=== PATIENT | male | born 1945 | race Caucasian/White ===

== ENCOUNTER 2020-01-28 07:16 | Outpatient (REF) | payer MEDICARE, SELFPAY ==
--- NOTE | 2020-01-28 07:30 | MR_ITS ---
EXAMINATION: CERVICAL SPINE MRI CLINICAL INFORMATION: Weakness and right hand numbness. Status post C3 C6 laminectomy. COMPARISON: Cervical spine radiographs 09/17/2019. TECHNIQUE: Multiplanar MR imaging of the cervical spine was performed without contrast. FINDINGS: There are chronic postoperative changes of a multilevel laminectomy and spinal fusion with a posterior hardware construct extending from C3 to C6. Slight anterolisthesis of C6 on C7 and C7 on T1 related to facet degenerative changes at these 2 levels. Slight retrolisthesis of C3 on C4 and C4 on C5 is also noted. Vertebral heights are preserved. No acute bone marrow signal changes. There is however fatty bone marrow signal intensity within the skull base and C1 through to C3 vertebra suggesting chronic post treatment effects related to radiation therapy. There is mild disc degeneration at multiple levels. There are short segments of chronic myelomalacia involving the cervical cord at the level of C4-C5 and C5-C6. Equivocal loss of cord volume at C3-C4 is also noted. Cord signal intensity is otherwise unremarkable. There is no canal compromise and no active cord compression. The cervicomedullary junction is normal. Limited visualization of the intracranial compartment reveals no abnormal finding. The occipital condyles and lateral C1 masses are intact. Atlantodental joint is normal. C1-C2 articular facets are unremarkable. At C2-C3 the annular contour is normal. No canal stenosis. No neuroforaminal encroachment. At C3-C4 the canal is decompressed. No neuroforaminal encroachment. At C4-C5 the canal is decompressed. Uncovertebral joint spurring and facet degenerative change causes moderate left and mild right residual neuroforaminal encroachment. At C5-C6 the canal is decompressed. Uncovertebral joint spurring and facet degenerative change causes moderate right and mild left residual neuroforaminal encroachment. At C6-C7 there is a pseudodisc bulge. Bilateral facet degenerative change. No canal stenosis. Uncovertebral joint spurring and facet degenerative change causes mild bilateral neuroforaminal encroachment. at C7-T1 there is a pseudodisc bulge. Bilateral facet degenerative change. No canal stenosis. No neuroforaminal encroachment. Visualized soft tissues of the neck are normal. IMPRESSION: There are chronic postoperative changes of a multilevel laminectomy and spinal fusion with a posterior hardware construct extending from C3 C6. There is no canal compromise and no active cord compression. Short segments of chronic myelomalacia involving the cervical cord at the level of C4-C5 and C5-C6 and there is equivocal loss of cord volume at C3-C4. Uncovertebral joint spurring and facet degenerative change causes mild bilateral neuroforaminal encroachment at C6-C7. Otherwise no substantial neuroforaminal encroachment within the unfused levels elsewhere within the cervical spine.
== END 2020-01-28 07:17 | disposition home or self-care (01) ==
LOC: HO.MRI 07:16
PROVIDERS: Visit Provider Family Medicine
DX: R53.1 Weakness (principal); R20.0 Anesthesia of skin; Z98.1 Arthrodesis status
CPT/HCPCS: 72141

== ENCOUNTER 2020-06-24 08:09 | Outpatient (REF) | payer MEDICARE, SELFPAY ==
[2020-06-24 09:51] LABS: Alanine Aminotransferase 24 U/L (0-40); Aspartate Amino Transferase 27 U/L (5-37); Cholesterol 138 mg/dL; Glucose Fasting 93 mg/dL (60-99); HDL Cholesterol 42 mg/dL; LDL Cholesterol Calculated 78 mg/dl; Triglycerides 91 mg/dL
== END 2020-06-24 08:10 | disposition home or self-care (01) ==
LOC: HO.10HDL 08:09
PROVIDERS: Absent Provider Internal Medicine Cardiovascular Disease; Visit Provider Family Medicine
DX: E78.00 Pure hypercholesterolemia, unspecified (principal); Z79.899 Other long term (current) drug therapy; Z83.3 Family history of diabetes mellitus
CPT/HCPCS: 36415; 80061; 82550; 82947; 84450; 84460

== ENCOUNTER → 2020-07-20 08:40 | Outpatient (BNVA) | payer MEDICARE, SELFPAY | PROVIDERS: PCP Internal Medicine; Visit Provider Internal Medicine Cardiovascular Disease | DX: I49.3 Ventricular premature depolarization (principal); R78.5 Finding of other psychotropic drug in blood; Z95.3 Presence of xenogenic heart valve; Z79.899 Other long term (current) drug therapy | CPT/HCPCS: 93005; 99212 ==

== ENCOUNTER → 2020-08-08 14:38 | Outpatient (BNVA) | payer MEDICARE, SELFPAY | PROVIDERS: Visit Provider Orthopaedic Surgery | DX: M75.102 Unspecified rotator cuff tear or rupture of left shoulder, not specified as traumatic (principal) | CPT/HCPCS: 20610; 99202; J1100 ==

== ENCOUNTER 2020-08-19 08:13 | Outpatient (REF) | payer MEDICARE, SELFPAY ==
--- NOTE | ~2020-08-19 | FL_ITS ---
EXAMINATION: XR FLUOROSCOPY UPPER GI WITH AIR CLINICAL INFORMATION: Dysphagia, early satiety. Patient reports history of dysmotility as well as difficulty swallowing large pills. Patient also reports recent history of surgery with new symptoms, potentially related to intubation. COMPARISON: Cervical spine MRI dated 01/28/[address] abdomen and pelvis dated 01/14/2018 TECHNIQUE: A double contrast examination of the esophagus, stomach, and duodenum was performed. Oral barium contrast material and effervescent granules were self-administered. Fluoroscopic evaluation was performed and multiple spot images were obtained. A 12.7 mm barium tablet was also administered. FLUOROSCOPY TIME: 2 minutes DOSE AREA PRODUCT: 15.27 Gy-cm2 (rico-centimeter squared) FINDINGS: Pharynx and cervical esophagus: Fusion hardware is present in the cervical spine from C3 through C6. Osteophytes do not produce significant mass effect upon the cervical esophagus. There is normal motility in the cervical spine without diverticula. A focal transient outpouching is present around the cricopharyngeus muscle at the proximal esophagus, most consistent with hypertrophy of the cricopharyngeus muscle. There is premature closure of the cricopharyngeus muscle prior to complete passage of the swallowed contrast bolus into the cervical esophagus. There is pooling of a small amount of contrast material in the valleculae or piriform sinuses. No masses are identified. Thoracic esophagus: There is diminished thoracic motility and swallowing with incomplete primary and secondary peristaltic contractions. Significant contrast material remained within the level of the cervical esophagus with swallows in the prone position with significantly diminished propulsion of the bolus into the stomach. A few nonpropulsive tertiary contractions were noted. There was no evidence of esophageal mass, ulceration, or stricture. No hiatal hernia was noted. A small amount of gastroesophageal reflux into the distal esophagus was evident with Valsalva maneuvers and spontaneously following movement on the table. Barium pill was noted to pass through the esophagus and into the lumen of the stomach without delay. Stomach and duodenum: Barium flows easily through a normal appearing stomach, duodenal bulb, and sweep without evidence of ulcer or inflammation. FL/FL upper GI w air IMPRESSION: 1. Diminished motility in the thoracic esophagus, suggesting a degree of dysmotility. No obstruction or stricture. 2. Slightly premature contraction of a thickened cricopharyngeus muscle with swallowing, suggesting a component of mild cervical achalasia (cricopharyngeal bar). No diverticula or stricture. 3. Trace gastroesophageal reflux.
== END 2020-08-19 08:14 | disposition home or self-care (01) ==
LOC: HO.XRAY 08:13
PROVIDERS: Visit Provider Internal Medicine
DX: R13.14 Dysphagia, pharyngoesophageal phase (principal); R68.81 Early satiety
CPT/HCPCS: 74246

== ENCOUNTER → 2020-10-13 08:06 | Outpatient (REF) | payer MEDICARE, SELFPAY ==
--- NOTE | 2020-10-13 08:08 | CA_ITS ---
Transthoracic Echocardiogram Patient (Last, First, Middle): Bakari Betancur S Gender: Male Date of : 1945 Age: 75 Procedure Date: 10/13/2020 Procedure Type: Transthoracic Echocardiogram Location: OP Height: 170.18 cm Weight: 65.77 kg BSA: 1.76 m2 Heart Rate: bpm BP: 110 / 65 mmHg [employer] Operator: ARABELLA Referring MD: Franklin Fuchs MD Symptoms: Z95.3 - Presence of xenogenic heart valve Study Quality: Technically Difficult ECG Rhythm: Sinus Conclusions: - The left ventricular systolic function is normal. The visually estimated ejection fraction is between 55-60%. - A bioprosthetic mitral valve is present. The prosthetic mitral valve appears to be functioning normally. Findings Left Ventricle Normal left ventricular cavity size. There is normal left ventricular wall thickness. The left ventricular systolic function is normal. The visually estimated ejection fraction is between 55-60%. The calculated ejection fraction is 58% by biplane method. Diastolic function is indeterminate on the basis of available data. Right Ventricle Normal right ventricular cavity size and systolic function. Atria Both atria are normal in size. Aortic Valve The aortic valve was not well visualized. There is no aortic valve stenosis. There is trace (trivial) aortic valve regurgitation. Mitral Valve A bioprosthetic mitral valve is present. The prosthetic mitral valve appears to be functioning normally. There is no mitral valve regurgitation. Mean gradient across the mitral valve 3mmHg at 62/min. Pulmonic Valve The pulmonic valve was not well visualized. Tricuspid Valve Normal tricuspid valve structure. There is trace tricuspid valve regurgitation. Tricuspid regurgitation envelope is inadequate for calculation of right ventricular systolic pressure. Great Vessels The aortic annulus, sinuses of valsalva, asc aorta, and aortic arch are normal in size. Venous The inferior vena cava is normal in size and collapses greater than 50% with inspiration. Pericardium/Pleural There is no evidence of pericardial effusion. Prior Study Comparison No significant change compared to prior study dated: 11/24/2019. Measurements M-Mode Liner Measurements Normals - Women/Men AOV Cusps: 1.60 1.5-2.6 cm/m2 2D Linear Measurements IVSd: 0.78 0.6-0.9/0.6-1.0 cm LVIDd: 3.18 3.9-5.3/4.2-5.9 cm LVIDd Index: 1.81 2.4-3.2/2.2-3.1 cm/m2 LVIDs: 2.15 2.0-3.6 cm LVPWd: 0.80 0.7-1.1 cm Ao Root: 3.00 2.1-3.5 cm LA Diam: 3.30 2.7-3.8/3.0-4.0 cm LAIDs Index: 1.88 1.5-2.3 cm/m2 LV Mass: 78.65 67-162/88-224 g LV Mass Index: 44.69 43-95/49-115 g/m2 LVOT Diam: 1.90 3.0+(-)1.3 cm 2D Systolic Function EF 4C: 55.70 >55% EF 2C: 61.60 >55% EF BiP: 58.20 >55% Mitral Valve MV Pk E: 1.33 MV PK A: 1.51 MV Decel Time: 327.00 E/A: 0.90 E'Lateral: 7.83 E'Medial: 5.77 E/E' Med: 23.10 E/E' Lat: 17.00 PHT: 96.00 MVA PHT: 2.29 Decel [place]: 4.08 Aortic Valve AoV Pk Keyon: 1.79 AoV Mn [place]: 1.38 AoV VTI: 0.42 AoV Pk Grad: 13.00 Aov Mn Grad: 8.00 DARSHANA Cont.VTI: 1.69 LVOT LVOT Pk [place]: 1.00 LVOT Mn [place]: 0.74 LVOT VTI: 0.25 LVOT Pk Grad: 4.00 LVOT Mn Grad: 2.00 LVOT Diam: 1.90 LVOT Area: 2.84 Diastolic Function MV Pk E: 1.33 MV Pk A: 1.51 E/A: 0.90 E'Medial: 5.77 E/E' Med: 23.10 E' Laterial: 7.83 E/E' Lat: 17.00 Tricuspid Valve RA Press: 3.00 Great Vessels Aorta Ao Root-2D: 3.00 2.0-3.7 cm Ao Asc: 3.00 2.1-3.4 cm Ao Arch: 2.10 Pulmonary Valve PV Pk Keyon: 0.81 Peak PV Grad: 3.00 Updated in Other Vendor System with Status of Final Ihsan Greenwood MD electronically signed on 10/14/2020 3:59:22 PM with status of Final
== END ==
LOC: HO.CARD 08:06
PROVIDERS: Visit Provider Internal Medicine Cardiovascular Disease
DX: Z95.3 Presence of xenogenic heart valve (principal)
CPT/HCPCS: 93306

== ENCOUNTER → 2020-11-22 08:30 | Outpatient (BNVA) | payer MEDICARE, SELFPAY | PROVIDERS: Referring Provider Internal Medicine; Visit Provider Internal Medicine Cardiovascular Disease | DX: I25.10 Atherosclerotic heart disease of native coronary artery without angina pectoris (principal); I49.3 Ventricular premature depolarization; Z95.3 Presence of xenogenic heart valve | CPT/HCPCS: 99212 ==

== ENCOUNTER 2020-11-29 08:46 | Outpatient (REF) | payer MEDICARE, SELFPAY ==
[2020-11-29 10:36] LABS: Alanine Aminotransferase 18 U/L (0-40); Aspartate Amino Transferase 27 U/L (5-37); Cholesterol 127 mg/dL; Glucose Fasting 94 mg/dL (60-99); HDL Cholesterol 45 mg/dL; LDL Cholesterol Calculated 70 mg/dl; Triglycerides 60 mg/dL
== END 2020-11-29 08:47 | disposition home or self-care (01) ==
LOC: HO.LAB 08:46
PROVIDERS: PCP Internal Medicine; Visit Provider Family Medicine
DX: E78.00 Pure hypercholesterolemia, unspecified (principal); Z79.899 Other long term (current) drug therapy; Z83.3 Family history of diabetes mellitus
CPT/HCPCS: 36415; 80061; 82550; 82947; 84450; 84460

== ENCOUNTER 2021-04-07 08:04 | Outpatient (REF) | payer MEDICARE, SELFPAY ==
[2021-04-07 08:49] LABS: Influenza A PCR NEGATIVE (Negative); Influenza B PCR NEGATIVE (Negative); Resp Syncy Virus RNA Qual PCR NEGATIVE (Negative); SARS COV2 PCR INHOUSE NEGATIVE (Negative)
== END 2021-04-07 08:05 | disposition home or self-care (01) ==
LOC: HO.LAB 08:04
PROVIDERS: Visit Provider Internal Medicine
DX: Z20.822 Contact with and (suspected) exposure to COVID-19 (principal)
CPT/HCPCS: 0241U; 36415; C9803

== ENCOUNTER 2021-07-07 08:18 | Outpatient (REF) | payer MEDICARE, SELFPAY ==
[2021-07-07 08:48] LABS: COVID-19 Test Negative (Negative); IDNOW Serial# 16C4AD1C
== END 2021-07-07 08:19 | disposition home or self-care (01) ==
LOC: HO.LAB 08:18
PROVIDERS: Visit Provider Internal Medicine
DX: Z20.822 Contact with and (suspected) exposure to COVID-19 (principal)
CPT/HCPCS: 87635; C9803

== ENCOUNTER 2021-08-15 09:38 | Outpatient (REF) | payer MEDICARE, SELFPAY ==
[2021-08-15 10:07] LABS: COVID-19 Test Negative (Negative); IDNOW Serial# 08D9AD1C
== END 2021-08-15 09:39 | disposition home or self-care (01) ==
LOC: HO.LAB 09:38
PROVIDERS: Visit Provider Internal Medicine
DX: Z20.822 Contact with and (suspected) exposure to COVID-19 (principal)
CPT/HCPCS: 87635; C9803

== ENCOUNTER 2021-09-04 08:55 | Outpatient (REF) | payer MEDICARE, SELFPAY ==
[2021-09-04 09:28] LABS: COVID-19 Test Negative (Negative); IDNOW Serial# 16C4AD1C
== END 2021-09-04 08:56 | disposition home or self-care (01) ==
LOC: HO.LAB 08:55
PROVIDERS: Visit Provider Internal Medicine
DX: Z20.822 Contact with and (suspected) exposure to COVID-19 (principal)
CPT/HCPCS: 87635; C9803

== ENCOUNTER → 2021-11-13 08:21 | Outpatient (REF) | payer MEDICARE, SELFPAY ==
--- NOTE | 2021-11-13 08:25 | CA_ITS ---
Transthoracic Echocardiogram Patient (Last, First, Middle): Bakari Betancur S Gender: Male Date of : 1945 Age: 76 Procedure Date: 11/13/2021 Procedure Type: Transthoracic Echocardiogram Location: OP Height: 170.18 cm Weight: 65.77 kg BSA: 1.76 m2 Heart Rate: bpm BP: 124 / 60 mmHg Life Insurance Underwriter: Referring MD: Franklin Fuchs MD Waiter/Waitress Club: Franklin Fuchs MD Symptoms: Z95.3 - Presence of xenogenic heart valve Study Quality: Fair ECG Rhythm: Sinus Conclusions: - 1. Normal LV systolic function with impaired relaxation filling pattern next 2. Normally function bioprosthetic mitral valve 3. Trivial aortic regurgitation 4. Normal RV systolic pressure 5. No gross pericardial effusion Findings Left Ventricle Normal left ventricular size, thickness, and systolic function. The visually estimated ejection fraction is between 65-70%. Spectral Doppler is indicative of an impaired relaxation filling pattern. Right Ventricle Normal right ventricular cavity size and systolic function. Atria The left atrium is normal in size. There is lipomatous hypertrophy of the interatrial septum. There is no evidence of interatrial shunt. The right atrium is normal in size. Aortic Valve The aortic valve was not well visualized. There is no aortic valve stenosis. There is trace (trivial) aortic valve regurgitation. Mitral Valve A bioprosthetic mitral valve is present. The prosthetic mitral valve appears to be functioning normally. Pulmonic Valve The pulmonic valve was not well visualized. Tricuspid Valve Likely normal tricuspid valve structure and function. There is trace tricuspid valve regurgitation. The right ventricular systolic pressure is normal. The right ventricular systolic pressure is 19 mmHg. There is no evidence of pulmonary hypertension. Great Vessels All visible segments of the aorta are normal in size. The pulmonary artery was not well visualized. Venous The inferior vena cava is normal in size and collapses greater than 50% with inspiration. Pericardium/Pleural There is no evidence of pericardial effusion. Prior Study Comparison No significant change compared to prior study dated: 10/13/2020. Measurements 2D Linear Measurements IVSd: 0.92 0.6-0.9/0.6-1.0 cm LVIDd: 3.19 3.9-5.3/4.2-5.9 cm LVIDd Index: 1.81 2.4-3.2/2.2-3.1 cm/m2 LVIDs: 1.89 2.0-3.6 cm LVPWd: 0.92 0.7-1.1 cm Ao Root: 2.30 2.1-3.5 cm LA Diam: 3.40 2.7-3.8/3.0-4.0 cm LAIDs Index: 1.93 1.5-2.3 cm/m2 LV Mass: 98.44 67-162/88-224 g LV Mass Index: 55.93 43-95/49-115 g/m2 LVOT Diam: 2.00 3.0+(-)1.3 cm 2D Systolic Function EF 4C: 75.30 >55% EF 2C: 66.50 >55% EF BiP: 70.90 >55% Mitral Valve MV VTI: 0.51 MV Pk Keyon: 1.58 MV Mn Keyon: 0.93 MV Pk Grad: 10.00 MV Mn Grad: 4.00 MV Pk E: 1.18 MV PK A: 1.41 MV Decel Time: 331.00 E/A: 0.80 E'Lateral: 7.62 E'Medial: 4.90 E/E' Med: 24.10 E/E' Lat: 15.50 PHT: 97.00 MVA PHT: 2.27 MVA Continuity: 2.30 Decel [place]: 3.57 Aortic Valve AoV Pk Keyon: 1.75 AoV Mn [place]: 1.16 AoV VTI: 0.43 AoV Pk Grad: 12.00 Aov Mn Grad: 6.00 DARSHANA Cont.VTI: 2.73 LVOT LVOT Pk [place]on: 1.43 LVOT Mn [place]: 1.10 LVOT VTI: 0.37 LVOT Pk Grad: 8.00 LVOT Mn Grad: 5.00 LVOT Diam: 2.00 LVOT Area: 3.14 Diastolic Function MV Pk E: 1.18 MV Pk A: 1.41 E/A: 0.80 E'Medial: 4.90 E/E' Med: 24.10 E' Laterial: 7.62 E/E' Lat: 15.50 Tricuspid Valve TR Pk Keyon: 1.97 TR Pk Grad: 16.00 RA Press: 3.00 RVSP: 19.00 Great Vessels Aorta Ao Root-2D: 2.30 2.0-3.7 cm Ao Asc: 3.30 2.1-3.4 cm Pulmonary Valve PV Pk Keyon: 0.72 Peak PV Grad: 2.00 Updated in Other Vendor System with Status of Final Franklin Fuchs MD electronically signed on 11/13/2021 11:00:15 AM with status of Final
== END ==
LOC: HO.CARD 08:21
PROVIDERS: Visit Provider Internal Medicine Cardiovascular Disease
DX: Z95.3 Presence of xenogenic heart valve (principal)
CPT/HCPCS: 93306

== ENCOUNTER 2021-11-24 08:14 | Outpatient (REF) | payer MEDICARE, SELFPAY ==
[2021-11-24 08:39] LABS: COVID-19 Test Negative (Negative); IDNOW Serial# 16C4AD1C
== END 2021-11-24 08:15 | disposition home or self-care (01) ==
LOC: HO.LAB 08:14
PROVIDERS: Visit Provider Internal Medicine
DX: Z20.822 Contact with and (suspected) exposure to COVID-19 (principal)
CPT/HCPCS: 87635; C9803

== ENCOUNTER 2021-12-08 08:03 | Outpatient (REF) | payer MEDICARE, SELFPAY ==
[2021-12-08 08:39] LABS: COVID-19 Test Negative (Negative)
== END 2021-12-08 08:04 | disposition home or self-care (01) ==
LOC: HO.LAB 08:03
PROVIDERS: Visit Provider Internal Medicine
DX: Z20.822 Contact with and (suspected) exposure to COVID-19 (principal)
CPT/HCPCS: 87635; C9803

== ENCOUNTER 2022-01-05 08:20 | Outpatient (REF) | payer MEDICARE, SELFPAY ==
[2022-01-05 08:52] LABS: COVID-19 Test Negative (Negative); IDNOW Serial# 16C4AD1C
== END 2022-01-05 08:21 | disposition home or self-care (01) ==
LOC: HO.LAB 08:20
PROVIDERS: Visit Provider Internal Medicine
DX: Z20.822 Contact with and (suspected) exposure to COVID-19 (principal)
CPT/HCPCS: 87635; C9803

== ENCOUNTER 2022-01-11 08:19 | Outpatient (REF) | payer MEDICARE, SELFPAY ==
[2022-01-11 08:49] LABS: COVID-19 Test Negative (Negative)
== END 2022-01-11 08:20 | disposition home or self-care (01) ==
LOC: HO.LAB 08:19
PROVIDERS: Visit Provider Internal Medicine
DX: Z20.822 Contact with and (suspected) exposure to COVID-19 (principal)
CPT/HCPCS: 87635; C9803

== ENCOUNTER 2022-01-12 08:34 | Outpatient (REF) | payer MEDICARE, SELFPAY ==
[2022-01-12 10:47] LABS: MANUAL DIFF FLAG NO
[2022-01-12 11:04] LABS: Basophils Absolute Auto 0.1 X10*3/uL (0.0-0.2); Basophils Percent Auto 0.8 % (0-2); Eosinophils Absolute Auto 0.1 X10*3/uL (0.0-0.4); Eosinophils Percent Auto 2.3 % (0-4); Hematocrit 44.9 % (42.0-52.0); Hemoglobin 14.7 g/dl (14.0-18.0); Imm Gran Abs Auto 0.02 X10*3/uL (0.00-0.03); Imm Gran Pct Auto 0.3 % (0.0-0.4); Lymphocytes Absolute Auto 1.3 X10*3/uL (1.2-4.9); Lymphocytes Percent Auto 20.8 % (20-40); Mean Corpuscular HGB Conc 32.7 g/dl (31.0-36.0); Mean Corpuscular Hemoglobin 28.5 pg (27.0-33.0); Mean Platelet Volume 11.5 fL (9.4-12.4); Monocytes Absolute Auto 0.6 X10*3/uL (0.1-1.2); Monocytes Percent Auto 10.1 % (2-11); Neutrophils Percent Auto 65.7 % (45-73); Platelet Count 192 X10*3/uL (160-400); Red Blood Count 5.16 X10*6/uL (4.60-5.80); Red Cell Distribution Width 13.4 % (11.0-16.0); White Blood Count 6.1 X10*3/uL (4.8-10.8)
[2022-01-12 11:20] LABS: Alanine Aminotransferase 27 U/L (0-40); Albumin Level 4.3 g/dL (3.5-5.0); Alkaline Phosphatase 88 U/L (39-117); Anion Gap 14 (12-20); Aspartate Amino Transferase 26 U/L (5-37); Bilirubin Total 0.2 mg/dL (0.0-1.0); Blood Urea Nitrogen 17 mg/dL (9-16); Calcium 9.3 mg/dL (8.4-10.2); Carbon Dioxide 29 mmol/L (22-29); Chloride 99 mmol/L (96-108); Estimated Glomerular Filt Rate > 60; Glucose Fasting 91 mg/dL (60-99); Potassium 5.1 mmol/L (3.3-5.1); Sodium 137 mmol/L (135-145); Total Protein 6.8 g/dL (6.5-8.0)
[2022-01-12 11:44] LABS: Erythrocyte Sedimentation Rate 2 MM/HR (0-15)
== END 2022-01-12 08:35 | disposition home or self-care (01) ==
LOC: HO.10HDL 08:34
PROVIDERS: Visit Provider Family Medicine
DX: R63.4 Abnormal weight loss (principal); E78.00 Pure hypercholesterolemia, unspecified; Z79.899 Other long term (current) drug therapy
CPT/HCPCS: 36415; 80053; 82378; 82550; 85025; 85652

== ENCOUNTER 2022-02-15 07:55 | Outpatient (REF) | payer MEDICARE, SELFPAY ==
[2022-02-15 08:51] LABS: COVID-19 Test Negative (Negative)
== END 2022-02-15 07:56 | disposition home or self-care (01) ==
LOC: HO.LAB 07:55
PROVIDERS: Visit Provider Internal Medicine
DX: Z20.822 Contact with and (suspected) exposure to COVID-19 (principal)
CPT/HCPCS: 87635; C9803

== ENCOUNTER → 2022-02-22 15:26 | Outpatient (BNVA) | payer MEDICARE, SELFPAY | PROVIDERS: PCP Internal Medicine; Visit Provider Internal Medicine Cardiovascular Disease | DX: I25.10 Atherosclerotic heart disease of native coronary artery without angina pectoris (principal); Z95.3 Presence of xenogenic heart valve; Z79.82 Long term (current) use of aspirin; Z79.899 Other long term (current) drug therapy | CPT/HCPCS: 93005; 99212 ==

== ENCOUNTER 2022-05-14 08:57 | Outpatient (REF) | payer MEDICARE, SELFPAY ==
[2022-05-14 10:31] LABS: MANUAL DIFF FLAG NO
[2022-05-14 10:44] LABS: Basophils Absolute Auto 0.1 X10*3/uL (0.0-0.2); Basophils Percent Auto 1.3 % (0-2); Eosinophils Absolute Auto 0.1 X10*3/uL (0.0-0.4); Eosinophils Percent Auto 2.3 % (0-4); Hemoglobin 14.6 g/dl (14.0-18.0); Imm Gran Abs Auto 0.02 X10*3/uL (0.00-0.03); Imm Gran Pct Auto 0.3 % (0.0-0.4); Lymphocytes Absolute Auto 1.5 X10*3/uL (1.2-4.9); Lymphocytes Percent Auto 24.2 % (20-40); Mean Corpuscular HGB Conc 32.4 g/dl (31.0-36.0); Mean Corpuscular Hemoglobin 28.6 pg (27.0-33.0); Mean Corpuscular Volume 88.2 fL (80.0-98.0); Mean Platelet Volume 11.4 fL (9.4-12.4); Monocytes Absolute Auto 0.6 X10*3/uL (0.1-1.2); Monocytes Percent Auto 9.2 % (2-11); Neutrophils Absolute Auto 3.8 x10*3/uL (2.0-8.3); Neutrophils Percent Auto 62.7 % (45-73); Platelet Count 212 X10*3/uL (160-400); Red Cell Distribution Width 13.4 % (11.0-16.0)
[2022-05-14 11:00] LABS: Alanine Aminotransferase 23 U/L (0-40); Aspartate Amino Transferase 26 U/L (5-37); Cholesterol 120 mg/dL; Glucose Fasting 83 mg/dL (60-99); HDL Cholesterol 46 mg/dL; LDL Cholesterol Calculated 62 mg/dl; Triglycerides 63 mg/dL
[2022-05-14 11:16] LABS: Ferritin 124 ng/mL (20-250); Prostate Specific Antigen 0.78 ng/mL (<0.05-4.0)
[2022-05-14 11:33] LABS: Erythrocyte Sedimentation Rate 2 MM/HR (0-15)
== END 2022-05-14 08:58 | disposition home or self-care (01) ==
LOC: HO.10HDL 08:57
PROVIDERS: Visit Provider Family Medicine
DX: Z12.5 Encounter for screening for malignant neoplasm of prostate (principal); E78.00 Pure hypercholesterolemia, unspecified; N40.0 Benign prostatic hyperplasia without lower urinary tract symptoms; R63.4 Abnormal weight loss; Z79.899 Other long term (current) drug therapy
CPT/HCPCS: 36415; 80061; 82378; 82550; 82728; 82947; 84153; 84450; 84460; 85025; 85652

== ENCOUNTER 2022-06-11 10:39 | Outpatient (REF) | payer MEDICARE, SELFPAY ==
[2022-06-11 11:05] LABS: COVID-19 Test Positive (Negative); IDNOW Serial# 16C4AD1C
== END 2022-06-11 10:40 | disposition home or self-care (01) ==
LOC: HO.LAB 10:39
PROVIDERS: Visit Provider Internal Medicine
DX: Z20.822 Contact with and (suspected) exposure to COVID-19 (principal)
CPT/HCPCS: 87635; C9803

== ENCOUNTER → 2023-01-29 07:47 | Outpatient (REF) | payer MEDICARE, SELFPAY ==
--- NOTE | 2023-01-29 07:53 | CA_ITS ---
Transthoracic Echocardiogram Patient (Last, First, Middle): Bakari Betancur S Gender: Male Date of : 1945 Age: 77 Procedure Date: 01/29/2023 Procedure Type: Transthoracic Echocardiogram Location: OP Height: 170.18 cm Weight: 63.96 kg BSA: 1.74 m2 Heart Rate: bpm BP: 110 / 70 mmHg Driver/Refuse Collector: TO Referring MD: Franklin Fuchs MD Symptoms: Z95.3 - Presence of xenogenic heart valve Study Quality: Fair Conclusions: - The left ventricular systolic function is normal. The visually estimated ejection fraction is between 60-65%. - A bioprosthetic mitral valve is present. The prosthetic mitral valve appears to be functioning normally. Findings Left Ventricle Normal left ventricular cavity size. There is mildly increased left ventricular wall thickness. The left ventricular systolic function is normal. The visually estimated ejection fraction is between 60-65%. There is no evidence of regional wall motion abnormalities. Evidence suggests grade I (mild) diastolic dysfunction. There is moderate septal and moderate basal asymmetric hypertrophy. LV peak GLS -18.2%. Right Ventricle Mildly increased right ventricular cavity size. There is mildly decreased right ventricular systolic function. Atria The left atrium is normal in size. The right atrium is mildly dilated. Aortic Valve There is mild calcification of the aortic valve. There is no aortic valve stenosis. Trace to mild aortic regurgitation. Mitral Valve A bioprosthetic mitral valve is present. The prosthetic mitral valve appears to be functioning normally. There is no mitral valve regurgitation. Pulmonic Valve The pulmonic valve was not well visualized. Tricuspid Valve Normal tricuspid valve structure. There is trace tricuspid valve regurgitation. There is no evidence of pulmonary hypertension. Great Vessels The asc aorta is normal in size. Venous The inferior vena cava is normal in size and collapses greater than 50% with inspiration. Pericardium/Pleural There is no evidence of pericardial effusion. Prior Study Comparison No significant change compared to prior study dated: 11/13/2021. Measurements 2D Linear Measurements IVSd: 1.40 0.6-0.9/0.6-1.0 cm LVIDd: 2.40 3.9-5.3/4.2-5.9 cm LVIDd Index: 1.38 2.4-3.2/2.2-3.1 cm/m2 LVIDs: 1.60 2.0-3.6 cm LVPWd: 1.20 0.7-1.1 cm LA Diam: 3.50 2.7-3.8/3.0-4.0 cm LAIDs Index: 2.01 1.5-2.3 cm/m2 LV Mass: 115.62 67-162/88-224 g LV Mass Index: 66.45 43-95/49-115 g/m2 LVOT Diam: 2.00 3.0+(-)1.3 cm 2D Systolic Function EF 4C: 67.80 >55% Mitral Valve MV VTI: 0.51 MV Pk Keyon: 1.78 MV Mn Keyon: 1.14 MV Pk Grad: 13.00 MV Mn Grad: 6.00 MV Pk E: 1.39 MV PK A: 1.52 MV Decel Time: 327.00 E/A: 0.90 E'Lateral: 6.64 E'Medial: 4.57 E/E' Med: 30.40 E/E' Lat: 20.90 PHT: 96.00 MVA PHT: 2.29 MVA Continuity: 2.29 Decel [place]: 4.26 Aortic Valve AoV Pk Keyon: 1.32 AoV Mn Keyon: 0.88 AoV VTI: 0.30 AoV Pk Grad: 7.00 Aov Mn Grad: 4.00 DARSHANA Cont.VTI: 3.93 LVOT LVOT Pk Keyon: 1.39 LVOT Mn Keyon: 1.02 LVOT VTI: 0.37 LVOT Pk Grad: 8.00 LVOT Mn Grad: 5.00 LVOT Diam: 2.00 LVOT Area: 3.14 Diastolic Function MV Pk E: 1.39 MV Pk A: 1.52 E/A: 0.90 E'Medial: 4.57 E/E' Med: 30.40 E' Laterial: 6.64 E/E' Lat: 20.90 Right Ventricle TAPSE (mm): 22.00 TVS' Keyon: 8.19 Tricuspid Valve TR Pk Keyon: 1.64 TR Pk Grad: 11.00 RA Press: 3.00 RVSP: 14.00 Great Vessels Aorta Sinus of Valsalva: 3.20 2.0-3.5 cm Ao Asc: 3.20 2.1-3.4 cm Updated in Other Vendor System with Status of Final Ihsan Greenwood MD electronically signed on 01/30/2023 12:00:26 PM with status of Final
== END ==
LOC: HO.CARD 07:47
PROVIDERS: PCP Internal Medicine; Visit Provider Internal Medicine Cardiovascular Disease
DX: Z95.3 Presence of xenogenic heart valve (principal)
CPT/HCPCS: 93306; 93356

== ENCOUNTER → 2023-01-29 07:53 | Outpatient (BNV) | payer MEDICARE, SELFPAY | PROVIDERS: PCP Internal Medicine; Visit Provider Internal Medicine | DX: I35.1 Nonrheumatic aortic (valve) insufficiency (principal); Z95.3 Presence of xenogenic heart valve | CPT/HCPCS: 93306 ==

== ENCOUNTER 2023-02-21 15:26 | Outpatient (AMB) | payer MEDICARE, SELFPAY ==
--- NOTE | 2023-02-21 15:30 | A.OFFVIS_ITS ---
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 Machine Operator Required: No Allergies lactose [LACTOSE] Adverse Reaction (Unknown, Verified 11/22/20 08:36) DIARRHEA onion [Onion] Adverse Reaction (Unknown, Verified 11/22/20 08:36) DIARRHEA WITH RAW ONIONS Medication List - Last Reconciled 02/21/23 by Franklin Fuchs MD ascorbate calcium (vitamin C) 2 grams PO DAILY aspirin (Adult Low Dose Aspirin) 81 mg PO DAILY atorvastatin 20 mg PO DAILY coenzyme Q10 100 mg PO DAILY docusate sodium (Colace) 100 mg PO DAILY gabapentin 600 mg PO BEDTIME magnesium 250 mg PO DAILY metoprolol succinate ER 100 mg PO DAILY HPI HPI Comments History of Present Illness Details Jj comes for follow-up. he has been doing extremely well. He has been exercise regularly and denies any exertional symptoms of chest pain or shortness of breath. Denies symptoms of palpitation associated with PVCs. His recent echocardiogram shows normally function bioprosthetic mitral valve. He is taking antibiotics as need be. FOR[facility], [facility] Medical History CAD (coronary artery disease) Hyperlipidemia Mitral valve prolapse Postoperative atrial fibrillation PVCs (premature ventricular contractions) Surgical History History of mitral valve replacement with bioprosthetic valve History of varicocele Hx of cardiac cath Family History Father No problems noted. Mother No problems noted. Social History Patient Tobacco Use Status: Never used Tobacco Advance Directives Date on File: 02/03/20 Review of Systems Const Denies chills, Denies fatigue, Denies fever(s), Denies frequent falls, Denies weakness, Denies weight gain and Denies weight loss ENT Denies dizziness Card Denies chest pain, Denies leg edema, Denies lightheadedness, Denies palpitations, Denies dyspnea, Denies dyspnea on exertion, Denies orthopnea and Denies other (loss of consciousness) Resp Denies cough, Denies dyspnea and Denies dyspnea on exertion GI Denies hematochezia and Denies change in stool character Musc Denies abnormal gait, Denies muscle weakness, Denies numbness, Denies radiating pain into limb and Denies tingling Neuro Denies abnormal gait, Denies dizziness, Denies frequent falls, Denies numbness, Denies tingling and Denies weakness Endo Denies fatigue and Denies palpitations Physical Exam Vital Signs: Last Vital Signs Pulse 66 02/21/23 15:31 BP 112/72 02/21/23 15:31 BMI result Body Mass Index 21.1 Const General: cooperative, comfortable, no acute distress, alert, awake and well groomed Nutritional Appearance: thin Orientation/consciousness: patient oriented x3 Limitations: no limitations Neck Neck: Yes trachea midline, Yes supple and Yes no JVD Resp Effort & Inspection: normal respiratory effort Auscultation: clear to auscultation bilaterally Cardio Jugular venous distension: no JVD Palpation: normal PMI Rate: regular rate Rhythm: regular rhythm Heart sounds: S1 normal heart sound present, S2 normal heart sound present, no click, no gallops, no murmurs and no rubs GI Auscultation: normal bowel sounds Skin General skin exam: no rashes or lesions noted Neuro General: patient oriented x3 and no focal motor deficits Extrem General: Yes no clubbing, cyanosis or edema Psych Appearance: grossly normal Office Procedures EKG Details: EKG shows normal sinus rhythm with poor R-wave progression from V1 to V3 most likely due to body habitus. No acute ST T wave changes [id number], Complete Assessment & Plan Assessment & Plan (1) History of mitral valve replacement with bioprosthetic valve: Comment: 27 mm Hawley bovine pericardial valve, September 2019 for symptomatic mitral regurgitation Code(s): Z95.3 - Presence of xenogenic heart valve Plan: bioprosthetic mitral valve replacement for severe mitral regurgitation and mitral valve prolapse. Doing very well from cardiac perspective. Recent echocardiogram shows normal function of the bioprosthetic valve. Continue low does aspirin therapy. Continue SBE prophylaxis as per ACC/ aha guidelines. Follow-up echocardiogram in 1 year's time. (2) PVCs (premature ventricular contractions): Code(s): I49.3 - Ventricular premature depolarization Plan: Symptomatic PVCs in the past which have remained suppressed on metoprolol therapy doing well with the same. Avoidance of stimulants was discussed. Stress mitigation strategies were discussed. No change in therapy otherwise. Thank you for allowing me to partake in his care. Will follow-up in 1 year's time Coding Level of Care Code Est Pt Level 4 (97222) Diagnoses History of mitral valve replacement with bioprosthetic valve Z95.3 PVCs (premature ventricular contractions) I49.3 CPT Codes EKG - CPT: 48783-[id number], Complete ([id number])
[2023-02-21 15:31] VITALS: BP 112/72; PULSE 66; BMI 21.1
== END 2023-02-21 15:55 | disposition home or self-care (01) ==
PROVIDERS: Visit Provider Internal Medicine Cardiovascular Disease
DX: Z95.3 Presence of xenogenic heart valve (principal); I49.3 Ventricular premature depolarization
CPT/HCPCS: 93010; 99214

== ENCOUNTER → 2023-02-21 15:26 | Outpatient (BNVA) | payer MEDICARE, SELFPAY | PROVIDERS: Visit Provider Internal Medicine Cardiovascular Disease | DX: I34.1 Nonrheumatic mitral (valve) prolapse (principal); I25.10 Atherosclerotic heart disease of native coronary artery without angina pectoris; I10 Essential (primary) hypertension; I49.3 Ventricular premature depolarization; Z95.3 Presence of xenogenic heart valve; Z98.890 Other specified postprocedural states | CPT/HCPCS: 93005; 99212 ==

== ENCOUNTER 2023-02-25 08:39 | Outpatient (REF) | payer MEDICARE, SELFPAY ==
[2023-02-25 11:05] LABS: MANUAL DIFF FLAG NO
[2023-02-25 11:07] LABS: Basophils Absolute Auto 0.1 X10*3/uL (0.0-0.2); Basophils Percent Auto 1.2 % (0-2); Eosinophils Absolute Auto 0.1 X10*3/uL (0.0-0.4); Eosinophils Percent Auto 2.5 % (0-4); Hemoglobin 15.5 g/dl (14.0-18.0); Imm Gran Abs Auto 0.02 X10*3/uL (0.00-0.03); Imm Gran Pct Auto 0.4 % (0.0-0.4); Lymphocytes Absolute Auto 1.3 X10*3/uL (1.2-4.9); Lymphocytes Percent Auto 24.9 % (20-40); Mean Corpuscular Hemoglobin 28.6 pg (27.0-33.0); Mean Corpuscular Volume 86.7 fL (80.0-98.0); Mean Platelet Volume 11.3 fL (9.4-12.4); Monocytes Absolute Auto 0.5 X10*3/uL (0.1-1.2); Monocytes Percent Auto 8.9 % (2-11); Neutrophils Absolute Auto 3.2 x10*3/uL (2.0-8.3); Neutrophils Percent Auto 62.1 % (45-73); Platelet Count 234 X10*3/uL (160-400); Red Blood Count 5.42 X10*6/uL (4.60-5.80); Red Cell Distribution Width 13.7 % (11.0-16.0); White Blood Count 5.2 X10*3/uL (4.8-10.8)
[2023-02-25 11:25] LABS: Alanine Aminotransferase 38 U/L (0-40); Albumin Level 4.3 g/dL (3.5-5.0); Alkaline Phosphatase 83 U/L (39-117); Anion Gap 14 (12-20); Aspartate Amino Transferase 37 U/L (5-37); Bilirubin Total 0.6 mg/dL (0.0-1.0); Blood Urea Nitrogen 16 mg/dL (9-16); Calcium 9.4 mg/dL (8.4-10.2); Carbon Dioxide 26 mmol/L (22-29); Chloride 102 mmol/L (96-108); Estimated Glomerular Filt Rate > 60; Glucose Fasting 93 mg/dL (60-99); Potassium 4.8 mmol/L (3.3-5.1); Sodium 137 mmol/L (135-145); Total Protein 7.3 g/dL (6.5-8.0)
[2023-02-25 11:46] LABS: Erythrocyte Sedimentation Rate 1 MM/HR (0-15)
== END 2023-02-25 08:40 | disposition home or self-care (01) ==
LOC: HO.10HDL 08:39
PROVIDERS: Visit Provider Family Medicine
DX: R63.4 Abnormal weight loss (principal); E78.00 Pure hypercholesterolemia, unspecified; Z79.899 Other long term (current) drug therapy
CPT/HCPCS: 36415; 80053; 82550; 85025; 85652

== ENCOUNTER → 2023-07-31 08:04 | Outpatient (REF) | payer MEDICARE, SELFPAY | LOC: HO.SL 08:04 | PROVIDERS: PCP Internal Medicine; Visit Provider Family Medicine | DX: G47.33 Obstructive sleep apnea (adult) (pediatric) (principal); R06.83 Snoring | CPT/HCPCS: 95806 ==

== ENCOUNTER → 2023-07-31 19:00 | Outpatient (BNV) | payer MEDICARE, SELFPAY | PROVIDERS: PCP Internal Medicine; Visit Provider Internal Medicine | DX: G47.33 Obstructive sleep apnea (adult) (pediatric) (principal) | CPT/HCPCS: 95806 ==

== ENCOUNTER 2023-08-01 08:05 | Outpatient (REF) | payer MEDICARE, SELFPAY ==
[2023-08-01 09:17] LABS: Blood Urea Nitrogen 17 mg/dL (9-16); Estimated Glomerular Filt Rate > 60
[2023-08-01 09:34] LABS: Vitamin D 25-OH Total 24.2 ng/mL (>30)
[2023-08-02 17:47] LABS: Homocysteine 14.8 umol/L (<11.4)
[2023-08-05 08:28] LABS: Methylmalonic Acid 170 nmol/L (87-318)
== END 2023-08-01 08:06 | disposition home or self-care (01) ==
LOC: HO.LAB 08:05
PROVIDERS: Visit Provider Family Medicine
DX: G62.9 Polyneuropathy, unspecified (principal); R27.0 Ataxia, unspecified
CPT/HCPCS: 36415; 82306; 82565; 83090; 83921; 84520

== ENCOUNTER 2023-08-29 15:05 | Outpatient (REF) | payer MEDICARE, SELFPAY ==
--- NOTE | ~2023-08-29 | MR_ITS ---
EXAMINATION: MR BRAIN WITHOUT AND WITH CONTRAST CLINICAL INFORMATION: Peripheral neuropathy and ataxia. Assess for lesion. COMPARISON: There are no prior studies available for comparison. TECHNIQUE: Multiplanar, multisequence MRI of the brain was obtained before and after the intravenous administration of 6.5 mL Gadavist. FINDINGS: No diffusion abnormalities are identified to suggest an acute or subacute infarct. No mass effect or midline shift is seen. There is commensurate prominence of the ventricles and sulci consistent with diffuse volume loss. There are a few scattered foci of hyperintense T2 and FLAIR signal in the periventricular and subcortical white matter, most consistent with mild chronic microvascular ischemic changes. Small areas of increased signal are seen in the medial cerebellar hemispheres bilaterally. No extra-axial fluid collections are seen. The brainstem appears normal. On postcontrast imaging, there is no abnormal parenchymal or leptomeningeal enhancement. There are punctate foci of low gradient signal in the left subcortical parietal region. There is no evidence of acute hemorrhage. The cerebellar tonsils have normal contour and position, and the craniocervical junction appears normal. Marrow signal and midline structures are normal. The major intracranial flow-voids at the level of the makah of [place] are preserved. The dural venous sinus flow-voids are maintained. The mastoid air cells are well-aerated. There is mild mucoperiosteal thickening in the anterior ethmoid air cells bilaterally. MR/MR head/brain wo/w con IMPRESSION: 1. There are no acute bleeds or territorial infarcts. No masses are demonstrated. There is no abnormal enhancement. 2. There are chronic microvascular ischemic changes and there is diffuse volume loss.
[2023-08-29] MEDS: gadobutroL 7.5 ML VIAL IVPUSH (16:11)
== END 2023-08-29 15:06 | disposition home or self-care (01) ==
LOC: HO.MRI 15:05
PROVIDERS: PCP Internal Medicine; Visit Provider Family Medicine
DX: R51.9 Headache, unspecified (principal); G11.19 Other early-onset cerebellar ataxia; G90.09 Other idiopathic peripheral autonomic neuropathy
CPT/HCPCS: 70553; A9585

== ENCOUNTER 2023-10-17 13:21 | Outpatient (AMB) | payer MEDICARE, SELFPAY ==
--- NOTE | 2023-10-17 13:22 | A.OFFVIS_ITS ---
Intake Visit Reasons: INP-URIEL Allergies lactose [LACTOSE] Adverse Reaction (Unknown, Verified 11/22/20 08:36) DIARRHEA onion [Onion] Adverse Reaction (Unknown, Verified 11/22/20 08:36) DIARRHEA WITH RAW ONIONS HPI Comments Details: 78y/o male call for sleep evaluation. He reports snoring some daytime sleepiness, frequent arousals. He had a home sleep test which was c/w moderate degree of sleep apnea. AHI was 14/hr and oxygen harlan was72%, supine AHI was 22. He denies any vivid dreams , any abnormal leg movements. [facility] Medical History (Updated 10/17/23 @ 13:31 by Mattie Whitfield MD) Obstructive sleep apnea hypopnea, moderate CAD (coronary artery disease) Mitral valve prolapse Hyperlipidemia PVCs (premature ventricular contractions) Postoperative atrial fibrillation Surgical History History of mitral valve replacement with bioprosthetic valve History of varicocele Hx of cardiac cath Family History Father No problems noted. Mother No problems noted. Social History Patient Tobacco Use Status: Never used Tobacco Advance Directives Date on File: 02/03/20 Physical Exam Const Other: Normal speech Mood normal General: cooperative Orientation/consciousness: patient oriented x3 Neuro General: patient oriented x3 Telehealth Telehealth Telehealth Platform: Telephone Location of provider rendering services: practice address Location of patient: address on file Patient Identification confirmed using: Name, : Yes Telehealth method: voice only Patient verbally consented to treatment: Yes Patient verbally consented to billing insurance company: Yes Patient informed of any privacy concerns related to visit: Yes Assessment & Plan Assessment & Plan (1) Obstructive sleep apnea hypopnea, moderate: Comment: AHI 14/hr supine AHI 22/hr O2 harlan 72 %. Code(s): G47.33 - Obstructive sleep apnea (adult) (pediatric) Category: Medical Plan Start patient on AUtoPAP 5-20 cm of water and will follow up to ensure compliance and therapy response. Coding Level of Care Code Tele New Pt Level 3 (44211) Diagnoses Obstructive sleep apnea hypopnea, moderate G47.33
== END 2023-10-17 14:39 | disposition home or self-care (01) ==
PROVIDERS: PCP Internal Medicine; Visit Provider Psychiatry & Neurology Neurology
DX: G47.33 Obstructive sleep apnea (adult) (pediatric) (principal)
CPT/HCPCS: 99441

== ENCOUNTER → 2023-10-17 13:21 | Outpatient (BNVA) | payer MEDICARE, SELFPAY | PROVIDERS: PCP Internal Medicine; Visit Provider Psychiatry & Neurology Neurology ==

== ENCOUNTER 2024-01-14 08:10 | Outpatient (AMB) | payer MEDICARE, SELFPAY ==
--- NOTE | 2024-01-14 08:11 | A.OFFVIS_ITS ---
Intake Visit Reasons: Follow Up Intake Note: Pt presents for a 3 month follow up for sleep apnea via telehealth. 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 Main complaints-snoring, fatigue Sleep questionnaire- Difficulty falling asleep-no Difficulty staying asleep-yes/no Number of [id number] Snoring-yes Witnessed apneas-no Gasping arousals-no Nocturia-no GERD-no Vivid dreams-no Acting out dreams -no Abnormal behavior in sleep-no ABnormal movements in sleep-no Morning headaches-no Excessive daytime sleepiness-no Daytime naps- no restless legs- no Hallucinations- no sleep paralysis- no Drop attacks- no 4 years ago - he had a fall an had neck I jury - C4-6 laminectomy fusion. He has mild gait issues.He has some periodic limb movements and is on gabapentin 600mg qhs Sleep study-yes Results AHI 14/hr O2 72 % REM AHI 22% CPAP no PFSH Medical History Obstructive sleep apnea hypopnea, moderate CAD (coronary artery disease) Mitral valve prolapse Hyperlipidemia PVCs (premature ventricular contractions) Postoperative atrial fibrillation Surgical History History of mitral valve replacement with bioprosthetic valve History of varicocele Hx of cardiac cath Family History Father No problems noted. Mother No problems noted. Social History Patient Tobacco Use Status: Never used Tobacco Advance Directives Date on File: 02/03/20 Physical Exam Const General: cooperative Orientation/consciousness: patient oriented x3 Neuro Other: normal speech cognition - intact Normal mood General: patient oriented x3 Telehealth Telehealth Telehealth Platform: Telephone Location of provider rendering services: practice address Location of patient: address on file Patient Identification confirmed using: Name, : Yes Telehealth method: voice only Patient verbally consented to treatment: Yes Patient verbally consented to billing insurance company: Yes Patient informed of any privacy concerns related to visit: Yes Assessment & Plan Assessment & Plan (1) Obstructive sleep apnea hypopnea, moderate: Comment: AHI 14/hr supine AHI 22/hr O2 harlan 72 %. Code(s): G47.33 - Obstructive sleep apnea (adult) (pediatric) Category: Medical Plan I will trial him on AUtoPAP 5-20 cm of water and follow up to ensure compliance and therapy response. Continue gabapentin 600mg qhs for PLMS Coding Level of Care Code Tele New Pt Level 3 (32887) Diagnoses Obstructive sleep apnea hypopnea, moderate G47.33
== END 2024-01-14 10:28 | disposition home or self-care (01) ==
LOC: HO.HSMS 08:11
PROVIDERS: PCP Internal Medicine; Visit Provider Psychiatry & Neurology Neurology
DX: G47.33 Obstructive sleep apnea (adult) (pediatric) (principal)
CPT/HCPCS: 99442

== ENCOUNTER → 2024-01-14 08:10 | Outpatient (BNVA) | payer MEDICARE, SELFPAY | PROVIDERS: PCP Internal Medicine; Visit Provider Psychiatry & Neurology Neurology ==

== ENCOUNTER → 2024-01-15 15:50 | Outpatient (REF) | payer MEDICARE, SELFPAY ==
--- NOTE | 2024-01-15 15:53 | CA_ITS ---
Transthoracic Echocardiogram Patient (Last, First, Middle): Bakari Betancur S Gender: Male Date of : 1945 Age: 78 Procedure Date: 01/15/2024 Procedure Type: Transthoracic Echocardiogram Location: OP Height: 170.18 cm Weight: 63.5 kg BSA: 1.74 m2 Heart Rate: bpm BP: 124 / 80 mmHg Ring Conductor: Referring MD: Franklin Fuchs MD Glass Cleaner: Franklin Fuchs MD Symptoms: Z95.3 - Presence of xenogenic heart valve Study Quality: Technically Difficult ECG Rhythm: Sinus Conclusions: - 1. Normal LV ejection fraction 55-60% with impaired relaxation filling pattern 2. Normally function bioprosthetic mitral valve 3. Normal RV systolic pressure Findings Left Ventricle Normal left ventricular size, thickness, and systolic function. The visually estimated ejection fraction is between 55-60%. There is paradoxical septal motion consistent with post-operative status. Spectral Doppler is indicative of an impaired relaxation filling pattern. Right Ventricle Normal right ventricular cavity size and systolic function. Atria The left atrium is normal in size. Interatrial shunt cannot be excluded. The right atrium was not well visualized. Aortic Valve The aortic valve was not well visualized. There is mild calcification of the aortic valve. There is no aortic valve stenosis. There is mild aortic valve regurgitation. Mitral Valve A bioprosthetic mitral valve is present. The prosthetic mitral valve appears to be functioning normally. The mean mitral valve gradient is 4.00 mmHg. Pulmonic Valve The pulmonic valve was not well visualized. Tricuspid Valve Likely normal tricuspid valve structure and function. There is trace tricuspid valve regurgitation. The right ventricular systolic pressure is normal. The right ventricular systolic pressure is 19 mmHg. Normal right atrial pressure. There is no evidence of pulmonary hypertension. Great Vessels The aorta was not well visualized. The pulmonary artery was not well visualized. Venous The inferior vena cava is normal in size and collapses greater than 50% with inspiration. Pericardium/Pleural The pericardium was not well visualized. Prior Study Comparison No significant change compared to prior study dated: 01/29/2023. Measurements 2D Linear Measurements Ao Root: 2.80 2.1-3.5 cm LVOT Diam: 2.00 3.0+(-)1.3 cm Mitral Valve MV VTI: 0.60 MV Pk Keyon: 1.48 MV Mn Keyon: 0.88 MV Pk Grad: 9.00 MV Mn Grad: 4.00 MV Pk E: 1.17 MV PK A: 1.43 MV Decel Time: 291.00 E/A: 0.80 E'Lateral: 6.64 E'Medial: 5.66 E/E' Med: 20.70 E/E' Lat: 17.60 PHT: 85.00 MVA PHT: 2.59 MVA Continuity: 1.88 [place]: 4.01 Aortic Valve AoV Pk Keyon: 1.62 AoV Mn [place]: 0.92 AoV VTI: 0.35 AoV Pk Grad: 10.00 Aov Mn Grad: 4.00 DARSHANA Cont.VTI: 3.24 LVOT LVOT Pk [place]on: 1.44 LVOT Mn [place]: 1.06 LVOT VTI: 0.36 LVOT Pk Grad: 8.00 LVOT Mn Grad: 5.00 LVOT Diam: 2.00 LVOT Area: 3.14 Diastolic Function MV Pk E: 1.17 MV Pk A: 1.43 E/A: 0.80 E'Medial: 5.66 E/E' Med: 20.70 E' Laterial: 6.64 E/E' Lat: 17.60 Right Ventricle TAPSE (mm): 19.00 TVS' Keyon: 10.00 Tricuspid Valve TR Pk Keyon: 2.03 TR Pk Grad: 16.00 RA Press: 3.00 RVSP: 19.00 Great Vessels Aorta Ao Root-2D: 2.80 2.0-3.7 cm Ao Asc: 3.30 2.1-3.4 cm Pulmonary Valve PV Pk Keyon: 0.82 Peak PV Grad: 3.00 Updated in Other Vendor System with Status of Final Franklin Fuchs MD electronically signed on 01/16/2024 12:14:32 PM with status of Final
== END ==
LOC: HO.CARD 15:50
PROVIDERS: PCP Internal Medicine; Visit Provider Internal Medicine Cardiovascular Disease
DX: Z95.3 Presence of xenogenic heart valve (principal)
CPT/HCPCS: 93306

== ENCOUNTER → 2024-01-15 15:53 | Outpatient (BNV) | payer MEDICARE, SELFPAY | PROVIDERS: PCP Internal Medicine; Visit Provider Internal Medicine Cardiovascular Disease | DX: I35.1 Nonrheumatic aortic (valve) insufficiency (principal); Z95.3 Presence of xenogenic heart valve; I51.89 Other ill-defined heart diseases | CPT/HCPCS: 93306 ==

== ENCOUNTER 2024-01-28 08:29 | Outpatient (AMB) | payer MEDICARE, SELFPAY ==
[2024-01-28 08:30] VITALS: BP 120/72; PULSE 66; BMI 22.1
--- NOTE | 2024-01-28 08:30 | A.OFFVIS_ITS ---
Vital Signs 01/28/24 08:30 Height 5 ft 7 in Weight 141 lb 1.533 oz BMI 22.1 BP 120/72 Blood Pressure Location Lt brachial Position Sitting Pulse 66 Intake Visit Reasons: 1 yr follow up Intake Note: 1 year follow-up with ekg feeling good Dry Cleaner Required: No Allergies lactose [LACTOSE] Adverse Reaction (Unknown, Verified 01/14/24 08:12) DIARRHEA onion [Onion] Adverse Reaction (Unknown, Verified 01/14/24 08:12) DIARRHEA WITH RAW ONIONS Medication List - Last Reconciled 01/28/24 by Franklin Fuchs MD ascorbate calcium (vitamin C) 2 grams PO DAILY aspirin (Adult Low Dose Aspirin) 81 mg PO DAILY atorvastatin 20 mg PO DAILY coenzyme Q10 100 mg PO DAILY docusate sodium (Colace) 100 mg PO DAILY gabapentin 600 mg PO BEDTIME magnesium 250 mg PO DAILY metoprolol succinate ER 100 mg PO DAILY HPI Comments Details: Jj comes for follow-up. He has been doing very well from cardiac perspective. No change in his exercise activity. Denies any symptoms of fatigue, tiredness, shortness of breath. No orthopnea, PND, leg edema. No prolonged palpitation irregular heartbeat. He also does not have any significant symptoms of PVCs. Denies any exertional chest pain. Recent echocardiogram shows normally functioning bioprosthetic mitral valve with normal LV ejection fraction [facility] Medical History Obstructive sleep apnea hypopnea, moderate CAD (coronary artery disease) Mitral valve prolapse Hyperlipidemia PVCs (premature ventricular contractions) Postoperative atrial fibrillation Surgical History History of mitral valve replacement with bioprosthetic valve History of varicocele Hx of cardiac cath Family History Father No problems noted. Mother No problems noted. Social History Patient Tobacco Use Status: Never used Tobacco Advance Directives Date on File: 02/03/20 Review of Systems Const Denies chills, Denies fatigue, Denies fever(s), Denies frequent falls, Denies weakness, Denies weight gain and Denies weight loss ENT Denies dizziness Card Denies chest pain, Denies leg edema, Denies lightheadedness, Denies palpitations, Denies dyspnea, Denies dyspnea on exertion, Denies orthopnea and Denies other (loss of consciousness) Resp Denies cough, Denies dyspnea and Denies dyspnea on exertion GI Denies hematochezia and Denies change in stool character Musc Denies abnormal gait, Denies muscle weakness, Denies numbness, Denies radiating pain into limb and Denies tingling Neuro Denies abnormal gait, Denies dizziness, Denies frequent falls, Denies numbness, Denies tingling and Denies weakness Endo Denies fatigue and Denies palpitations Physical Exam Vital Signs: Last Vital Signs Pulse 66 01/28/24 08:30 BP 120/72 01/28/24 08:30 BMI result Body Mass Index 22.1 Const General: cooperative, comfortable, no acute distress, alert, awake and well groomed Nutritional Appearance: thin Orientation/consciousness: patient oriented x3 Limitations: no limitations Neck Neck: Yes trachea midline, Yes supple and Yes no JVD Resp Effort & Inspection: normal respiratory effort Auscultation: clear to auscultation bilaterally Cardio Jugular venous distension: no JVD Palpation: normal PMI Rate: regular rate Rhythm: regular rhythm Heart sounds: S1 normal heart sound present, S2 normal heart sound present, no click, no gallops, no murmurs and no rubs GI Auscultation: normal bowel sounds Skin General skin exam: no rashes or lesions noted Neuro General: patient oriented x3 and no focal motor deficits Extrem General: Yes no clubbing, cyanosis or edema Psych Appearance: grossly normal Office Procedures EKG Details: EKG shows normal sinus rhythm with possible left atrial enlargement. [id number], Complete Assessment & Plan Assessment & Plan (1) History of mitral valve replacement with bioprosthetic valve: Comment: 27 mm Hawley bovine pericardial valve, September 2019 for symptomatic mitral regurgitation Code(s): Z95.3 - Presence of xenogenic heart valve Category: Surgical Plan: Bioprosthetic mitral valve replacement with good function of the mitral valve without any significant stenosis or deterioration valve function. Continue low- dose aspirin therapy. Continue SBE prophylaxis as per ACC/aha guidelines. Continue risk factor modification with statin therapy. (2) PVCs (premature ventricular contractions): Code(s): I49.3 - Ventricular premature depolarization Category: Medical Plan: PVCs which have been suppressed on metoprolol therapy. He is tolerating this therapy well. Continue with it for now. If he develops any side effects in the future will consider tapering the medications now. Avoidance of stimulants was discussed. Stress mitigation strategies were discussed. Continue CPAP therapy. (3) Hyperlipidemia: Code(s): E78.5 - Hyperlipidemia, unspecified Category: Medical Plan: Hyperlipidemia, on statin therapy. Target goal LDL less than 100 mg/dL. Continue dietary modification. Continue maintain activity level as tolerated. Will follow up in the clinic in 1 year's time, sooner p.r.n.. Thank you for allowing me to partake in his care Orders: Orders CA echo transthoracic complete 1 Year Z95.3 - Presence of xenogenic heart valve Coding Level of Care Code Est Pt Level 4 (74037) Diagnoses History of mitral valve replacement with bioprosthetic valve Z95.3 PVCs (premature ventricular contractions) I49.3 Hyperlipidemia E78.5 CPT Codes EKG - CPT: [id number], Complete ([id number])
== END 2024-01-28 08:57 | disposition home or self-care (01) ==
PROVIDERS: PCP Internal Medicine; Visit Provider Internal Medicine Cardiovascular Disease
DX: Z95.3 Presence of xenogenic heart valve (principal); I49.3 Ventricular premature depolarization; E78.5 Hyperlipidemia, unspecified
CPT/HCPCS: 93010; 99214

== ENCOUNTER → 2024-01-28 08:29 | Outpatient (BNVA) | payer MEDICARE, SELFPAY | PROVIDERS: PCP Internal Medicine; Visit Provider Internal Medicine Cardiovascular Disease | DX: I49.3 Ventricular premature depolarization (principal); E78.5 Hyperlipidemia, unspecified; Z95.3 Presence of xenogenic heart valve | CPT/HCPCS: 93005; 99212 ==

== ENCOUNTER 2024-02-27 15:13 | Outpatient (REF) | payer MEDICARE, SELFPAY ==
[2024-02-27 15:30] LABS: Hematocrit 41.2 % (42.0-52.0); Hemoglobin 13.9 g/dl (14.0-18.0); Mean Corpuscular HGB Conc 33.7 g/dl (31.0-36.0); Mean Corpuscular Hemoglobin 29.2 pg (27.0-33.0); Mean Corpuscular Volume 86.6 fL (80.0-98.0); Mean Platelet Volume 10.1 fL (9.4-12.4); Platelet Count 159 X10*3/uL (160-400); Red Blood Count 4.76 X10*6/uL (4.60-5.80); Red Cell Distribution Width 13.7 % (11.0-16.0); White Blood Count 14.2 X10*3/uL (4.8-10.8)
[2024-02-27 15:44] LABS: Alanine Aminotransferase 25 U/L (0-40); Albumin Level 4.1 g/dL (3.5-5.0); Alkaline Phosphatase 76 U/L (39-117); Anion Gap 14 (12-20); Aspartate Amino Transferase 33 U/L (5-37); Bilirubin Total 0.7 mg/dL (0.0-1.0); Blood Urea Nitrogen 18 mg/dL (9-16); C Reactive Protein 0.55 mg/dL (< or = 0.50); Calcium 9.1 mg/dL (8.4-10.2); Carbon Dioxide 24 mmol/L (22-29); Chloride 98 mmol/L (96-108); Estimated Glomerular Filt Rate > 60; Glucose Random 112 mg/dL (60-115); Potassium 4.2 mmol/L (3.3-5.1); Sodium 132 mmol/L (135-145); Total Protein 6.9 g/dL (6.5-8.0)
[2024-02-27 15:49] LABS: Appearance Urine Clear; Color Urine Yellow; Glucose Urine UA Negative (Negative); Leukocyte Esterase Urine Negative (Negative); Nitrite Urine Negative (Negative); PH 6.5 (5.0-9.0); Specific Gravity - Urine 1.025 (1.005-1.025); Urine Blood Negative (Negative); Urine Ketones 15 mg/dL (Negative); Urine Protein Negative (Neg-Trace)
[2024-02-27 16:07] LABS: SLIDE REVIEW MANUAL DIFF
[2024-02-27 16:13] LABS: Band Neutrophils Percent 20 % (3-5); Lymphocytes Absolute Manual 0.3 X10*3/uL (1.2-4.9); Lymphocytes Percent Manual 2 % (20-40); Monocytes Absolute Manual 0.4 X10*3/uL (0.1-1.2); Monocytes Percent Manual 3 % (2-11); Neutrophils Absolute Manual 13.5 X10*3/uL (2.0-8.3); Neutrophils Percent Manual 75 % (45-73)
[2024-02-27 16:14] LABS: Platelet Estimate NORMAL (NORMAL); Platelet Morphology Comment NORMAL; RBC Morphology NORMAL; Toxic Vacuolation PRESENT
[2024-02-27 16:21] LABS: Influenza A PCR NEGATIVE (Negative); Influenza B PCR NEGATIVE (Negative); Resp Syncy Virus RNA Qual PCR NEGATIVE (Negative); SARS COV2 PCR INHOUSE NEGATIVE (Negative)
== END 2024-02-27 15:14 | disposition home or self-care (01) ==
LOC: HO.LAB 15:13
PROVIDERS: PCP Family Medicine; Visit Provider Family Medicine
DX: Z13.89 Encounter for screening for other disorder (principal)
CPT/HCPCS: 0241U; 80053; 81003; 85007; 85025; 85027; 86140; 87086

== ENCOUNTER 2024-02-28 09:25 | Inpatient (IN) | payer MEDICARE, SELFPAY ==
[2024-02-28] VITALS (22 sets, daily range): BP systolic 79–118; BP diastolic 41–66; PULSE 53–104; RESP 13–28; TEMP 36.6–38.1; O2SAT 92–98; BMI 20.1
--- NOTE | 2024-02-28 | ECG_ITS ---
Test Reason : SEPSIS PROTOCOL Blood Pressure : / mmHG Vent. Rate : 084 BPM Atrial Rate : 084 BPM P-R Int : 184 ms QRS Dur : 084 ms QT Int : 388 ms P-R-T Axes : 059 039 036 degrees QTc Int : 458 ms Normal sinus rhythm Possible Left atrial enlargement Borderline ECG No previous ECGs available Referred By: Generic ED Physician Electronically Signed By:MORRIS BONILLA
--- NOTE | ~2024-02-28 | XR_ITS ---
EXAMINATION: XR CHEST CLINICAL INFORMATION: Shortness of breath. Tachycardia. COMPARISON: Chest radiograph 02/29/2024. TECHNIQUE: Frontal view of the chest was obtained. FINDINGS: Multiple fractured median sternotomy wires. A mitral valve prosthesis is noted. Mild blunting of left and right costophrenic sulci. No pneumothoraces. Mild bibasilar airspace opacities. Mild diffuse vascular indistinctness. Partial visualization of lower cervical spinal fixation hardware. XR/XR chest 1V IMPRESSION: *Small bilateral pleural effusions and bibasilar atelectasis and/or consolidation. *Pulmonary vascular congestion. Electronically signed by: Salvatore Serra MD 03/02/2024 07:30 AM [facility]
--- NOTE | ~2024-02-28 | CT_ITS ---
EXAMINATION: CT ANGIOGRAM CHEST CLINICAL INFORMATION: Sudden onset tachycardia. Shortness of breath. COMPARISON: Chest radiograph 03/02/2024 TECHNIQUE: Multiple axial images were obtained through the chest after the administration of 65 mL of Omnipaque 350 intravenous contrast. Extensive vascular post-processing including two-dimensional and three-dimensional reformatted images were created and reviewed on an independent workstation. This CT examination was performed using dose optimization techniques as appropriate, variously including the following: *Automated exposure control *Adjustment of mA and/or kV according to patient size (this includes techniques or standardized protocols for targeted exams where dose is matched to indication/reason for exam; i.e. extremities or head) *Use of iterative reconstruction technique DLP: 305 mGy-cm FINDINGS: Pulmonary arterial system: No intraluminal filling defects are identified in the visualized pulmonary arterial system suggests the presence of pulmonary emboli main central pulmonary arteries are normal in caliber. Thoracic aorta: Normal caliber. Scattered calcific atherosclerotic plaques. The skeletal structures: No lymphadenopathy. Normal heart size. Partial visualization of marked diffuse coronary artery calcific atherosclerosis. Partially visualized mitral valve prosthesis. No pericardial thickening or fluid collections. Lungs and pleura: Moderate right and a small left pleural effusion are present. Heart partial bilateral compressive atelectasis of the lungs is noted. Peribronchial consolidation is present in the right lung base. Small number of scattered airspace opacities are present elsewhere within the lungs bilaterally. Osseous structures: No suspicious skeletal abnormalities noted. Multiple median sternotomy wires identified. Visualized abdominal structures: Several rounded low-density foci are noted in the liver and likely represent simple, benign cysts which do not specifically warrant additional imaging follow-up in the basis of this examination. CT/CT angio chest PE protocol IMPRESSION: *CT pulmonary angiogram negative for pulmonary emboli. *Moderate right and small left pleural effusion with associated bibasilar compressive atelectasis. *Moderate right lower lobe peribronchial consolidation. These findings may represent aspiration pneumonia/pneumonitis or infection. Findings are present in the posterior dependent right lung base. *Marked coronary artery calcific atherosclerosis. VTE: Negative. Electronically signed by: Salvatore Serra MD 03/02/2024 08:24 AM [facility]
--- NOTE | ~2024-02-28 | CT_ITS ---
EXAMINATION: CT Chest, Abdomen, and Pelvis CLINICAL INFORMATION: Sepsis, evaluate for infection COMPARISON: None TECHNIQUE: Helical computed tomography was performed from the inferior neck through the pubic symphysis without contrast. Multiplanar reconstructions are available for interpretation. DOSE LOWERING TECHNIQUES: This CT examination was performed using dose optimization techniques as appropriate, variously including the following: - Automated exposure control - Adjustment of mA and/or kV according to patient size (this includes techniques or standardized protocols for targeted exams were dose is matched to indication/reason for exam; i.e. extremities or head) - Use of degenerative construction technique Total DLP is 1389 mGy*cm. FINDINGS: Lungs: Mild emphysema. Bibasilar consolidation. Airways: The central airways are patent. The peripheral airways are normal. There is no bronchiectasis. Pleura: Trace bilateral pleural effusions. Mediastinum/Caroline: There are no pathologically enlarged mediastinal or hilar lymph nodes. Cardiovascular: The heart is globally normal in size. The thoracic aorta is normal in course and caliber. The main pulmonary artery is normal in caliber. There is no pericardial effusion or pericardial thickening. Mitral valve replacement. There are coronary artery calcifications. Liver: Normal in size and attenuation. Multiple cystic lesions throughout the liver. Gallbladder and bile ducts: The gallbladder is normal. No intrahepatic or extrahepatic biliary ductal dilatation. Spleen: Normal in size and attenuation. Pancreas: Unremarkable. Adrenal glands: Bilateral adrenal thickening. Right kidney: There are multiple hypodensities which are too small to characterize. There is no hydronephrosis or hydroureter. Mild perinephric stranding. Left kidney: The left kidney is normal. There is no hydronephrosis or hydroureter. Lymph nodes: There is no lymphadenopathy in the abdomen or pelvis. Gastrointestinal tract: The stomach, small, and large bowel are normal in course and caliber. Moderate amount of stool in the colon. Urinary bladder: Distended. Pelvic organs: Mild prostatomegaly. Vasculature: Moderate atherosclerotic disease. Additional findings: There is no intraperitoneal free air or fluid. Soft tissues: Unremarkable. Osseous structures: Multilevel retrolisthesis of the lumbar spine. Moderate degenerative disease. CT/CT abdomen pelvis wo IV con IMPRESSION: 1. Bibasilar consolidation may be infectious/inflammatory in etiology versus atelectasis. 2. Trace bilateral pleural effusions. 3. Moderate amount of stool in the colon. 4. Mild prostatomegaly. Electronically signed by: Darleen Brandt MD 02/28/2024 07:04 PM EDT RP
--- NOTE | ~2024-02-28 | CT_ITS ---
EXAMINATION: CT HEAD WITHOUT CONTRAST CLINICAL INFORMATION: Weakness COMPARISON: None available. TECHNIQUE: Contiguous axial imaging was performed from the skull base to vertex without intravenous administration of contrast. This CT examination was performed using dose optimization techniques as appropriate, variously including the following: *Automated exposure control *Adjustment of mA and/or kV according to patient size (this includes techniques or standardized protocols for targeted exams where dose is matched to indication/reason for exam; i.e. extremities or head) *Use of iterative reconstruction technique DLP: 801 mGy-cm FINDINGS: There is no evidence of acute intracranial hemorrhage or territorial infarction. No abnormal mass effect or midline shift is seen. Rizo to white matter differentiation is well preserved. No extra-axial fluid collections are identified. The ventricles are normal in size. There is no abnormal attenuation within the brain parenchyma. The osseous structures and soft tissues are normal. The mastoid air cells and visualized portions of the paranasal sinuses are well-aerated. CT/CT head/brain wo IV con IMPRESSION: No acute intracranial pathology. Electronically signed by: Farooq Fuller MD 02/28/2024 05:52 PM EDT
--- NOTE | ~2024-02-28 | MR_ITS ---
EXAMINATION: MR CERVICAL SPINE WITHOUT AND WITH CONTRAST CLINICAL INFORMATION: Bacteremia. COMPARISON: MRI cervical spine dated January 28, 2020. TECHNIQUE: MRI of the cervical spine was obtained using routine sequences with and without contrast. Intravenous contrast: Magnevist 6.5 mL. FINDINGS: There are postoperative changes of a multilevel laminectomy and spinal fusion with a posterior hardware construct extending from C3 to C6. There is grade 1 anterolisthesis of C6 in relation to C7, slightly progressed since the prior study. There is slight anterolisthesis of C7 in relation to T1. There is mild retrolisthesis of C4 in relation to C5 and mild anterolisthesis of C5 in relation to C6. Vertebral body heights are preserved. No acute bone marrow signal changes. There is unchanged, mild disc degeneration at multiple levels. There are short segments of myelomalacia involving the cervical cord at the level of C4-C5 and C5-C6, similar to the prior study. Cord signal intensity is otherwise unremarkable. There is no canal compromise and no cord compression. The cervicomedullary junction is normal. Limited visualization of the intracranial compartment reveals no abnormal finding. The occipital condyles and lateral C1 masses are intact. Atlantodental joint is normal. C1-C2 articular facets are unremarkable. At C2-C3 the annular contour is normal. No canal stenosis. No neuroforaminal encroachment. At C3-C4 the canal is decompressed. No neuroforaminal encroachment. At C4-C5 the canal is decompressed. Uncovertebral joint spurring and facet degenerative change causes moderate left and mild right neuroforaminal encroachment. At C5-C6 the canal is decompressed. Uncovertebral joint spurring and facet degenerative change causes moderate bilateral neuroforaminal encroachment. At C6-C7 there is a pseudodisc bulge. Bilateral facet degenerative change. No canal stenosis. Uncovertebral joint spurring and facet degenerative change causes mild bilateral neuroforaminal encroachment. At C7-T1 there is a pseudodisc bulge. Bilateral facet degenerative change. No canal stenosis. No neuroforaminal encroachment. Visualized soft tissues of the neck are normal. Postcontrast images demonstrate no pathologic spinal enhancement. MR/MR cervical spine wo/w con IMPRESSION: There are chronic postoperative changes of a multilevel laminectomy and spinal fusion with a posterior hardware construct extending from C3 to C6. There is no canal compromise and no cord compression. Short segments of chronic myelomalacia involving the cervical cord at the level of C4-C5 and C5-C6 are unchanged. There is multilevel foraminal narrowing as described. Postcontrast images demonstrate no pathologic spinal enhancement. Electronically signed by: Sanjay Lee DO 03/01/2024 10:33 PM [facility]
--- NOTE | ~2024-02-28 | XR_ITS ---
EXAMINATION: XR CHEST CLINICAL INFORMATION: Weakness, chills, hypotension. Evaluate for pneumonia. COMPARISON: Most recent chest radiograph dated 10/30/2019. TECHNIQUE: Frontal view of the chest was obtained. FINDINGS: Left basilar/retrocardiac opacity which could represent atelectasis versus early pneumonia. Complete versus near complete resolution of the previously seen pleural effusions. No pneumothorax. Stable cardiac mediastinal silhouette. Sternal wires and valvuloplasty are redemonstrated. XR/XR chest 1V IMPRESSION: 1. Left basilar/retrocardiac opacity which could represent atelectasis versus early pneumonia. 2. Complete versus near complete resolution of the previously seen pleural effusions. Electronically signed by: Ethan Treviño MD 02/28/2024 11:10 AM EDT
--- NOTE | ~2024-02-28 | MR_ITS ---
EXAMINATION: MR LUMBAR SPINE WITHOUT CONTRAST CLINICAL INFORMATION: Sepsis, incontinence, rule out paraspinal abscess COMPARISON: CT abdomen and pelvis on 02/28/2024. TECHNIQUE: MRI of the lumbar spine was obtained using routine sequences without contrast. FINDINGS: Multilevel retrolisthesis throughout the lumbar spine, particularly at L1-L2 and L4-L5. Vertebral body heights are preserved. Bone marrow is unremarkable in signal. The conus medullaris is normal in signal and terminates at the L1 level. Multiple bilateral renal cystic lesions. Prevertebral and paraspinal soft tissues are otherwise unremarkable. There is multilevel degenerative disc disease with loss of intervertebral disc space. There is moderate-severe spinal canal narrowing secondary to disc bulge, facet arthropathy, and ligamentum hypertrophy at L4-L5. Scattered additional areas of moderate canal and foraminal stenosis throughout the lumbar spine. MR/MR lumbar spine wo con IMPRESSION: Significant degenerative disease. No evidence of osteomyelitis/discitis or paraspinal abscess. Electronically signed by: Darleen Brandt MD 02/29/2024 10:27 AM EDT
--- NOTE | ~2024-02-28 | XR_ITS ---
EXAMINATION: XR CHEST CLINICAL INFORMATION: New hypoxia COMPARISON: 02/28/2024 TECHNIQUE: Frontal view of the chest was obtained. FINDINGS: Status post median sternotomy and aortic valve replacement. Cardiomediastinal silhouette is normal in size. There are increasing patchy bilateral airspace opacities greatest in the lung bases. There are small bilateral effusions. No pneumothorax. XR/XR chest 1V IMPRESSION: Increasing patchy bilateral airspace opacities greatest in the lung bases. Small bilateral effusions. Electronically signed by: Royal Garcias MD 03/01/2024 12:12 AM EDT
--- NOTE | ~2024-02-28 | MR_ITS ---
EXAMINATION: MR BRAIN WITH CONTRAST CLINICAL INFORMATION: Question dental infection. COMPARISON: CT head dated February 28, 2024. Brain MRI dated August 29, 2023. TECHNIQUE: MRI of the brain was obtained using routine sequences with contrast. Limited sequences were performed including sagittal T1 weighted, axial flair, and postcontrast axial and coronal sequences. Intravenous contrast: Magnevist 6.5 mL. FINDINGS: Midline structures are normal in appearance. The cerebellar tonsils are normally positioned. The cervicomedullary junction is normal in appearance. There are several new FLAIR hyperintense foci involving the left precentral gyrus. There is a small focus of increased FLAIR signal within the subcortical white matter of the left parietal lobe. There is a new 9 mm focus of increased FLAIR signal within the medial right occipital lobe. None of these areas of abnormal signal intensity demonstrate enhancement, nor do they demonstrate mass effect. They likely represent areas of age indeterminant ischemia/infarction. There is no midline shift or mass effect. There is no extra-axial fluid collection. The ventricles are normal in size. There is no pathologic enhancement following the intravenous administration of contrast. The orbits are symmetric and within normal limits. There is minimal ethmoid air cell mucosal disease. The mastoid air cells appear clear. MR/MR head/brain w con IMPRESSION: There are several new FLAIR hyperintense foci involving the left precentral gyrus. There is a small focus of increased FLAIR signal within the subcortical white matter of the left parietal lobe. There is a new 9 mm focus of increased FLAIR signal within the medial right occipital lobe. None of these areas of abnormal signal intensity demonstrate enhancement, nor do they demonstrate mass effect. They likely represent areas of age indeterminant ischemia/infarction. Electronically signed by: Sanjay Lee DO 03/01/2024 03:05 PM JIMMY
--- NOTE | ~2024-02-28 | MR_ITS ---
EXAMINATION: MR THORACIC SPINE WITHOUT AND WITH CONTRAST CLINICAL INFORMATION: Bacteremia, incontinence, evaluate paraspinal abscess COMPARISON: None available. TECHNIQUE: MRI of the thoracic spine was obtained using routine sequences with and without contrast. Intravenous contrast: Magnevist 6.5 mL. FINDINGS: The visualized thoracic vertebrae are intact with normal alignment. An oval-shaped T2 hyperintense, STIR hypointense lesion is seen in midline T12 vertebral body measuring 1.3 cm in AP diameter, 1.2 cm in width, 1.8 cm in vertical height, compatible with fat island. Multilevel degenerative thoracic disc disease is seen from T4-T5 to T11-T12, with decrease in disc height and T2 signal. Mild posterior T6-T7, T7-T8, T9-T10, T10-T11 and T11-T12 disc protrusions are seen. Moderate asymmetric right posterior T11-T12 disc protrusion markedly effacing the right lateral recess is seen. Postcontrast images show abnormal enhancement of the protruded disc. Triangular shaped T2 hyperintensity with enhancement is seen at posterior inferior corner of T11 and posterior superior corner of T12. A rim-enhancing epidural abscess is seen at right lateral border of the thecal sac directly beneath the right T11 pedicle, measuring 1.5 cm in AP diameter, 0.8 cm in width, 0.7 cm in vertical height. Mild bandlike enhancement is seen at inferior T7 and superior T8 vertebral endplates, with mild STIR hyperintensity. No significant central thoracic spinal stenosis is found. The visualized bilateral thoracic neural foramina are patent. Bilateral apophyseal joints are intact with normal alignment. Thoracic spinal cord is normal in position and signal. Moderate crescent shape T2 hyperintense lesions are seen in posterior bilateral lungs, compatible with airspace disease and pleural effusions. A 1.1 cm simple cyst is seen at posterior medial capsular border of right hepatic lobe, previously reported on CT scan of abdomen on 02/28/2024. MR/MR thoracic spine wo/w con IMPRESSION: 1. A 1.5 x 0.8 x 0.7 cm rim-enhancing epidural abscess is seen at right lateral border of the thecal sac directly beneath the right T11 pedicle. 2. Moderate asymmetric right posterior T11-T12 disc protrusion markedly effacing the right lateral recess, showing diffuse enhancement suggestive of discitis. 3. Posterior inferior corner of T11, posterior superior corner of T12 enhancing bone marrow edema is present, can be suspicious of thoracic spondylitis. 4. Mild posterior T6-T7, T7-T8, T9-T10, T10-T11 and T11-T12 disc protrusions are seen. 5. Mild bandlike enhancement is seen at inferior T7 and superior T8 vertebral endplates, with mild STIR hyperintensity. Findings are nonspecific, could represent Modic type I degenerative vertebral endplate changes, but additional level thoracic spine spondylitis cannot be excluded. 6. Moderate crescent shape T2 hyperintense lesions are seen in posterior bilateral lungs, compatible with airspace disease and pleural effusions. 7. A 1.1 cm simple cyst is seen at posterior medial capsular border of right hepatic lobe, previously reported on CT scan of abdomen on 02/28/2024. 8. This critical result was discussed with Dr. Sujey Gomez on 03/02/2024 at 0857 hours and it was ascertained that the content and urgency of this report was understood at the time of direct communication. Electronically signed by: Beatrice Foley MD 03/02/2024 08:58 AM EST
--- NOTE | 2024-02-28 09:44 | ED.GENADULT ---
HPI - General Adult General Chief complaint: General Medical Stated complaint: INC WEAKNESS,CHILLS,ABNORMAL LABS Time Seen by Provider: 02/28/24 09:43 Source: patient Mode of arrival: EMS Limitations: no limitations History of Present Illness ED Provider: Dr. 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 78-year-old male with a history of hypertension, COPD, coronary disease, mitral valve replacement with bioprosthetic 4 years prior, leg weakness secondary to neck injury presents emergency department for evaluation of chills, weakness and fatigue. Patient states that yesterday afternoon, he developed sudden onset of shaking chills. He states that he was feeling weak and slept all night. He states this morning when he tried to get up and walk he was too weak to ambulate therefore he called an ambulance and was brought to emergency department. The patient had no further episodes of shaking chills. He denied having a fever. He denied chest pain, shortness of breath. He states that he had nausea but no vomiting or diarrhea. He denied myalgias arthralgias. He denied abdominal pain, frequency, urgency or dysuria. Related Data Home Medications ?Medication ?Instructions ?Recorded ?Confirmed aspirin 81 mg tablet,delayed 81 mg PO DAILY 07/20/20 02/28/24 release (Adult Low Dose Aspirin) coenzyme Q10 100 mg capsule 100 mg PO DAILY 07/20/20 02/28/24 magnesium 250 mg tablet 250 mg PO DAILY 07/20/20 02/28/24 metoprolol succinate 100 mg 100 mg PO DAILY 07/20/20 02/28/24 tablet,extended release 24 hr ascorbate calcium (vitamin C) 500 2 g PO DAILY 11/22/20 02/28/24 mg tablet docusate sodium 100 mg capsule 100 mg PO DAILY 11/22/20 02/28/24 (Colace) gabapentin 300 mg capsule 600 mg PO BEDTIME 11/22/20 02/28/24 atorvastatin 20 mg tablet 20 mg PO BEDTIME 02/28/24 02/28/24 Allergies Allergy/AdvReac Type Severity Reaction Status Date / Time lactose [LACTOSE] AdvReac Unknown DIARRHEA Verified 02/28/24 09:37 onion [Onion] AdvReac Unknown DIARRHEA Verified 02/28/24 09:37 WITH RAW ONIONS Review of Systems Review of Systems: Yes all other systems are reviewed and are negative [facility] Past Medical History [facility] Narrative: Social history: 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 Medical History Obstructive sleep apnea hypopnea, moderate CAD (coronary artery disease) Mitral valve prolapse Hyperlipidemia PVCs (premature ventricular contractions) Postoperative atrial fibrillation Surgical History History of mitral valve replacement with bioprosthetic valve History of varicocele Hx of cardiac cath Family History Family History Father No problems noted. Mother No problems noted. Social History Social History Patient Tobacco Use Status: Never used Tobacco Advance Directives: Yes Advance Directives Information Provided: Yes Advance Directives on File: No Advance Directives Date on File: 02/03/20 Do you have a plan to hurt others: No Plan Physical Exam ED Vital Signs: Vital Signs - 24 hr 02/28/24 09:33 02/28/24 09:35 02/28/24 10:48 Temperature 98.2 F 98.2 F Pulse Rate 83 53 79 Respiratory Rate 16 16 21 H Blood Pressure 80/41 L 80/41 L 85/51 L Pulse Oximetry 93 93 94 Oxygen Delivery Method Room Air Room Air Room Air 02/28/24 11:11 02/28/24 12:12 02/28/24 12:33 Temperature 97.9 F Pulse Rate 78 81 79 Respiratory Rate 20 13 24 H Blood Pressure 89/50 L 86/54 L 84/51 L Pulse Oximetry 94 92 94 Oxygen Delivery Method Room Air Room Air Room Air 02/28/24 12:39 02/28/24 12:59 02/28/24 13:10 Temperature Pulse Rate 78 80 82 Respiratory Rate 18 Blood Pressure 85/49 L 87/54 L 94/57 L Pulse Oximetry 97 Oxygen Delivery Method Room Air 02/28/24 13:35 Temperature Pulse Rate 77 Respiratory Rate Blood Pressure 83/49 L Pulse Oximetry Oxygen Delivery Method BMI result Body Mass Index 20.1 Vital signs revealed hypotension with a BP of 80/41 otherwise unremarkable Exam: General: Awake, alert in no distress Head: Normocephalic, atraumatic EENT: PERRL, Lids normal, sclera normal, conjunctiva normal, nose normal , ears normal, throat without erythema or exudates Neck: Supple, no adenopathy Lung: breath sounds symmetric, no wheezing, rales or rhonchi Chest: symmetric movement, nontender Heart: regular rate and rhythm, normal S1 and S2, 2/6 systolic murmur best heard at the left lower sternal border Abdomen: soft, non-tender, nondistended, normal bowel sounds Back: no vertebral tenderness, no CVAT Extremities: no deformities, moves all extremities symmetrically Neuro: Awake, alert, oriented, normal speech, cranial nerves intact, normal strength in his upper extremities, lower extremities your weak-above his baseline Psych: Pleasant, cooperative Medications Administered Generic Name Dose Route Start Last Admin Trade Name Freq PRN Reason Stop Dose Admin Norepinephrine Bitartrate 8 mg in 250 mls @ 0 mls/hr 02/28/24 12:15 02/28/24 14:08 Levophed IVCONT 0.11 mcg/kg/min .Q0M LILI 13.1 mls/hr Titration Protocol Per Protocol Discontinued Medications Generic Name Dose Route Start Last Admin Trade Name Freq PRN Reason Stop Dose Admin Sodium Chloride 1,905.09 mls @ 1,905.09 mls/hr 02/28/24 09:44 02/28/24 12:10 Ns 30 ml/kg infuse over 1 hr (1905.09 ml) 02/28/24 10:43 Infused IV Infusion .Q1H STA Piperacillin Sod/Tazobactam 100 mls @ 200 mls/hr 02/28/24 09:53 02/28/24 11:20 Sod 4.5 gm/ Sodium Chloride IV 02/28/24 10:22 Infused ONCE ONE Infusion Vancomycin HCl 1,500 mg/ 500 mls @ 333.333 mls/hr 02/28/24 09:53 02/28/24 11:20 Sodium Chloride IV 02/28/24 11:22 Infused ONCE ONE Infusion Medical Decision Making Medical Decision Making MDM Narrative: 78-year-old male with a history of hypertension, COPD, coronary disease, bioprosthetic mitral valve replacement 4 years prior, leg weakness secondary to neck injury presents emergency department for evaluation of chills and chills x1 episode yesterday afternoon with fatigue and weakness to the point where he was unable to walk today. Patient had associated nausea with no other symptoms. Initial vital signs revealed hypotension with a BP of 80/41 otherwise unremarkable. Physical examination did reveal a 2/6 systolic murmur left lower sternal border. 12:13 Differential diagnosis: ?Includes but is not limited to sepsis, pneumonia, endocarditis, myocardial infarction, myocardial ischemia, electrolyte abnormalities, anemia Course: 12:13 My independent interpretation patient's laboratory evaluation is as follows: WBC 9100 with 35% bands. Normocytic anemia with an H&H of 12 and 34.7. Thrombocytopenia with a platelet count of a 817480. Sodium and bicarb were low 125 and 20. BUN and creatinine were elevated 31 and 2.04. AST was elevated 53. Bilirubin was elevated 1.1. High sensitive troponin I was elevated at 244.4. Lactic acid elevated 2.9. High sensitive troponin I was elevated 244.4. Lactic acid was elevated 2.1. Procalcitonin was elevated 2.14. CRP is elevated 18.3. ESR was normal urinalysis was unremarkable. Laboratory evaluation is consistent with severe sepsis with myocardial injury type 2 and acute kidney injury most likely secondary to volume depletion. Chest x-ray is concerning for possible left lower lobe infiltrate on my interpretation of this x-ray and the radiology reading is pending. Patient received a 30 cc/kilogram bolus of normal saline and despite this bolus, the patient is still hypotensive therefore I started him on Levophed. I will I did discuss the patient's presentation findings with the covering broaching machine repairer, Dr. Ramirez and the patient will be admitted to the intensive care unit for further management 15:27 The patient's son is a PMR physician who is here in the emergency department. He told me that his father was complaining of lower back pain yesterday and he was incontinent of urine. Based on this information I did order an MRI without contrast to evaluate the patient for possible paraspinal abscess as the cause of the sepsis. Patient has had an MRI of his neck in the past and this should be no issue from him getting the study. I also ordered CT scan of the patient's chest abdomen pelvis to further evaluate for possible infection. Unfortunately, the patient left knee emergency department prior to me being able to communicate any for these studies to the patient's nurse. I did inform Dr. Carlton the new information obtained from the patient's son and the studies that have not been done yet. Admission/Observation Consideration of admission/observation: Escalation of care including admission/observation considered (yes) Consult Healthcare Provider [employer] Lab Data MDM Lab Attestation statement: I reviewed the patient's lab results. 02/28/24 09:51 02/28/24 09:51 Labs: Lab Results 02/28/24 02/28/24 02/28/24 Range/Units 09:51 10:03 12:29 WBC 9.1 (4.8-10.8) X10*3/uL RBC 4.13 L (4.60-5.80) X10*6/uL Hgb 12.0 L (14.0-18.0) g/dl Hct 34.7 L (42.0-52.0) % MCV 84.0 (80.0-98.0) fL MCH 29.1 (27.0-33.0) pg MCHC 34.6 (31.0-36.0) g/dl RDW 13.8 (11.0-16.0) % Plt Count 102 L D (160-400) X10*3/uL MPV 10.7 (9.4-12.4) fL Immature Gran % (Auto) Cancelled Neut % (Auto) Cancelled Lymph % (Auto) Cancelled Coffey % (Auto) Cancelled Eos % (Auto) Cancelled Baso % (Auto) Cancelled Lymph # (Auto) Cancelled Coffey # (Auto) Cancelled Eos # (Auto) Cancelled Baso # (Auto) Cancelled Abs Immat Gran (auto) Cancelled Absolute Neuts (auto) Cancelled Absolute Nucleated RBC 0.000 (0.0-0.012) X10*3/uL Nucleated RBC % (auto) 0.0 (0.0-0.2) /100WBC Neutrophils % (Manual) 60 (45-73) % Band Neutrophils % 35 H (3-5) % Lymphocytes % (Manual) 2 L (20-40) % Metamyelocytes % 3 % Abs Neuts (Manual) 8.6 H (2.0-8.3) X10*3/uL Lymphocytes # (Manual) 0.2 L (1.2-4.9) X10*3/uL Metamyelocytes # 0.3 X10*3/uL Toxic Vacuolation PRESENT Dohle Bodies PRESENT Platelet Estimate DECREASED (NORMAL) Plt Morphology Comment NORMAL RBC Morphology NORMAL ESR 5 (0-15) MM/HR PT 19.3 H (10.9-12.4) SEC INR 1.7 H (0.9-1.1) APTT 34.6 (26.0-36.8) SEC Sodium 125 L (135-145) mmol/L Potassium 4.8 (3.3-5.1) mmol/L Chloride 96 (96-108) mmol/L Carbon Dioxide 20 L (22-29) mmol/L Anion Gap 14 (12-20) BUN 31 H (9-16) mg/dL Creatinine 2.04 H (0.5-1.4) mg/dL Estim Creat Clear Calc 27.2 Estimated GFR 32 Random Glucose 106 (60-115) mg/dL Lactic Acid 2.9 H* (0.5-2.0) mmol/L Lactic Acid F/U @ 2Hr (0.5-2.0) mmol/L Calcium 8.0 L D (8.4-10.2) mg/dL Total Bilirubin 1.1 H (0.0-1.0) mg/dL Direct Bilirubin 0.4 (0.0-0.5) mg/dL AST 53 H (5-37) U/L ALT 33 (0-40) U/L Alkaline Phosphatase 48 (39-117) U/L Troponin I High Sens 244.4 H* 220.2 H* (<3.5-35.0) ng/L C-Reactive Protein 18.32 H (< or = 0.50) mg/dL Total Protein 5.6 L (6.5-8.0) g/dL Albumin 3.2 L (3.5-5.0) g/dL Lipase 21 (8-78) U/L Procalcitonin 20.14 ng/mL Influenza Type A (PCR) NEGATIVE (Negative) Influenza Type B (PCR) NEGATIVE (Negative) RSV RNA Qual (PCR) NEGATIVE (Negative) SARS-CoV-2 RNA (RT-PCR) NEGATIVE (Negative) 02/28/24 Range/Units 12:34 WBC (4.8-10.8) X10*3/uL RBC (4.60-5.80) X10*6/uL Hgb (14.0-18.0) g/dl Hct (42.0-52.0) % MCV (80.0-98.0) fL MCH (27.0-33.0) pg MCHC (31.0-36.0) g/dl RDW (11.0-16.0) % Plt Count (160-400) X10*3/uL MPV (9.4-12.4) fL Immature Gran % (Auto) Neut % (Auto) Lymph % (Auto) Coffey % (Auto) Eos % (Auto) Baso % (Auto) Lymph # (Auto) Coffey # (Auto) Eos # (Auto) Baso # (Auto) Abs Immat Gran (auto) Absolute Neuts (auto) Absolute Nucleated RBC (0.0-0.012) X10*3/uL Nucleated RBC % (auto) (0.0-0.2) /100WBC Neutrophils % (Manual) (45-73) % Band Neutrophils % (3-5) % Lymphocytes % (Manual) (20-40) % Metamyelocytes % % Abs Neuts (Manual) (2.0-8.3) X10*3/uL Lymphocytes # (Manual) (1.2-4.9) X10*3/uL Metamyelocytes # X10*3/uL Toxic Vacuolation Dohle Bodies Platelet Estimate (NORMAL) Plt Morphology Comment RBC Morphology ESR (0-15) MM/HR PT (10.9-12.4) SEC INR (0.9-1.1) APTT (26.0-36.8) SEC Sodium (135-145) mmol/L Potassium (3.3-5.1) mmol/L Chloride (96-108) mmol/L Carbon Dioxide (22-29) mmol/L Anion Gap (12-20) BUN (9-16) mg/dL Creatinine (0.5-1.4) mg/dL Estim Creat Clear Calc Estimated GFR Random Glucose (60-115) mg/dL Lactic Acid (0.5-2.0) mmol/L Lactic Acid F/U @ 2Hr 2.8 H* (0.5-2.0) mmol/L Calcium (8.4-10.2) mg/dL Total Bilirubin (0.0-1.0) mg/dL Direct Bilirubin (0.0-0.5) mg/dL AST (5-37) U/L ALT (0-40) U/L Alkaline Phosphatase (39-117) U/L Troponin I High Sens (<3.5-35.0) ng/L C-Reactive Protein (< or = 0.50) mg/dL Total Protein (6.5-8.0) g/dL Albumin (3.5-5.0) g/dL Lipase (8-78) U/L Procalcitonin ng/mL Influenza Type A (PCR) (Negative) Influenza Type B (PCR) (Negative) RSV RNA Qual (PCR) (Negative) SARS-CoV-2 RNA (RT-PCR) (Negative) Independent Interpretation I performed an independent interpretation of an: EKG and Plain X-Ray Interpretation: My independent interpretation of the patient's 12 EKG done at 10:09 hours is as follows: Normal sinus rhythm rate of 84, normal KS interval, QRS duration and QTC interval, no ST segment elevation, no ST segment depression, no significant T-wave way abnormalities, no PACs, no PVCs My independent interpretation patient's chest x-ray is as follows: Possible left lower lobe retrocardiac infiltrate Radiology Impression Discussion of test interpretation with radiology: I have reviewed the radiologist's reading. Radiologist Impression: XR chest 1V IMPRESSION: 1. Left basilar/retrocardiac opacity which could represent atelectasis versus early pneumonia. 2. Complete versus near complete resolution of the previously seen pleural effusions. Electronically signed by: Ethan Treviño MD 02/28/2024 11:10 AM EDT RP Dictated By: Ethan Treviño MD Independent Historian Clinical information obtained from an independent historian. History obtained from or confirmed by: Other (Patient's PCP, Dr. Jacques , patient's son-in-law and patient's son who is a PMR physician) Chronic Conditions Patient?s care impacted by: Other (Coronary disease, hyperlipidemia) Critical Care Time Critical Care Time Critical Care Time: Yes Total Critical Care Time: 80 Attestation: Critical Care: The patient was critically ill with a high probability of imminent or life threatening deterioration. I spent greater than 30 minutes of discontinuous time evaluating the patient,delivering critical care at the bedside, discussing and evaluating pertinent data with consultants. Critical care time does not include time spent performing separately billable procedures or teaching. Total time spent performing critical care was 80 minutes. Discharge Plan Discharge Clinical Impression: Back pain Sepsis Qualifiers: Sepsis acute organ dysfunction status: with acute organ dysfunction Severe sepsis acute organ dysfunction type: acute renal failure Severe sepsis shock status: with septic shock Pneumonia Qualifiers: Laterality: left Lung location: lower lobe of lung Patient Disposition: Admitted As Inpatient
[2024-02-28] MEDS: 0.9 % Sodium Chloride 1,905.09 ML 1905.09 ML IV (09:57)
[2024-02-28 10:01] LABS: Hematocrit 34.7 % (42.0-52.0); Mean Corpuscular HGB Conc 34.6 g/dl (31.0-36.0); Mean Corpuscular Hemoglobin 29.1 pg (27.0-33.0); Mean Platelet Volume 10.7 fL (9.4-12.4); Platelet Count 102 X10*3/uL (160-400); Red Blood Count 4.13 X10*6/uL (4.60-5.80); Red Cell Distribution Width 13.8 % (11.0-16.0); White Blood Count 9.1 X10*3/uL (4.8-10.8)
[2024-02-28 10:04] LABS: INTERNATIONAL NORM RATIO 1.7 (0.9-1.1); Prothrombin Time 19.3 SEC (10.9-12.4)
[2024-02-28] MEDS: Piperacillin Sodium/Tazobactam 4.5 GM in 0.9 % Sodium Chloride 100 ML IV (10:05)
[2024-02-28 10:07] LABS: Partial Thromboplastin Time 34.6 SEC (26.0-36.8)
[2024-02-28] MEDS: vancomycin HCL 1,500 MG in 0.9 % Sodium Chloride 500 ML 333.33 MG IV (10:09)
[2024-02-28 10:18] LABS: Neutrophils Percent Manual 60 % (45-73)
[2024-02-28 10:21] LABS: Band Neutrophils Percent 35 % (3-5); Lymphocytes Absolute Manual 0.2 X10*3/uL (1.2-4.9); Lymphocytes Percent Manual 2 % (20-40); Metamyelocytes Absolute 0.3 X10*3/uL; Metamyelocytes Percent 3 %; Neutrophils Absolute Manual 8.6 X10*3/uL (2.0-8.3)
[2024-02-28 10:23] LABS: Dohle Bodies PRESENT; Platelet Estimate DECREASED (NORMAL); Platelet Morphology Comment NORMAL; RBC Morphology NORMAL; Toxic Vacuolation PRESENT
[2024-02-28 10:47] LABS: Alanine Aminotransferase 33 U/L (0-40); Albumin Level 3.2 g/dL (3.5-5.0); Alkaline Phosphatase 48 U/L (39-117); Anion Gap 14 (12-20); Aspartate Amino Transferase 53 U/L (5-37); Bilirubin Direct 0.4 mg/dL (0.0-0.5); Bilirubin Total 1.1 mg/dL (0.0-1.0); Blood Urea Nitrogen 31 mg/dL (9-16); C Reactive Protein 18.32 mg/dL (< or = 0.50); Carbon Dioxide 20 mmol/L (22-29); Chloride 96 mmol/L (96-108); Creatinine Clr Calc Pharmacy 27.2; Estimated Glomerular Filt Rate 32; Glucose Random 106 mg/dL (60-115); Potassium 4.8 mmol/L (3.3-5.1); Procalcitonin 20.14 ng/mL; Sodium 125 mmol/L (135-145); Total Protein 5.6 g/dL (6.5-8.0)
[2024-02-28 10:48] LABS: Lactic Acid 2.9 mmol/L (0.5-2.0)
[2024-02-28 10:51] LABS: Erythrocyte Sedimentation Rate 5 MM/HR (0-15)
[2024-02-28 10:52] LABS: Influenza A PCR NEGATIVE (Negative); Influenza B PCR NEGATIVE (Negative); Resp Syncy Virus RNA Qual PCR NEGATIVE (Negative); SARS COV2 PCR INHOUSE NEGATIVE (Negative)
[2024-02-28 11:01] LABS: Lipase 21 U/L (8-78)
[2024-02-28 11:07] LABS: Troponin-I High Sensitivity 244.4 ng/L (<3.5-35.0)
--- NOTE | 2024-02-28 11:50 | PC.NURSE ---
this RN assumed care of patient at approx 1115. patient remains hypotensive at this time, fluids continue to infuse. antibiotics have completed. bilateral 18IV in AC. patient reports continuing to feel lethargic and that this began last night. denies any chest pain/shortness of breath.
--- NOTE | 2024-02-28 12:12 | PC.NURSE ---
IV fluids have infused, patient remains hypotensive. alert and oriented.
--- NOTE | 2024-02-28 12:24 | PC.NURSE ---
called lab at 1218 inquiring about the repeat lactic acid, states that it will be due at 1232.
[2024-02-28 12:32] LABS: Reflex Lactate? Lactic Acid Added
[2024-02-28] MEDS: Norepinephrine Bitartrate/D5W 8 MG/250 ML PLAST..BAG 5.95 MG IVCONT (12:39)
--- NOTE | 2024-02-28 12:40 | PC.NURSE ---
norepi gtt began at 0.05mcg/kg/min.
[2024-02-28 12:51] LABS: ~Lactic Acid-LAB USE ONLY 2.8 mmol/L (0.5-2.0)
[2024-02-28 12:59] LABS: Troponin-I High Sensitivity 220.2 ng/L (<3.5-35.0)
--- NOTE | 2024-02-28 12:59 | PC.NURSE ---
91% on room air, placed 2L nasal cannula on - 94%
--- NOTE | 2024-02-28 13:15 | PHA.MEDREC ---
Addendum entered by Elisa Joseph RPh 02/28/24 13:22: reviewed by [facility]. Original Note: Pharmacy Consult ? Medication Reconciliation Pharmacy has completed the medication reconciliation. Confirmed medications with patient. Patient states he has not started the Ciprofloxacin 500mg tab due to his state now and patient has it at home. He confirmed he took his medication this morning around 0600.
[2024-02-28 14:37] LABS: Reflex Lactate? 2 Y
--- NOTE | 2024-02-28 15:35 | PM.CCHP ---
History of Present Illness Date of Service: 02/28/24 Chief Complaint: Hypotension DrJeremy Betancur is a 78 years old gentleman with past medical history of hypertension, COPD, coronary disease, mitral valve replacement with bioprosthetic 4 years prior, leg weakness secondary to neck injury presents emergency department for evaluation of chills, weakness and fatigue. He developed fever with temperature of about 99.5 F with chills that began last evening when he was in his clinic, later in the evening he also had mild of lower flank pain with 1 episode of incontinence small amount. This morning when he woke up he was more weak and could not stand and walk so he presented to the ED. His workup is significant for leukocytosis to 14,000 with 30% bands, acute kidney injury with creatinine up to 2, lactate of 2.8, procalcitonin increase to 20 as well as elevated CRP. He received 2 L of IV fluid bolus despite which his blood pressures remain low because of which he was started on Levophed for vasopressor support and transferred to medical ICU Review of Systems Constitutional: Constitutional: Denies body ache(s), Reports chills and Denies daytime sleepiness Eyes: Eyes: Denies exophthalmos and Denies change in vision ENT: Reports Normal hearing present and Denies bleeding gums Cardiovascular: Cardiovascular: Denies Abdominal Cramping after Meds, Denies Abdominal Distension, Denies chest pain and Denies chest pain at rest Respiratory: Respiratory: Denies change in phlegm color, Denies chest congestion and Denies cough Gastrointestinal: Gastrointestinal: Denies abdominal pain and Denies belching Genitourinary: Genitourinary: Denies hematospermia, Denies change in libido and Reports urinary incontinence Musculoskeletal: Musculoskeletal: Denies abnormal gait and Reports back pain Neurologic: Reports Normal hearing present, Denies Neuro-related abnormal movements, Denies Abnormal speech present and Denies abnormal gait Psychiatric: Psychiatric: Denies change in libido Endocrine: Endocrine: Denies change in libido [facility] Past Medical History Medical History Obstructive sleep apnea hypopnea, moderate CAD (coronary artery disease) Mitral valve prolapse Hyperlipidemia PVCs (premature ventricular contractions) Postoperative atrial fibrillation Family History Family History Father No problems noted. Mother No problems noted. Surgical History Surgical History History of mitral valve replacement with bioprosthetic valve History of varicocele Hx of cardiac cath Social History Social History Patient Tobacco Use Status: Never used Tobacco Advance Directives: Yes Advance Directives Information Provided: Yes Advance Directives on File: No Advance Directives Date on File: 02/03/20 Do you have a plan to hurt others: No Plan Meds Allergies Allergy/AdvReac Type Severity Reaction Status Date / Time lactose [LACTOSE] AdvReac Unknown DIARRHEA Verified 02/28/24 09:37 onion [Onion] AdvReac Unknown DIARRHEA Verified 02/28/24 09:37 WITH RAW ONIONS Active Medications: Current Medications Norepinephrine Bitartrate (Levophed) 8 mg in 250 mls @ 0 mls/hr IVCONT .Q0M LILI; Protocol Last Titration: 02/28/24 14:08 Dose: 0.11 mcg/kg/min, 13.1 mls/hr Home Medications ?Medication ?Instructions ?Recorded ?Confirmed ?Last Taken ?Type aspirin 81 mg tablet,delayed 81 mg PO DAILY 07/20/20 02/28/24 02/28/24 06:00 History release (Adult Low Dose Aspirin) coenzyme Q10 100 mg capsule 100 mg PO DAILY 07/20/20 02/28/24 02/28/24 06:00 History magnesium 250 mg tablet 250 mg PO DAILY 07/20/20 02/28/24 02/28/24 06:00 History metoprolol succinate 100 mg 100 mg PO DAILY 07/20/20 02/28/24 02/28/24 06:00 History tablet,extended release 24 hr ascorbate calcium (vitamin C) 500 2 g PO DAILY 11/22/20 02/28/24 02/28/24 06:00 History mg tablet docusate sodium 100 mg capsule 100 mg PO DAILY 11/22/20 02/28/24 02/28/24 06:00 History (Colace) gabapentin 300 mg capsule 600 mg PO BEDTIME 11/22/20 02/28/24 02/27/24 History atorvastatin 20 mg tablet 20 mg PO BEDTIME 02/28/24 02/28/24 02/27/24 History Physical Exam Vital Signs: Vital Signs: Last Vital Signs Temp 97.9 F 02/28/24 12:12 Pulse 77 02/28/24 15:05 Resp 24 H 02/28/24 15:05 BP 114/66 02/28/24 15:05 Pulse Ox 96 02/28/24 15:05 O2 Del Method Nasal Cannula 02/28/24 15:05 O2 Flow Rate 2 02/28/24 15:05 BMI result Body Mass Index 20.1 General: not in acute distress, tired appearing Nutritional Appearance: normal nourished and normal weight Eyes: appearance normal, both eyes and all related structures; Alignment and Position: alignment normal and position normal Neck: No lymphadenopathy, no thyromegaly Resp: bilateral air entry equal, no added sounds present Cardio: Regular rate, regular rhythm; Heart sounds: S1 normal heart sound present and S2 normal heart sound present GI: soft, nontender, no guarding, no hepatosplenomegaly : bladder normal to inspection, bladder normal to palpation, no renal angle tenderness Skin: no rashes or lesions noted and elasticity normal Neuro: oriented to person, oriented to place, oriented to time and moves all extremities Neuro: Cranial nerves: Yes Normal hearing present Speech: No Abnormal speech present Results Labs 02/28/24 09:51 02/28/24 09:51 Labs: Laboratory Results - last 24 hr 02/28/24 02/28/24 02/28/24 09:51 10:03 12:29 MCV 84.0 MCH 29.1 MCHC 34.6 RDW 13.8 Plt Count 102 L D MPV 10.7 Immature Gran % (Auto) Cancelled Neut % (Auto) Cancelled Lymph % (Auto) Cancelled [place] % (Auto) Cancelled Eos % (Auto) Cancelled Baso % (Auto) Cancelled Lymph # (Auto) Cancelled [place] # (Auto) Cancelled Eos # (Auto) Cancelled Baso # (Auto) Cancelled Abs Immat Gran (auto) Cancelled Absolute Neuts (auto) Cancelled Absolute Nucleated RBC 0.000 Nucleated RBC % (auto) 0.0 Neutrophils % (Manual) 60 Band Neutrophils % 35 H Lymphocytes % (Manual) 2 L Metamyelocytes % 3 Abs Neuts (Manual) 8.6 H Lymphocytes # (Manual) 0.2 L Metamyelocytes # 0.3 Toxic Vacuolation PRESENT Dohle Bodies PRESENT Platelet Estimate DECREASED Plt Morphology Comment NORMAL RBC Morphology NORMAL ESR 5 PT 19.3 H INR 1.7 H APTT 34.6 Anion Gap 14 Estim Creat Clear Calc 27.2 Estimated GFR 32 Random Glucose 106 Lactic Acid 2.9 H* Lactic Acid F/U @ 2Hr Calcium 8.0 L D Total Bilirubin 1.1 H Direct Bilirubin 0.4 AST 53 H ALT 33 Alkaline Phosphatase 48 Troponin I High Sens 244.4 H* 220.2 H* C-Reactive Protein 18.32 H Total Protein 5.6 L Albumin 3.2 L Lipase 21 Procalcitonin 20.14 Influenza Type A (PCR) NEGATIVE Influenza Type B (PCR) NEGATIVE RSV RNA Qual (PCR) NEGATIVE SARS-CoV-2 RNA (RT-PCR) NEGATIVE 02/28/24 12:34 MCV MCH MCHC RDW Plt Count MPV Immature Gran % (Auto) Neut % (Auto) Lymph % (Auto) [place] % (Auto) Eos % (Auto) Baso % (Auto) Lymph # (Auto) [place] # (Auto) Eos # (Auto) Baso # (Auto) Abs Immat Gran (auto) Absolute Neuts (auto) Absolute Nucleated RBC Nucleated RBC % (auto) Neutrophils % (Manual) Band Neutrophils % Lymphocytes % (Manual) Metamyelocytes % Abs Neuts (Manual) Lymphocytes # (Manual) Metamyelocytes # Toxic Vacuolation Dohle Bodies Platelet Estimate Plt Morphology Comment RBC Morphology ESR PT INR APTT Anion Gap Estim Creat Clear Calc Estimated GFR Random Glucose Lactic Acid Lactic Acid F/U @ 2Hr 2.8 H* Calcium Total Bilirubin Direct Bilirubin AST ALT Alkaline Phosphatase Troponin I High Sens C-Reactive Protein Total Protein Albumin Lipase Procalcitonin Influenza Type A (PCR) Influenza Type B (PCR) RSV RNA Qual (PCR) SARS-CoV-2 RNA (RT-PCR) Imaging Radiologist's Impressions: Impressions Chest X-Ray 02/28/24 09:44 IMPRESSION: 1. Left basilar/retrocardiac opacity which could represent atelectasis versus early pneumonia. 2. Complete versus near complete resolution of the previously seen pleural effusions. Electronically signed by: Ethan Treviño MD 02/28/2024 11:10 AM EDT Assessment and Plan (1) History of mitral valve replacement with bioprosthetic valve: Status: Acute (2) CAD (coronary artery disease): Status: Acute (3) PVCs (premature ventricular contractions): Status: Acute (4) Hyperlipidemia: Status: Acute (5) Septic shock: Status: Acute Plan Septic shock: Unclear source of infection yet, however bowling scans are pending Received sepsis dose bolus fluids, IVC 2.8 cm fluctuating less than 50% after the bolus fluids suggesting no further fluid boluses needed hence the patient is started on Levophed drip. Titrate Levophed to keep the map above 65 mm Hg. Blood culture sent, serial lactate slightly improving. Initial lactate 2.9, repeat lactate down to 2.8 and the 3rd lactate at 2.2. Zosyn and vancomycin were initiated within an hour of presentation to the ED. Continue the same. We will get CT scan of chest abdomen and pelvis and also MRI of lumbar spine to look for source of infection. Coronary artery disease: We will restart patient's aspirin and atorvastatin Hypertension: We will hold metoprolol given the hypotension Status post mitral valve repair, bioprosthetic wall 4 years ago Acute kidney injury: Secondary to sepsis and septic shock Creatinine increased to 2.09, we will continue to closely monitor renal function Avoid nephrotoxic medication Closely monitor I's and O's Prophylaxis: Heparin, pantoprazole Total time managing care of this patient today: 35 minutes.
[2024-02-28 15:57] LABS: Phosphorus 3.3 mg/dL (2.7-4.5)
--- NOTE | 2024-02-28 16:00 | CA_ITS ---
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 The calculated ejection fraction is 51% by biplane method. - A bioprosthetic mitral valve is present. The prosthetic mitral valve appears to be functioning normally. - There is moderate calcification of the aortic valve. There is mild aortic valve regurgitation. Findings Left Ventricle Normal left ventricular cavity size. The left ventricular systolic function is mildly decreased. The calculated ejection fraction is 51% by biplane method. There is no evidence of regional wall motion abnormalities. Diastolic function is indeterminate on the basis of available data. There is moderate septal asymmetric hypertrophy. Right Ventricle Normal right ventricular cavity size. There is mild to moderately decreased right ventricular systolic function. Atria Both atria are normal in size. Aortic Valve There is moderate calcification of the aortic valve. There is no aortic valve stenosis. There is mild aortic valve regurgitation. Mitral Valve A bioprosthetic mitral valve is present. The prosthetic mitral valve appears to be functioning normally. There is no mitral valve regurgitation. Pulmonic Valve The pulmonic valve was not well visualized. Tricuspid Valve There is mild tricuspid valve regurgitation. There is no evidence of pulmonary hypertension. Great Vessels The asc aorta is normal in size. Venous The inferior vena cava is mildly dilated and collapses greater than 50% with inspiration. Pericardium/Pleural There is no evidence of pericardial effusion. Prior Study Comparison No significant change compared to prior study dated: 01/15/2024. Change in LVEF could be technical/inter-observer variability. Measurements 2D Linear Measurements IVSd: 1.32 0.6-0.9/0.6-1.0 cm LVIDd: 3.51 3.9-5.3/4.2-5.9 cm LVIDd Index: 1.96 2.4-3.2/2.2-3.1 cm/m2 LVIDs: 2.59 2.0-3.6 cm LVPWd: 0.62 0.7-1.1 cm Ao Root: 3.00 2.1-3.5 cm LA Diam: 3.50 2.7-3.8/3.0-4.0 cm LAIDs Index: 1.96 1.5-2.3 cm/m2 LV Mass: 123.38 67-162/88-224 g LV Mass Index: 68.93 43-95/49-115 g/m2 LVOT Diam: 2.00 3.0+(-)1.3 cm 2D Systolic Function EF 4C: 48.40 >55% EF 2C: 56.60 >55% EF BiP: 50.90 >55% Mitral Valve MV VTI: 0.40 MV Pk Key[place]: 1.69 MV Mn Keyno: 1.30 MV Pk Grad: 11.00 MV Mn Grad: 7.00 MV Pk E: 1.55 MV PK A: 1.54 MV Decel Time: 243.00 E/A: 1.00 E'Lateral: 5.22 E'Medial: 5.33 E/E' Med: 29.10 E/E' Lat: 29.70 PHT: 71.00 MVA PHT: 3.10 MVA Continuity: 2.28 Decel [place]: 6.37 Aortic Valve AoV Pk [place]: 1.67 AoV Mn [place]: 1.17 AoV VTI: 0.36 AoV Pk Grad: 11.00 Aov Mn Grad: 6.00 DARSHANA Cont.VTI: 2.57 LVOT LVOT Pk [place]: 1.38 LVOT Mn [place]: 0.98 LVOT VTI: 0.29 LVOT Pk Grad: 8.00 LVOT Mn Grad: 5.00 LVOT Diam: 2.00 LVOT Area: 3.14 Diastolic Function MV Pk E: 1.55 MV Pk A: 1.54 E/A: 1.00 E'Medial: 5.33 E/E' Med: 29.10 E' Laterial: 5.22 E/E' Lat: 29.70 Right Ventricle TAPSE (mm): 12.00 TVS' [place]: 7.00 Tricuspid Valve TR Pk [place]: 2.06 TR Pk Grad: 17.00 RA Press: 15.00 RVSP: 32.00 Great Vessels Aorta Ao Root-2D: 3.00 2.0-3.7 cm Ao Asc: 3.40 2.1-3.4 cm Updated in Other Vendor System with Status of Final Ihsan Greenwood MD electronically signed on 02/28/2024 3:43:31 PM with status of Final
[2024-02-28 16:04] LABS: ~Lactic Acid-LAB USE ONLY 2.2 mmol/L (0.5-2.0)
[2024-02-28 16:34] LABS: Appearance Urine Clear; Color Urine Yellow; Glucose Urine UA Negative (Negative); Leukocyte Esterase Urine Negative (Negative); Nitrite Urine Negative (Negative); PH 5.5 (5.0-9.0); UMIC TRIGGER UACC YES; Urine Blood Moderate (2+) (Negative); Urine Ketones Negative (Negative); Urine Protein Trace mg/dL (Neg-Trace)
[2024-02-28] MEDS: Piperacillin Sodium/Tazobactam 2.25 GM in 0.9 % Sodium Chloride 50 ML IV (18:00)
[2024-02-28] MEDS: Heparin Sodium,Porcine 5,000 UNIT/ML VIAL 5000 UNIT SUBCUT (18:02)
[2024-02-28 18:56] LABS: Bacteria Urine None Seen (None Seen); Hyaline Casts Urine 0-2 /LPF (0-2); RBC Urine 0-2 /HPF (0-2); Squamous Epithelial Cell Urine 0-2 /HPF (0-2); WBC Urine 0-5 /HPF (0-5)
--- NOTE | 2024-02-28 20:06 | PC.NURSE ---
Assumed care of patient 15:25, pt arrived from ER Levophed gtt @ 0.11. 2 PIVs 18 RAC and 18 LAC with positive blood return. Piperacillin IV given per MAR Pt states urge to void with urinary hesitancy. Pt bladder scanned >999 ml. Pt voided 700 ml in urinal. Pt transported with CAN [facility]NER to CT scan 16:45-17:10. CT head, chest and abd w/o contrast completed Pt returned to ICU with RN. Extension tubing used to prepare levophed gtt for MRI. Pt BP stable, no titration changes. 18:30 Pt transported to MRI lumbar spine. Pt returned to room with CAN [facility]NER 19:25. VSS. Pt voided 550 ml in urinal. Handoff report given to next RN.
[2024-02-28 20:40] LABS: Mean Corpuscular Hemoglobin 29.4 pg (27.0-33.0); PLT CLUMP 1
[2024-02-28 20:42] LABS: Hematocrit 35.6 % (42.0-52.0); Hemoglobin 12.4 g/dl (14.0-18.0); Mean Corpuscular HGB Conc 34.8 g/dl (31.0-36.0); Mean Corpuscular Volume 84.4 fL (80.0-98.0); Mean Platelet Volume 11.6 fL (9.4-12.4); Red Blood Count 4.22 X10*6/uL (4.60-5.80)
[2024-02-28 20:45] LABS: White Blood Count 16.4 X10*3/uL (4.8-10.8)
[2024-02-28 20:55] LABS: Alanine Aminotransferase 35 U/L (0-40); Albumin Level 3.2 g/dL (3.5-5.0); Alkaline Phosphatase 44 U/L (39-117); Anion Gap 13 (12-20); Aspartate Amino Transferase 68 U/L (5-37); Blood Urea Nitrogen 25 mg/dL (9-16); Calcium 8.1 mg/dL (8.4-10.2); Carbon Dioxide 19 mmol/L (22-29); Chloride 105 mmol/L (96-108); Creatinine Clr Calc Pharmacy 40.8; Estimated Glomerular Filt Rate 51; Glucose Random 113 mg/dL (60-115); Lactic Acid 2.1 mmol/L (0.5-2.0); Platelet Count 89 X10*3/uL (160-400); Potassium 4.4 mmol/L (3.3-5.1); Sodium 133 mmol/L (135-145); Total Protein 5.6 g/dL (6.5-8.0)
[2024-02-28] MEDS: Gabapentin 300 MG CAPSULE 600 MG PO (21:17)
[2024-02-28] MEDS: vancomycin HCL 500 MG in 0.9 % Sodium Chloride 100 ML 110 MG IV (21:20)
[2024-02-28] MEDS: Lactated Ringers 1,000 ML 100 ML IVCONT (21:32)
[2024-02-28 22:29] LABS: Band Neutrophils Percent 43 % (3-5); Lymphocytes Absolute Manual 0.3 X10*3/uL (1.2-4.9); Lymphocytes Percent Manual 2 % (20-40); Metamyelocytes Absolute 1.1 X10*3/uL; Metamyelocytes Percent 7 %; Myelocytes Percent 6 %; Neutrophils Absolute Manual 13.9 X10*3/uL (2.0-8.3); Neutrophils Percent Manual 42 % (45-73)
[2024-02-28 22:32] LABS: Platelet Estimate DECREASED (NORMAL); RBC Morphology NORMAL
[2024-02-28 22:33] LABS: Dohle Bodies PRESENT; Platelet Morphology Comment NORMAL; Toxic Vacuolation PRESENT
[2024-02-28] MEDS: Albumin Human 25 % 100 ML 133.33 ML IV ×2 (22:34→23:04)
[2024-02-28 22:37] LABS: Reflex Lactate? Lactic Acid Added
[2024-02-28 23:04] LABS: ~Lactic Acid-LAB USE ONLY 1.9 mmol/L (0.5-2.0)
[2024-02-29] VITALS (39 sets, daily range): BP systolic 85–127; BP diastolic 46–74; PULSE 63–104; RESP 11–29; TEMP 36.6–36.7; O2SAT 89–98; BMI 20.1
[2024-02-29] MEDS: Heparin Sodium,Porcine 5,000 UNIT/ML VIAL 5000 UNIT SUBCUT ×4 (00:40→23:34)
[2024-02-29] MEDS: vancomycin HCL 750 MG in 0.9 % Sodium Chloride 250 ML 265 MG IV ×2 (00:40→08:14)
[2024-02-29] MEDS: Piperacillin Sodium/Tazobactam 3.375 GM in 0.9 % Sodium Chloride 50 ML IV ×2 (01:00→07:54)
[2024-02-29] MEDS: Norepinephrine Bitartrate/D5W 8 MG/250 ML PLAST..BAG 23.81 MG IVCONT (04:07)
[2024-02-29] MEDS: Omeprazole 20 MG CAPSULE.DR PO (05:42)
[2024-02-29 06:18] LABS: Hematocrit 37.2 % (42.0-52.0); Hemoglobin 12.6 g/dl (14.0-18.0); Mean Corpuscular HGB Conc 33.9 g/dl (31.0-36.0); Mean Corpuscular Volume 85.5 fL (80.0-98.0); Mean Platelet Volume 11.6 fL (9.4-12.4); Platelet Count 81 X10*3/uL (160-400); Red Blood Count 4.35 X10*6/uL (4.60-5.80); White Blood Count 14.8 X10*3/uL (4.8-10.8)
[2024-02-29 06:30] LABS: Alanine Aminotransferase 32 U/L (0-40); Albumin Level 3.8 g/dL (3.5-5.0); Alkaline Phosphatase 48 U/L (39-117); Anion Gap 16 (12-20); Aspartate Amino Transferase 63 U/L (5-37); Bilirubin Total 0.9 mg/dL (0.0-1.0); Blood Urea Nitrogen 22 mg/dL (9-16); Calcium 8.1 mg/dL (8.4-10.2); Carbon Dioxide 17 mmol/L (22-29); Chloride 113 mmol/L (96-108); Creatinine Clr Calc Pharmacy 50.9; Estimated Glomerular Filt Rate > 60; Glucose Random 110 mg/dL (60-115); Magnesium 2.3 mg/dL (1.6-2.6); Phosphorus 2.2 mg/dL (2.7-4.5); Potassium 4.1 mmol/L (3.3-5.1); Sodium 142 mmol/L (135-145); Total Protein 6.2 g/dL (6.5-8.0)
[2024-02-29 06:32] LABS: Vancomycin Random 18.2 mcg/mL (15-20)
[2024-02-29 06:42] LABS: Band Neutrophils Percent 37 % (3-5); Lymphocytes Absolute Manual 0.6 X10*3/uL (1.2-4.9); Lymphocytes Percent Manual 4 % (20-40); Metamyelocytes Absolute 0.6 X10*3/uL; Metamyelocytes Percent 4 %; Neutrophils Absolute Manual 13.6 X10*3/uL (2.0-8.3); Neutrophils Percent Manual 55 % (45-73)
[2024-02-29 06:44] LABS: Dohle Bodies PRESENT; Large Platelet PRESENT; Platelet Estimate DECREASED (NORMAL); Platelet Morphology Comment NOTED; RBC Morphology NORMAL; Toxic Vacuolation PRESENT
--- NOTE | 2024-02-29 07:04 | HE.PHANOTE ---
RE VANCO DOSING CHANGED TO 750 MG Q24 TO ACHIEVE AUC 479 AND TROUGH 13.6 ACCORDING TO INSIGHT. EXPECTING HIGHER TROUGH THAN THAT BASED ON CURRENT RANDOM LEVEL.
[2024-02-29] MEDS: Lactated Ringers 1,000 ML 100 ML IVCONT ×2 (08:14→17:38)
[2024-02-29] MEDS: Aspirin Enteric Coated 81 MG TABLET.DR PO (10:12)
--- NOTE | 2024-02-29 12:10 | PM.CCPN ---
Subjective Subjective Date of Service: 02/29/24 Critical Care Time (minutes): 30 Comment: On Levophed for vasopressor support this morning, however doses improving Does not have any new complaints, he is alert oriented JUANITA resolved on the labs Physical Exam Vital Signs: Vital Signs: Last Vital Signs Temp 97.9 F 02/29/24 04:00 Pulse 88 02/29/24 12:02 Resp 22 H 02/29/24 11:00 BP 111/53 L 02/29/24 12:02 Pulse Ox 95 02/29/24 11:00 O2 Del Method Nasal Cannula 02/29/24 11:00 O2 Flow Rate 1 02/29/24 11:00 BMI result Body Mass Index 20.1 General: Not in any acute distress, itired appearing Nutritional Appearance: well nourished and overweight Eyes: appearance normal, both eyes and all related structures; Alignment and Position: alignment normal and position normal Neck: No lymphadenopathy, no thyromegaly Resp: bilateral air entry equal, occasional added sounds present Cardio: Regular rate, regular rhythm; Heart sounds: S1 normal heart sound present and S2 normal heart sound present GI: soft, nontender, no guarding, no hepatosplenomegaly : bladder normal to inspection, bladder normal to palpation, no renal angle tenderness Skin: no rashes or lesions noted and elasticity normal Neuro: oriented to person, oriented to place, oriented to time and moves all extremities Objective Data Labs 02/29/24 05:46 02/29/24 05:46 Labs: Laboratory Results - last 24 hr 02/28/24 02/28/24 02/28/24 12:29 12:34 15:37 WBC RBC Hgb Hct MCV MCH MCHC RDW Plt Count MPV Immature Gran % (Auto) Neut % (Auto) Lymph % (Auto) [place] % (Auto) Eos % (Auto) Baso % (Auto) Lymph # (Auto) [place] # (Auto) Eos # (Auto) Baso # (Auto) Abs Immat Gran (auto) Absolute Neuts (auto) Absolute Nucleated RBC Nucleated RBC % (auto) Neutrophils % (Manual) Band Neutrophils % Lymphocytes % (Manual) Metamyelocytes % Myelocytes % Abs Neuts (Manual) Lymphocytes # (Manual) Metamyelocytes # Myelocytes # Toxic Vacuolation Dohle Bodies Platelet Estimate Large Platelets Plt Morphology Comment RBC Morphology Hold Purple Top Sodium Potassium Chloride Carbon Dioxide Anion Gap BUN Creatinine Estim Creat Clear Calc Estimated GFR Random Glucose Lactic Acid Lactic Acid F/U @ 2Hr 2.8 H* Lactic Acid F/U @ 4Hr 2.2 H* Calcium Phosphorus 3.3 Magnesium Total Bilirubin AST ALT Alkaline Phosphatase Troponin I High Sens 220.2 H* Total Protein Albumin Urine Color Urine Appearance Urine pH Ur Specific [place] Urine Protein Urine Glucose (UA) Urine Ketones Urine Blood Urine Nitrite Ur Leukocyte Esterase Urine RBC Urine WBC Ur Squamous Epith Cells Urine Bacteria Hyaline Casts Random Vancomycin 02/28/24 02/28/24 02/28/24 16:30 20:27 22:48 WBC 16.4 H RBC 4.22 L Hgb 12.4 L Hct 35.6 L MCV 84.4 MCH 29.4 MCHC 34.8 RDW 14.0 Plt Count 89 L MPV 11.6 Immature Gran % (Auto) Cancelled Neut % (Auto) Cancelled Lymph % (Auto) Cancelled [place] % (Auto) Cancelled Eos % (Auto) Cancelled Baso % (Auto) Cancelled Lymph # (Auto) Cancelled [place] # (Auto) Cancelled Eos # (Auto) Cancelled Baso # (Auto) Cancelled Abs Immat Gran (auto) Cancelled Absolute Neuts (auto) Cancelled Absolute Nucleated RBC 0.000 Nucleated RBC % (auto) 0.0 Neutrophils % (Manual) 42 L Band Neutrophils % 43 H Lymphocytes % (Manual) 2 L Metamyelocytes % 7 Myelocytes % 6 Abs Neuts (Manual) 13.9 H Lymphocytes # (Manual) 0.3 L Metamyelocytes # 1.1 Myelocytes # 1.0 Toxic Vacuolation PRESENT Dohle Bodies PRESENT Platelet Estimate DECREASED Large Platelets Plt Morphology Comment NORMAL RBC Morphology NORMAL Hold Purple Top SEE NOTE Sodium 133 L Potassium 4.4 Chloride 105 Carbon Dioxide 19 L Anion Gap 13 BUN 25 H Creatinine 1.36 Estim Creat Clear Calc 40.8 Estimated GFR 51 Random Glucose 113 Lactic Acid 2.1 H* Lactic Acid F/U @ 2Hr 1.9 Lactic Acid F/U @ 4Hr Calcium 8.1 L Phosphorus Magnesium Total Bilirubin 1.0 AST 68 H ALT 35 Alkaline Phosphatase 44 Troponin I High Sens Total Protein 5.6 L Albumin 3.2 L Urine Color Yellow Urine Appearance Clear Urine pH 5.5 Ur Specific [place] 1.010 Urine Protein Trace Urine Glucose (UA) Negative Urine Ketones Negative Urine Blood Moderate (2+) H Urine Nitrite Negative Ur Leukocyte Esterase Negative Urine RBC 0-2 Urine WBC 0-5 Ur Squamous Epith Cells 0-2 Urine Bacteria None Seen Hyaline Casts 0-2 Random Vancomycin 02/29/24 02/29/24 05:46 06:12 WBC 14.8 H RBC 4.35 L Hgb 12.6 L Hct 37.2 L MCV 85.5 MCH 29.0 MCHC 33.9 RDW 14.0 Plt Count 81 L MPV 11.6 Immature Gran % (Auto) Cancelled Neut % (Auto) Cancelled Lymph % (Auto) Cancelled [place] % (Auto) Cancelled Eos % (Auto) Cancelled Baso % (Auto) Cancelled Lymph # (Auto) Cancelled [place] # (Auto) Cancelled Eos # (Auto) Cancelled Baso # (Auto) Cancelled Abs Immat Gran (auto) Cancelled Absolute Neuts (auto) Cancelled Absolute Nucleated RBC 0.000 Nucleated RBC % (auto) 0.0 Neutrophils % (Manual) 55 Band Neutrophils % 37 H Lymphocytes % (Manual) 4 L Metamyelocytes % 4 Myelocytes % Abs Neuts (Manual) 13.6 H Lymphocytes # (Manual) 0.6 L Metamyelocytes # 0.6 Myelocytes # Toxic Vacuolation PRESENT Dohle Bodies PRESENT Platelet Estimate DECREASED Large Platelets PRESENT Plt Morphology Comment NOTED RBC Morphology NORMAL Hold Purple Top Sodium 142 Potassium 4.1 Chloride 113 H Carbon Dioxide 17 L Anion Gap 16 BUN 22 H Creatinine 1.09 Estim Creat Clear Calc 50.9 Estimated GFR > 60 Random Glucose 110 Lactic Acid Lactic Acid F/U @ 2Hr Lactic Acid F/U @ 4Hr Calcium 8.1 L Phosphorus 2.2 L Magnesium 2.3 Total Bilirubin 0.9 AST 63 H ALT 32 Alkaline Phosphatase 48 Troponin I High Sens Total Protein 6.2 L Albumin 3.8 Urine Color Urine Appearance Urine pH Ur Specific [place] Urine Protein Urine Glucose (UA) Urine Ketones Urine Blood Urine Nitrite Ur Leukocyte Esterase Urine RBC Urine WBC Ur Squamous Epith Cells Urine Bacteria Hyaline Casts Random Vancomycin 18.2 Microbiology Microbiology Results: Microbiology 02/28/24 10:03 Blood - Venous Blood Culture - Preliminary Staphylococcus aureus 02/28/24 09:51 Blood - Venous Blood Culture - Preliminary Staphylococcus aureus Progress Note: A&P Assessment and plan (1) History of mitral valve replacement with bioprosthetic valve: Status: Acute (2) CAD (coronary artery disease): Status: Acute (3) PVCs (premature ventricular contractions): Status: Acute (4) Hyperlipidemia: Status: Acute (5) Septic shock: Status: Acute Plan Septic shock: Unclear source of infection yet, CT chest abdomen and pelvis did not show any source of infection. Mild pneumonia but upon looking at the images does not seem to be causing the infection. MRI of lumbar spine is still pending, if that remains negative we will get MRI of head and jaw to look for any dental or sinus infections. TTE negative for any endocarditis On Levophed support, titrate Levophed to keep map above 65 mm Hg. We will add midodrine to taper off Levophed Blood cultures positive for Gram-positive cocci clusters Initial lactate 2.9, repeat lactate down to 2.8 and the 3rd lactate at 2.2. Antibiotics changed to vancomycin and cefazolin. Coronary artery disease: continue aspirin and atorvastatin Hypertension: We will hold metoprolol given the hypotension Status post mitral valve repair, bioprosthetic wall 4 years ago Acute kidney injury: Secondary to sepsis and septic shock Renal function has improved, back to baseline Avoid nephrotoxic medication Closely monitor I's and O's Prophylaxis: Heparin, pantoprazole Quality Stroke Does the patient have a stroke diagnosis?: No VTE Prior VTE?: No VTE Risk Level:: Medical - moderate - high VTE Device Contraindication: N/A - Device Ordered VTE Drug Contraindication: N/A - Med Ordered
[2024-02-29] MEDS: Lidocaine 4 % Patch ADH..PATCH 1 PATCH TRANSDERMA (13:03)
[2024-02-29] MEDS: ceFAZolin Sodium 1 GM VIAL IVPUSH ×2 (13:14→22:11)
--- NOTE | 2024-02-29 14:38 | MHC.CM.PN ---
Addendum entered by Amalia Burgess 02/29/24 14:40: IMM in chart, HCP copy requested Original Note: Pt independent with care needs: resides w/family, no services or DME. Spouse to transport pt to home. CM to follow for changes in dc plan
[2024-02-29] MEDS: Midodrine HCl 10 MG TABLET PO ×2 (15:05→20:41)
[2024-02-29] MEDS: 0.9 % Sodium Chloride Flush 3 ML SYRINGE IVFLUSH (15:17)
[2024-02-29] MEDS: gadobutroL 7.5 ML VIAL IVPUSH (20:03)
[2024-02-29] MEDS: Gabapentin 300 MG CAPSULE 600 MG PO (20:41)
--- NOTE | 2024-02-29 21:30 | PC.NURSE ---
At approx 2130- pt A&Ox4, OOB/recliner watching TV. SpO2 dropping to 86-87% on room air, RR 20-30, fine crackles auscultated to B/L lung bases- pt denies any SOB or other s/s. Encouraged to cough/deep breathe. CHRISTIAN Krishnamurthy notified. New orders for pCXR, BNP and BMP stat- IVF held. SBP 80s/MAP 50s, levophed restarted per JUN and titrated for MAP > 70 per PA.
[2024-02-29 22:26] LABS: Alanine Aminotransferase 35 U/L (0-40); Albumin Level 3.3 g/dL (3.5-5.0); Alkaline Phosphatase 45 U/L (39-117); Anion Gap 14 (12-20); Aspartate Amino Transferase 63 U/L (5-37); Bilirubin Total 0.5 mg/dL (0.0-1.0); Blood Urea Nitrogen 20 mg/dL (9-16); Carbon Dioxide 19 mmol/L (22-29); Chloride 108 mmol/L (96-108); Creatinine Clr Calc Pharmacy 65.3; Estimated Glomerular Filt Rate > 60; Glucose Random 167 mg/dL (60-115); Potassium 3.6 mmol/L (3.3-5.1); Sodium 137 mmol/L (135-145); Total Protein 5.7 g/dL (6.5-8.0)
[2024-02-29 22:47] LABS: B Type Natriuretic Peptide 343 pg/mL (<100)
[2024-02-29] MEDS: Acetaminophen 325 MG TABLET 975 MG PO (23:36)
[2024-03-01] VITALS (25 sets, daily range): BP systolic 94–128; BP diastolic 52–81; PULSE 70–98; RESP 14–27; TEMP 36.4–36.7; O2SAT 92–97; BMI 20.2
--- NOTE | 2024-03-01 00:06 | W.PM.IDCN ---
History of Present Illness Data of Consult Service Date: 02/29/24 Requesting physician: Neal Carlton Primary Care Provider: Judith Garcia MD HPI Reason for consult: staph aureus septic shock He presents with weakness. He had chills yesterday during clinic and urinary incontinence and lower extremity weakness. He came to ER and had hypotension and is now on Levophed. 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 He also reports fusion C3-C6 posteriorly with no infection seen. He denies other grafts or surgeries. He denies dental problems. Review of Systems Review of Systems: Yes all other systems are reviewed and are negative Musculoskeletal: Musculoskeletal: Reports abnormal gait Neurologic: Reports abnormal gait PMFSH Past Medical History Medical History Obstructive sleep apnea hypopnea, moderate CAD (coronary artery disease) Mitral valve prolapse Hyperlipidemia PVCs (premature ventricular contractions) Postoperative atrial fibrillation Family History Family History Father No problems noted. Mother No problems noted. Surgical History Surgical History History of mitral valve replacement with bioprosthetic valve History of varicocele Hx of cardiac cath Social History Social History Household Members: None Housing: House Do you presently have visiting nurse or other home services: No Patient Tobacco Use Status: Never used Tobacco Smoked in Last 30 Days: No e-Cigarette/Vaping Use: Never Used Patient Interested in Nicotine Replacement: No Patient Given Instructions on How to Stop Smoking: No Second Hand Smoke Exposure: No Use of substances other than those prescribed or required for medical reasons: No Currently Displaying Signs/Symptoms of Drug Intoxication Withdrawal: No Have you been hit, kicked, punched, or otherwise hurt by someone within the past year? If so, by whom?: No Do you feel safe in your current relationship?: No Current Relationship Is there a partner from a previous relationship who is making you feel unsafe now?: No Are you made to feel afraid or neglected: No [facility] Practices: none Advance Directives: Yes Advance Directives Information Provided: Yes Advance Directives on File: No Advance Directives Date on File: 02/03/20 Do you have a plan to hurt others: No Plan Recently lost weight without trying: No Eating poorly because of decreased appetite: No Nutrition Risks: No Nutritional Risk Poor oral hygiene: No service: No Meds Allergies Allergy/AdvReac Type Severity Reaction Status Date / Time lactose [LACTOSE] AdvReac Unknown DIARRHEA Verified 02/28/24 09:37 onion [Onion] AdvReac Unknown DIARRHEA Verified 02/28/24 09:37 WITH RAW ONIONS Active Medications: Current Medications Aspirin (Aspirin Enteric Coated 81 Mg Tablet.) 81 mg PO DAILY LILI Last Admin: 02/29/24 10:12 Dose: 81 mg Atorvastatin Calcium (Atorvastatin Calcium 20 Mg Tablet) 20 mg PO BEDTIME LILI Last Admin: 02/29/24 20:49 Dose: Not Given Cefazolin Sodium (Cefazolin Sodium 1 Gm Vial) 1 gm IVPUSH Q12H LILI Last Admin: 02/29/24 22:11 Dose: 1 gm Gabapentin (Gabapentin 300 Mg Capsule) 600 mg PO BEDTIME LILI Last Admin: 02/29/24 20:41 Dose: 600 mg Heparin Sodium (Porcine) (Heparin Sodium,Porcine 5,000 Unit/Ml Vial) 5,000 unit SUBCUT Q8H LILI Last Admin: 02/29/24 23:34 Dose: 5,000 unit Norepinephrine Bitartrate (Levophed) 8 mg in 250 mls @ 0 mls/hr IVCONT .Q0M LILI; Protocol Last Titration: 02/29/24 22:17 Dose: 0.05 mcg/kg/min, 5.95 mls/hr Lactated Ringer's (Lr) 1,000 mls @ 100 mls/hr IVCONT .Q10H LILI Last Admin: 02/29/24 22:47 Dose: Not Given Vancomycin HCl 750 mg/ Sodium (Chloride) 265 mls @ 265 mls/hr IV Q24H LILI Last Infusion: 02/29/24 10:15 Dose: Infused Lidocaine (Lidocaine 4 % Patch Adh..Patch) 1 patch TRANSDERMA DAILY [facility]; Protocol Last Admin: 02/29/24 13:03 Dose: 1 patch Midodrine (Midodrine Hcl 10 Mg Tablet) 10 mg PO TID LILI Last Admin: 02/29/24 20:41 Dose: 10 mg Omeprazole (Omeprazole 20 Mg Capsule.) 20 mg PO DAILY@0630 [facility] Last Admin: 02/29/24 05:42 Dose: 20 mg Pharmacy Consult (Consult Rx Vancomycin Dosing) 1 each MISCELLANE DAILY PRN PRN Reason: Consult order Sodium Chloride (0.9 % Sodium Chloride Flush 3 Ml Syringe) 3 ml IVFLUSH QSHIFT [facility] Last Admin: 02/29/24 22:17 Dose: Not Given Home Medications ?Medication ?Instructions ?Recorded ?Confirmed ?Last Taken ?Type aspirin 81 mg tablet,delayed 81 mg PO DAILY 07/20/20 02/28/24 02/28/24 06:00 History release (Adult Low Dose Aspirin) coenzyme Q10 100 mg capsule 100 mg PO DAILY 07/20/20 02/28/24 02/28/24 06:00 History magnesium 250 mg tablet 250 mg PO DAILY 07/20/20 02/28/24 02/28/24 06:00 History metoprolol succinate 100 mg 100 mg PO DAILY 07/20/20 02/28/24 02/28/24 06:00 History tablet,extended release 24 hr ascorbate calcium (vitamin C) 500 2 g PO DAILY 11/22/20 02/28/24 02/28/24 06:00 History mg tablet docusate sodium 100 mg capsule 100 mg PO DAILY 11/22/20 02/28/24 02/28/24 06:00 History (Colace) gabapentin 300 mg capsule 600 mg PO BEDTIME 11/22/20 02/28/24 02/27/24 History atorvastatin 20 mg tablet 20 mg PO BEDTIME 02/28/24 02/28/24 02/27/24 History Physical Exam Vital Signs: Vital Signs: Last Vital Signs Temp 97.9 F 02/29/24 20:00 Pulse 83 02/29/24 23:00 Resp 26 H 02/29/24 23:00 BP 103/50 L 02/29/24 23:00 Pulse Ox 93 02/29/24 23:00 O2 Del Method Room Air 02/29/24 23:00 O2 Flow Rate 1 02/29/24 18:00 FiO2 28 02/29/24 21:00 BMI result Body Mass Index 20.1 Const: General: cooperative HEENT: Head: Yes normal to inspection Face and sinus: Yes normal facial exam Mouth: Normal oral and palatal mucosa present Teeth and gingiva: dentition normal Eyes: General: appearance normal, both eyes and all related structures Pupils: Equal, round and reactive pupils present Resp: Effort & Inspection: normal respiratory effort Cardio: Other: 3/6 MARGARITA Rate: regular rate Rhythm: regular rhythm GI: Palpation (GI): Soft to palpation and nontender : General: Yes no CVA tenderness Back/Spine/Pelvis: Back: no CVA tenderness Skin: General skin exam: no rashes or lesions noted Neuro: General: moves all extremities Cranial nerves: Yes Equal, round and reactive pupils present Extrem: General: Yes normal to inspection Psych: Appearance: grossly normal Results Labs 02/29/24 05:46 02/29/24 21:47 Labs: Short CBC 02/29/24 Range/Units 05:46 WBC 14.8 H (4.8-10.8) X10*3/uL Hgb 12.6 L (14.0-18.0) g/dl Hct 37.2 L (42.0-52.0) % Plt Count 81 L (160-400) X10*3/uL BMP 02/29/24 02/29/24 05:46 21:47 Sodium 142 137 Potassium 4.1 3.6 Chloride 113 H 108 Carbon Dioxide 17 L 19 L BUN 22 H 20 H Creatinine 1.09 0.85 Calcium 8.1 L 8.0 L Liver Function 02/29/24 02/29/24 Range/Units 05:46 21:47 Total Bilirubin 0.9 0.5 (0.0-1.0) mg/dL AST 63 H 63 H (5-37) U/L ALT 32 35 (0-40) U/L Alkaline Phosphatase 48 45 (39-117) U/L Albumin 3.8 3.3 L (3.5-5.0) g/dL Microbiology Microbiology Results: Microbiology 02/28/24 10:03 Blood - Venous Blood Culture - Preliminary Staphylococcus aureus 02/28/24 09:51 Blood - Venous Blood Culture - Preliminary Staphylococcus aureus Assessment and Plan (1) Septic shock: Status: Acute (2) Back pain: Status: Acute Plan He has staph aureus bacteremia,now sure if MSSA or MRSA. He denies prior significant infections There is concern with incontinence and leg weakness for spinal inection,including cervical. Dental causes are also concern. Prosthetic valve endocarditis also possibility. Urinalysis reported negative. Would give IV Kefzol and Vancomycin ,duration likely four to six weeks antibiotics but if MRSA drop Kefzol when blood cultures negative. GABBY as apparently TTE negative.
[2024-03-01] MEDS: Norepinephrine Bitartrate/D5W 8 MG/250 ML PLAST..BAG 5.95 MG IVCONT (05:07)
[2024-03-01 06:11] LABS: Hematocrit 33.9 % (42.0-52.0); Hemoglobin 11.6 g/dl (14.0-18.0); Mean Corpuscular HGB Conc 34.2 g/dl (31.0-36.0); Mean Corpuscular Hemoglobin 28.9 pg (27.0-33.0); Mean Corpuscular Volume 84.5 fL (80.0-98.0); Mean Platelet Volume 12.2 fL (9.4-12.4); Red Blood Count 4.01 X10*6/uL (4.60-5.80); Red Cell Distribution Width 14.2 % (11.0-16.0); White Blood Count 11.8 X10*3/uL (4.8-10.8)
[2024-03-01 06:12] LABS: Platelet Count 59 X10*3/uL (160-400)
[2024-03-01 06:14] LABS: Vancomycin Random 8.7 mcg/mL (15-20)
[2024-03-01 06:18] LABS: Alanine Aminotransferase 25 U/L (0-40); Albumin Level 3.1 g/dL (3.5-5.0); Alkaline Phosphatase 45 U/L (39-117); Anion Gap 14 (12-20); Aspartate Amino Transferase 57 U/L (5-37); Bilirubin Total 0.5 mg/dL (0.0-1.0); Blood Urea Nitrogen 18 mg/dL (9-16); Calcium 8.4 mg/dL (8.4-10.2); Carbon Dioxide 22 mmol/L (22-29); Chloride 108 mmol/L (96-108); Creatinine Clr Calc Pharmacy 58.1; Estimated Glomerular Filt Rate > 60; Glucose Random 98 mg/dL (60-115); Magnesium 2.1 mg/dL (1.6-2.6); Phosphorus 1.6 mg/dL (2.7-4.5); Potassium 3.9 mmol/L (3.3-5.1); Sodium 140 mmol/L (135-145); Total Protein 5.4 g/dL (6.5-8.0)
[2024-03-01 06:46] LABS: Band Neutrophils Percent 14 % (3-5); Burr Cells 1+ (0-2) /OIF; Lymphocytes Absolute Manual 0.8 X10*3/uL (1.2-4.9); Lymphocytes Percent Manual 7 % (20-40); Monocytes Absolute Manual 0.5 X10*3/uL (0.1-1.2); Monocytes Percent Manual 4 % (2-11); Neutrophils Absolute Manual 10.5 X10*3/uL (2.0-8.3); Neutrophils Percent Manual 75 % (45-73); RBC Morphology NOTED
[2024-03-01 06:47] LABS: Platelet Estimate DECREASED (NORMAL); Platelet Morphology Comment NORMAL
[2024-03-01] MEDS: vancomycin HCL 500 MG in 0.9 % Sodium Chloride 100 ML 110 MG IV (09:05)
[2024-03-01] MEDS: 0.9 % Sodium Chloride Flush 3 ML SYRINGE IVFLUSH ×2 (09:06→15:02)
[2024-03-01] MEDS: Potassium Phosphate/NS 15 MMOL/250 ML PLAST..BAG 62.5 MMOL IV (09:06)
[2024-03-01] MEDS: Midodrine HCl 10 MG TABLET PO ×3 (09:07→20:18)
[2024-03-01] MEDS: Aspirin Enteric Coated 81 MG TABLET.DR PO (09:07)
[2024-03-01] MEDS: Lidocaine 4 % Patch ADH..PATCH 1 PATCH TRANSDERMA (09:07)
--- NOTE | 2024-03-01 10:47 | MHC.CM.PN ---
Pt continues care in ICU: seen by ID and remains on ATB for sepsis. Pt is independent and will likely be able to d/c to home w/family support when medically stable. CM to follow
[2024-03-01] MEDS: ceFAZolin Sodium 1 GM VIAL IVPUSH ×2 (12:58→23:14)
[2024-03-01] MEDS: Acetaminophen 325 MG TABLET 975 MG PO ×2 (12:58→20:18)
[2024-03-01] MEDS: methocarbamoL 500 MG TABLET PO ×3 (12:59→20:17)
--- NOTE | 2024-03-01 14:13 | P.PNCC_ITS ---
Subjective Subjective Date of Service: 03/01/24 Critical Care Time (minutes): 30 Comment: Blood pressure is better, off vasopressor support since 9AM. WBC count down to 11.4, bands down to 14% Platelet count [id number] Blood cultures positive for MSSA MRI of head, jaw, cervical and thoracic spine trending Physical Exam 2 Vital Signs: Vital Signs: Last Vital Signs Temp 97.6 F 03/01/24 13:00 Pulse 92 03/01/24 14:00 Resp 21 H 03/01/24 14:00 BP 105/58 L 03/01/24 14:00 Pulse Ox 92 03/01/24 14:00 O2 Del Method Room Air 03/01/24 14:00 O2 Flow Rate 2 03/01/24 06:00 BMI result Body Mass Index 20.2 General: Not in any acute distress, comfortable, sitting in the chair Nutritional Appearance: well nourished and overweight Eyes: appearance normal, both eyes and all related structures; Alignment and Position: alignment normal and position normal Neck: No lymphadenopathy, no thyromegaly Resp: bilateral air entry equal, crackles heard in bilateral lung bases Cardio: Regular rate, regular rhythm; Heart sounds: S1 normal heart sound present and S2 normal heart sound present GI: soft, nontender, no guarding, no hepatosplenomegaly : bladder normal to inspection, bladder normal to palpation, no renal angle tenderness Skin: no rashes or lesions noted and elasticity normal Neuro: oriented to person, oriented to place, oriented to time and moves all extremities Objective Data Labs 03/01/24 05:37 03/01/24 05:37 Labs: Laboratory Results - last 24 hr 02/29/24 03/01/24 21:47 05:37 WBC 11.8 H RBC 4.01 L Hgb 11.6 L Hct 33.9 L MCV 84.5 MCH 28.9 MCHC 34.2 RDW 14.2 Plt Count 59 L D MPV 12.2 Immature Gran % (Auto) Cancelled Neut % (Auto) Cancelled Lymph % (Auto) Cancelled [place] % (Auto) Cancelled Eos % (Auto) Cancelled Baso % (Auto) Cancelled Lymph # (Auto) Cancelled [place] # (Auto) Cancelled Eos # (Auto) Cancelled Baso # (Auto) Cancelled Abs Immat Gran (auto) Cancelled Absolute Neuts (auto) Cancelled Absolute Nucleated RBC 0.000 Nucleated RBC % (auto) 0.0 Neutrophils % (Manual) 75 H Band Neutrophils % 14 H Lymphocytes % (Manual) 7 L Monocytes % (Manual) 4 Abs Neuts (Manual) 10.5 H Lymphocytes # (Manual) 0.8 L Monocytes # (Manual) 0.5 Platelet Estimate DECREASED Plt Morphology Comment NORMAL RBC Morphology NOTED [place] Cells 1+ (0-2) Sodium 137 140 Potassium 3.6 3.9 Chloride 108 108 Carbon Dioxide 19 L 22 Anion Gap 14 14 BUN 20 H 18 H Creatinine 0.85 0.96 Estim Creat Clear Calc 65.3 58.1 Estimated GFR > 60 > 60 Random Glucose 167 H 98 Calcium 8.0 L 8.4 Phosphorus 1.6 L Magnesium 2.1 Total Bilirubin 0.5 0.5 AST 63 H 57 H ALT 35 25 Alkaline Phosphatase 45 45 B-Natriuretic Peptide 343 H Total Protein 5.7 L 5.4 L Albumin 3.3 L 3.1 L Random Vancomycin 8.7 L Microbiology Microbiology Results: Microbiology 02/28/24 10:03 Blood - Venous Blood Culture - Final Staphylococcus aureus 02/28/24 09:51 Blood - Venous Blood Culture - Final Staphylococcus aureus Progress Note: A&P Assessment and plan (1) History of mitral valve replacement with bioprosthetic valve: Status: Acute (2) CAD (coronary artery disease): Status: Acute (3) Sepsis: Status: Acute (4) Septic shock: Status: Acute (5) Hyperlipidemia: Status: Acute Plan Septic shock: Unclear source of infection yet, CT chest abdomen and pelvis did not show any source of infection. Mild pneumonia but upon looking at the images does not seem to be causing the infection. MRI of lumbar spine negative, pending MRI of head, jaw, cervical and thoracic spine. TTE negative for any endocarditis, planned to get GABBY if the MRIs comes back negative Off Levophed support since 09:00 this morning, continue midodrine 10 mg TID for now. Hold off on metoprolol Blood cultures positive for MSSA; continue cefazolin, we will discontinue vancomycin. Coronary artery disease: continue aspirin and atorvastatin Hypertension: We will hold metoprolol given the hypotension Status post mitral valve repair, bioprosthetic wall 4 years ago Acute kidney injury: Secondary to sepsis and septic shock Renal function has improved, back to baseline Avoid nephrotoxic medication Closely monitor I's and O's Thrombocytopenia: Possibly secondary to sepsis Platelet count down to 59,000, we will withhold heparin Prophylaxis: Heparin withheld due to thrombocytopenia, pantoprazole Quality Stroke Does the patient have a stroke diagnosis?: No VTE Prior VTE?: No VTE Risk Level:: Medical - moderate - high VTE Device Contraindication: N/A - Device Ordered VTE Drug Contraindication: N/A - Med Ordered
[2024-03-01] MEDS: Gabapentin 300 MG CAPSULE 600 MG PO (20:13)
[2024-03-01] MEDS: Atorvastatin Calcium 20 MG TABLET PO (20:18)
[2024-03-02] VITALS (10 sets, daily range): BP systolic 110–180; BP diastolic 50–76; PULSE 82–140; RESP 16–24; TEMP 36.2–37.9; O2SAT 86–98; BMI 20.2
[2024-03-02] MEDS: traMADoL HCL 50 MG TABLET 25 MG PO (00:40)
--- NOTE | 2024-03-02 03:16 | ECG_ITS ---
Test Reason : CP Blood Pressure : / mmHG Vent. Rate : 107 BPM Atrial Rate : 107 BPM P-R Int : 220 ms QRS Dur : 074 ms QT Int : 338 ms P-R-T Axes : 069 069 076 degrees QTc Int : 451 ms Sinus tachycardia with 1st degree A-V block Possible Left atrial enlargement Nonspecific ST abnormality Abnormal ECG When compared with ECG of 02-MAR-2024 03:06, [place] interval has increased Referred By: Sujey Malone Electronically Signed By:MAYRA GEIGER MD
[2024-03-02] MEDS: Morphine Sulfate 4 MG/ML CARTRIDGE IVPUSH (03:38)
[2024-03-02] MEDS: Metoprolol Tartrate 5 MG/5 ML VIAL IVPUSH (03:39)
[2024-03-02] MEDS: Acetaminophen 1,000 MG/100 ML PIGGYBACK 400 MG IV (03:44)
[2024-03-02 03:51] LABS: ABG Base Excess -3.7 mmol/L; ABG HCO3 18 mmol/L (22-26); ABG pCO2 27 mmHg (32-45); ABG pH 7.44 (7.35-7.45); ABG pO2 71 mmHg (83-108)
[2024-03-02] MEDS: 0.9 % Sodium Chloride 500 ML 999 ML IV (03:54)
[2024-03-02 04:02] LABS: Basophils Percent Auto 0.4 % (0-2); Imm Gran Abs Auto 0.06 X10*3/uL (0.00-0.03); Imm Gran Pct Auto 0.5 % (0.0-0.4); Lymphocytes Absolute Auto 0.6 X10*3/uL (1.2-4.9); Mean Corpuscular Volume 84.3 fL (80.0-98.0); PLT CLUMP 1; Red Cell Distribution Width 14.1 % (11.0-16.0); SCAN SMEAR FLAG 1
[2024-03-02 04:04] LABS: Eosinophils Percent Auto 0.1 % (0-4); Lymphocytes Percent Auto 5.6 % (20-40); Mean Corpuscular HGB Conc 34.3 g/dl (31.0-36.0); Mean Corpuscular Hemoglobin 28.9 pg (27.0-33.0); Mean Platelet Volume 11.4 fL (9.4-12.4); Monocytes Absolute Auto 0.6 X10*3/uL (0.1-1.2); Monocytes Percent Auto 5.6 % (2-11); Neutrophils Absolute Auto 9.7 x10*3/uL (2.0-8.3); Neutrophils Percent Auto 87.8 % (45-73); Red Blood Count 4.15 X10*6/uL (4.60-5.80)
[2024-03-02 04:05] LABS: MANUAL DIFF FLAG SCAN
[2024-03-02 04:06] LABS: Platelet Count 59 X10*3/uL (160-400)
[2024-03-02 04:15] LABS: D Dimer High Sensitivity 3374 NG/ML
[2024-03-02 04:16] LABS: Alanine Aminotransferase 28 U/L (0-40); Albumin Level 3.2 g/dL (3.5-5.0); Alkaline Phosphatase 70 U/L (39-117); Anion Gap 16 (12-20); Aspartate Amino Transferase 54 U/L (5-37); Bilirubin Total 0.6 mg/dL (0.0-1.0); Blood Urea Nitrogen 17 mg/dL (9-16); Calcium 8.5 mg/dL (8.4-10.2); Carbon Dioxide 18 mmol/L (22-29); Chloride 107 mmol/L (96-108); Creatinine Clr Calc Pharmacy 59.3; Estimated Glomerular Filt Rate > 60; Glucose Random 122 mg/dL (60-115); Potassium 3.6 mmol/L (3.3-5.1); Sodium 137 mmol/L (135-145); Total Protein 5.8 g/dL (6.5-8.0)
[2024-03-02 04:23] LABS: Troponin-I High Sensitivity 89.3 ng/L (<3.5-35.0)
[2024-03-02 04:24] LABS: Lactic Acid 2.1 mmol/L (0.5-2.0); SLIDE REVIEW VERIFIED
[2024-03-02 04:28] LABS: B Type Natriuretic Peptide 312 pg/mL (<100)
[2024-03-02] MEDS: iohexoL 350 MG/ML 100 ML INFUS..BTL 65 ML IV (05:05)
[2024-03-02 05:08] LABS: ABG Refer to POC result
--- NOTE | 2024-03-02 05:19 | PM.EVENT ---
Event Note Date of Service: 03/02/24 Event Note: 3 am - Mr. Betancur developed sudden onset of marked sinus tachycardia 140 bpm, anxiety and shortness of breath. Denied chest pain. His temp rectally was 100.2, BP 180/76 manually and 86 % on room air, requiring 5L/min of supplemental oxygen via nasal cannula. Cardiopulmonary exam is remarkable for marked sinus tachycardia (confirmed with stat ECG) and decreased breath sound at bases without crackles, rhonchi or wheezing. Treatment with morphine 4 mg, metoprolol 5 mg and bolus of NS were administered immediately. He has tachycardia, anxiety and blood pressure improved after these interventions. Stat blood workup was obtained and is remarkable for elevated D-dimer. There is minimal leukocytosis that has improved since admission, however the patient has had significant bandemia. Hemoglobin stable. And platelets are still quite low, 59. Blood cultures were repeated. Patient is currently receiving Ancef for MSSA bacteremia. ABG was obtained and showed normal pH, 7.44, pCO2 of 27 and PO2 71% renal oxygen saturation 94%. Lactic acid is 2.1 (same 3 days ago), bicarb is 18. BUN 17 and creatinine 0.94. Troponin is elevated but decreasing when compared to previous. CRP is 15.9 (decreasing) and BNP is 312. Chest CTA has been ordered and results are still pending. Time Spent With Patient Time: Total time managing care of this patient today ____ minutes.
[2024-03-02 06:02] LABS: Reflex Lactate? Lactic Acid Added
--- NOTE | 2024-03-02 07:36 | PC.NURSE ---
around 0300, patient rang call beaver. sitting at side of bed acutely tachypneic to 24, anxious, tachycardic in the 140s, hypoxic mid 80s, and hypertensive around 180/75. placed on 2L NC with no improvement in SpO2 until increased to 5L - improved to 93% SpO2. MD called to bedside. EKG done, temp 100.2 rectal. morphine and iv lopressor given for work of breathing and tachycardia, respectfully. pt stated these felt to have therapeutic effect. MD also ordered 1g IV acetaminophen for temp and 500 mL NS bolus. labs drawn. please see MD event note. f/u vitals normal. MD ordered CTA. patient tolerated imaging well. pt in bed in semi fowlers at this time, nonlabored breathing, with eyes closed, O2 sat mid 90s. call beaver in reach, plan of care ongoing.
[2024-03-02 07:42] LABS: ~Lactic Acid-LAB USE ONLY 0.7 mmol/L (0.5-2.0)
[2024-03-02 07:44] LABS: Vancomycin Random 4.7 mcg/mL (15-20)
[2024-03-02] MEDS: methocarbamoL 500 MG TABLET PO ×4 (09:33→20:55)
[2024-03-02] MEDS: Aspirin Enteric Coated 81 MG TABLET.DR PO (09:33)
[2024-03-02] MEDS: Midodrine HCl 10 MG TABLET PO (09:33)
[2024-03-02] MEDS: 0.9 % Sodium Chloride Flush 3 ML SYRINGE IVFLUSH ×2 (09:34→17:23)
[2024-03-02] MEDS: Docusate Sodium 100 MG CAPSULE PO (09:55)
--- NOTE | 2024-03-02 10:08 | P.CONCA_ITS ---
History of Present Illness History of Present Illness Date of Service: 03/02/24 Requesting physician: Sujey Malone Consult reason: other (Septic shock) Chief complaint: Hypotension Narrative: I was consulted to see ND in cardiology consultation today for MSSA sepsis and septic shock in the setting of bioprosthetic mitral valve replacement few years ago. Patient had 27 mm bioprosthetic mitral valve replacement in 2019 for symptomatic severe mitral regurgitation. Patient has also prior history of nonobstructive CAD, PVCs, obstructive sleep apnea, hyperlipidemia. 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 Patient said last he went to the office in usual state of health then started feeling weak and had chills in the office. Subsequently continued to work and then felt very weak in his legs and felt like he was not doing well. At that point time he had some blood work done which showed leukocytosis with left shift. Due to his history of be. There was suspicion for UTI UA was drawn. Subsequently blood cultures were drawn. Following day in the morning when he woke up on Saturday felt extremely weak and could not move. Dr. Jacques his PCP visited him home and advised him to come to the emergency room. In the emergency room he was noted to be hypotensive and subsequently was noted to be in septic shock due to MSSA bacteremia. Repeat cultures despite antibiotics are again positive for MSSA. Due to back pain he underwent a MRI of thoracic spine which shows diskitis as well as small epidural abscess. Cardiology consult was sought for further imaging. Transthoracic echocardiogram was non revealing which is not unusual in such as setting. Patient's blood pressures improved with IV fluids. Lactic acidosis has improved. Patient said he feels better but still feels weak. Denies any chest pain. Had some shortness of breath last night. Review of Systems 2 Constitutional: Constitutional: Reports chills, Reports fever(s) and Reports weakness Eyes: Eyes: Reports no additional eye complaints ENT: Reports system reviewed and no additional complaints, except as documented Cardiovascular: Cardiovascular: Denies chest pain, Reports rapid heart rate, Denies leg edema, Denies lightheadedness, Denies Loss of Consciousness, Denies palpitations and Reports orthopnea Respiratory: Respiratory: Reports no additional respiratory complaints Gastrointestinal: Gastrointestinal: Reports no additional gastrointestinal complaints Genitourinary: Genitourinary: Reports no additional male genitourinary complaints Musculoskeletal: Musculoskeletal: Reports back pain Integumentary/Breasts: Skin/Breast: Reports system reviewed and no additional complaints, except as docu Neurologic: Reports system reviewed and no additional complaints, except as documented and Reports weakness Endocrine: Endocrine: Denies palpitations PMFSH Past Medical History Medical History Obstructive sleep apnea hypopnea, moderate CAD (coronary artery disease) Mitral valve prolapse Hyperlipidemia PVCs (premature ventricular contractions) Postoperative atrial fibrillation Family History Family History Father No problems noted. Mother No problems noted. Surgical History Surgical History History of mitral valve replacement with bioprosthetic valve History of varicocele Hx of cardiac cath Social History Social History Household Members: None Housing: House Do you presently have visiting nurse or other home services: No Patient Tobacco Use Status: Never used Tobacco Smoked in Last 30 Days: No e-Cigarette/Vaping Use: Never Used Patient Interested in Nicotine Replacement: No Patient Given Instructions on How to Stop Smoking: No Second Hand Smoke Exposure: No Use of substances other than those prescribed or required for medical reasons: No Currently Displaying Signs/Symptoms of Drug Intoxication Withdrawal: No Have you been hit, kicked, punched, or otherwise hurt by someone within the past year? If so, by whom?: No Do you feel safe in your current relationship?: No Current Relationship Is there a partner from a previous relationship who is making you feel unsafe now?: No Are you made to feel afraid or neglected: No [employer] [facility] Practices: none Advance Directives: Yes Advance Directives Information Provided: Yes Advance Directives on File: No Advance Directives Date on File: 02/03/20 Do you have a plan to hurt others: No Plan Recently lost weight without trying: No Eating poorly because of decreased appetite: No Nutrition Risks: No Nutritional Risk Poor oral hygiene: No service: No Meds Allergies Allergy/AdvReac Type Severity Reaction Status Date / Time lactose [LACTOSE] AdvReac Unknown DIARRHEA Verified 02/28/24 09:37 onion [Onion] AdvReac Unknown DIARRHEA Verified 02/28/24 09:37 WITH RAW ONIONS Active Medications: Current Medications Acetaminophen (Acetaminophen 325 Mg Tablet) 975 mg PO Q6H PRN PRN Reason: Pain, Moderate(Pain Scale 4-6) Last Admin: 03/01/24 20:18 Dose: 975 mg Aspirin (Aspirin Enteric Coated 81 Mg Tablet.) 81 mg PO DAILY [facility] Last Admin: 03/02/24 09:33 Dose: 81 mg Atorvastatin Calcium (Atorvastatin Calcium 20 Mg Tablet) 20 mg PO BEDTIME [facility] Last Admin: 03/01/24 20:18 Dose: 20 mg Cefazolin Sodium (Cefazolin Sodium 1 Gm Vial) 1 gm IVPUSH Q12H [facility] Last Admin: 03/01/24 23:14 Dose: 1 gm Docusate Sodium (Docusate Sodium 100 Mg Capsule) 100 mg PO BID PRN PRN Reason: Constipation Last Admin: 03/02/24 09:55 Dose: 100 mg Gabapentin (Gabapentin 300 Mg Capsule) 600 mg PO BEDTIME [facility] Last Admin: 03/01/24 20:13 Dose: 600 mg Lidocaine (Lidocaine 4 % Patch Adh..Patch) 1 patch TRANSDERMA DAILY [facility]; Protocol Last Admin: 03/02/24 09:52 Dose: Not Given Methocarbamol (Methocarbamol 500 Mg Tablet) 500 mg PO QID [facility] Last Admin: 03/02/24 09:33 Dose: 500 mg Midodrine (Midodrine Hcl 10 Mg Tablet) 10 mg PO TID [facility] Last Admin: 03/02/24 09:33 Dose: 10 mg Omeprazole (Omeprazole 20 Mg Capsule.) 20 mg PO DAILY@0630 [facility] Last Admin: 03/02/24 06:35 Dose: Not Given Sodium Chloride (0.9 % Sodium Chloride Flush 3 Ml Syringe) 3 ml IVFLUSH QSHIFT [facility] Last Admin: 03/02/24 09:34 Dose: 3 ml Tramadol HCl (Tramadol Hcl 50 Mg Tablet) 50 mg PO Q6H PRN PRN Reason: back pain Home Medications ?Medication ?Instructions ?Recorded ?Confirmed ?Last Taken ?Type aspirin 81 mg tablet,delayed 81 mg PO DAILY 07/20/20 02/28/24 02/28/24 06:00 History release (Adult Low Dose Aspirin) coenzyme Q10 100 mg capsule 100 mg PO DAILY 03/02/28/24 02/28/24 06:00 History magnesium 250 mg tablet 250 mg PO DAILY 07/20/20 02/28/24 02/28/24 06:00 History metoprolol succinate 100 mg 100 mg PO DAILY 07/20/20 02/28/24 02/28/24 06:00 History tablet,extended release 24 hr ascorbate calcium (vitamin C) 500 2 g PO DAILY 11/22/20 02/28/24 02/28/24 06:00 History mg tablet docusate sodium 100 mg capsule 100 mg PO DAILY 11/22/20 02/28/24 02/28/24 06:00 History (Colace) gabapentin 300 mg capsule 600 mg PO BEDTIME 11/22/20 02/28/24 02/27/24 History atorvastatin 20 mg tablet 20 mg PO BEDTIME 02/28/24 02/28/24 02/27/24 History Physical Exam 2 Vital Signs: Vital Signs: Last Vital Signs Temp 97.1 F 03/02/24 07:23 Pulse 82 03/02/24 07:23 Resp 18 03/02/24 07:23 BP 118/50 L 03/02/24 09:26 Pulse Ox 97 03/02/24 07:23 O2 Del Method Nasal Cannula 03/02/24 07:23 O2 Flow Rate 4 03/02/24 07:23 BMI result Body Mass Index 20.2 Const: General: cooperative, comfortable, no acute distress, alert, awake and ill appearing Nutritional Appearance: average body habitus O rientation/consciousness: patient oriented x3 HEENT: Head: Yes normocephalic and Yes atraumatic Neck: Neck: Yes trachea midline, Yes supple and Yes no JVD Resp: Effort & Inspection: decreased respiratory effort Auscultation: no rales, no wheezes and diminished lung sounds Cardio: Jugular venous distension: no JVD Rate: regular rate Rhythm: r egular rhythm Heart sounds: S1 normal heart sound present, S2 normal heart sound present, no click, no gallops and Murmur heart sound present systolic at the apex GI: Auscultation: normal bowel sounds Skin: General skin exam: petechiae Neuro: General: patient oriented x3 and no focal motor deficits Extrem: General: Yes no clubbing, cyanosis or edema Objective Labs and Meds 03/02/24 03:54 03/02/24 03:54 Lab results: Laboratory Results - last 24 hr 03/02/24 03/02/24 03/02/24 03:40 03:54 07:08 WBC 11.0 H RBC 4.15 L Hgb 12.0 L Hct 35.0 L MCV 84.3 MCH 28.9 MCHC 34.3 RDW 14.1 Plt Count 59 L MPV 11.4 Immature Gran % (Auto) 0.5 H Neut % (Auto) 87.8 H Lymph % (Auto) 5.6 L [place] % (Auto) 5.6 Eos % (Auto) 0.1 Baso % (Auto) 0.4 Lymph # (Auto) 0.6 L [place] # (Auto) 0.6 Eos # (Auto) 0.0 Baso # (Auto) 0.0 Abs Immat Gran (auto) 0.06 H Absolute Neuts (auto) 9.7 H Absolute Nucleated RBC 0.000 Nucleated RBC % (auto) 0.0 Smear Tech's Comments VERIFIED D-Dimer High Sensitivty 3374 O2 Saturation 94.0 ABG pH at Pt Temp 7.44 ABG pCO2 at Pt Temp 27 L ABG pO2 at Pt Temp 71 L ABG HCO3 18 L ABG Base Excess (Actual) -3.7 Sodium 137 Potassium 3.6 Chloride 107 Carbon Dioxide 18 L Anion Gap 16 BUN 17 H Creatinine 0.94 Estim Creat Clear Calc 59.3 Estimated GFR > 60 Random Glucose 122 H Lactic Acid 2.1 H* Lactic Acid F/U @ 2Hr 0.7 Calcium 8.5 Total Bilirubin 0.6 AST 54 H ALT 28 Alkaline Phosphatase 70 Troponin I High Sens 89.3 H D C-Reactive Protein 15.90 H B-Natriuretic Peptide 312 H Total Protein 5.8 L Albumin 3.2 L Random Vancomycin 4.7 L Imaging Radiologist's impression: Impressions Brain MRI 02/29/24 19:00 IMPRESSION: There are several new FLAIR hyperintense foci involving the left precentral gyrus. There is a small focus of increased FLAIR signal within the subcortical white matter of the left parietal lobe. There is a new 9 mm focus of increased FLAIR signal within the medial right occipital lobe. None of these areas of abnormal signal intensity demonstrate enhancement, nor do they demonstrate mass effect. They likely represent areas of age indeterminant ischemia/infarction. Electronically signed by: Sanjay Lee DO 03/01/2024 03:05 PM EST RP Cervical Spine MRI 02/29/24 19:00 IMPRESSION: There are chronic postoperative changes of a multilevel laminectomy and spinal fusion with a posterior hardware construct extending from C3 to C6. There is no canal compromise and no cord compression. Short segments of chronic myelomalacia involving the cervical cord at the level of C4-C5 and C5-C6 are unchanged. There is multilevel foraminal narrowing as described. Postcontrast images demonstrate no pathologic spinal enhancement. Electronically signed by: Sanjay Lee DO 03/01/2024 10:33 PM EST RP Thoracic Spine MRI 02/29/24 19:00 IMPRESSION: 1. A 1.5 x 0.8 x 0.7 cm rim-enhancing epidural abscess is seen at right lateral border of the thecal sac directly beneath the right T11 pedicle. 2. Moderate asymmetric right posterior T11-T12 disc protrusion markedly effacing the right lateral recess, showing diffuse enhancement suggestive of discitis. 3. Posterior inferior corner of T11, posterior superior corner of T12 enhancing bone marrow edema is present, can be suspicious of thoracic spondylitis. 4. Mild posterior T6-T7, T7-T8, T9-T10, T10-T11 and T11-T12 disc protrusions are seen. 5. Mild bandlike enhancement is seen at inferior T7 and superior T8 vertebral endplates, with mild STIR hyperintensity. Findings are nonspecific, could represent Modic type I degenerative vertebral endplate changes, but additional level thoracic spine spondylitis cannot be excluded. 6. Moderate crescent shape T2 hyperintense lesions are seen in posterior bilateral lungs, compatible with airspace disease and pleural effusions. 7. A 1.1 cm simple cyst is seen at posterior medial capsular border of right hepatic lobe, previously reported on CT scan of abdomen on 02/28/2024. 8. This critical result was discussed with Dr. Sujey Gomez on 03/02/2024 at 0857 hours and it was ascertained that the content and urgency of this report was understood at the time of direct communication. Electronically signed by: Beatrice Foley MD 03/02/2024 08:58 AM EST RP Chest X-Ray 03/02/24 03:40 IMPRESSION: *Small bilateral pleural effusions and bibasilar atelectasis and/or consolidation. *Pulmonary vascular congestion. Electronically signed by: Salvatore Serra MD 03/02/2024 07:30 AM EST RP Chest CTA 03/02/24 04:45 IMPRESSION: *CT pulmonary angiogram negative for pulmonary emboli. *Moderate right and small left pleural effusion with associated bibasilar compressive atelectasis. *Moderate right lower lobe peribronchial consolidation. These findings may represent aspiration pneumonia/pneumonitis or infection. Findings are present in the posterior dependent right lung base. *Marked coronary artery calcific atherosclerosis. VTE: Negative. Electronically signed by: Salvatore Serra MD 03/02/2024 08:24 AM EST RP Assessment and Plan (1) Septic shock: Status: Acute Septic shock in this elderly gentleman with prior bioprosthetic mitral valve replacement with MSSA, with a systolic murmur concern for possible redevelopment mitral regurgitation and concern for mitral valve endocarditis. High agree completely for patient to undergo GABBY to further evaluate the mitral valve. Further treatment based on the findings. His shortness of breath could be related to bilateral infiltrative pleural effusion although mitral regurgitation especially acute could contribute to his shortness of breath. Clinically does not appear to be in overt pulmonary edema or heart failure at this point time. Will continue monitor. Blood pressures improved. Avoid metoprolol therapy at this point time. Continue aggressive antibiotic therapy and consider dual antibiotic therapy after ID consultation. We discussed the procedure of GABBY in details including risks, benefits, alternatives. Patient's son Ad was at bedside and understands management. Please keep him NPO past midnight. Will follow with you Procedures Date of Service Date of Service: 03/02/24
--- NOTE | 2024-03-02 11:26 | P.PNIM_ITS ---
Subjective Subjective Date of Service: 03/02/24 Interval History: Seen and evaluated this morning Had a rough night with tachycardia, tachypnea and low grade fever MR showing T11-T12 discitis repeated blood cultures growing GPC no other events reported Review of Systems Review of Systems: Yes all other systems are reviewed and are negative Physical Exam 2 Vital Signs: Vital Signs: Last Vital Signs Temp 97.1 F 03/02/24 07:23 Pulse 82 03/02/24 07:23 Resp 18 03/02/24 07:23 BP 118/50 L 03/02/24 09:26 Pulse Ox 97 03/02/24 07:23 O2 Del Method Nasal Cannula 03/02/24 07:23 O2 Flow Rate 4 03/02/24 07:23 BMI result Body Mass Index 20.2 Const: Other: Constitutional : Awake, interactive, not in distress Neck : Normal inspection, Supple Cardiovascular : RRR, no JVP, no lower extremity edema, systolic murmur, no peripheral signs of IE Respiratory : decrease air entry over RLL, no wheezes or ronchi Gastrointestinal: soft, lax, Normal bowel sounds, Non tender Skin : Warm, Dry Neurological : Alert & oriented x3, No focal deficit Objective Data Active Medications Acetaminophen (Acetaminophen 325 Mg Tablet) 975 mg PO Q6H PRN PRN Reason: Pain, Moderate(Pain Scale 4-6) Last Admin: 03/01/24 20:18 Dose: 975 mg Documented By: ANNIKA Aspirin (Aspirin Enteric Coated 81 Mg Tablet.) 81 mg PO DAILY [facility]PLAC[facility] BY [facility] Last Admin: 03/02/24 09:33 Dose: 81 mg Documented By: DIVYA Atorvastatin Calcium (Atorvastatin Calcium 20 Mg Tablet) 20 mg PO BEDTIME REPLACED BY [facility] Last Admin: 03/01/24 20:18 Dose: 20 mg Documented By: ANNIKA Cefazolin Sodium (Cefazolin Sodium 1 Gm Vial) 1 gm IVPUSH Q12H REPLACED BY [facility] Last Admin: 03/01/24 23:14 Dose: 1 gm Documented By: ANNIKA Docusate Sodium (Docusate Sodium 100 Mg Capsule) 100 mg PO BID PRN PRN Reason: Constipation Last Admin: 03/02/24 09:55 Dose: 100 mg Documented By: DIVYA Gabapentin (Gabapentin 300 Mg Capsule) 600 mg PO BEDTIME REPLACED BY [facility] Last Admin: 03/01/24 20:13 Dose: 600 mg Documented By: ANNIKA Lidocaine (Lidocaine 4 % Patch Adh..Patch) 1 patch TRANSDERMA DAILY REPLACED BY [facility]; Protocol Last Admin: 03/02/24 09:52 Dose: Not Given Documented By: DIVYA Non-Admin Reason: Patient Refused Methocarbamol (Methocarbamol 500 Mg Tablet) 500 mg PO QID REPLACED BY [facility] Last Admin: 03/02/24 09:33 Dose: 500 mg Documented By: DIVYA Midodrine (Midodrine Hcl 10 Mg Tablet) 10 mg PO TID REPLACED BY [facility] Last Admin: 03/02/24 09:33 Dose: 10 mg Documented By: DIVYA Omeprazole (Omeprazole 20 Mg Capsule.Dr) 20 mg PO DAILY@0630 REPLACED BY [facility] Last Admin: 03/02/24 06:35 Dose: Not Given Documented By: ANNIKA Non-Admin Reason: Patient Asleep Sodium Chloride (0.9 % Sodium Chloride Flush 3 Ml Syringe) 3 ml IVFLUSH QSHIFT REPLACED BY [facility] Last Admin: 03/02/24 09:34 Dose: 3 ml Documented By: DIVYA Tramadol HCl (Tramadol Hcl 50 Mg Tablet) 50 mg PO Q6H PRN PRN Reason: back pain Labs 03/02/24 03:54 03/02/24 03:54 Labs: Laboratory Results - last 24 hr 03/02/24 03/02/24 03/02/24 03:40 03:54 07:08 MCV 84.3 MCH 28.9 MCHC 34.3 RDW 14.1 Plt Count 59 L MPV 11.4 Immature Gran % (Auto) 0.5 H Neut % (Auto) 87.8 H Lymph % (Auto) 5.6 L [place] % (Auto) 5.6 Eos % (Auto) 0.1 Baso % (Auto) 0.4 Lymph # (Auto) 0.6 L [place] # (Auto) 0.6 Eos # (Auto) 0.0 Baso # (Auto) 0.0 Abs Immat Gran (auto) 0.06 H Absolute Neuts (auto) 9.7 H Absolute Nucleated RBC 0.000 Nucleated RBC % (auto) 0.0 Smear Tech's Comments VERIFIED D-Dimer High Sensitivty 3374 O2 Saturation 94.0 ABG pH at Pt Temp 7.44 ABG pCO2 at Pt Temp 27 L ABG pO2 at Pt Temp 71 L ABG HCO3 18 L ABG Base Excess (Actual) -3.7 Anion Gap 16 Estim Creat Clear Calc 59.3 Estimated GFR > 60 Random Glucose 122 H Lactic Acid 2.1 H* Lactic Acid F/U @ 2Hr 0.7 Calcium 8.5 Total Bilirubin 0.6 AST 54 H ALT 28 Alkaline Phosphatase 70 Troponin I High Sens 89.3 H D C-Reactive Protein 15.90 H B-Natriuretic Peptide 312 H Total Protein 5.8 L Albumin 3.2 L Random Vancomycin 4.7 L Microbiology Microbiology Results: Microbiology 02/29/24 14:04 Blood Culture - Preliminary Blood - Venous 02/29/24 14:02 Blood Culture - Preliminary Blood - Venous Staphylococcus aureus 02/28/24 09:51 Blood Culture - Final Blood - Venous Staphylococcus aureus 02/28/24 10:03 Blood Culture - Final Blood - Venous Staphylococcus aureus Assessment and Plan (1) Septic shock: Status: Acute (2) Back pain: Status: Acute (3) Pneumonia: Status: Acute (4) MSSA bacteremia: Status: Acute (5) Acute kidney injury: Status: Acute (6) Discitis of thoracic region: Status: Acute Plan Dr Pipe gupta a 78 years old male with PMH of CAD, MVR 4 years ago, COPD, HTN among others presenting with septic shock requiring ICU admission for pressors. Found to have MSSA Bacteremia. Septic shock 2/2 PErsistent MSSA Bacteremia from T11-12 discitis and possible IE MR Thoracic spine reporting Epidural abscess & discitis Discussed with dr Marinelli who reveiwed the images; no intervention needed now. Antibiotics to repeat blood cultures tomorrow morning Continue Cefazoline Cardiology consult for GABBY as concern for bioprosthetic mitral valve endocarditis ID following for ABx management , consider dual Abx Will need PICC line once cultures negative RLL Atelactasis vs Pneumonia Incentive spirometry IV Cefazoline for now Wean O2 as tolerated Coronary artery disease continue atorvastatin, hold ASA for tomorrow Hypertension hold metoprolol , on Midodrine for hypotension, wean as tolerated Acute lactic acidosis in state of sepsis, resolved with IVF Acute kidney injury Secondary to sepsis and septic shock improved, back to baseline Avoid nephrotoxic medication monitor I's and O's Thrombocytopenia Possibly secondary to sepsis Platelet count down to 59,000, we will withhold heparin DVT PPx SCDs The patient will need overnight hospital stay for evaluation with GABBY for persistent MSSA bactermia requiring IV antibiotics Quality Stroke Does the patient have a stroke diagnosis?: No VTE Prior VTE?: No VTE Risk Level:: Medical - moderate - high VTE Device Contraindication: N/A - Device Ordered VTE Drug Contraindication: N/A - Med Ordered
[2024-03-02] MEDS: traMADoL HCL 50 MG TABLET PO ×3 (11:48→23:56)
[2024-03-02] MEDS: ceFAZolin Sodium 1 GM VIAL IVPUSH ×2 (13:25→23:57)
--- NOTE | 2024-03-02 13:41 | MHC.CM.PN ---
EMR reviewed and per MD rounds, pt is not medically cleared for discharge due to management of bacteremia requiring IV antibiotics.
[2024-03-02] MEDS: Omeprazole 20 MG CAPSULE.DR PO (17:23)
[2024-03-02] MEDS: Gabapentin 300 MG CAPSULE 600 MG PO (20:54)
[2024-03-02] MEDS: Midodrine HCl 5 MG TABLET PO (20:54)
[2024-03-02] MEDS: Acetaminophen 325 MG TABLET 975 MG PO (20:55)
[2024-03-02] MEDS: Lidocaine 4 % Patch ADH..PATCH 1 PATCH TRANSDERMA (20:56)
[2024-03-03] VITALS (12 sets, daily range): BP systolic 127–165; BP diastolic 72–95; PULSE 74–98; RESP 15–18; TEMP 36.4–37.3; O2SAT 95–100; BMI 22.7
[2024-03-03] MEDS: Morphine Sulfate 2 MG/ML CARTRIDGE IVPUSH ×2 (03:19→23:56)
[2024-03-03 04:41] LABS: Appearance Urine Clear; Color Urine Yellow; Glucose Urine UA Negative (Negative); Leukocyte Esterase Urine Negative (Negative); Nitrite Urine Negative (Negative); UMIC TRIGGER UACC YES; Urine Blood Negative (Negative); Urine Ketones 15 mg/dL (Negative); Urine Protein 30 (1+) mg/dL (Neg-Trace)
[2024-03-03 04:48] LABS: Bacteria Urine None Seen (None Seen); Hyaline Casts Urine 0-2 /LPF (0-2); RBC Urine 0-2 /HPF (0-2); Squamous Epithelial Cell Urine 0-2 /HPF (0-2); WBC Urine 0-5 /HPF (0-5)
[2024-03-03 07:37] LABS: Hematocrit 34.1 % (42.0-52.0); Hemoglobin 11.6 g/dl (14.0-18.0); Mean Corpuscular Hemoglobin 28.6 pg (27.0-33.0); Mean Platelet Volume 12.4 fL (9.4-12.4); Red Blood Count 4.06 X10*6/uL (4.60-5.80); Red Cell Distribution Width 14.2 % (11.0-16.0); White Blood Count 8.9 X10*3/uL (4.8-10.8)
[2024-03-03 07:45] LABS: Platelet Count 64 X10*3/uL (160-400)
[2024-03-03 08:01] LABS: Anion Gap 17 (12-20); Blood Urea Nitrogen 13 mg/dL (9-16); Calcium 8.5 mg/dL (8.4-10.2); Carbon Dioxide 20 mmol/L (22-29); Chloride 102 mmol/L (96-108); Creatinine Clr Calc Pharmacy 76.6; Estimated Glomerular Filt Rate > 60; Glucose Random 103 mg/dL (60-115); Potassium 3.5 mmol/L (3.3-5.1); Sodium 135 mmol/L (135-145)
[2024-03-03] MEDS: methocarbamoL 500 MG TABLET PO ×3 (08:20→19:54)
[2024-03-03] MEDS: Acetaminophen 325 MG TABLET 975 MG PO ×2 (08:20→17:13)
[2024-03-03] MEDS: Omeprazole 20 MG CAPSULE.DR PO (08:20)
[2024-03-03] MEDS: 0.9 % Sodium Chloride Flush 3 ML SYRINGE IVFLUSH (08:32)
--- NOTE | 2024-03-03 08:35 | CA_ITS ---
Transesophageal Echocardiogram Amended Patient (Last, First, Middle): Bakari Betancur S Gender: Male Date of : 1945 Age: 78 Procedure Date: 03/03/2024 Procedure Type: Transesophageal Echocardiogram Location: [facility] [place] Height: 167.64 cm Weight: 71.67 kg BSA: 1.81 m2 Heart Rate: bpm Labor Commissioner: TO Referring MD: Franklin Fuchs MD Symptoms: Evaluate for endocarditis Culture Media Laboratory Assistant: Franklin Fuchs MD Conclusion: ??? 1. Moderately large vegetation of the anterior leaflet of the bioprosthetic mitral valve consistent with endocarditis with no periprosthetic regurgitation or leaflet perforation 2. Normal LV ejection fraction 3. Mild mitral and tricuspid regurgitation 4. No intracardiac thrombi or masses 5. No intracardiac shunting 6. No gross pericardial effusion Findings Procedure Information Consent was obtained prior to the procedure. Pre GABBY oral cavity was checked and revealed no overcrowding. The adult 3D probe was passed with no difficulty. Left Ventricle Normal left ventricular size, thickness, and systolic function. The visually estimated ejection fraction is between 60-65%. Right Ventricle Normal right ventricular cavity size and systolic function. Atria The left atrium is mildly dilated. There is no evidence of a patent foramen ovale. the left atrium was free of any significant clots. There was mild smoker formation CV with the left atrial cavity. Left atrial appendage was free of any thrombus or significant spoke formation. The left upper, right upper and right lower pulmonary veins drain normally into the left atrium. The right atrium is normal in size. The IVC and SVC draining into the right atrium normally. The SVC was collapsing suggestive of low right atrial pressures. There are no thrombus or masses seen in the right atrium with mild smoke formation seen. Aortic Valve There is mild calcification of the aortic valve. There is mild thickening of the aortic valve. There is no aortic valve stenosis. There is no evidence of a mass on the aortic valve. There is mild aortic valve regurgitation. Mitral Valve A bioprosthetic mitral valve is present. There is sessile 0.5 x 0.8 cm mass attached with the anterior leaflet of the bioprosthetic mitral valve. This is highly suggestive of a vegetation related to infective endocarditis. The leaflet are intact without any evidence of perforation. The bioprosthetic valve is well seated without any clear evidence of dehiscence with no periprosthetic mitral regurgitation. There is no evidence of mitral stenosis. There is flow acceleration in the LVOT of unclear significance. There is mild mitral regurgitation noted Pulmonic Valve The pulmonic valve is normal. There is no mass noted on the pulmonic valve. There is trace pulmonic valve regurgitation. Tricuspid Valve Normal tricuspid valve structure. There is mild tricuspid valve regurgitation. There is no evidence of a mass on the tricuspid valve. Great Vessels All visible segments of the aorta are normal in size. Small plaque is seen in the ascending aorta and descending thoracic aorta. The visualized portions of the pulmonary artery and branches are normal. Venous The inferior vena cava is normal in size and collapses greater than 50% with inspiration. Pericardium/Pleural There is no evidence of pericardial effusion. Updated by Franklin Fuchs on 12:41 PM with Status of Final Franklin Fuchs MD electronically signed on 03/04/2024 12:41:27 PM with status of Final
--- NOTE | 2024-03-03 08:35 | MHC.SHP ---
Pre-Procedural Eval Section A - 24 Hr Update-Section A only Date of Service: 03/03/24 The patient is an INPATIENT: Yes Changes since office visit: Yes Patient answered all questions; No Cold of Flu in the past 2 weeks, No New Medical Problems and No Changes in Medication The patient has been examined within 24 hours of the surgical procedure. The History & Physical has been completed within 30 days and I have reviewed it.: Yes Section B - Complete if H&P > 30 days Chief Complaint: Hypotension Allergies: Allergies Allergy/AdvReac Type Severity Reaction Status Date / Time lactose [LACTOSE] AdvReac Unknown DIARRHEA Verified 02/28/24 09:37 onion [Onion] AdvReac Unknown DIARRHEA Verified 02/28/24 09:37 WITH RAW ONIONS Plan I have reviewed the history and physical and performed a pertinent physical examination on my patient. No changes have occurred unless specified. Time Spent With Patient Time: Total time managing care of this patient today ____ minutes.
--- NOTE | 2024-03-03 09:53 | P.PNCA_ITS ---
Subjective Subjective Date of Service: 03/03/24 Interval history: No shortness of breath, chest pain. Complains of back pain. He thinks this is related to muscular spasm. Systemically feeling better Review of Systems Constitutional: Reports no additional constitutional complaints Cardiovascular: Reports no additional cardiovascular complaints Respiratory: Reports no additional respiratory complaints Musculoskeletal: Reports back pain Skin/Breast: Reports system reviewed and no additional complaints, except as docu Reports system reviewed and no additional complaints, except as documented Physical Exam Vital Signs: Last Vital Signs Temp 98.7 F 03/03/24 07:43 Pulse 91 03/03/24 07:43 Resp 16 03/03/24 07:43 BP 146/78 H 03/03/24 07:43 Pulse Ox 95 03/03/24 07:43 O2 Del Method Room Air 03/03/24 07:43 O2 Flow Rate 4 03/02/24 07:23 BMI result Body Mass Index 22.7 Const General: cooperative, comfortable, no acute distress, alert, awake and tired appearing Nutritional Appearance: average body habitus Orientation/consciousness: patient oriented x3 HEENT Head: Yes normocephalic and Yes atraumatic Neck Neck: Yes trachea midline, Yes supple and Yes no JVD Resp Effort & Inspection: decreased respiratory effort Auscultation: no rales, no wheezes and diminished lung sounds Cardio Jugular venous distension: no JVD Rate: regular rate Rhythm: regular rhythm Heart sounds: S1 normal heart sound present, S2 normal heart sound present, no click, no gallops and Murmur heart sound present systolic at the apex GI Auscultation: normal bowel sounds Skin General skin exam: petechiae Neuro General: patient oriented x3 and no focal motor deficits Extrem General: Yes no clubbing, cyanosis or edema Objective Labs and Meds 03/03/24 07:06 03/03/24 07:06 Lab results: Laboratory Results - last 24 hr 03/03/24 03/03/24 00:23 07:06 WBC 8.9 RBC 4.06 L Hgb 11.6 L Hct 34.1 L MCV 84.0 MCH 28.6 MCHC 34.0 RDW 14.2 Plt Count 64 L MPV 12.4 Absolute Nucleated RBC 0.000 Nucleated RBC % (auto) 0.0 Sodium 135 Potassium 3.5 Chloride 102 Carbon Dioxide 20 L Anion Gap 17 BUN 13 Creatinine 0.82 Estim Creat Clear Calc 76.6 Estimated GFR > 60 Random Glucose 103 Calcium 8.5 Hold Yellow Top See Note Urine Color Yellow Urine Appearance Clear Urine pH 6.0 Ur Specific [place] 1.020 Urine Protein 30 (1+) H Urine Glucose (UA) Negative Urine Ketones 15 Urine Blood Negative Urine Nitrite Negative Ur Leukocyte Esterase Negative Urine RBC 0-2 Urine WBC 0-5 Ur Squamous Epith Cells 0-2 Urine Bacteria None Seen Hyaline Casts 0-2 Progress Note: A&P Assessment and plan (1) Septic shock: Status: Acute Assessment and Plan: Septic shock related to MSSA bacteremia in the patient with bioprosthetic mitral valve. Hear a systolic murmur. I would continue to proceed with GABBY which is scheduled for later today. Further treatment based on the findings of GABBY. Continue aggressive antibiotic treatment. He has repeat blood cultures seem to be negative for recurrent bacteremia. This is a good sign. Overall clinically is improving. He continues to have back pain which could be related to diskitis/epidural abscess and says muscle spasm. Continue treatment for the same. Continue supportive care. If blood pressure remains stable can reintroduce metoprolol therapy. Will follow with you Time Spent With Patient Time: Total time managing care of this patient today ____ minutes. Progress Note: Quality Stroke Does the patient have a stroke diagnosis?: No Procedures Date of Service Date of Service: 03/03/24
[2024-03-03] MEDS: ceFAZolin Sodium 1 GM VIAL IVPUSH ×2 (10:59→23:57)
--- NOTE | 2024-03-03 11:12 | HO.ANESPROP2 ---
HPI - Anesthesia Eval Consult details Narrative: Septic shock in this elderly gentleman with prior bioprosthetic mitral valve replacement with MSSA, with a systolic murmur concern for possible redevelopment mitral regurgitation and concern for mitral valve endocarditis. High agree completely for patient to undergo GABBY to further evaluate the mitral valve. Further treatment based on the findings. His shortness of breath could be related to bilateral infiltrative pleural effusion although mitral regurgitation especially acute could contribute to his shortness of breath. Clinically does not appear to be in overt pulmonary edema or heart failure at this point time. [facility] Active Problems Active Problems: All Active Problems (Updated 03/02/24 @ 11:42 by Sujey Malone MD) Discitis of thoracic region (Acute) Acute kidney injury (Acute) MSSA bacteremia (Acute) Septic shock (Acute) Back pain (Acute) Pneumonia (Acute) Sepsis (Acute) Obstructive sleep apnea hypopnea, moderate (Acute) CAD (coronary artery disease) (Acute) Hyperlipidemia (Acute) PVCs (premature ventricular contractions) (Acute) History of mitral valve replacement with bioprosthetic valve (Acute) Past Medical History Medical History Obstructive sleep apnea hypopnea, moderate CAD (coronary artery disease) Mitral valve prolapse Hyperlipidemia PVCs (premature ventricular contractions) Postoperative atrial fibrillation Family History Family History Father No problems noted. Mother No problems noted. Family history of problems with anesthesia: No Surgical History Surgical History History of mitral valve replacement with bioprosthetic valve History of varicocele Hx of cardiac cath History of Problems with Anesthesia: No Social History Social History Household Members: None Housing: House Do you presently have visiting nurse or other home services: No Patient Tobacco Use Status: Never used Tobacco Smoked in Last 30 Days: No e-Cigarette/Vaping Use: Never Used Patient Interested in Nicotine Replacement: No Patient Given Instructions on How to Stop Smoking: No Second Hand Smoke Exposure: No Use of substances other than those prescribed or required for medical reasons: No Currently Displaying Signs/Symptoms of Drug Intoxication Withdrawal: No Have you been hit, kicked, punched, or otherwise hurt by someone within the past year? If so, by whom?: No Do you feel safe in your current relationship?: No Current Relationship Is there a partner from a previous relationship who is making you feel unsafe now?: No Are you made to feel afraid or neglected: No Jainism Healthcare Practices: none Advance Directives: Yes Advance Directives Information Provided: Yes Advance Directives on File: No Advance Directives Date on File: 02/03/20 Do you have a plan to hurt others: No Plan Recently lost weight without trying: No Eating poorly because of decreased appetite: No Nutrition Risks: No Nutritional Risk Poor oral hygiene: No service: No Meds Allergies Allergy/AdvReac Type Severity Reaction Status Date / Time lactose [LACTOSE] AdvReac Unknown DIARRHEA Verified 02/28/24 09:37 onion [Onion] AdvReac Unknown DIARRHEA Verified 02/28/24 09:37 WITH RAW ONIONS Active Medications: Current Medications Acetaminophen (Acetaminophen 325 Mg Tablet) 975 mg PO Q6H PRN PRN Reason: Pain, Moderate(Pain Scale 4-6) Last Admin: 03/03/24 08:20 Dose: 975 mg Aspirin (Aspirin Enteric Coated 81 Mg Tablet.Dr) 81 mg PO DAILY [facility] Last Admin: 03/02/24 09:33 Dose: 81 mg Atorvastatin Calcium (Atorvastatin Calcium 20 Mg Tablet) 20 mg PO BEDTIME [facility] Last Admin: 03/02/24 20:59 Dose: Not Given Cefazolin Sodium (Cefazolin Sodium 1 Gm Vial) 1 gm IVPUSH Q12H LILI Last Admin: 03/03/24 10:59 Dose: 1 gm Docusate Sodium (Docusate Sodium 100 Mg Capsule) 100 mg PO BID PRN PRN Reason: Constipation Last Admin: 03/02/24 09:55 Dose: 100 mg Gabapentin (Gabapentin 300 Mg Capsule) 600 mg PO BEDTIME [facility] Last Admin: 03/02/24 20:54 Dose: 600 mg Lidocaine (Lidocaine 4 % Patch Adh..Patch) 1 patch TRANSDERMA BEDTIME [facility]; Protocol Last Admin: 03/02/24 20:56 Dose: 1 patch Methocarbamol (Methocarbamol 500 Mg Tablet) 500 mg PO QID [facility] Last Admin: 03/03/24 08:20 Dose: 500 mg Midodrine (Midodrine Hcl 5 Mg Tablet) 5 mg PO TID [facility] Last Admin: 03/03/24 09:00 Dose: Not Given Morphine Sulfate (Morphine Sulfate 2 Mg/Ml Cartridge) 2 mg IVPUSH Q4H PRN; Protocol PRN Reason: Pain, Severe \ Dyspnea Last Admin: 03/03/24 03:19 Dose: 2 mg Omeprazole (Omeprazole 20 Mg Capsule.Dr) 20 mg PO BID@0630,1630 [facility] Last Admin: 03/03/24 08:20 Dose: 20 mg Sodium Chloride (0.9 % Sodium Chloride Flush 3 Ml Syringe) 3 ml IVFLUSH QSHIFT [facility] Last Admin: 03/03/24 08:32 Dose: 3 ml Tramadol HCl (Tramadol Hcl 50 Mg Tablet) 50 mg PO Q6H PRN PRN Reason: back pain Last Admin: 03/02/24 23:56 Dose: 50 mg Home Medications ?Medication ?Instructions ?Recorded ?Confirmed ?Last Taken ?Type aspirin 81 mg tablet,delayed 81 mg PO DAILY 07/20/20 02/28/24 02/28/24 06:00 History release (Adult Low Dose Aspirin) coenzyme Q10 100 mg capsule 100 mg PO DAILY 07/20/20 02/28/24 02/28/24 06:00 History magnesium 250 mg tablet 250 mg PO DAILY 07/20/20 02/28/24 02/28/24 06:00 History metoprolol succinate 100 mg 100 mg PO DAILY 07/20/20 02/28/24 02/28/24 06:00 History tablet,extended release 24 hr ascorbate calcium (vitamin C) 500 2 g PO DAILY 11/22/20 02/28/24 02/28/24 06:00 History mg tablet docusate sodium 100 mg capsule 100 mg PO DAILY 11/22/20 02/28/24 02/28/24 06:00 History (Colace) gabapentin 300 mg capsule 600 mg PO BEDTIME 11/22/20 02/28/24 02/27/24 History atorvastatin 20 mg tablet 20 mg PO BEDTIME 02/28/24 02/28/24 02/27/24 History Exam Height,Weight and Vital Signs: Height 5 ft 10 in Weight 71.8 kg Last Vital Signs Temp 98.7 F 03/03/24 07:43 Pulse 91 03/03/24 07:43 Resp 16 03/03/24 07:43 BP 146/78 H 03/03/24 07:43 Pulse Ox 95 03/03/24 07:43 O2 Del Method Room Air 03/03/24 07:43 O2 Flow Rate 4 03/02/24 07:23 Pertinent Lab Results Pertinent Lab Results: Laboratory Tests 02/28/24 02/28/24 02/28/24 09:51 10:03 12:29 WBC 9.1 RBC 4.13 L Hgb 12.0 L Hct 34.7 L MCV 84.0 MCH 29.1 MCHC 34.6 RDW 13.8 Plt Count 102 L D MPV 10.7 Immature Gran % (Auto) Cancelled Neut % (Auto) Cancelled Lymph % (Auto) Cancelled [place] % (Auto) Cancelled Eos % (Auto) Cancelled Baso % (Auto) Cancelled Lymph # (Auto) Cancelled [place] # (Auto) Cancelled Eos # (Auto) Cancelled Baso # (Auto) Cancelled Abs Immat Gran (auto) Cancelled Absolute Neuts (auto) Cancelled Absolute Nucleated RBC 0.000 Nucleated RBC % (auto) 0.0 Neutrophils % (Manual) 60 Band Neutrophils % 35 H Lymphocytes % (Manual) 2 L Monocytes % (Manual) Metamyelocytes % 3 Myelocytes % Abs Neuts (Manual) 8.6 H Lymphocytes # (Manual) 0.2 L Monocytes # (Manual) Metamyelocytes # 0.3 Myelocytes # Toxic Vacuolation PRESENT Dohle Bodies PRESENT Platelet Estimate DECREASED Large Platelets Plt Morphology Comment NORMAL RBC Morphology NORMAL [place]io Cells Smear Tech's Comments ESR 5 Hold Purple Top PT 19.3 H INR 1.7 H APTT 34.6 D-Dimer High Sensitivty O2 Saturation ABG pH at Pt Temp ABG pCO2 at Pt Temp ABG pO2 at Pt Temp ABG HCO3 ABG Base Excess (Actual) Sodium 125 L Potassium 4.8 Chloride 96 Carbon Dioxide 20 L Anion Gap 14 BUN 31 H Creatinine 2.04 H Estim Creat Clear Calc 27.2 Estimated GFR 32 Random Glucose 106 Lactic Acid 2.9 H* Lactic Acid F/U @ 2Hr Lactic Acid F/U @ 4Hr Calcium 8.0 L D Phosphorus Magnesium Total Bilirubin 1.1 H Direct Bilirubin 0.4 AST 53 H ALT 33 Alkaline Phosphatase 48 Troponin I High Sens 244.4 H* 220.2 H* C-Reactive Protein 18.32 H B-Natriuretic Peptide Total Protein 5.6 L Albumin 3.2 L Lipase 21 Procalcitonin 20.14 Hold Yellow Top Urine Color Urine Appearance Urine pH Ur Specific [place] Urine Protein Urine Glucose (UA) Urine Ketones Urine Blood Urine Nitrite Ur Leukocyte Esterase Urine RBC Urine WBC Ur Squamous Epith Cells Urine Bacteria Hyaline Casts Random Vancomycin Influenza Type A (PCR) NEGATIVE Influenza Type B (PCR) NEGATIVE RSV RNA Qual (PCR) NEGATIVE SARS-CoV-2 RNA (RT-PCR) NEGATIVE 02/28/24 02/28/24 02/28/24 12:34 15:37 16:30 WBC RBC Hgb Hct MCV MCH MCHC RDW Plt Count MPV Immature Gran % (Auto) Neut % (Auto) Lymph % (Auto) [place] % (Auto) Eos % (Auto) Baso % (Auto) Lymph # (Auto) [place] # (Auto) Eos # (Auto) Baso # (Auto) Abs Immat Gran (auto) Absolute Neuts (auto) Absolute Nucleated RBC Nucleated RBC % (auto) Neutrophils % (Manual) Band Neutrophils % Lymphocytes % (Manual) Monocytes % (Manual) Metamyelocytes % Myelocytes % Abs Neuts (Manual) Lymphocytes # (Manual) Monocytes # (Manual) Metamyelocytes # Myelocytes # Toxic Vacuolation Dohle Bodies Platelet Estimate Large Platelets Plt Morphology Comment RBC Morphology Melissa Cells Smear Tech's Comments ESR Hold Purple Top PT INR APTT D-Dimer High Sensitivty O2 Saturation ABG pH at Pt Temp ABG pCO2 at Pt Temp ABG pO2 at Pt Temp ABG HCO3 ABG Base Excess (Actual) Sodium Potassium Chloride Carbon Dioxide Anion Gap BUN Creatinine Estim Creat Clear Calc Estimated GFR Random Glucose Lactic Acid Lactic Acid F/U @ 2Hr 2.8 H* Lactic Acid F/U @ 4Hr 2.2 H* Calcium Phosphorus 3.3 Magnesium Total Bilirubin Direct Bilirubin AST ALT Alkaline Phosphatase Troponin I High Sens C-Reactive Protein B-Natriuretic Peptide Total Protein Albumin Lipase Procalcitonin Hold Yellow Top Urine Color Yellow Urine Appearance Clear Urine pH 5.5 Ur Specific [place] 1.010 Urine Protein Trace Urine Glucose (UA) Negative Urine Ketones Negative Urine Blood Moderate (2+) H Urine Nitrite Negative Ur Leukocyte Esterase Negative Urine RBC 0-2 Urine WBC 0-5 Ur Squamous Epith Cells 0-2 Urine Bacteria None Seen Hyaline Casts 0-2 Random Vancomycin Influenza Type A (PCR) Influenza Type B (PCR) RSV RNA Qual (PCR) SARS-CoV-2 RNA (RT-PCR) 02/28/24 02/28/24 02/29/24 20:27 22:48 05:46 WBC 16.4 H 14.8 H RBC 4.22 L 4.35 L Hgb 12.4 L 12.6 L Hct 35.6 L 37.2 L MCV 84.4 85.5 MCH 29.4 29.0 MCHC 34.8 33.9 RDW 14.0 14.0 Plt Count 89 L 81 L MPV 11.6 11.6 Immature Gran % (Auto) Cancelled Cancelled Neut % (Auto) Cancelled Cancelled Lymph % (Auto) Cancelled Cancelled [place] % (Auto) Cancelled Cancelled Eos % (Auto) Cancelled Cancelled Baso % (Auto) Cancelled Cancelled Lymph # (Auto) Cancelled Cancelled [place] # (Auto) Cancelled Cancelled Eos # (Auto) Cancelled Cancelled Baso # (Auto) Cancelled Cancelled Abs Immat Gran (auto) Cancelled Cancelled Absolute Neuts (auto) Cancelled Cancelled Absolute Nucleated RBC 0.000 0.000 Nucleated RBC % (auto) 0.0 0.0 Neutrophils % (Manual) 42 L 55 Band Neutrophils % 43 H 37 H Lymphocytes % (Manual) 2 L 4 L Monocytes % (Manual) Metamyelocytes % 7 4 Myelocytes % 6 Abs Neuts (Manual) 13.9 H 13.6 H Lymphocytes # (Manual) 0.3 L 0.6 L Monocytes # (Manual) Metamyelocytes # 1.1 0.6 Myelocytes # 1.0 Toxic Vacuolation PRESENT PRESENT Dohle Bodies PRESENT PRESENT Platelet Estimate DECREASED DECREASED Large Platelets PRESENT Plt Morphology Comment NORMAL NOTED RBC Morphology NORMAL NORMAL Melissa Cells Smear Tech's Comments ESR Hold Purple Top SEE NOTE PT INR APTT D-Dimer High Sensitivty O2 Saturation ABG pH at Pt Temp ABG pCO2 at Pt Temp ABG pO2 at Pt Temp ABG HCO3 ABG Base Excess (Actual) Sodium 133 L 142 Potassium 4.4 4.1 Chloride 105 113 H Carbon Dioxide 19 L 17 L Anion Gap 13 16 BUN 25 H 22 H Creatinine 1.36 1.09 Estim Creat Clear Calc 40.8 50.9 Estimated GFR 51 > 60 Random Glucose 113 110 Lactic Acid 2.1 H* Lactic Acid F/U @ 2Hr 1.9 Lactic Acid F/U @ 4Hr Calcium 8.1 L 8.1 L Phosphorus 2.2 L Magnesium 2.3 Total Bilirubin 1.0 0.9 Direct Bilirubin AST 68 H 63 H ALT 35 32 Alkaline Phosphatase 44 48 Troponin I High Sens C-Reactive Protein B-Natriuretic Peptide Total Protein 5.6 L 6.2 L Albumin 3.2 L 3.8 Lipase Procalcitonin Hold Yellow Top Urine Color Urine Appearance Urine pH Ur Specific [place] Urine Protein Urine Glucose (UA) Urine Ketones Urine Blood Urine Nitrite Ur Leukocyte Esterase Urine RBC Urine WBC Ur Squamous Epith Cells Urine Bacteria Hyaline Casts Random Vancomycin Influenza Type A (PCR) Influenza Type B (PCR) RSV RNA Qual (PCR) SARS-CoV-2 RNA (RT-PCR) 02/29/24 02/29/24 03/01/24 06:12 21:47 05:37 WBC 11.8 H RBC 4.01 L Hgb 11.6 L Hct 33.9 L MCV 84.5 MCH 28.9 MCHC 34.2 RDW 14.2 Plt Count 59 L D MPV 12.2 Immature Gran % (Auto) Cancelled Neut % (Auto) Cancelled Lymph % (Auto) Cancelled [place] % (Auto) Cancelled Eos % (Auto) Cancelled Baso % (Auto) Cancelled Lymph # (Auto) Cancelled [place] # (Auto) Cancelled Eos # (Auto) Cancelled Baso # (Auto) Cancelled Abs Immat Gran (auto) Cancelled Absolute Neuts (auto) Cancelled Absolute Nucleated RBC 0.000 Nucleated RBC % (auto) 0.0 Neutrophils % (Manual) 75 H Band Neutrophils % 14 H Lymphocytes % (Manual) 7 L Monocytes % (Manual) 4 Metamyelocytes % Myelocytes % Abs Neuts (Manual) 10.5 H Lymphocytes # (Manual) 0.8 L Monocytes # (Manual) 0.5 Metamyelocytes # Myelocytes # Toxic Vacuolation Dohle Bodies Platelet Estimate DECREASED Large Platelets Plt Morphology Comment NORMAL RBC Morphology NOTED Melissa Cells 1+ (0-2) Smear Tech's Comments ESR Hold Purple Top PT INR APTT D-Dimer High Sensitivty O2 Saturation ABG pH at Pt Temp ABG pCO2 at Pt Temp ABG pO2 at Pt Temp ABG HCO3 ABG Base Excess (Actual) Sodium 137 140 Potassium 3.6 3.9 Chloride 108 108 Carbon Dioxide 19 L 22 Anion Gap 14 14 BUN 20 H 18 H Creatinine 0.85 0.96 Estim Creat Clear Calc 65.3 58.1 Estimated GFR > 60 > 60 Random Glucose 167 H 98 Lactic Acid Lactic Acid F/U @ 2Hr Lactic Acid F/U @ 4Hr Calcium 8.0 L 8.4 Phosphorus 1.6 L Magnesium 2.1 Total Bilirubin 0.5 0.5 Direct Bilirubin AST 63 H 57 H ALT 35 25 Alkaline Phosphatase 45 45 Troponin I High Sens C-Reactive Protein B-Natriuretic Peptide 343 H Total Protein 5.7 L 5.4 L Albumin 3.3 L 3.1 L Lipase Procalcitonin Hold Yellow Top Urine Color Urine Appearance Urine pH Ur Specific [place] Urine Protein Urine Glucose (UA) Urine Ketones Urine Blood Urine Nitrite Ur Leukocyte Esterase Urine RBC Urine WBC Ur Squamous Epith Cells Urine Bacteria Hyaline Casts Random Vancomycin 18.2 8.7 L Influenza Type A (PCR) Influenza Type B (PCR) RSV RNA Qual (PCR) SARS-CoV-2 RNA (RT-PCR) 03/02/24 03/02/24 03/02/24 03:40 03:54 07:08 WBC 11.0 H RBC 4.15 L Hgb 12.0 L Hct 35.0 L MCV 84.3 MCH 28.9 MCHC 34.3 RDW 14.1 Plt Count 59 L MPV 11.4 Immature Gran % (Auto) 0.5 H Neut % (Auto) 87.8 H Lymph % (Auto) 5.6 L [place] % (Auto) 5.6 Eos % (Auto) 0.1 Baso % (Auto) 0.4 Lymph # (Auto) 0.6 L [place] # (Auto) 0.6 Eos # (Auto) 0.0 Baso # (Auto) 0.0 Abs Immat Gran (auto) 0.06 H Absolute Neuts (auto) 9.7 H Absolute Nucleated RBC 0.000 Nucleated RBC % (auto) 0.0 Neutrophils % (Manual) Band Neutrophils % Lymphocytes % (Manual) Monocytes % (Manual) Metamyelocytes % Myelocytes % Abs Neuts (Manual) Lymphocytes # (Manual) Monocytes # (Manual) Metamyelocytes # Myelocytes # Toxic Vacuolation Dohle Bodies Platelet Estimate Large Platelets Plt Morphology Comment RBC Morphology [place] Cells Smear Tech's Comments VERIFIED ESR Hold Purple Top PT INR APTT D-Dimer High Sensitivty 3374 O2 Saturation 94.0 ABG pH at Pt Temp 7.44 ABG pCO2 at Pt Temp 27 L ABG pO2 at Pt Temp 71 L ABG HCO3 18 L ABG Base Excess (Actual) -3.7 Sodium 137 Potassium 3.6 Chloride 107 Carbon Dioxide 18 L Anion Gap 16 BUN 17 H Creatinine 0.94 Estim Creat Clear Calc 59.3 Estimated GFR > 60 Random Glucose 122 H Lactic Acid 2.1 H* Lactic Acid F/U @ 2Hr 0.7 Lactic Acid F/U @ 4Hr Calcium 8.5 Phosphorus Magnesium Total Bilirubin 0.6 Direct Bilirubin AST 54 H ALT 28 Alkaline Phosphatase 70 Troponin I High Sens 89.3 H D C-Reactive Protein 15.90 H B-Natriuretic Peptide 312 H Total Protein 5.8 L Albumin 3.2 L Lipase Procalcitonin Hold Yellow Top Urine Color Urine Appearance Urine pH Ur Specific [place] Urine Protein Urine Glucose (UA) Urine Ketones Urine Blood Urine Nitrite Ur Leukocyte Esterase Urine RBC Urine WBC Ur Squamous Epith Cells Urine Bacteria Hyaline Casts Random Vancomycin 4.7 L Influenza Type A (PCR) Influenza Type B (PCR) RSV RNA Qual (PCR) SARS-CoV-2 RNA (RT-PCR) 03/03/24 03/03/24 00:23 07:06 WBC 8.9 RBC 4.06 L Hgb 11.6 L Hct 34.1 L MCV 84.0 MCH 28.6 MCHC 34.0 RDW 14.2 Plt Count 64 L MPV 12.4 Immature Gran % (Auto) Neut % (Auto) Lymph % (Auto) [place] % (Auto) Eos % (Auto) Baso % (Auto) Lymph # (Auto) [place] # (Auto) Eos # (Auto) Baso # (Auto) Abs Immat Gran (auto) Absolute Neuts (auto) Absolute Nucleated RBC 0.000 Nucleated RBC % (auto) 0.0 Neutrophils % (Manual) Band Neutrophils % Lymphocytes % (Manual) Monocytes % (Manual) Metamyelocytes % Myelocytes % Abs Neuts (Manual) Lymphocytes # (Manual) Monocytes # (Manual) Metamyelocytes # Myelocytes # Toxic Vacuolation Dohle Bodies Platelet Estimate Large Platelets Plt Morphology Comment RBC Morphology Melissa Cells Smear Tech's Comments ESR Hold Purple Top PT INR APTT D-Dimer High Sensitivty O2 Saturation ABG pH at Pt Temp ABG pCO2 at Pt Temp ABG pO2 at Pt Temp ABG HCO3 ABG Base Excess (Actual) Sodium 135 Potassium 3.5 Chloride 102 Carbon Dioxide 20 L Anion Gap 17 BUN 13 Creatinine 0.82 Estim Creat Clear Calc 76.6 Estimated GFR > 60 Random Glucose 103 Lactic Acid Lactic Acid F/U @ 2Hr Lactic Acid F/U @ 4Hr Calcium 8.5 Phosphorus Magnesium Total Bilirubin Direct Bilirubin AST ALT Alkaline Phosphatase Troponin I High Sens C-Reactive Protein B-Natriuretic Peptide Total Protein Albumin Lipase Procalcitonin Hold Yellow Top See Note Urine Color Yellow Urine Appearance Clear Urine pH 6.0 Ur Specific [place] 1.020 Urine Protein 30 (1+) H Urine Glucose (UA) Negative Urine Ketones 15 Urine Blood Negative Urine Nitrite Negative Ur Leukocyte Esterase Negative Urine RBC 0-2 Urine WBC 0-5 Ur Squamous Epith Cells 0-2 Urine Bacteria None Seen Hyaline Casts 0-2 Random Vancomycin Influenza Type A (PCR) Influenza Type B (PCR) RSV RNA Qual (PCR) SARS-CoV-2 RNA (RT-PCR) Airway Mallampati Class: II TM Dist: >3cm Neck ROM: Full Heart: RRR Lungs: CTA Assessment and Plan Assessment Anesthesia Assessment: Anesthesia Plan Discussed Final Anesthetic Review Family History of Problems with Anesthesia: No History of Problems with Anesthesia: No NPO: Yes ASA Class: III Final Preanesthetic Review: No Changes in Pt Med Stat, Meds/Allgs Chart Reviewed, Consent Obtained/Reviewed and Anes Risks/Benef Reviewed Patient Risk: Intermediate Procedure Risk: Low Anesthetic Plan Anesthetic Plan: MAC: Disposition: Standard PACU
[2024-03-03] MEDS: Lactated Ringers 1,000 ML 80 ML IVCONT (11:55)
[2024-03-03] MEDS: traMADoL HCL 50 MG TABLET PO ×2 (13:13→19:54)
--- NOTE | 2024-03-03 14:14 | P.PNIM_ITS ---
Subjective Subjective Date of Service: 03/03/24 Interval History: Seen and evaluated this morning He feels little better repeated blood cultures are negative after 24 hours no other events reported Review of Systems Review of Systems: Yes all other systems are reviewed and are negative Physical Exam 2 Vital Signs: Vital Signs: Last Vital Signs Temp 97.5 F 03/03/24 13:14 Pulse 98 03/03/24 13:14 Resp 18 03/03/24 13:14 BP 150/95 H 03/03/24 13:14 Pulse Ox 98 03/03/24 13:14 O2 Del Method Room Air 03/03/24 13:14 O2 Flow Rate 6 03/03/24 12:44 BMI result Body Mass Index 22.7 Const: Other: Constitutional : Awake, interactive, not in distress Neck : Normal inspection, Supple Cardiovascular : RRR, no JVP, no lower extremity edema, systolic murmur, no peripheral signs of IE Respiratory : decrease air entry over RLL, no wheezes or ronchi Gastrointestinal: soft, lax, Normal bowel sounds, Non tender Skin : Warm, Dry Neurological : Alert & oriented x3, No focal deficit Objective Data Active Medications Acetaminophen (Acetaminophen 325 Mg Tablet) 975 mg PO Q6H PRN PRN Reason: Pain, Moderate(Pain Scale 4-6) Last Admin: 03/03/24 08:20 Dose: 975 mg Documented By: ANNALISA Aspirin (Aspirin Enteric Coated 81 Mg Tablet.) 81 mg PO DAILY [facility] Last Admin: 03/02/24 09:33 Dose: 81 mg Documented By: DIVYA Atorvastatin Calcium (Atorvastatin Calcium 20 Mg Tablet) 20 mg PO BEDTIME [facility] Last Admin: 03/02/24 20:59 Dose: Not Given Documented By: ANNIKA Non-Admin Reason: Patient Refused Cefazolin Sodium (Cefazolin Sodium 1 Gm Vial) 1 gm IVPUSH Q12H [facility] Last Admin: 03/03/24 10:59 Dose: 1 gm Documented By: ANNALISA Docusate Sodium (Docusate Sodium 100 Mg Capsule) 100 mg PO BID PRN PRN Reason: Constipation Last Admin: 03/02/24 09:55 Dose: 100 mg Documented By: DIVYA Gabapentin (Gabapentin 300 Mg Capsule) 600 mg PO BEDTIME [facility] Last Admin: 03/02/24 20:54 Dose: 600 mg Documented By: ANNIKA Lactated Ringer's (Lr) 1,000 mls @ 80 mls/hr IVCONT .[id number] [facility] Last Admin: 03/03/24 11:55 Dose: 80 mls/hr Documented By: ESTIVEN Lidocaine (Lidocaine 4 % Patch Adh..Patch) 1 patch TRANSDERMA BEDTIME [facility]; Protocol Last Admin: 03/02/24 20:56 Dose: 1 patch Documented By: ANNIKA Methocarbamol (Methocarbamol 500 Mg Tablet) 500 mg PO QID [facility] Last Admin: 03/03/24 08:20 Dose: 500 mg Documented By: ANNALISA Midodrine (Midodrine Hcl 5 Mg Tablet) 5 mg PO TID [facility] Last Admin: 03/03/24 09:00 Dose: Not Given Documented By: ANNALISA Non-Admin Reason: Physician Held Med Morphine Sulfate (Morphine Sulfate 2 Mg/Ml Cartridge) 2 mg IVPUSH Q4H PRN; Protocol PRN Reason: Pain, Severe \ Dyspnea Last Admin: 03/03/24 03:19 Dose: 2 mg Documented By: ANNIKA Naloxone HCl (Naloxone Hcl 0.4 Mg/Ml Vial) 0.04 mg IVPUSH Q5M PRN PRN Reason: Excessive sedation or RR < 8 Omeprazole (Omeprazole 20 Mg Capsule.Dr) 20 mg PO BID@0630,1630 [facility] Last Admin: 03/03/24 08:20 Dose: 20 mg Documented By: ANNALISA Ondansetron HCl (Ondansetron Hcl 4 Mg/2 Ml Vial) 4 mg IVPUSH ONCE PRN PRN Reason: Nausea and Vomiting Stop: 03/03/24 17:14 Sodium Chloride (0.9 % Sodium Chloride Flush 3 Ml Syringe) 3 ml IVFLUSH QSHIFT [facility] Last Admin: 03/03/24 08:32 Dose: 3 ml Documented By: ANNALISA Tramadol HCl (Tramadol Hcl 50 Mg Tablet) 50 mg PO Q6H PRN PRN Reason: back pain Last Admin: 03/03/24 13:13 Dose: 50 mg Documented By: VARUN Labs 03/03/24 07:06 03/03/24 07:06 Labs: Laboratory Results - last 24 hr 03/03/24 03/03/24 00:23 07:06 MCV 84.0 MCH 28.6 MCHC 34.0 RDW 14.2 Plt Count 64 L MPV 12.4 Absolute Nucleated RBC 0.000 Nucleated RBC % (auto) 0.0 Anion Gap 17 Estim Creat Clear Calc 76.6 Estimated GFR > 60 Random Glucose 103 Calcium 8.5 Hold Yellow Top See Note Urine Color Yellow Urine Appearance Clear Urine pH 6.0 Ur Specific [place] 1.020 Urine Protein 30 (1+) H Urine Glucose (UA) Negative Urine Ketones 15 Urine Blood Negative Urine Nitrite Negative Ur Leukocyte Esterase Negative Urine RBC 0-2 Urine WBC 0-5 Ur Squamous Epith Cells 0-2 Urine Bacteria None Seen Hyaline Casts 0-2 Microbiology Microbiology Results: Microbiology 02/29/24 14:04 Blood Culture - Final Blood - Venous Staphylococcus aureus 03/02/24 03:54 Blood Culture - Preliminary Blood - Venous No growth after 24 hours. 03/02/24 03:54 Blood Culture - Preliminary Blood - Venous No growth after 24 hours. 02/29/24 14:02 Blood Culture - Preliminary Blood - Venous Staphylococcus aureus 02/28/24 09:51 Blood Culture - Final Blood - Venous Staphylococcus aureus Assessment and Plan (1) Sepsis: Status: Acute (2) MSSA bacteremia: Status: Acute (3) History of mitral valve replacement with bioprosthetic valve: Status: Acute Plan Dr Pipe gupta a 78 years old male with PMH of CAD, MVR 4 years ago, COPD, HTN among others presenting with septic shock requiring ICU admission for pressors. Found to have MSSA Bacteremia. Septic shock 2/2 PErsistent MSSA Bacteremia from T11-12 discitis and Likely acute infective endocarditis MR Thoracic spine reporting Epidural abscess & discitis Discussed with dr Marinelli who reveiwed the images; no intervention needed now. continue Antibiotics repeated blood cultures 03/02 are negative now Continue Cefazoline GABBY concerning for bioprosthetic mitral valve endocarditis Cardiology to discuss with his primary cardiac surgeon option of Abx vs valve replacement ID following for ABx management Will need PICC line once cultures negative RLL Atelactasis vs Pneumonia Incentive spirometry IV Cefazoline for now Wean O2 as tolerated Coronary artery disease continue atorvastatin, hold ASA for tomorrow Hypertension hold metoprolol , on Midodrine for hypotension, wean as tolerated Acute lactic acidosis in state of sepsis, resolved with IVF Acute kidney injury Secondary to sepsis and septic shock improved, back to baseline Avoid nephrotoxic medication monitor I's and O's Thrombocytopenia Possibly secondary to sepsis Platelet count down to 59,000, we will withhold heparin DVT PPx SCDs The patient will need overnight hospital stay for evaluation with GABBY for persistent MSSA bactermia requiring IV antibiotics Quality Stroke Does the patient have a stroke diagnosis?: No VTE Prior VTE?: No VTE Risk Level:: Medical - moderate - high VTE Device Contraindication: N/A - Device Ordered VTE Drug Contraindication: N/A - Med Ordered
[2024-03-03] MEDS: Lidocaine 4 % Patch ADH..PATCH 1 PATCH TRANSDERMA (19:52)
[2024-03-03] MEDS: Celecoxib 200 MG CAPSULE PO (19:53)
[2024-03-03] MEDS: Gabapentin 300 MG CAPSULE 600 MG PO (19:53)
[2024-03-03] MEDS: Atorvastatin Calcium 20 MG TABLET PO (19:54)
[2024-03-04] VITALS (7 sets, daily range): BP systolic 117–146; BP diastolic 65–81; PULSE 85–102; RESP 16–19; TEMP 36.1–37.7; O2SAT 93–98; BMI 22.8
[2024-03-04] MEDS: 0.9 % Sodium Chloride Flush 3 ML SYRINGE IVFLUSH ×4 (00:46→21:11)
[2024-03-04] MEDS: Lactated Ringers 1,000 ML 80 ML IVCONT ×2 (02:35→22:06)
[2024-03-04] MEDS: Omeprazole 20 MG CAPSULE.DR PO ×2 (06:36→17:12)
[2024-03-04] MEDS: Acetaminophen 325 MG TABLET 975 MG PO (06:40)
[2024-03-04] MEDS: traMADoL HCL 50 MG TABLET PO ×3 (06:41→21:09)
[2024-03-04 07:48] LABS: Hematocrit 36.5 % (42.0-52.0); Hemoglobin 12.5 g/dl (14.0-18.0); Mean Corpuscular HGB Conc 34.2 g/dl (31.0-36.0); Mean Corpuscular Hemoglobin 28.5 pg (27.0-33.0); Mean Corpuscular Volume 83.1 fL (80.0-98.0); Mean Platelet Volume 11.2 fL (9.4-12.4); Platelet Count 102 X10*3/uL (160-400); Red Blood Count 4.39 X10*6/uL (4.60-5.80); Red Cell Distribution Width 14.1 % (11.0-16.0)
[2024-03-04 08:08] LABS: Anion Gap 17 (12-20); Blood Urea Nitrogen 13 mg/dL (9-16); Calcium 8.8 mg/dL (8.4-10.2); Carbon Dioxide 23 mmol/L (22-29); Chloride 102 mmol/L (96-108); Creatinine Clr Calc Pharmacy 82.8; Estimated Glomerular Filt Rate > 60; Glucose Random 97 mg/dL (60-115); Potassium 3.6 mmol/L (3.3-5.1); Sodium 138 mmol/L (135-145)
[2024-03-04] MEDS: Celecoxib 200 MG CAPSULE PO ×2 (08:15→21:06)
[2024-03-04] MEDS: methocarbamoL 500 MG TABLET PO ×4 (08:15→21:06)
[2024-03-04] MEDS: polyethylene glycoL 3350 17 GM POWD.PACK PO (08:15)
--- NOTE | 2024-03-04 08:40 | HO.POSTANES ---
Post Anesthesia Evaluation Post Anesthesia Evaluation Date of Service: 03/03/24 Vital Signs: Vital Signs Temp Pulse Resp BP Pulse Ox O2 Del Method 03/04/24 07:53 98.1 F 88 16 144/77 H 98 Room Air 03/04/24 03:36 97.0 F 85 18 146/81 H 95 Room Air 03/03/24 23:28 98.4 F 94 18 165/90 H 97 Room Air Anesthesia: Monitored and General Mental Status: Awake Pain Control: Satisfactory Nausea/Vomiting: None Hydration: Adequate Anesthesia-Related Issues: No Anes. Related Issues
--- NOTE | 2024-03-04 10:09 | P.CONCA_ITS ---
History of Present Illness History of Present Illness Date of Service: 03/04/24 Requesting physician: Justen Mendosa Consult reason: atrial fibrillation and congestive heart failure Chief complaint: Hypotension Narrative: I was consulted to see [facility] Past Medical History Medical History (Updated 03/02/24 @ 11:42 by Sujey Malone MD) Obstructive sleep apnea hypopnea, moderate CAD (coronary artery disease) Mitral valve prolapse Hyperlipidemia PVCs (premature ventricular contractions) Postoperative atrial fibrillation Family History Family History Father No problems noted. Mother No problems noted. Surgical History Surgical History H/O neck surgery History of mitral valve replacement with bioprosthetic valve History of varicocele Hx of cardiac cath Social History Social History Household Members: None Housing: House Are you a primary manager intensive care unit to a significant other at home: No Do you presently have visiting nurse or other home services: No Patient Tobacco Use Status: Never used Tobacco Smoked in Last 30 Days: No e-Cigarette/Vaping Use: Never Used Patient Interested in Nicotine Replacement: No Patient Given Instructions on How to Stop Smoking: No Second Hand Smoke Exposure: No Use of substances other than those prescribed or required for medical reasons: No Currently Displaying Signs/Symptoms of Drug Intoxication Withdrawal: No Have you been hit, kicked, punched, or otherwise hurt by someone within the past year? If so, by whom?: No Do you feel safe in your current relationship?: No Current Relationship Is there a partner from a previous relationship who is making you feel unsafe now?: No Are you made to feel afraid or neglected: No [employer] Healthcare Practices: none Are you DNR?: No Advance Directives: No Advance Directives Information Provided: Yes (Daughter Hayley) Advance Directives on File: No Advance Directives Date on File: 02/03/20 Do you have a plan to hurt others: No Plan Recently lost weight without trying: No How much weight loss: Not applicable Eating poorly because of decreased appetite: No Nutrition screen score: 0 Nutrition Risks: No Nutritional Risk Poor oral hygiene: No service: No Meds Allergies Allergy/AdvReac Type Severity Reaction Status Date / Time lactose [LACTOSE] AdvReac Unknown DIARRHEA Verified 03/03/24 11:48 onion [Onion] AdvReac Unknown DIARRHEA Verified 03/03/24 11:48 WITH RAW ONIONS Active Medications: Current Medications Acetaminophen (Acetaminophen 325 Mg Tablet) 975 mg PO Q6H PRN PRN Reason: Pain, Moderate(Pain Scale 4-6) Last Admin: 03/04/24 06:40 Dose: 975 mg Aspirin (Aspirin Enteric Coated 81 Mg Tablet.) 81 mg PO DAILY [facility] Last Admin: 03/02/24 09:33 Dose: 81 mg Atorvastatin Calcium (Atorvastatin Calcium 20 Mg Tablet) 20 mg PO BEDTIME [facility] Last Admin: 03/03/24 19:54 Dose: 20 mg Cefazolin Sodium (Cefazolin Sodium 1 Gm Vial) 1 gm IVPUSH Q12H [facility] Last Admin: 03/03/24 23:57 Dose: 1 gm Celecoxib (Celecoxib 200 Mg Capsule) 200 mg PO BID [facility] Last Admin: 03/04/24 08:15 Dose: 200 mg Docusate Sodium (Docusate Sodium 100 Mg Capsule) 100 mg PO BID PRN PRN Reason: Constipation Last Admin: 03/02/24 09:55 Dose: 100 mg Lactated Ringer's (Lr) 1,000 mls @ 80 mls/hr IVCONT .[id number] [facility] Last Infusion: 03/04/24 07:10 Dose: 0 mls/hr Lidocaine (Lidocaine 4 % Patch Adh..Patch) 1 patch TRANSDERMA BEDTIME [facility]; Protocol Last Admin: 03/03/24 19:52 Dose: 1 patch Methocarbamol (Methocarbamol 500 Mg Tablet) 500 mg PO QID [facility] Last Admin: 03/04/24 08:15 Dose: 500 mg Midodrine (Midodrine Hcl 5 Mg Tablet) 5 mg PO TID [facility] Last Admin: 03/03/24 21:23 Dose: Not Given Morphine Sulfate (Morphine Sulfate 2 Mg/Ml Cartridge) 2 mg IVPUSH Q4H PRN; Protocol PRN Reason: Pain, Severe \ Dyspnea Last Admin: 03/03/24 23:56 Dose: 2 mg Naloxone HCl (Naloxone Hcl 0.4 Mg/Ml Vial) 0.04 mg IVPUSH Q5M PRN PRN Reason: Excessive sedation or RR < 8 Omeprazole (Omeprazole 20 Mg Capsule.) 20 mg PO BID@0630,1630 [facility] Last Admin: 03/04/24 06:36 Dose: 20 mg Polyethylene Glycol (Polyethylene Glycol 3350 17 Gm Powd.Pack) 17 gm PO DAILY PRN PRN Reason: Constipation Last Admin: 03/04/24 08:15 Dose: 17 gm Sodium Chloride (0.9 % Sodium Chloride Flush 3 Ml Syringe) 3 ml IVFLUSH QSHIFT [facility] Last Admin: 03/04/24 08:15 Dose: 3 ml Tramadol HCl (Tramadol Hcl 50 Mg Tablet) 50 mg PO Q6H PRN PRN Reason: back pain Last Admin: 03/04/24 06:41 Dose: 50 mg Home Medications ?Medication ?Instructions ?Recorded ?Confirmed ?Last Taken ?Type aspirin 81 mg tablet,delayed 81 mg PO DAILY 07/20/20 02/28/24 02/28/24 06:00 History release (Adult Low Dose Aspirin) coenzyme Q10 100 mg capsule 100 mg PO DAILY 07/20/20 02/28/24 02/28/24 06:00 History magnesium 250 mg tablet 250 mg PO DAILY 07/20/20 02/28/24 02/28/24 06:00 History metoprolol succinate 100 mg 100 mg PO DAILY 07/20/20 02/28/24 02/28/24 06:00 History tablet,extended release 24 hr ascorbate calcium (vitamin C) 500 2 g PO DAILY 11/22/20 02/28/24 02/28/24 06:00 History mg tablet docusate sodium 100 mg capsule 100 mg PO DAILY 11/22/20 02/28/24 02/28/24 06:00 History (Colace) gabapentin 300 mg capsule 600 mg PO BEDTIME 11/22/20 02/28/24 02/27/24 History atorvastatin 20 mg tablet 20 mg PO BEDTIME 02/28/24 02/28/24 02/27/24 History Physical Exam 2 Vital Signs: Vital Signs: Last Vital Signs Temp 98.1 F 03/04/24 07:53 Pulse 88 03/04/24 07:53 Resp 16 03/04/24 07:53 BP 144/77 H 03/04/24 07:53 Pulse Ox 98 03/04/24 07:53 O2 Del Method Room Air 03/04/24 07:53 O2 Flow Rate 6 03/03/24 12:44 BMI result Body Mass Index 22.8 Objective Labs and Meds 03/04/24 06:49 03/04/24 06:49 Lab results: Laboratory Results - last 24 hr 03/04/24 03/04/24 03/04/24 06:49 06:49 06:49 WBC 7.0 RBC 4.39 L Hgb 12.5 L Hct 36.5 L MCV 83.1 MCH 28.5 MCHC 34.2 RDW 14.1 Plt Count 102 L D MPV 11.2 Absolute Nucleated RBC 0.000 Nucleated RBC % (auto) 0.0 Sodium 138 Potassium 3.6 Chloride 102 Carbon Dioxide 23 Anion Gap 17 BUN 13 Creatinine Cancelled 0.76 Estim Creat Clear Calc Cancelled 82.8 Estimated GFR Cancelled Random Glucose Calcium 03/04/24 06:49 WBC RBC Hgb Hct MCV MCH MCHC RDW Plt Count MPV Absolute Nucleated RBC Nucleated RBC % (auto) Sodium Potassium Chloride Carbon Dioxide Anion Gap BUN Creatinine Estim Creat Clear Calc Estimated GFR > 60 Random Glucose 97 Calcium 8.8 Procedures Date of Service Date of Service: 03/04/24
--- NOTE | 2024-03-04 10:10 | PM.PNCARD ---
Subjective Subjective Date of Service: 03/04/24 Principal diagnosis: Bioprosthetic mitral valve endocarditis Interval history: Patient is feeling better sepsis huynh. However he has unrelenting back pain he says. Has no fever or chills. Blood pressure is slightly elevated. No arrhythmias. Charles yesterday showed vegetation on the atrial aspect of the anterior leaflet. Patient denies any palpitations. Review of Systems Constitutional: Denies body ache(s), Denies chills, Reports fatigue and Denies fever(s) Eyes: Reports no additional eye complaints Cardiovascular: Reports no additional cardiovascular complaints Respiratory: Reports no additional respiratory complaints Gastrointestinal: Reports no additional gastrointestinal complaints Musculoskeletal: Reports back pain Skin/Breast: Reports system reviewed and no additional complaints, except as docu Reports system reviewed and no additional complaints, except as documented Endocrine: Reports fatigue Physical Exam Vital Signs: Last Vital Signs Temp 98.1 F 03/04/24 07:53 Pulse 88 03/04/24 07:53 Resp 16 03/04/24 07:53 BP 144/77 H 03/04/24 07:53 Pulse Ox 98 03/04/24 07:53 O2 Del Method Room Air 03/04/24 07:53 O2 Flow Rate 6 03/03/24 12:44 BMI result Body Mass Index 22.8 Const General: cooperative, comfortable, no acute distress, alert, awake and tired appearing Nutritional Appearance: average body habitus Orientation/consciousness: patient oriented x3 HEENT Head: Yes normocephalic and Yes atraumatic Neck Neck: Yes trachea midline, Yes supple and Yes no JVD Resp Effort & Inspection: decreased respiratory effort Auscultation: no rales, no wheezes and diminished lung sounds Cardio Jugular venous distension: no JVD Rate: regular rate Rhythm: regular rhythm Heart sounds: S1 normal heart sound present, S2 normal heart sound present, no click, no gallops and Murmur heart sound present systolic at the apex GI Auscultation: normal bowel sounds Skin General skin exam: petechiae Neuro General: patient oriented x3 and no focal motor deficits Extrem General: Yes no clubbing, cyanosis or edema Objective Labs and Meds 03/04/24 06:49 03/04/24 06:49 Lab results: Laboratory Results - last 24 hr 03/04/24 03/04/24 03/04/24 06:49 06:49 06:49 WBC 7.0 RBC 4.39 L Hgb 12.5 L Hct 36.5 L MCV 83.1 MCH 28.5 MCHC 34.2 RDW 14.1 Plt Count 102 L D MPV 11.2 Absolute Nucleated RBC 0.000 Nucleated RBC % (auto) 0.0 Sodium 138 Potassium 3.6 Chloride 102 Carbon Dioxide 23 Anion Gap 17 BUN 13 Creatinine Cancelled 0.76 Estim Creat Clear Calc Cancelled 82.8 Estimated GFR Cancelled Random Glucose Calcium 03/04/24 06:49 WBC RBC Hgb Hct MCV MCH MCHC RDW Plt Count MPV Absolute Nucleated RBC Nucleated RBC % (auto) Sodium Potassium Chloride Carbon Dioxide Anion Gap BUN Creatinine Estim Creat Clear Calc Estimated GFR > 60 Random Glucose 97 Calcium 8.8 Progress Note: A&P Assessment and plan (1) Prosthetic valve endocarditis: Status: Acute Assessment and Plan: 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 Patient has sepsis syndrome has improved significantly with antibiotic therapy. CHARLES does not demonstrate any lifted destruction or any day since or periprosthetic regurgitation at this point time. There is no evidence of intracardiac abscess. Patient is clinically improving. Continues to have back pain most likely related to diskitis and/or epidural abscess. Being managed by hospitalist team. Continue antibiotic team. Discussed with patient's Cardiothoracic surgeon at [facility] in [place] about management and we agreed to pursue conservative management. Will follow limited echocardiogram every 2 weeks to assess mitral valve. There is some evidence of LVOT obstructive physiology. Will continue monitor closely. If he continues to clinically improve then will pursue conservative management and avoid redo surgery. This was discussed with the patient and family. Will sign of the case and follow as outpatient. Time Spent With Patient Time: Total time managing care of this patient today ____ minutes. Progress Note: Quality Stroke Does the patient have a stroke diagnosis?: No Procedures Date of Service Date of Service: 03/04/24
[2024-03-04] MEDS: Gabapentin 300 MG CAPSULE 600 MG PO (10:37)
[2024-03-04] MEDS: ceFAZolin Sodium 1 GM VIAL IVPUSH ×2 (10:37→14:00)
--- NOTE | 2024-03-04 12:18 | HO.PM.IMPN ---
Subjective Subjective Date of Service: 03/04/24 Interval History: Worsening back pain, difficulty ambulating, right hip and thigh pain Physical Exam Vital Signs: Vital Signs: Last Vital Signs Temp 98.2 F 03/04/24 11:48 Pulse 102 H 03/04/24 11:48 Resp 16 03/04/24 11:48 BP 117/65 03/04/24 11:48 Pulse Ox 95 03/04/24 11:48 O2 Del Method Room Air 03/04/24 11:48 O2 Flow Rate 6 03/03/24 12:44 BMI result Body Mass Index 22.8 Const: General: cooperative, comfortable, no acute distress, alert, awake and tired appearing Nutritional Appearance: average body habitus Orientation/consciousness: patient oriented x3 HEENT: Head: Yes normocephalic and Yes atraumatic Neck: Neck: Yes trachea midline, Yes supple and Yes no JVD Resp: Effort & Inspection: decreased respiratory effort Auscultation: no rales, no wheezes and diminished lung sounds Cardio: Jugular venous distension: no JVD Rate: regular rate Rhythm: regular rhythm Heart sounds: S1 normal heart sound present, S2 normal heart sound present, no click, no gallops and Murmur heart sound present systolic at the apex GI: Auscultation: normal bowel sounds Skin: General skin exam: petechiae Neuro: General: patient oriented x3 and no focal motor deficits Extrem: General: Yes no clubbing, cyanosis or edema Objective Data Active Medications Acetaminophen (Acetaminophen 325 Mg Tablet) 975 mg PO Q6H PRN PRN Reason: Pain, Moderate(Pain Scale 4-6) Last Admin: 03/04/24 06:40 Dose: 975 mg Documented By: DC Aspirin (Aspirin Enteric Coated 81 Mg Tablet.) 81 mg PO DAILY [facility] Last Admin: 03/02/24 09:33 Dose: 81 mg Documented By: DIVYA Atorvastatin Calcium (Atorvastatin Calcium 20 Mg Tablet) 20 mg PO BEDTIME [facility] Last Admin: 03/03/24 19:54 Dose: 20 mg Documented By: DC Cefazolin Sodium (Cefazolin Sodium 1 Gm Vial) 1 gm IVPUSH Q12H [facility] Last Admin: 03/04/24 10:37 Dose: 1 gm Documented By: ANNALISA Celecoxib (Celecoxib 200 Mg Capsule) 200 mg PO BID [facility] Last Admin: 03/04/24 08:15 Dose: 200 mg Documented By: ANNALISA Docusate Sodium (Docusate Sodium 100 Mg Capsule) 100 mg PO BID PRN PRN Reason: Constipation Last Admin: 03/02/24 09:55 Dose: 100 mg Documented By: DIVYA Lactated Ringer's (Lr) 1,000 mls @ 80 mls/hr IVCONT .[id number] [facility] Last Admin: 03/04/24 10:26 Dose: Not Given Documented By: ANNALISA Non-Admin Reason: Medication Discontinued Lidocaine (Lidocaine 4 % Patch Adh..Patch) 1 patch TRANSDERMA BEDTIME [facility]; Protocol Last Admin: 03/03/24 19:52 Dose: 1 patch Documented By: DC Methocarbamol (Methocarbamol 500 Mg Tablet) 500 mg PO QID [facility] Last Admin: 03/04/24 08:15 Dose: 500 mg Documented By: ANNALISA Midodrine (Midodrine Hcl 5 Mg Tablet) 5 mg PO TID [facility] Last Admin: 03/04/24 10:20 Dose: Not Given Documented By: ANNALISA Non-Admin Reason: BP elevated Morphine Sulfate (Morphine Sulfate 2 Mg/Ml Cartridge) 2 mg IVPUSH Q4H PRN; Protocol PRN Reason: Pain, Severe \ Dyspnea Last Admin: 03/03/24 23:56 Dose: 2 mg Documented By: DC Naloxone HCl (Naloxone Hcl 0.4 Mg/Ml Vial) 0.04 mg IVPUSH Q5M PRN PRN Reason: Excessive sedation or RR < 8 Omeprazole (Omeprazole 20 Mg Capsule.) 20 mg PO BID@0630,1630 [facility] Last Admin: 03/04/24 06:36 Dose: 20 mg Documented By: DC Polyethylene Glycol (Polyethylene Glycol 3350 17 Gm Powd.Pack) 17 gm PO DAILY PRN PRN Reason: Constipation Last Admin: 03/04/24 08:15 Dose: 17 gm Documented By: ANNALISA Sodium Chloride (0.9 % Sodium Chloride Flush 3 Ml Syringe) 3 ml IVFLUSH QSHIFT [facility] Last Admin: 03/04/24 08:15 Dose: 3 ml Documented By: ANNALISA Tramadol HCl (Tramadol Hcl 50 Mg Tablet) 50 mg PO Q6H PRN PRN Reason: back pain Last Admin: 03/04/24 06:41 Dose: 50 mg Documented By: DC Labs 03/04/24 06:49 03/04/24 06:49 Labs: Laboratory Results - last 24 hr 03/04/24 03/04/24 03/04/24 06:49 06:49 06:49 MCV 83.1 MCH 28.5 MCHC 34.2 RDW 14.1 Plt Count 102 L D MPV 11.2 Absolute Nucleated RBC 0.000 Nucleated RBC % (auto) 0.0 Anion Gap 17 Estim Creat Clear Calc Cancelled 82.8 Estimated GFR Cancelled > 60 Random Glucose 97 Calcium 8.8 Microbiology Microbiology Results: Microbiology 03/03/24 07:06 Blood Culture - Preliminary Blood - Venous No growth after 24 hours. 03/03/24 07:06 Blood Culture - Preliminary Blood - Venous No growth after 24 hours. 03/02/24 03:54 Blood Culture - Preliminary Blood - Venous No growth after 48 hours. 03/02/24 03:54 Blood Culture - Preliminary Blood - Venous No growth after 48 hours. 02/29/24 14:04 Blood Culture - Final Blood - Venous Staphylococcus aureus Assessment and Plan (1) Sepsis: Status: Acute (2) MSSA bacteremia: Status: Acute (3) History of mitral valve replacement with bioprosthetic valve: Status: Acute Plan 78M PMH of CAD, MVR bioprosthetic 4 years ago, COPD, HTN among others presented with septic shock requiring ICU admission for pressors. Found to have MSSA Bacteremia, bioMVR vegetation, epidural absess/discitis T11,12. Septic shock 2/2 MSSA Bacteremia complicated by T11-12 discitis, small epidural abscess and acute infective endocarditis of bioMVR dr Marinelli, reveiwed the images; no intervention needed now. continue Antibiotics repeated blood cultures 03/02 are negative now Continue Cefazolin - increased to 2gm q8 Cardiology discussed with his primary cardiac surgeon recommended medical treatment ID following for ABx management Will need PICC line once cultures negative RLL Atelactasis vs Pneumonia Incentive spirometry IV Cefazoline for now Wean O2 as tolerated Coronary artery disease continue atorvastatin, asa Hypertension hold metoprolol for low normal bp Acute lactic acidosis in state of sepsis, resolved with IVF Acute kidney injury Secondary to sepsis and septic shock improved, back to baseline Avoid nephrotoxic medication monitor I's and O's Thrombocytopenia secondary to sepsis improving, monitor DVT PPx SCDs reason for continued hospitalization:iv abx for endocarditis Quality Stroke Does the patient have a stroke diagnosis?: No VTE Prior VTE?: No VTE Risk Level:: Medical - moderate - high VTE Device Contraindication: N/A - Device Ordered VTE Drug Contraindication: N/A - Med Ordered
--- NOTE | 2024-03-04 12:29 | MHC.CM.PN ---
Addendum entered by Janet Pillai RN 03/04/24 16:03: CM MET W/PT AT BEDSIDE TO DISCUSS DISPO AND PREFERENCES, PT AND DTR AT BEDSIDE AND REPORTED THAT THEY ARE NOW SAYING PT WILL NEED 8WKS IV ABX, CALL IS PREFERRED FACILITY AND PT IS HOPING HE WILL IMPROVE ENOUGH TO DC HOME AND REPORTS HE WILL BE ABLE TO SELF ADMINISTER IV ABX, CM WILL CONT TO FOLLOW. 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
[2024-03-04] MEDS: Enoxaparin Sodium 40 MG/0.4 ML SYRINGE SUBCUT (17:12)
[2024-03-04] MEDS: Gabapentin 600 MG TABLET PO (21:06)
[2024-03-04] MEDS: Atorvastatin Calcium 20 MG TABLET PO (21:06)
[2024-03-04] MEDS: ceFAZolin Sodium/Dextrose,Iso 2 GM/50 ML PIGGYBACK IV (21:14)
[2024-03-04] MEDS: Lidocaine 4 % Patch ADH..PATCH 1 PATCH TRANSDERMA (21:23)
[2024-03-04] MEDS: Morphine Sulfate 2 MG/ML CARTRIDGE IVPUSH (22:01)
[2024-03-05 03:54] VITALS: BP 138/74; PULSE 88; TEMP 37.1; O2SAT 95
[2024-03-05] MEDS: ceFAZolin Sodium/Dextrose,Iso 2 GM/50 ML PIGGYBACK IV ×3 (05:19→21:30)
[2024-03-05] MEDS: Omeprazole 20 MG CAPSULE.DR PO ×2 (05:57→16:17)
[2024-03-05] MEDS: traMADoL HCL 50 MG TABLET PO ×2 (06:07→19:21)
[2024-03-05] MEDS: Acetaminophen 325 MG TABLET 975 MG PO (06:07)
[2024-03-05 07:03] VITALS: BP 145/77; PULSE 85; RESP 18; TEMP 36.9; O2SAT 92
[2024-03-05] MEDS: Gabapentin 300 MG CAPSULE PO (08:32)
[2024-03-05] MEDS: methocarbamoL 500 MG TABLET PO ×4 (08:32→19:57)
[2024-03-05] MEDS: Aspirin Enteric Coated 81 MG TABLET.DR PO (08:32)
[2024-03-05] MEDS: polyethylene glycoL 3350 17 GM POWD.PACK PO (08:32)
[2024-03-05] MEDS: Celecoxib 200 MG CAPSULE PO ×2 (08:32→19:58)
[2024-03-05] MEDS: 0.9 % Sodium Chloride Flush 3 ML SYRINGE IVFLUSH ×2 (08:56→16:17)
--- NOTE | 2024-03-05 10:16 | P.PNIM_ITS ---
Subjective Subjective Date of Service: 03/05/24 Interval History: successful BM right groin, thigh, hip pain, difficulty ambulating, overall improved strength Physical Exam 2 Vital Signs: Vital Signs: Last Vital Signs Temp 98.5 F 03/05/24 07:03 Pulse 85 03/05/24 07:03 Resp 18 03/05/24 07:03 BP 145/77 H 03/05/24 07:03 Pulse Ox 92 03/05/24 07:03 O2 Del Method Room Air 03/05/24 07:03 O2 Flow Rate 6 03/03/24 12:44 BMI result Body Mass Index 22.8 Const: General: cooperative, comfortable, no acute distress, alert, awake and tired appearing Nutritional Appearance: average body habitus O rientation/consciousness: patient oriented x3 HEENT: Head: Yes normocephalic and Yes atraumatic Neck: Neck: Yes trachea midline, Yes supple and Yes no JVD Resp: Effort & Inspection: decreased respiratory effort Auscultation: no rales, no wheezes and diminished lung sounds Cardio: Jugular venous distension: no JVD Rate: regular rate Rhythm: r egular rhythm Heart sounds: S1 normal heart sound present, S2 normal heart sound present, no click, no gallops and Murmur heart sound present systolic at the apex GI: Auscultation: normal bowel sounds Skin: General skin exam: petechiae Neuro: General: patient oriented x3 and no focal motor deficits Extrem: General: Yes no clubbing, cyanosis or edema Objective Data Active Medications Acetaminophen (Acetaminophen 325 Mg Tablet) 975 mg PO Q6H PRN PRN Reason: Pain, Moderate(Pain Scale 4-6) Last Admin: 03/05/24 06:07 Dose: 975 mg Documented By: MARIA TERESA Aspirin (Aspirin Enteric Coated 81 Mg Tablet.) 81 mg PO DAILY [facility] Last Admin: 03/05/24 08:32 Dose: 81 mg Documented By: CAITLIN Atorvastatin Calcium (Atorvastatin Calcium 20 Mg Tablet) 20 mg PO BEDTIME [facility] Last Admin: 03/04/24 21:06 Dose: 20 mg Documented By: MARIA TERESA Celecoxib (Celecoxib 200 Mg Capsule) 200 mg PO BID [facility] Last Admin: 03/05/24 08:32 Dose: 200 mg Documented By: CAITLIN Docusate Sodium (Docusate Sodium 100 Mg Capsule) 100 mg PO BID PRN PRN Reason: Constipation Last Admin: 03/02/24 09:55 Dose: 100 mg Documented By: DIVYA Enoxaparin Sodium (Enoxaparin Sodium 40 Mg/0.4 Ml Syringe) 40 mg SUBCUT Q24H [facility] Last Admin: 03/04/24 17:12 Dose: 40 mg Documented By: ANNALISA Gabapentin (Gabapentin 600 Mg Tablet) 600 mg PO BEDTIME [facility] Last Admin: 03/04/24 21:06 Dose: 600 mg Documented By: MARIA TERESA Gabapentin (Gabapentin 300 Mg Capsule) 300 mg PO DAILY [facility] Last Admin: 03/05/24 08:32 Dose: 300 mg Documented By: CAITLIN Lactated Ringer's (Lr) 1,000 mls @ 80 mls/hr IVCONT .[id number] [facility] Last Infusion: 03/04/24 22:50 Dose: 0 mls/hr Documented By: MARIA TERESA Cefazolin Sodium/Dextrose (Ancef) 2 gm in 50 mls @ 100 mls/hr IV Q8H [facility] Last Infusion: 03/05/24 06:04 Dose: Infused Documented By: MARIA TERESA Lidocaine (Lidocaine 4 % Patch Adh..Patch) 1 patch TRANSDERMA BEDTIME [facility]; Protocol Last Admin: 03/04/24 21:23 Dose: 1 patch Documented By: MARIA TERESA Methocarbamol (Methocarbamol 500 Mg Tablet) 500 mg PO QID [facility] Last Admin: 03/05/24 08:32 Dose: 500 mg Documented By: CAITLIN Mineral Oil (Mineral Oil Enema 133 Ml Enema) 133 ml [place] BEDTIME PRN PRN Reason: Constipation Morphine Sulfate (Morphine Sulfate 2 Mg/Ml Cartridge) 2 mg IVPUSH Q4H PRN; Protocol PRN Reason: Pain, Severe \ Dyspnea Last Admin: 03/04/24 22:01 Dose: 2 mg Documented By: MARIA TERESA Naloxone HCl (Naloxone Hcl 0.4 Mg/Ml Vial) 0.04 mg IVPUSH Q5M PRN PRN Reason: Excessive sedation or RR < 8 Omeprazole (Omeprazole 20 Mg Capsule.Dr) 20 mg PO BID@0630,1630 [facility] Last Admin: 03/05/24 05:57 Dose: 20 mg Documented By: MARIA TERESA Polyethylene Glycol (Polyethylene Glycol 3350 17 Gm Powd.Pack) 17 gm PO DAILY [facility] Last Admin: 03/05/24 08:32 Dose: 17 gm Documented By: CAITLIN Sodium Chloride (0.9 % Sodium Chloride Flush 3 Ml Syringe) 3 ml IVFLUSH QSHIFT [facility] Last Admin: 03/05/24 08:56 Dose: 3 ml Documented By: CAITLIN Tramadol HCl (Tramadol Hcl 50 Mg Tablet) 50 mg PO Q6H PRN PRN Reason: back pain Last Admin: 03/05/24 06:07 Dose: 50 mg Documented By: MARIA TERESA Labs 03/04/24 06:49 03/04/24 06:49 Microbiology Microbiology Results: Microbiology 03/03/24 07:06 Blood Culture - Preliminary Blood - Venous No growth after 48 hours. 03/03/24 07:06 Blood Culture - Preliminary Blood - Venous No growth after 48 hours. 03/02/24 03:54 Blood Culture - Preliminary Blood - Venous No growth after 48 hours. 03/02/24 03:54 Blood Culture - Preliminary Blood - Venous No growth after 48 hours. Assessment and Plan (1) Sepsis: Status: Acute (2) MSSA bacteremia: Status: Acute (3) History of mitral valve replacement with bioprosthetic valve: Status: Acute Plan 78M PMH of MVR bioprosthetic 4 years ago, COPD, HTN among others presented with septic shock requiring ICU admission for pressors. Found to have MSSA Bacteremia, bioMVR vegetation, epidural absess/discitis T11,12. Septic shock 2/2 MSSA Bacteremia complicated by T11-12 discitis, small epidural abscess and acute infective endocarditis of bioMVR dr Marinelli, reveiwed the images; no intervention needed now. continue Antibiotics repeated blood cultures 03/02 are negative now Cefazolin - 2gm q8 Cardiology discussed with his primary cardiac surgeon recommended medical treatment plan for picc today end date for antibiotics apr 26, 2024 (8 weeks) RLL Atelactasis vs Pneumonia Incentive spirometry IV Cefazoline for now Wean O2 as tolerated Coronary artery disease continue atorvastatin, asa Hypertension restart metoprolol Acute kidney injury Secondary to sepsis and septic shock resolved Thrombocytopenia secondary to sepsis improving, monitor DVT PPx lovenox full code reason for continued hospitalization:iv abx for endocarditis Quality Stroke Does the patient have a stroke diagnosis?: No VTE Prior VTE?: No VTE Risk Level:: Medical - moderate - high VTE Device Contraindication: N/A - Device Ordered VTE Drug Contraindication: N/A - Med Ordered
[2024-03-05 11:54] VITALS: BP 154/86; PULSE 97; RESP 18; TEMP 37.2; O2SAT 97
--- NOTE | 2024-03-05 11:59 | HO.PICC ---
PICC Line Insertion NPICC Diagnosis: Endocarditis, sepsis Indication: 8wks abt Pertinent Labs: reviewed Technique: Following informed consent including risks, benefits and alternatives and using sterile technique including cap and mask, sterile gown, glove and drape, the right arm was prepped and draped in the usual sterile fashion of full barrier technique with G. Following completion of [place] Protocol the skin and soft tissues were anesthetized with 1% Lidocaine plain. Using ultrasound guidance, right brachial vein access was obtained. Over an 0.018 wire through peel-away sheath, a 4FR single lumen PASV PICC line was positioned. Catheter length is 42cm internal [id number], external length, for a total trimmed length of 42cm. The procedure was performed in pending sale to [facility]. Tip verification was performed by Erik Levy with Sherlock 3CG. Tip located in SVC. Ultrasound was used to document vein patency and for needle entry. A formal ultrasound picture and cardiac rhythm strip was recorded. Vascular Envelope Sealer Operator has released the line for use and it is currently dressed with a StatLock, Tegaderm, and CHG disc. Verification has been performed for blood return and line patency. Arm Circumference: 26cm Equipment: [employer] POWERPICC SOLO catheter with Sherlock 3CGtip Catheter Type: 4FR single lumen PASV PICC Lot #: [id number]
[2024-03-05 15:35] VITALS: BP 127/76; PULSE 91; RESP 20; TEMP 37.3; O2SAT 97
[2024-03-05] MEDS: Enoxaparin Sodium 40 MG/0.4 ML SYRINGE SUBCUT (16:17)
[2024-03-05] MEDS: 0.9 % Sodium Chloride Flush 10 ML SYRINGE 5 ML IVFLUSH ×2 (16:23→19:10)
[2024-03-05 19:23] VITALS: BP 156/73; PULSE 98; RESP 18; TEMP 37.6; O2SAT 98
[2024-03-05] MEDS: Lidocaine 4 % Patch ADH..PATCH 1 PATCH TRANSDERMA (19:57)
[2024-03-05] MEDS: Atorvastatin Calcium 20 MG TABLET PO (19:57)
[2024-03-05] MEDS: Gabapentin 600 MG TABLET PO (19:57)
[2024-03-05 23:41] VITALS: BP 151/79; PULSE 94; RESP 21; TEMP 37.2; O2SAT 98
[2024-03-06] MEDS: Morphine Sulfate 2 MG/ML CARTRIDGE IVPUSH (00:09)
[2024-03-06] MEDS: ceFAZolin Sodium/Dextrose,Iso 2 GM/50 ML PIGGYBACK IV ×2 (05:03→14:14)
[2024-03-06] MEDS: Omeprazole 20 MG CAPSULE.DR PO (05:04)
[2024-03-06 06:00] VITALS: BMI 21.7
[2024-03-06 06:46] LABS: Hematocrit 33.2 % (42.0-52.0); Hemoglobin 11.1 g/dl (14.0-18.0); Mean Corpuscular HGB Conc 33.4 g/dl (31.0-36.0); Mean Corpuscular Hemoglobin 28.3 pg (27.0-33.0); Mean Corpuscular Volume 84.7 fL (80.0-98.0); Mean Platelet Volume 10.9 fL (9.4-12.4); Platelet Count 187 X10*3/uL (160-400); Red Blood Count 3.92 X10*6/uL (4.60-5.80); Red Cell Distribution Width 13.7 % (11.0-16.0); White Blood Count 9.7 X10*3/uL (4.8-10.8)
[2024-03-06 06:58] VITALS: BP 140/76; PULSE 88; RESP 18; TEMP 37.1; O2SAT 95
--- NOTE | 2024-03-06 07:56 | MHC.CM.PN ---
EMR REVIEWED, CM MET W/PT TO DISCUSS DISPO, PT REPORTS HE IS STILL UNDECIDED WHETHER HE WILL GO TO [place] VS HOME W/IV ABX AND PT HOWEVER DOES REPORT THAT HE IS STILL HAVING SIGNIFICANT PAIN IN RIGHT KEG AND IF THAT DOES NOT IMPROVE IN THE NEXT FEW DAYS HE WILL LIKELY GO TO [place] FOR [place]. PT DID DISCUSS [facility] REFERRALS THAT WERE PLACED THIS AM AND PT AWARE THAT PT WOULD ONLY VISIT A FEW DAYS A WEEK AND NURSE WOULD ONLY BE A FEW TIMES A WEEK WELL, CM WILL VERIFY W/[facility] LIAISON AND CONT TO FOLLOW DC NEEDS.
[2024-03-06] MEDS: Aspirin Enteric Coated 81 MG TABLET.DR PO (08:16)
[2024-03-06] MEDS: methocarbamoL 500 MG TABLET PO ×2 (08:16→14:14)
[2024-03-06] MEDS: Gabapentin 300 MG CAPSULE PO (08:16)
[2024-03-06] MEDS: Celecoxib 200 MG CAPSULE PO (08:16)
[2024-03-06] MEDS: 0.9 % Sodium Chloride Flush 3 ML SYRINGE IVFLUSH ×2 (08:17→14:29)
[2024-03-06] MEDS: Metoprolol Succinate ER 50 MG TAB.ER.24H PO (08:31)
[2024-03-06] MEDS: traMADoL HCL 50 MG TABLET PO (08:31)
--- NOTE | 2024-03-06 09:31 | MHC.CM.PN ---
IMM 03/06/24, PT MEDICALLY CLEARED FOR DC TO ACUTE REHAB AT [facility] AT 2PM [facility]IA [facility] FOR BLS TRANSPORT
--- NOTE | 2024-03-06 10:34 | P.DS_ITS ---
DS: Providers Provider Date of Service: 03/06/24 Date of admission: 02/28/24 14:05 Date of discharge: 03/06/24 Primary care physician: Judith Garcia MD Consults: 02/29/24 11:04 Consult to Infectious Diseases Stat Consulting Provider: [facility] [place] [facility] Reason for consultation: staph bacteremia and septic shock 03/02/24 07:29 Consult to Cardiology Routine Consulting Provider: [facility] [facility] Reason for consultation: persistent bacteremia for GABBY DS: Diagnosis Discharge Diagnosis (1) Sepsis: Status: Acute (2) MSSA bacteremia: Status: Acute (3) History of mitral valve replacement with bioprosthetic valve: Status: Acute DS: Summary Hospital Course Hospital Course: from initial hpi: Bakari Betancur is a 78 years old gentleman with past medical history of non obstructive coronary disease, mitral valve replacement with bioprosthetic 4 years prior, leg weakness secondary to neck injury presents emergency department for evaluation of chills, weakness and fatigue. He developed fever with temperature of about 99.5 F with chills that began last evening when he was in his clinic, later in the evening he also had mild of lower flank pain with 1 episode of incontinence small amount. This morning when he woke up he was more weak and could not stand and walk so he presented to the ED. His workup is significant for leukocytosis to 14,000 with 30% bands, acute kidney injury with creatinine up to 2, lactate of 2.8, procalcitonin increase to 20 as well as elevated CRP. 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 Initially treated with pressors and broad- spectrum IV antibiotics was deescalated to IV cefazolin once sensitivities retur huma. Weaned off of pressors and downgraded to medical floor. Blood cultures are negative from 03/02/2024. Was seen by infectious disease who recommended 8 weeks IV cefazolin 2 g q.8 to be completed 04/26/2024. Case was reviewed by Neurosurgery and IR who felt patient would not benefit from drainage/intervention for epidural abscess. Case was also discussed with cardiac surgeon who recommended medical treatment. For nonobstructive CAD was continued on aspirin and statin. Patient does not have history of hypertension, is on metoprolol for cardiac protection, will be restarted at half dose (50 mg daily). Patient also does not have history of COPD. For acute kidney injury secondary to sepsis and septic shock creatinine has returned to normal. Patient also had acute thrombocytopenia due to sepsis which has returned to normal. He continues to have significant back pain and right hip, groin, and upper thigh pain likely due to diskitis/epidural abscess. Continued on Tylenol, Robaxin, Celebrex, gabapentin, tramadol. Was seen by PT who recommended acute rehab to which patient will be discharged. Time Attestation Discharge Coordination Time (in mins): 35 Quality: Safe Use of Opioids Does Pt have an Active Cancer Diagnosis on the Problem List?: No Quality: Stroke Does the patient have a stroke diagnosis?: No Physical Exam Vital Signs: Vital Signs: Last Vital Signs Temp 98.7 F 03/06/24 06:58 Pulse 88 03/06/24 06:58 Resp 18 03/06/24 06:58 BP 140/76 H 03/06/24 06:58 Pulse Ox 95 03/06/24 06:58 O2 Del Method Room Air 03/06/24 06:58 O2 Flow Rate 6 03/03/24 12:44 BMI result Body Mass Index 21.7 Const: General: cooperative, comfortable, no acute distress, alert, awake and tired appearing Nutritional Appearance: average body habitus Orientation/consciousness: patient oriented x3 HEENT: Head: Yes normocephalic and Yes atraumatic Neck: Neck: Yes trachea midline, Yes supple and Yes no JVD Resp: Effort & Inspection: decreased respiratory effort Auscultation: no rales, no wheezes and diminished lung sounds Cardio: Jugular venous distension: no JVD Rate: regular rate Rhythm: regular rhythm Heart sounds: S1 normal heart sound present, S2 normal heart sound present, no click, no gallops and Murmur heart sound present systolic at t he apex GI: Auscultation: normal bowel sounds Skin: General skin exam: petechiae Neuro: General: patient oriented x3 and no focal motor deficits Extrem: General: Yes no clubbing, cyanosis or edema DS: Data Data Completed and Pending Labs on day of discharge: Laboratory Results - last 24 hr 03/06/24 06:14 WBC 9.7 RBC 3.92 L Hgb 11.1 L Hct 33.2 L MCV 84.7 MCH 28.3 MCHC 33.4 RDW 13.7 Plt Count 187 D MPV 10.9 Absolute Nucleated RBC 0.000 Nucleated RBC % (auto) 0.0 Preliminary micro results at discharge 03/03/24 07:06 Blood Culture - Preliminary Blood - Venous No growth after 48 hours. 03/03/24 07:06 Blood Culture - Preliminary Blood - Venous No growth after 48 hours. 03/02/24 03:54 Blood Culture - Preliminary Blood - Venous No growth after 48 hours. 03/02/24 03:54 Blood Culture - Preliminary Blood - Venous No growth after 48 hours. Discharge Plan Discharge Anticipated Discharge Date/Time: 03/06/24 10:29 Patient Disposition: Xfer Inpatient Rehab Fac Discharge Diagnosis: septic shock, diskitis, mssa endocarditis Referrals: [facility] [Outside] - 1 Day (ACUTE REHAB ) Judith Garcia MD [Primary Care Provider] - 1 Week Discharge Medications: New cefazolin in dextrose (iso-os) 2 gram/50 mL Piggyback 50 ml IV Q8H Qty: 0 0RF Rx Instructions: end apr 26, 2024 methocarbamol 500 mg Tablet 500 mg PO QID Qty: 0 0RF celecoxib 200 mg Capsule 200 mg PO BID Qty: 0 0RF acetaminophen 325 mg Tablet 975 mg PO Q6H PRN (Reason: Pain, Moderate(Pain Scale 4-6)) Qty: 0 0RF polyethylene glycol 3350 17 gram Powder In Packet 17 g PO DAILY Qty: 0 0RF metoprolol succinate 50 mg Tablet Extended Release 24 Hr 50 mg PO DAILY Qty: 0 0RF Protocol: Hold for SBP/HR < HOLD for SBP < : 90 HOLD for HR < : 60 tramadol 50 mg Tablet 50 mg PO Q6H PRN (Reason: back pain) Qty: 0 0RF gabapentin 300 mg Capsule 300 mg PO DAILY Qty: 0 0RF omeprazole 20 mg Capsule,Delayed Release(Dr/Ec) 20 mg PO BID@0630,1630 Qty: 0 0RF Continued atorvastatin 20 mg tablet 20 mg PO BEDTIME docusate sodium [Colace] 100 mg capsule 100 mg PO DAILY ascorbate calcium (vitamin C) 500 mg tablet 2 g PO DAILY aspirin [Adult Low Dose Aspirin] 81 mg tablet,delayed release (DR/EC) 81 mg PO DAILY coenzyme Q10 100 mg capsule 100 mg PO DAILY magnesium 250 mg tablet 250 mg PO DAILY gabapentin 300 mg capsule 600 mg PO BEDTIME Discontinued metoprolol succinate 100 mg tablet extended release 24 hr 100 mg PO DAILY Discharge Orders: Discharge Order (Routine); Ordered 03/06/24 Ordered By: Justen Mendosa Diet: Advance to usual diet Activity on Discharge: As tolerated Stand Alone Forms: Patient Portal Discharge page Print Language: Occitan Care Plan Goals: recovery Health Concerns: mssa endocarditis with diskitis Plan of Treatment: 8 weeks iv ancef 2gm q8 (end apr 26, 2024) manage back/ right leg/hip pain rehab Assessment: see above
[2024-03-06 11:02] VITALS: BP 125/67; PULSE 84; RESP 18; TEMP 37.2; O2SAT 98
[2024-03-06] MEDS: polyethylene glycoL 3350 17 GM POWD.PACK PO (14:29)
[2024-03-06] MEDS: 0.9 % Sodium Chloride Flush 10 ML SYRINGE 5 ML IVFLUSH (14:35)
== END 2024-03-06 15:00 | DRG 871 ==
LOC: HO.ED 12:42 → HO.EDOVER 14:16 → HO.ICU 14:37 → HO.IMC 03-01 16:51
PROVIDERS: Internal Medicine; Internal Medicine Cardiovascular Disease; Physician Assistant Medical; Student in an Organized Health Care Education/Training Program; Admitting Provider Internal Medicine Critical Care Medicine; Emergency Provider Emergency Medicine Emergency Medical Services; PCP Internal Medicine; Visit Provider Internal Medicine
PROC: B24BZZ4 Ultrasonography of Heart with Aorta, Transesophageal (ICD-10-PCS; CPT 93312; principal; 2024-03-03 12:00)
DX: A41.01 Sepsis due to Methicillin susceptible Staphylococcus aureus (principal); G06.1 Intraspinal abscess and granuloma; I33.0 Acute and subacute infective endocarditis; J18.9 Pneumonia, unspecified organism; R65.21 Severe sepsis with septic shock; T82.6XXA Infection and inflammatory reaction due to cardiac valve prosthesis, initial encounter; N17.9 Acute kidney failure, unspecified; J98.11 Atelectasis; E78.5 Hyperlipidemia, unspecified; I10 Essential (primary) hypertension; M46.44 Discitis, unspecified, thoracic region; D69.59 Other secondary thrombocytopenia; I25.10 Atherosclerotic heart disease of native coronary artery without angina pectoris; G47.33 Obstructive sleep apnea (adult) (pediatric); Z95.3 Presence of xenogenic heart valve; Z20.822 Contact with and (suspected) exposure to COVID-19; Z79.82 Long term (current) use of aspirin; Z79.899 Other long term (current) drug therapy
CPT/HCPCS: 0241U; 36415; 36573; 36600; 70450; 70552; 71045; 71250; 71275; 72148; 72156; 72157; 74176; 80048; 80053; 80076; 80202; 81001; 81003; 82803; 83605; 83690; 83735; 83880; 84100; 84145; 84484; 85007; 85025; 85027; 85379; 85610; 85652; 85730; 86140; 87040; 87077; 87086; 87147; 87186; 87205; 93005; 93306; 97110; 97116; 97162; 97530; 99284; A9585; C1751; J0131; J0690; J1644; J1650; J2003; J2270; J2543; J2704; J3370; J3371; J7120; P9047; Q9957; Q9967

== ENCOUNTER 2024-02-28 14:05 | Outpatient (BNV) | payer MEDICARE, SELFPAY | END 2024-02-28 16:00 | PROVIDERS: Admitting Provider Internal Medicine Critical Care Medicine; Emergency Provider Emergency Medicine Emergency Medical Services; PCP Internal Medicine; Visit Provider Internal Medicine | DX: I42.2 Other hypertrophic cardiomyopathy (principal); Z95.3 Presence of xenogenic heart valve; I35.1 Nonrheumatic aortic (valve) insufficiency; I35.8 Other nonrheumatic aortic valve disorders | CPT/HCPCS: 93010; 93306 ==

== ENCOUNTER 2024-02-28 14:05 | Outpatient (BNV) | payer MEDICARE, SELFPAY | END 2024-03-03 08:35 | PROVIDERS: Admitting Provider Internal Medicine Critical Care Medicine; Emergency Provider Emergency Medicine Emergency Medical Services; PCP Internal Medicine; Visit Provider Internal Medicine Cardiovascular Disease | DX: I33.0 Acute and subacute infective endocarditis (principal); Z95.3 Presence of xenogenic heart valve; I34.0 Nonrheumatic mitral (valve) insufficiency; I36.1 Nonrheumatic tricuspid (valve) insufficiency; I35.1 Nonrheumatic aortic (valve) insufficiency | CPT/HCPCS: 76376; 93312; 93320 ==

== ENCOUNTER 2024-02-28 14:05 | Outpatient (BNV) | payer MEDICARE, SELFPAY | END 2024-03-02 03:16 | PROVIDERS: Admitting Provider Internal Medicine Critical Care Medicine; Emergency Provider Emergency Medicine Emergency Medical Services; PCP Internal Medicine; Visit Provider Internal Medicine Cardiovascular Disease | DX: R94.31 Abnormal electrocardiogram [ECG] [EKG] (principal) | CPT/HCPCS: 93010 ==

== ENCOUNTER → 2024-02-28 14:05 | Outpatient (BNV) | payer MEDICARE, SELFPAY | PROVIDERS: Admitting Provider Internal Medicine Critical Care Medicine; Emergency Provider Emergency Medicine Emergency Medical Services; PCP Internal Medicine; Visit Provider Internal Medicine | DX: A41.9 Sepsis, unspecified organism (principal); R65.21 Severe sepsis with septic shock; M54.9 Dorsalgia, unspecified | CPT/HCPCS: 99222 ==

== ENCOUNTER → 2024-02-28 14:05 | Outpatient (BNV) | payer MEDICARE, SELFPAY | PROVIDERS: Admitting Provider Internal Medicine Critical Care Medicine; Emergency Provider Emergency Medicine Emergency Medical Services; PCP Internal Medicine; Visit Provider Internal Medicine Critical Care Medicine | DX: A41.9 Sepsis, unspecified organism (principal); R65.21 Severe sepsis with septic shock; I25.10 Atherosclerotic heart disease of native coronary artery without angina pectoris; Z95.3 Presence of xenogenic heart valve | CPT/HCPCS: 99223; 99233 ==

== ENCOUNTER → 2024-02-28 14:05 | Outpatient (BNV) | payer MEDICARE, SELFPAY | PROVIDERS: Admitting Provider Internal Medicine Critical Care Medicine; Emergency Provider Emergency Medicine Emergency Medical Services; PCP Internal Medicine; Visit Provider Internal Medicine | DX: A41.9 Sepsis, unspecified organism (principal); R78.81 Bacteremia; B95.61 Methicillin susceptible Staphylococcus aureus infection as the cause of diseases classified elsewhere; Z95.3 Presence of xenogenic heart valve | CPT/HCPCS: 99232; 99239; 99499 ==

== ENCOUNTER → 2024-02-28 14:05 | Outpatient (BNV) | payer MEDICARE, SELFPAY | PROVIDERS: Admitting Provider Internal Medicine Critical Care Medicine; Emergency Provider Emergency Medicine Emergency Medical Services; PCP Internal Medicine; Visit Provider Internal Medicine Cardiovascular Disease | DX: T82.6XXA Infection and inflammatory reaction due to cardiac valve prosthesis, initial encounter (principal); I38 Endocarditis, valve unspecified | CPT/HCPCS: 99222; 99232; 99233 ==

== ENCOUNTER 2024-03-13 13:39 | Outpatient (REF) | payer MEDICARE, SELFPAY ==
[2024-03-13 13:41] LABS: MANUAL DIFF FLAG NO
[2024-03-13 13:43] LABS: Basophils Absolute Auto 0.1 X10*3/uL (0.0-0.2); Basophils Percent Auto 0.5 % (0-2); Eosinophils Absolute Auto 0.1 X10*3/uL (0.0-0.4); Eosinophils Percent Auto 0.4 % (0-4); Hematocrit 32.8 % (42.0-52.0); Imm Gran Abs Auto 0.09 X10*3/uL (0.00-0.03); Imm Gran Pct Auto 0.8 % (0.0-0.4); Lymphocytes Percent Auto 8.8 % (20-40); Mean Corpuscular HGB Conc 33.5 g/dl (31.0-36.0); Mean Corpuscular Hemoglobin 28.9 pg (27.0-33.0); Mean Corpuscular Volume 86.3 fL (80.0-98.0); Mean Platelet Volume 10.2 fL (9.4-12.4); Monocytes Absolute Auto 1.2 X10*3/uL (0.1-1.2); Monocytes Percent Auto 10.4 % (2-11); Neutrophils Absolute Auto 8.8 x10*3/uL (2.0-8.3); Neutrophils Percent Auto 79.1 % (45-73); Platelet Count 650 X10*3/uL (160-400); Red Cell Distribution Width 13.7 % (11.0-16.0); White Blood Count 11.2 X10*3/uL (4.8-10.8)
[2024-03-13 14:03] LABS: Anion Gap 10 (12-20); Blood Urea Nitrogen 10 mg/dL (9-16); Calcium 8.3 mg/dL (8.4-10.2); Carbon Dioxide 26 mmol/L (22-29); Chloride 98 mmol/L (96-108); Estimated Glomerular Filt Rate > 60; Glucose Random 84 mg/dL (60-115); Potassium 4.4 mmol/L (3.3-5.1); Sodium 130 mmol/L (135-145)
== END 2024-03-13 13:40 | disposition home or self-care (01) ==
LOC: HO.HVNA 13:39
PROVIDERS: Visit Provider Internal Medicine
DX: T82.6XXD Infection and inflammatory reaction due to cardiac valve prosthesis, subsequent encounter (principal)
CPT/HCPCS: 36415; 80048; 85025

== ENCOUNTER 2024-03-23 14:42 | Outpatient (AMB) | payer MEDICARE, SELFPAY ==
--- NOTE | 2024-03-23 14:54 | MHC.OFFVIS ---
Intake Visit Reasons: [facility] Reff bacteremia end 04/26 Allergies lactose [LACTOSE] Adverse Reaction (Unknown, Verified 03/03/24 11:48) DIARRHEA onion [Onion] Adverse Reaction (Unknown, Verified 03/03/24 11:48) DIARRHEA WITH RAW ONIONS HPI HPI C Reff bacteremia end 04/26: Details: He has spinal abscess and MSSA prosthetic valve endocarditis. He feels weak and is taking Kefzol for six weeks. He has no diarrhea or rash or abnormal labs. FORMERLY [facility], [facility] Medical History Obstructive sleep apnea hypopnea, moderate CAD (coronary artery disease) Mitral valve prolapse Hyperlipidemia PVCs (premature ventricular contractions) Postoperative atrial fibrillation Surgical History H/O neck surgery History of mitral valve replacement with bioprosthetic valve History of varicocele Hx of cardiac cath Family History Father No problems noted. Mother No problems noted. Social History Household Members: None Housing: House Are you a primary rn critical care to a significant other at home: No Do you presently have visiting nurse or other home services: No Comment: 1 assist Patient Tobacco Use Status: Never used Tobacco e-Cigarette/Vaping Use: Never Used Second Hand Smoke Exposure: No Advance Directives Date on File: 02/03/20 service: No Review of Systems Const All systems reviewed & are unremarkable except as noted in HPI and below Reports lethargy Assessment & Plan Assessment & Plan (1) Prosthetic valve endocarditis: Comment: He has MSSA. Code(s): T82.6XXA - Infection and inflammatory reaction due to cardiac valve prosthesis, initial encounter; I38 - Endocarditis, valve unspecified Category: Medical Plan: Finish in six weeks and month or two of Doxycycline after. Orders: Orders IR cvc remove any age 1103/23/24 I38 - Endocarditis, valve unspecified, T82.6XXA - Infection and inflammatory reaction due to cardiac valve prosthesis, initial encounter Medications: New doxycycline hyclate 100 mg PO BID 30 days 60 caps 1RF Coding Level of Care Code Tele Est Pt Level 3 (90439) Diagnoses Prosthetic valve endocarditis T82.6XXA; I38
== END 2024-03-23 14:59 | disposition home or self-care (01) ==
LOC: HO.HID 14:42
PROVIDERS: PCP Internal Medicine; Visit Provider Internal Medicine
DX: T82.6XXA Infection and inflammatory reaction due to cardiac valve prosthesis, initial encounter (principal); I38 Endocarditis, valve unspecified
CPT/HCPCS: 99213

== ENCOUNTER → 2024-03-23 14:42 | Outpatient (BNVA) | payer MEDICARE, SELFPAY | PROVIDERS: PCP Internal Medicine; Visit Provider Internal Medicine | DX: T82.6XXA Infection and inflammatory reaction due to cardiac valve prosthesis, initial encounter (principal); I38 Endocarditis, valve unspecified | CPT/HCPCS: 99212 ==

== ENCOUNTER → 2024-03-24 08:44 | Outpatient (REF) | payer MEDICARE, SELFPAY ==
--- NOTE | 2024-03-24 08:48 | CA_ITS ---
Transthoracic Echocardiogram Patient (Last, First, Middle): Bakari Betancur S Gender: Male Date of : 1945 Age: 78 Procedure Date: 03/24/2024 Procedure Type: Transthoracic Echocardiogram Location: OP Height: 170.18 cm Weight: 61.24 kg BSA: 1.71 m2 Heart Rate: bpm BP: 116 / 60 mmHg Band Ripsaw Operator: Referring MD: Franklin Fuchs MD Mfg Assoc: Franklin Fuchs MD Symptoms: T82.6XXA - Infection of Mitral Valve, assess Paravalvular Leak Study Quality: Good ECG Rhythm: Sinus Conclusions: - No significant mitral regurgitation noted with the valve well seated without abnormal rocking motion Findings Left Ventricle Normal left ventricular size, thickness, and systolic function. Mitral Valve A bioprosthetic valve is seen in the mitral position with no abnormal rocking motion. There was no paravalvular or significant valvular regurgitation noted. Possible small mass attached to the anterior leaflet suggestive of vegetation although the leaflets are not well visualized due to shadowing. Mean gradient across the mitral valve is 4 mm of Hg Measurements 2D Linear Measurements IVSd: 1.22 0.6-0.9/0.6-1.0 cm LVIDd: 3.43 3.9-5.3/4.2-5.9 cm LVIDd Index: 2.01 2.4-3.2/2.2-3.1 cm/m2 LVIDs: 2.11 2.0-3.6 cm LVPWd: 1.21 0.7-1.1 cm LV Mass: 167.31 67-162/88-224 g LV Mass Index: 97.84 43-95/49-115 g/m2 2D Systolic Function EF 4C: 64.10 >55% EF 2C: 57.10 >55% EF BiP: 61.30 >55% Mitral Valve MV VTI: 0.64 MV Pk Keyon: 1.74 MV Mn Keyon: 0.90 MV Pk Grad: 12.00 MV Mn Grad: 4.00 Updated in Other Vendor System with Status of Final Franklin Fuchs MD electronically signed on 03/24/2024 10:50:33 AM with status of Final
== END ==
LOC: HO.CARD 08:44
PROVIDERS: PCP Internal Medicine; Visit Provider Internal Medicine Cardiovascular Disease
DX: T82.6XXA Infection and inflammatory reaction due to cardiac valve prosthesis, initial encounter (principal); I38 Endocarditis, valve unspecified; Z95.3 Presence of xenogenic heart valve
CPT/HCPCS: 93308

== ENCOUNTER → 2024-03-24 08:48 | Outpatient (BNV) | payer MEDICARE, SELFPAY | PROVIDERS: PCP Internal Medicine; Visit Provider Internal Medicine Cardiovascular Disease | DX: T82.6XXA Infection and inflammatory reaction due to cardiac valve prosthesis, initial encounter (principal) | CPT/HCPCS: 93308 ==

== ENCOUNTER 2024-03-27 13:38 | Outpatient (REF) | payer MEDICARE, SELFPAY ==
[2024-03-27 13:40] LABS: MANUAL DIFF FLAG NO
[2024-03-27 13:48] LABS: Basophils Absolute Auto 0.1 X10*3/uL (0.0-0.2); Basophils Percent Auto 0.8 % (0-2); Eosinophils Absolute Auto 0.1 X10*3/uL (0.0-0.4); Eosinophils Percent Auto 0.7 % (0-4); Hematocrit 35.9 % (42.0-52.0); Hemoglobin 11.7 g/dl (14.0-18.0); Imm Gran Abs Auto 0.05 X10*3/uL (0.00-0.03); Imm Gran Pct Auto 0.5 % (0.0-0.4); Lymphocytes Absolute Auto 1.3 X10*3/uL (1.2-4.9); Lymphocytes Percent Auto 13.4 % (20-40); Mean Corpuscular HGB Conc 32.6 g/dl (31.0-36.0); Mean Corpuscular Hemoglobin 27.9 pg (27.0-33.0); Mean Corpuscular Volume 85.5 fL (80.0-98.0); Mean Platelet Volume 11.2 fL (9.4-12.4); Monocytes Absolute Auto 0.7 X10*3/uL (0.1-1.2); Monocytes Percent Auto 7.3 % (2-11); Neutrophils Absolute Auto 7.7 x10*3/uL (2.0-8.3); Neutrophils Percent Auto 77.3 % (45-73); Platelet Count 336 X10*3/uL (160-400); Red Cell Distribution Width 13.7 % (11.0-16.0)
[2024-03-27 14:11] LABS: Anion Gap 13 (12-20); Blood Urea Nitrogen 14 mg/dL (9-16); Calcium 8.7 mg/dL (8.4-10.2); Carbon Dioxide 25 mmol/L (22-29); Chloride 97 mmol/L (96-108); Estimated Glomerular Filt Rate > 60; Glucose Random 82 mg/dL (60-115); Potassium 4.5 mmol/L (3.3-5.1); Sodium 130 mmol/L (135-145)
== END 2024-03-27 13:39 | disposition home or self-care (01) ==
LOC: HO.HVNA 13:38
PROVIDERS: Visit Provider Internal Medicine
DX: I38 Endocarditis, valve unspecified (principal); T82.6XXA Infection and inflammatory reaction due to cardiac valve prosthesis, initial encounter
CPT/HCPCS: 36415; 80048; 85025

== ENCOUNTER 2024-04-03 15:15 | Outpatient (REF) | payer MEDICARE, SELFPAY ==
[2024-04-03 15:29] LABS: MANUAL DIFF FLAG NO
[2024-04-03 15:44] LABS: Basophils Absolute Auto 0.1 X10*3/uL (0.0-0.2); Basophils Percent Auto 0.9 % (0-2); Eosinophils Absolute Auto 0.1 X10*3/uL (0.0-0.4); Hematocrit 35.1 % (42.0-52.0); Hemoglobin 11.5 g/dl (14.0-18.0); Imm Gran Abs Auto 0.03 X10*3/uL (0.00-0.03); Imm Gran Pct Auto 0.4 % (0.0-0.4); Lymphocytes Absolute Auto 1.3 X10*3/uL (1.2-4.9); Lymphocytes Percent Auto 15.7 % (20-40); Mean Corpuscular HGB Conc 32.8 g/dl (31.0-36.0); Mean Corpuscular Hemoglobin 28.6 pg (27.0-33.0); Mean Corpuscular Volume 87.3 fL (80.0-98.0); Mean Platelet Volume 10.4 fL (9.4-12.4); Monocytes Absolute Auto 0.7 X10*3/uL (0.1-1.2); Platelet Count 254 X10*3/uL (160-400); Red Blood Count 4.02 X10*6/uL (4.60-5.80); White Blood Count 8.1 X10*3/uL (4.8-10.8)
[2024-04-03 16:26] LABS: Erythrocyte Sedimentation Rate 23 MM/HR (0-15)
[2024-04-03 16:33] LABS: Estimated Glomerular Filt Rate > 60
[2024-04-03 16:39] LABS: C Reactive Protein 0.55 mg/dL (< or = 0.50)
[2024-04-03 16:55] LABS: Ferritin 355 ng/mL (20-250)
--- OUTSIDE RECORDS SUMMARY | 2024-04-08 10:47 | XMS_ITS ---
Author Organization Royal Schuler III, MD Address [address] [place] [address] [place] [address] Care Team Providers Care Forestry Support Specialist Name Role Phone Royal Schuler [phone] REASON FOR VISIT Picc Line dressing change Social History Sex Assigned At : Social History Observation Description Sex Assigned At Male Encounters Encounter Location Date Provider Diagnosis Royal Schuler III, MD [address] [place] [address] [place] [address] 04/03/2024 Royal Schuler Dressing change Z48.00 Assessments Encounter Date Diagnosis (ICD Code) Assessment Notes Treatment Notes Treatment Clinical Notes 04/03/2024 Dressing change (ICD-10 - Z48.00) Plan Of Treatment Next Appt Details Follow Up: 1 Week, Reason: Provider Name:Royal Schuler, 04/10/2024 02:30:00 PM, [address] [place] [address] [place], [address], Progress Notes * Vignesh BETANCURwDOB:1945 (78 yo M)Acc No.[id number]:04/03/2024 Progress Notes Patient:?Vignesh BETANCURw Provider:?Royal Schuler MD :1945???Age:78 Y???Sex:Male Noam e:04/03/2024 Address: [address] [place] Subjective: * Chief Complaints: * ???1. Picc Line dressing hortencia nge. * Medical History:? Objective: * Vitals:? Assessment: * Assessment: 1.?Dressing change - Z48.00? ?? Plan: * Treatment: * Procedure Codes:?59919 DRESS ING CHANGE,NOT FOR BURN * Follow Up:?1 Week * Images: * The named appointment provid er may or may not be the originator of this progress note, and it is not deemed complete until electronically signed by the appointment provider. Sign off status: Pending * Provider:?Royal Schuler MD Date:?09/2023 Generated for Lyndsay rousseau/Viviana/Manuelitoitting on:?04/08/2024 10:47 AM EST
--- OUTSIDE RECORDS SUMMARY | 2024-04-08 10:47 | XMS_ITS | Patient Health Record ---
Author Organization [facility] [place] Address [address] [facility] [place] [address] Care Team Providers Care Chain Hoist Operator Name Role Phone Ab Lroa MD Primary Care Provider Driss Cummins Unavailable [phone] Reason For Referral No Information Medications Medication SIG (Take, Route, Frequency, Duration) Notes Start Date End Date Status Atorvastatin Calcium 20 MG 1 tablet Oral ly Once a day Active Metoprolol Succinate ER 50 MG 1 tablet Orally Once a day Active Social History Tobacco Use: Social History Observation Description Date Details (start date - stop date) Never Smoker NA - NA Tobacco Use/Smoking Question Answer Notes Are you a: nonsmoker Additional Findings: Tobacco Non-User Current no n-smoker Alcohol Screen Question Answer Notes Did you have a drink containing alcohol in the p ast year? No Points 0 Interpretation Negative Tobacco use other than smoking: Question Answer Notes Are you an other tobacco user? No Plan Of Treatment No Information Insurance Providers Payer Name Payer Address Payer Phone Subscriber Number Group Number Insured Name Patient Relationship to Insured Coverage Start Date Coverage End Date Medicare National [facility] [address] [place] [address] [id number] Bakari Betancur Self - patient is the insured 2 [employer] [facility] [address] [place] [address] [id number] Bakari Betancur Self - patient is the insured Medical (General) History Medical History History ICD Code Measles Mumps High blood pressure Cholesterol Mitral valve regurgitation Benign prostatic hyperplasia (BPH)
--- OUTSIDE RECORDS SUMMARY | 2024-04-08 10:47 | XMS_ITS | Patient Health Record ---
Author Organization Royal Schuler III, MD Address [address] [place] [address] [place] [address] Care Team Providers Care Stave Log Cut Off Saw Operator Name Role Phone HariniRoyal [phone] Reason For Referral No Information Social History Sex Assigned At : Social History Observation Description Sex Assigned At Male Encounters Encounter Location Date Provider Diagnosis Royal Schuler III, MD [address] [place] [address] [place] [address] 04/03/2024 Royal Schuler Dressing change Z48.00 Assessments Encounter Date Diagnosis (ICD Code) Assessment Notes Treatment Notes Treatment Clinical Notes 04/03/2024 Dressing change (ICD-10 - Z48.00) Plan Of Treatment Next Appt Details Provider Name:Royal Schuler, 04/10/2024 02:30:00 PM, [address] [place] [address] [place], [address], Insurance Providers Payer Name Payer Address Payer Phone Subscriber Number Group Number Insured Name Patient Relationship to Insured Coverage Start Date Coverage End Date MEDICARE NGS [address] [place] [address] [id number] Bakari Betancur Self - patient is the insured [facility] [address] [place], [place] [id number] [phone] [id number] Bakari Betancur Self - patient is the insured
== END 2024-04-03 15:16 | disposition home or self-care (01) ==
LOC: HO.LAB 15:15
PROVIDERS: PCP Internal Medicine; Referring Provider Family Medicine; Visit Provider Internal Medicine
DX: I38 Endocarditis, valve unspecified (principal); T82.6XXA Infection and inflammatory reaction due to cardiac valve prosthesis, initial encounter
CPT/HCPCS: 36415; 82565; 82728; 85025; 85652; 86140

== ENCOUNTER → 2024-04-07 09:06 | Outpatient (REF) | payer MEDICARE, SELFPAY ==
--- NOTE | 2024-04-07 09:09 | CA_ITS ---
Transthoracic Echocardiogram Patient (Last, First, Middle): Bakari Betancur S Gender: Male Date of : 1945 Age: 78 Procedure Date: 04/07/2024 Procedure Type: Transthoracic Echocardiogram Location: OP Height: 170.18 cm Weight: 61.24 kg BSA: 1.71 m2 Heart Rate: 60 bpm BP: 118 / 62 mmHg Secretary Bookkeeper: ZULEMA Referring MD: Franklin Fuchs MD Hat Blocking Operator: Franklin Fuchs MD Symptoms: T82.6XXA - Infection and inflammatory reaction due to cardiac valve pros... 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 There is no significant mitral regurgitation. . Vegetation is not well visualized. Mean gradient of 5 mm Hg Prior Study Comparison No significant change compared to prior study dated: 03/24/2024. Recommendations, Care & Conclusions Consider a GABBY if clinically appropriate. Measurements 2D Linear Measurements LVIDd: 4.53 3.9-5.3/4.2-5.9 cm LVIDd Index: 2.65 2.4-3.2/2.2-3.1 cm/m2 LVIDs: 2.90 2.0-3.6 cm LVOT Diam: 1.90 3.0+(-)1.3 cm Mitral Valve MV VTI: 0.58 MV Pk Keyon: 1.76 MV Mn Keyon: 1.05 MV Pk Grad: 12.00 MV Mn Grad: 5.00 MV Pk E: 1.44 MV PK A: 1.27 MV Decel Time: 349.00 E/A: 1.10 PHT: 102.00 MVA PHT: 2.16 MVA Continuity: 2.41 Decel [place]: 4.14 LVOT LVOT Pk Keyon: 2.01 LVOT Mn Keyon: 1.50 LVOT VTI: 0.49 LVOT Pk Grad: 16.00 LVOT Mn Grad: 10.00 LVOT Diam: 1.90 LVOT Area: 2.84 Diastolic Function MV Pk E: 1.44 MV Pk A: 1.27 E/A: 1.10 Tricuspid Valve RA Press: 3.00 Updated in Other Vendor System with Status of Final Franklin Fuchs MD electronically signed on 04/08/2024 4:33:18 PM with status of Final
== END ==
LOC: HO.CARD 09:06
PROVIDERS: PCP Internal Medicine; Visit Provider Internal Medicine Cardiovascular Disease
DX: I38 Endocarditis, valve unspecified (principal); T82.6XXA Infection and inflammatory reaction due to cardiac valve prosthesis, initial encounter; Z95.3 Presence of xenogenic heart valve
CPT/HCPCS: 93308

== ENCOUNTER → 2024-04-07 09:09 | Outpatient (BNV) | payer MEDICARE, SELFPAY | PROVIDERS: PCP Internal Medicine; Visit Provider Internal Medicine Cardiovascular Disease | DX: T82.6XXA Infection and inflammatory reaction due to cardiac valve prosthesis, initial encounter (principal) | CPT/HCPCS: 93308 ==

== ENCOUNTER 2024-04-13 09:05 | Outpatient (REF) | payer MEDICARE, SELFPAY ==
--- OUTSIDE RECORDS SUMMARY | 2024-04-13 09:14 | XMS_ITS ---
Author Organization Royal Schuler III, MD Address [address] [place] [address] [place] [address] Care Team Providers Care Cathode Ray Tube Assembler Name Role Phone Royal Schuler [phone] REASON FOR VISIT Picc Line dressing change Social History Sex Assigned At : Social History Observation Description Sex Assigned At Male Encounters Encounter Location Date Provider Diagnosis Royal Schuler III, MD [address] [place] [address] [place] [address] 04/03/2024 Royal Schuler Dressing change Z48.00 Assessments Encounter Date Diagnosis (ICD Code) Assessment Notes Treatment Notes Treatment Clinical Notes 04/03/2024 Dressing change (ICD-10 - Z48.00) Plan Of Treatment Next Appt Details Follow Up: 1 Week, Reason: Provider Name:Royal Schuler, 04/17/2024 03:00:00 PM, [address] [place] [address] [place], [address], Progress Notes * Vignesh BETANCURwDOB:1945 (78 yo M)Acc No.[id number]:04/03/2024 Progress Notes Patient:?Vignesh BETANCURw Provider:?Royal Schuler MD :1945???Age:78 Y???Sex:Male Noam e:04/03/2024 Address: [address] [place] Subjective: * Chief Complaints: * ???1. Picc Line dressing hortencia nge. * Medical History:? Objective: * Vitals:? Assessment: * Assessment: 1.?Dressing change - Z48.00? ?? Plan: * Treatment: * Procedure Codes:?14086 DRESS ING CHANGE,NOT FOR BURN * Follow Up:?1 Week * Images: * The named appointment provid er may or may not be the originator of this progress note, and it is not deemed complete until electronically signed by the appointment provider. Sign off status: Pending * Provider:?Royal Schuler MD Date:?09/2023 Generated for Lyndsay rousseau/Viviana/Manuelitoitting on:?04/13/2024 09:14 AM EST
--- OUTSIDE RECORDS SUMMARY | 2024-04-13 09:14 | XMS_ITS | Patient Health Record ---
Author Organization Royal Schuler III, MD Address [address] [place] [address] [place] [address] Care Team Providers Care Referral Agent Name Role Phone Royal Schuler [facility] [phone] Reason For Referral No Information Social History Sex Assigned At : Social History Observation Description Sex Assigned At Male Problems Problem Type SNOMED Code ICD Code Onset Dates Problem Status W/U Status Risk Notes Problem [id number] Dressing change (Z48.00) Active confirmed Encounters Encounter Location Date Provider Diagnosis Royal Schuler III, MD [address] [place] [address] [place] [address] 04/10/2024 Royal Schuler Dressing change Z48.00 Royal Schuler III, MD [address] [place] [address] [place] [address] 04/03/2024 Royal Schuler Dressing change Z48.00 Assessments Encounter Date Diagnosis (ICD Code) Assessment Notes Treatment Notes Treatment Clinical Notes 04/10/2024 Dressing change (ICD-10 - Z48.00) 04/03/2024 Dressing change (ICD-10 - Z48.00) Plan Of Treatment Next Appt Details Provider Name:Royal Schuler, 04/17/2024 03:00:00 PM, [address] [place] [address] [place], [address], Insurance Providers Payer Name Payer Address Payer Phone Subscriber Number Group Number Insured Name Patient Relationship to Insured Coverage Start Date Coverage End Date MEDICARE NGS [address] [place] [phone] [id number] Bakari Betancur Self - patient is the insured [facility] [address] [place], [place] [id number] [phone] [id number] Bakari Betancur Self - patient is the insured
--- OUTSIDE RECORDS SUMMARY | 2024-04-13 09:14 | XMS_ITS ---
Author Organization Royal Schuler III, MD Address [address] [place] [address] [place] [address] Care Team Providers Care City Planning Aide Name Role Phone Royal Schuler [phone] REASON FOR VISIT PIC Line Social History Sex Assigned At : Social History Observation Description Sex Assigned At Male Problems Problem Type SNOMED Code ICD Code Onset Dates Problem Status W/U Status Risk Notes Problem 160377633 Dressing change (Z48.00) Active confirmed Encounters Encounter Location Date Provider Diagnosis Royal Schuler III, MD [address] [place] [address] [place] [address] 04/10/2024 Royal Schuler Dressing change Z48.00 Assessments Encounter Date Diagnosis (ICD Code) Assessment Notes Treatment Notes Treatment Clinical Notes 04/10/2024 Dressing change (ICD-10 - Z48.00) Plan Of Treatment Next Appt Details Follow Up: 1 Week, Reason: O V, dressing change Provider Name:Royal Schuler, 04/17/2024 03:00:00 PM, [address] [place] [address] [place], [address], Progress Notes * Giovani BETANCUROB:1945 (78 yo M)Acc No.[id number]:04/10/2024 Progress Notes Patient:?Bakari BETANCUR Provider:?Royal Schuler MD :1945???Age:78 Y???Sex:Male Noam e:04/10/2024 Address:[address] [place] [address] [place] Subjective: * Chief Complaints: * ???PIC Line * HPI: ???v:? He is receiving intravenous antibiotics for endocarditis.? He has a PICC line in his right forearm.? The dressing was changed today without difficulty. * Medical History:? * Surgical History:? * Hospitalization/Major Diagno stic Procedure:? * Medications:? Objective: * Vitals:? Assessment: * Assessment: 1.?Dressing change - Z48.00 (Primary)??? Plan: * Treatment: * Procedure Codes:?55727 DRESS ING CHANGE,NOT FOR BURN * Follow Up:?1 Week (Reason: O V, dressing change) * Images: * Sign off status: Completed true * Provider:?Royal Schuler MD Date:?03/29 Generated for Lyndsay rousseau/Viviana/eTmickysmitting on:?04/13/2024 09:13 AM EST
--- OUTSIDE RECORDS SUMMARY | 2024-04-13 09:15 | XMS_ITS | Patient Health Record ---
Author Organization [facility] [place] Address [address] [place] [address] Care Team Providers Care Security Site Supervisor Name Role Phone Ab Lora MD Primary Care Provider Driss Cummins Unavailable [phone] Reason For Referral No Information Medications Medication [...] Start Date Coverage End Date Medicare [facility] [address] [place] [address] [phone] [id number] Bakari Betancur Self - patient is the insured [facility] [address] [place] [address] [phone] [id number] Bakari Betancur Self - patient is the insured Medical (General) History Medical History History ICD Code Measles Mumps High blood pressure Cholesterol Mitral valve regurgitation Benign prostatic hyperplasia (BPH)
[2024-04-13 11:31] LABS: MANUAL DIFF FLAG NO
[2024-04-13 11:51] LABS: Basophils Absolute Auto 0.1 X10*3/uL (0.0-0.2); Eosinophils Absolute Auto 0.1 X10*3/uL (0.0-0.4); Eosinophils Percent Auto 1.6 % (0-4); Hematocrit 36.1 % (42.0-52.0); Hemoglobin 11.3 g/dl (14.0-18.0); Imm Gran Abs Auto 0.03 X10*3/uL (0.00-0.03); Imm Gran Pct Auto 0.4 % (0.0-0.4); Lymphocytes Absolute Auto 0.9 X10*3/uL (1.2-4.9); Lymphocytes Percent Auto 13.4 % (20-40); Mean Corpuscular HGB Conc 31.3 g/dl (31.0-36.0); Mean Corpuscular Hemoglobin 27.6 pg (27.0-33.0); Mean Corpuscular Volume 88.3 fL (80.0-98.0); Mean Platelet Volume 10.6 fL (9.4-12.4); Monocytes Absolute Auto 0.6 X10*3/uL (0.1-1.2); Monocytes Percent Auto 8.8 % (2-11); Neutrophils Absolute Auto 5.1 x10*3/uL (2.0-8.3); Neutrophils Percent Auto 74.8 % (45-73); Platelet Count 276 X10*3/uL (160-400); Red Blood Count 4.09 X10*6/uL (4.60-5.80); Red Cell Distribution Width 14.6 % (11.0-16.0); White Blood Count 6.8 X10*3/uL (4.8-10.8)
[2024-04-13 11:54] LABS: Anion Gap 13 (12-20); C Reactive Protein < 0.10 mg/dL (< or = 0.50); Carbon Dioxide 26 mmol/L (22-29); Chloride 100 mmol/L (96-108); Estimated Glomerular Filt Rate > 60; Potassium 4.9 mmol/L (3.3-5.1); Sodium 134 mmol/L (135-145)
[2024-04-13 12:35] LABS: Erythrocyte Sedimentation Rate 16 MM/HR (0-15)
== END 2024-04-13 09:06 | disposition home or self-care (01) ==
LOC: HO.10HDL 09:05
PROVIDERS: Visit Provider Family Medicine
DX: Z13.89 Encounter for screening for other disorder (principal)
CPT/HCPCS: 36415; 80051; 82565; 85025; 85652; 86140

== ENCOUNTER 2024-04-14 20:58 | Inpatient (IN) | payer MEDICARE, SELFPAY ==
--- NOTE | 2024-04-14 | ECG_ITS ---
Test Reason : FALL Blood Pressure : / mmHG Vent. Rate : 063 BPM Atrial Rate : 063 BPM P-R Int : 170 ms QRS Dur : 074 ms QT Int : 438 ms P-R-T Axes : 057 056 063 degrees QTc Int : 448 ms Normal sinus rhythm Possible Left atrial enlargement Borderline ECG When compared with ECG of 02-MAR-2024 03:16, Vent. rate has decreased BY 44 BPM Referred By: Cecy Alcala Electronically Signed By:MORRIS BONILLA
--- NOTE | ~2024-04-14 | CT_ITS ---
EXAMINATION: CT ANGIOGRAM HEAD AND NECK CLINICAL INFORMATION: Syncope. Intermittent altered mental status. COMPARISON: None available. TECHNIQUE: Sequential axial CT angiography of the head and neck obtained from the aortic arch to the vertex after the intravenous administration of 70 mL Omnipaque 350. Sagittal and coronal reformatted images also obtained The degree of stenosis determined by NASCET criteria. This CT examination was performed using dose optimization techniques as appropriate, variously including the following: *Automated exposure control *Adjustment of mA and/or kV according to patient size (this includes techniques or standardized protocols for targeted exams where dose is matched to indication/reason for exam; i.e. extremities or head) *Use of iterative reconstruction technique DLP: 1500 mGy-cm FINDINGS: CTA CHEST: There is atherosclerotic plaque of the aortic arch. A 3 vessel branch pattern from the aortic arch is noted. There is plaque at the origin of the aortic arch vessels without significant narrowing. The visualized upper lung howell are clear. CTA NECK: The common carotid arteries are patent. There is atherosclerotic plaque at the carotid bifurcation without significant narrowing. The internal and external carotid arteries are patent. The left vertebral artery is dominant. Both vertebral arteries are patent. CTA HEAD: There is atherosclerotic plaque of the intracranial internal carotid arteries without significant narrowing. The anterior and middle cerebral arteries are patent. The distal vertebral arteries, basilar artery and branches as well as posterior cerebral arteries are patent. There is no evidence for aneurysm. CT/CT angio head neck IMPRESSION: 1. No large vessel occlusion or significant stenosis within the intracranial circulation. 2. Atherosclerotic plaque at the carotid bifurcations without significant narrowing. Electronically signed by: Zaid Rose MD 04/15/2024 05:27 AM [facility]
--- NOTE | ~2024-04-14 | CT_ITS ---
EXAMINATION: CT HEAD WITHOUT CONTRAST CT CERVICAL SPINE WITHOUT CONTRAST CLINICAL INFORMATION: Fall. Wobbly gait. COMPARISON: Head and cervical spine MRI from 02/29/2024. TECHNIQUE: Contiguous axial imaging was performed from the skull base to vertex without intravenous administration of contrast. Contiguous axial imaging was performed from the upper chest through the skull base without intravenous administration of contrast. Coronal and sagittal reformats were obtained at the acquisition workstation. This CT examination was performed using dose optimization techniques as appropriate, variously including the following: *Automated exposure control. *Adjustment of mA and/or kV according to patient size (this includes techniques or standardized protocols for targeted exams where dose is matched to indication/reason for exam; i.e. extremities or head). *Use of iterative reconstruction technique. DLP: 1013 mGy-cm FINDINGS: Head: There is no evidence of acute intracranial hemorrhage or edematous territorial infarction. Rizo-white matter differentiation is preserved. Scattered and partially confluent hypoattenuation in the periventricular and deep white matter are consistent with moderate microangiopathy. Proportional prominence of the ventricles and sulcal spaces without evidence of obstructive hydrocephalus. No abnormal mass effect or midline shift. No extra-axial fluid collections. Calcific atherosclerotic disease of the intracranial internal carotid and vertebral arteries. No hyperdense vessel sign. No acute soft tissue or osseous abnormalities. Mild mucosal thickening of the paranasal sinuses. The mastoid air cells and middle ear cavities are clear. Cervical Spine: Instrumented posterior fusion of C3-C6 with bilateral paired lateral mass screws. No evidence of hardware fracture or loosening. Prior C3-C6 laminectomies. The atlantooccipital and atlantoaxial articulations remain well aligned. Advanced degenerative arthropathy of the atlantodental articulation. Straightening of the normal cervical lordosis. Mild degenerative stepwise retrolisthesis of C3-C5. Moderate degenerative anterolisthesis of C6-C7. Otherwise, there is anatomic alignment of the vertebral bodies and posterior elements. No evidence of acute fracture or subluxation. The vertebral body heights are maintained. Facet and uncovertebral joint arthropathy leads to osseous encroachment on the neural foramina from C3-C7. There is no prevertebral soft tissue swelling. The thyroid gland and remaining cervical soft tissues are within normal limits. The lung apices demonstrate no abnormalities. CT/CT cervical spine wo IV con IMPRESSION: 1. No evidence of acute intracranial hemorrhage or edematous territorial infarction. Moderate underlying microangiopathy and generalized cerebral volume loss. 2. Instrumented posterior fusion of C3-C6. No evidence of hardware fracture or loosening. 3. No evidence of acute fracture or traumatic subluxation of the cervical spine. Moderate multilevel degenerative spondyloarthropathy of the cervical spine. Electronically signed by: Garrett Giles DO 04/14/2024 11:39 PM [email or web address]
--- NOTE | ~2024-04-14 | CT_ITS ---
EXAMINATION: CT ANGIOGRAM OF THE CHEST WITH AND WITHOUT CONTRAST (CT PULMONARY ANGIOGRAM FOR PE) CLINICAL INFORMATION: Syncope. COMPARISON: CT chest from 03/02/2024. TECHNIQUE: Prior to contrast administration, noncontrast localization images were obtained. Subsequently, multidetector volumetric imaging was performed from the thoracic inlet to below the diaphragms following the administration of 65 mL Omnipaque 350 intravenous contrast. No contrast reaction reported. Sagittal, coronal, and MIP oblique sagittal reformatted images were obtained on the CT workstation, uploaded to PACS, and reviewed. This CT examination was performed using dose optimization techniques as appropriate, variously including the following: *Automated exposure control. *Adjustment of mA and/or kV according to patient size (this includes techniques or standardized protocols for targeted exams where dose is matched to indication/reason for exam; i.e. extremities or head). *Use of iterative reconstruction technique. DLP: 302 mGy-cm FINDINGS: QUALITY OF STUDY/CONTRAST BOLUS: Satisfactory. PULMONARY ARTERIES: No central or segmental pulmonary emboli. THORACIC AORTA: The thoracic aorta is of normal contour and caliber with moderate calcific atherosclerotic disease. No evidence of thoracic aortic aneurysm or dissection. LUNG: Mild patchy airspace opacity in the medial aspect of the left lower lobe. There appears to be small volume mucous layering within a segmental bronchus in this distribution. Mild bilateral dependent atelectasis. No additional focal consolidation, nodules, or masses. PLEURA: No pleural effusion or pneumothorax. MEDIASTINUM: Prior mitral valve replacement. Normal heart size. No pericardial effusion. No hilar or mediastinal lymphadenopathy. No evidence of septal bowing or right heart strain. Coronary artery calcifications: Present - advanced. CHEST WALL/AXILLA: Prior median sternotomy. No axillary or internal mammary lymphadenopathy. OSSEOUS STRUCTURES: No acute or suspicious osseous abnormality. Moderate multilevel degenerative spondyloarthropathy of the spine. UPPER ABDOMEN: Multiple simple appearing cyst in the left hepatic lobe. No additional significant abnormalities of the visualized upper abdomen. No reflux of contrast into the hepatic veins to suggest elevated right heart pressures. CT/CT angio chest PE protocol IMPRESSION: 1. No evidence of pulmonary embolism. 2. Mild patchy airspace opacity in the medial aspect of the left lower lobe with small volume mucous layering within a segmental bronchus in this distribution. Findings are suggestive of an early infectious/inflammatory process, potentially secondary to mild aspiration. VTE: negative Electronically signed by: Garrett Giles DO 04/15/2024 02:10 AM JIMMY
--- NOTE | ~2024-04-14 | MR_ITS ---
EXAMINATION: MR BRAIN WITHOUT AND WITH CONTRAST CLINICAL INFORMATION: Seizure COMPARISON: CTA head and neck on same day TECHNIQUE: Multiplanar, multisequence MRI of the brain was obtained before and after the intravenous administration of 6 mL Gadavist. FINDINGS: No abnormal intracranial enhancement. 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 No hemorrhagic transformation. Focus of susceptibility artifact in the left frontal lobe similar to represent a cavernoma. There are additional foci of susceptibility artifact scattered through the bilateral cerebral hemispheres likely representing chronic microhemorrhage. Several scattered periventricular and deep white matter T2/FLAIR hyperintensities, nonspecific however commonly seen with small vessel ischemic disease. Dedicated coronal oblique imaging through the temporal lobes demonstrate symmetric size, signal intensity, and morphological appearance of the hippocampal formations. No evidence for mesial temporal sclerosis. No midline shift or hydrocephalus. No acute extra-axial fluid collections. The osseous structures are unremarkable. The pituitary gland, pineal gland and remaining midline structures are unremarkable. No orbital pathology. The paranasal sinuses and mastoid air cells are clear. 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 No hemorrhagic transformation. Electronically signed by: Sudarshan Eason MD 04/15/2024 01:49 PM EST
--- OUTSIDE RECORDS SUMMARY | 2024-04-14 21:01 | XMS_ITS | Patient Health Record ---
Author Organization Royal Schuler III, MD Address [address] [place] [address] [place] [address] Care Team Providers Care Supervisor Logging Name Role Phone Royal Schuler [facility] [phone] Reason For Referral No Information Social History Sex Assigned At : Social History Observation Description Sex Assigned At Male Problems Problem Type SNOMED Code ICD Code Onset Dates Problem Status W/U Status Risk Notes Problem 931888135 Dressing change (Z48.00) Active confirmed Encounters Encounter Location Date Provider Diagnosis Royal Schuler III, MD [address] [place] [address] [place] [address] 04/10/2024 Royal Schuler Dressing change Z48.00 Royal Schuler III, MD [address] [place] [address] [place] [address] 04/03/2024 Royal Schuler Dressing change Z48.00 Assessments Encounter Date Diagnosis (ICD Code) Assessment Notes Treatment Notes Treatment Clinical Notes 04/10/2024 Dressing change (ICD-10 - Z48.00) 04/03/2024 Dressing change (ICD-10 - Z48.00) Plan Of Treatment Next Appt Details Provider Name:Royal Schuler, 04/17/2024 03:00:00 PM, [address] [place] [address] [place], [address], Insurance Providers Payer Name Payer Address Payer Phone Subscriber Number Group Number Insured Name Patient Relationship to Insured Coverage Start Date Coverage End Date MEDICARE NGS [address] [place] [phone] [id number] Bakari Betancur Self - patient is the insured [facility] [address] [place], [place] [id number] [phone] [id number] Bakari Betancur Self - patient is the insured
--- OUTSIDE RECORDS SUMMARY | 2024-04-14 21:01 | XMS_ITS ---
Author Organization Royal Schuler III, MD Address [address] [place] [address] [place] [address] Care Team Providers Care Mixer Runner Name Role Phone Royal Schuler [phone] REASON FOR VISIT Picc Line dressing change Social History Sex Assigned At : Social History Observation Description Sex Assigned At Male Encounters Encounter Location Date Provider Diagnosis Royal Schuler III, MD [address] [place] [address] [place] [address] 04/03/2024 Royal Schuler Dressing change Z48.00 Assessments Encounter Date Diagnosis (ICD Code) Assessment Notes Treatment Notes Treatment Clinical Notes 04/03/2024 Dressing change (ICD-10 - Z48.00) Plan Of Treatment Next Appt Details Follow Up: 1 Week, Reason: Provider Name:Royal Schuler, 04/17/2024 03:00:00 PM, [address] [place] [address] [place], [address], Progress Notes * Vignesh BETANCURwDOB:1945 (78 yo M)Acc No.[id number]:04/03/2024 Progress Notes Patient:?Vignesh BETANCURw Provider:?Royal Schuler MD :1945???Age:78 Y???Sex:Male Noam e:04/03/2024 Address: [id number] Subjective: * Chief Complaints: * ???1. Picc Line dressing hortencia nge. * Medical History:? Objective: * Vitals:? Assessment: * Assessment: 1.?Dressing change - Z48.00? ?? Plan: * Treatment: * Procedure Codes:?25148 DRESS ING CHANGE,NOT FOR BURN * Follow Up:?1 Week * Images: * The named appointment provid er may or may not be the originator of this progress note, and it is not deemed complete until electronically signed by the appointment provider. Sign off status: Pending * Provider:?Royal Schuler MD Date:?09/2023 Generated for Lyndsay rousseau/Viviana/Manuelitoitting on:?04/14/2024 09:01 PM EST
--- OUTSIDE RECORDS SUMMARY | 2024-04-14 21:01 | XMS_ITS ---
Author Organization Royal Schuler III, MD Address [address] [place] [address] [place] [address] Care Team Providers Care Traffic I Manager Name Role Phone Royal Schuler [phone] REASON FOR VISIT PIC Line Social History Sex Assigned At : Social History Observation Description Sex Assigned At Male Problems Problem Type SNOMED Code ICD Code Onset Dates Problem Status W/U Status Risk Notes Problem 961947281 Dressing change (Z48.00) Active confirmed Encounters Encounter Location Date Provider Diagnosis Royal Schuler III, MD [address] [place] [address] [place] [address] 04/10/2024 Royal Schuler Dressing change Z48.00 Assessments Encounter Date Diagnosis (ICD Code) Assessment Notes Treatment Notes Treatment Clinical Notes 04/10/2024 Dressing change (ICD-10 - Z48.00) Plan Of Treatment Next Appt Details Follow Up: 1 Week, Reason: O V, dressing change Provider Name:Royal Schuler, 04/17/2024 03:00:00 PM, [address] [place] [address] [place], [address], Progress Notes * Giovani BETANCUROB:1945 (78 yo M)Acc No.[id number]:04/10/2024 Progress Notes Patient:?Bakari BETANCUR Provider:?Royal Schuler MD :1945???Age:78 Y???Sex:Male Noam e:04/10/2024 Address:[address] [place] [address] [id number] Subjective: * Chief Complaints: * ???PIC Line * HPI: ???v:? He is receiving intravenous antibiotics for endocarditis.? He has a PICC line in his right forearm.? The dressing was changed today without difficulty. * Medical History:? * Surgical History:? * Hospitalization/Major Diagno stic Procedure:? * Medications:? Objective: * Vitals:? Assessment: * Assessment: 1.?Dressing change - Z48.00 (Primary)??? Plan: * Treatment: * Procedure Codes:?46269 DRESS ING CHANGE,NOT FOR BURN * Follow Up:?1 Week (Reason: O V, dressing change) * Images: * Sign off status: Completed true * Provider:?Royal Schuler MD Date:?03/29 Generated for Lyndsay rousseau/Viviana/eTmickysmitting on:?04/14/2024 09:01 PM EST
--- OUTSIDE RECORDS SUMMARY | 2024-04-14 21:02 | XMS_ITS | Patient Health Record ---
Author Organization [facility] [place] Address [address] [facility] [place] [address] Care Team Providers Care Tank Farm Gauger Name Role Phone Ab Lora MD Primary Care Provider Driss Cummins Unavailable [phone] Reason For Referral No Information Medications Medication [...] Start Date Coverage End Date Medicare [facility] [address] [facility] [address] [id number] Bakari Betancur Self - patient is the insured 2 [employer] [facility] [address] [place] [address] [phone] [id number] Bakari Betancur Self - patient is the insured Medical (General) History Medical History History ICD Code Measles Mumps High blood pressure Cholesterol Mitral valve regurgitation Benign prostatic hyperplasia (BPH)
[2024-04-14 21:07] VITALS: BP 149/63; PULSE 75; RESP 18; O2SAT 100; BMI 21.1
--- NOTE | 2024-04-14 21:24 | ED.GENADULT ---
HPI - General Adult General Chief complaint: Fall Stated complaint: fell in parking lot face first Time Seen by Provider: 04/14/24 21:03 Source: patient and family Mode of arrival: ambulatory Limitations: no limitations History of Present Illness ED Provider: Dr. Cecy Alcala HPI narrative: patient comes to the emergency room complaining of a fall. According to the patient's daughter, patient got out of work around 18:00. seems that the patient was able to in inside of his car and then for some reason had to get out of the car, slipped and was on the floor for approximately 3 hours. Patient states that he does not recall why he fell. Patient has a laceration to the right upper lip. patient denies hitting his head or losing consciousness. However, patient does not recall the events. Seems that patient was on the floor for 3 hours. Patient denies any chest pain or shortness of breath, denies any headache. When patient arrived, vitals were taken, unable to register a temperature. It is cold outside, patient was wearing a life jacket. according to the patient's daughter, since patient was discharged from the hospital about a month ago, patient has had wobbly unstable gait. However, it got much worse over the last few days. Patient does not use walker or cane. 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 Patient has a PICC line, patient was instructed to take cefazolin 2g IV q.8 hours, to be completed on 04/26/2024. Regarding the abscess, neurosurgery at [facility] was contacted, the neurosurgery team felt that the patient would not benefit from drainage/ intervention for epidural abscess. patient's daughter is not at bedside. Seems that when she got a phone call at 21:00 from her father, she went to look for him. Patient was on the floor, in between a wall and the car. It is unclear how patient got to the front of the car. Seems that the patient was never able to get inside of the car which was locked. The keys were on the front part of the car. It is unclear with the patient was doing there. Patient states that he does remember that in 1 of his attempts to get up he fell again and that is how he lacerated his lip. However, he is still not sure what happened with all the time. Patient does not recall that 3 hours went by. Related Data Home Medications ?Medication ?Instructions ?Recorded ?Confirmed aspirin 81 mg tablet,delayed 81 mg PO DAILY 07/20/20 02/28/24 release (Adult Low Dose Aspirin) coenzyme Q10 100 mg capsule 100 mg PO DAILY 07/20/20 02/28/24 magnesium 250 mg tablet 250 mg PO DAILY 07/20/20 02/28/24 ascorbate calcium (vitamin C) 500 2 g PO DAILY 11/22/20 02/28/24 mg tablet docusate sodium 100 mg capsule 100 mg PO DAILY 11/22/20 02/28/24 (Colace) gabapentin 300 mg capsule 600 mg PO BEDTIME 11/22/20 02/28/24 atorvastatin 20 mg tablet 20 mg PO BEDTIME 02/28/24 02/28/24 Previous Rx's ?Medication ?Instructions ?Recorded acetaminophen 325 mg tablet 975 mg (3 x 325 mg) PO Q6H PRN 03/06/24 Pain, Moderate(Pain Scale 4-6) #0 tabs cefazolin 2 gram/50 mL in dextrose 50 ml IV Q8H #0 ea 03/06/24 (iso-osmotic) intravenous piggyback celecoxib 200 mg capsule 200 mg PO BID #0 caps 03/06/24 gabapentin 300 mg capsule 300 mg PO DAILY #0 caps 03/06/24 methocarbamol 500 mg tablet 500 mg PO QID #0 tabs 03/06/24 metoprolol succinate 50 mg 50 mg PO DAILY #0 tabs 03/06/24 tablet,extended release 24 hr omeprazole 20 mg capsule,delayed 20 mg PO BID@0630,1630 #0 caps 03/06/24 release polyethylene glycol 3350 17 gram 17 g PO DAILY #0 ea 03/06/24 oral powder packet tramadol 50 mg tablet 50 mg PO Q6H PRN back pain #0 tabs 03/06/24 doxycycline hyclate 100 mg capsule 100 mg PO BID 30 days #60 caps 03/23/24 Allergies Allergy/AdvReac Type Severity Reaction Status Date / Time lactose [LACTOSE] AdvReac Unknown DIARRHEA Verified 04/14/24 21:11 onion [Onion] AdvReac Unknown DIARRHEA Verified 04/14/24 21:11 WITH RAW ONIONS Review of Systems Review of Systems: Constitutional : No Weight loss, No Fever, No Chills, No Night Sweats, No Fatigue, No Malaise ENT/Mouth : No Hearing loss, No Ear Pain, No Nasal Congestion, No Sinus Pain, No Hoarseness, No sore throat, No Rhinorrhea, No Swallowing Difficulty Eyes: No Eye Pain, No Swelling, No Redness, No Foreign Body, No Discharge, No Vision Changes Cardiovascular : No Chest Pain, No SOB, No Dyspnea on Exertion, No Orthopnea, No Edema, No Palpitations Respiratory : No Cough, No Sputum, No Wheezing, No Smoke Exposure, No Dyspnea Gastrointestinal : No Nausea, No Vomiting, No Diarrhea, No Constipation, No abdominal Pain, No Hematochezia, No Melena Genitourinary : no irregular bleeding, No Dysuria, No Urinary Frequency, No Hematuria, No Urinary Incontinence, No Urgency, No Flank Pain, No Urinary Flow Changes, No Hesitancy Musculoskeletal : No joint pain, No Myalgias, No Joint Swelling Skin : complaining of skin abrasions to the face and laceration to the upper lip Neuro : Possible Psych : No Anxiety/Panic, No Depression, No SI/HI/AH/VH, No Social Issues, Heme/Lymph: No Bruising, No Bleeding,No Lymphadenopathy Endocrine : No Polyuria, No Polydipsia, No Temperature Intolerance PMFSH Past Medical History Medical History Obstructive sleep apnea hypopnea, moderate CAD (coronary artery disease) Mitral valve prolapse Hyperlipidemia PVCs (premature ventricular contractions) Postoperative atrial fibrillation Surgical History H/O neck surgery History of mitral valve replacement with bioprosthetic valve History of varicocele Hx of cardiac cath Family History Family History Father No problems noted. Mother No problems noted. Social History Social History Household Members: None Housing: House Are you a primary patient care associate to a significant other at home: No Do you presently have visiting nurse or other home services: No Comment: 1 assist Patient Tobacco Use Status: Never used Tobacco Smoked in Last 30 Days: No e-Cigarette/Vaping Use: Never Used Second Hand Smoke Exposure: No Use of substances other than those prescribed or required for medical reasons: No Advance Directives: Yes Advance Directives on File: Yes Advance Directives Date on File: 02/03/20 Do you have a plan to hurt others: No Plan service: No Physical Exam ED Vital Signs: Vital Signs - 24 hr 04/14/24 21:07 04/14/24 22:02 04/14/24 22:57 Temperature 93.9 F L Pulse Rate 75 67 Respiratory Rate 18 17 Blood Pressure 149/63 H 134/71 Pulse Oximetry 100 99 Oxygen Delivery Method Room Air Room Air 04/14/24 23:16 04/15/24 02:11 Temperature 97.7 F 98.0 F Pulse Rate 66 65 Respiratory Rate 15 14 Blood Pressure 141/76 H 111/62 Pulse Oximetry 98 99 Oxygen Delivery Method Room Air Room Air BMI result Body Mass Index 21.1 Const Other: Appearance: Alert. Oriented X3. No acute distress. seems occasionally confused Eyes: Pupils equal, round and reactive to light. ENT: Pharynx normal. Neck: Normal inspection. Neck supple. No lymph nodes noted. No crepitus CVS: Normal heart rate and rhythm. Pulses normal. Normal S1 and S2 Respiratory: No respiratory distress. Breath sounds normal. No Wheezing. No rales Abdomen: Soft and nontender. No rigidity. No distention. Skin: patient has a 1 cm laceration to the top lip on the right, laceration does not go through. Patient will need stitches Extremities: No lower extremity edema. No Lacerations. No Rash Neuro: Oriented X 3. No motor deficit. No sensory deficit. Moving all extremities. No slurred speech. CN 2 through 12 grossly intact Psych: calm, cooperative, normal affect NIH Stroke Scale Internal: Initial- Upon Arrival Level of Consciousness: Alert Level of Consciousness Questions: Answers both questions correctly Level of Consciousness Commands: Performs both tasks correctly Best Gaze: Normal Visual: No visual loss Facial Palsy: Normal Motor Arm (Right): No drift Motor Arm (Left): No drift Motor Leg (Right): No drift Motor Leg (Left): No drift Limb Ataxia: Absent Sensory: Normal Best Language: No aphasia Dysarthia: Normal Extinction and Inattention: No abnormality Score: 0 Course Course Course Narrative: on arrival, patient's NIH score is 0 seems a bit confused, but does not have any obvious neurological deficits. Patient does not remember what happened from 18:00 to 21:00 Medications Administered Discontinued Medications Generic Name Dose Route Start Last Admin Trade Name Colin PRN Reason Stop Dose Admin Cefazolin Sodium/Dextrose 2 gm in 50 mls @ 100 mls/hr 04/14/24 21:18 04/14/24 22:06 Ancef IV 04/14/24 21:47 Infused ONCE ONE Infusion Sodium Chloride 1,000 mls @ 999 mls/hr 04/14/24 21:18 04/14/24 22:56 Ns IVCONT 04/14/24 22:18 Infused .Q1H1M ONE Infusion Iohexol 100 ml 04/14/24 22:22 04/14/24 22:22 Iohexol 350 Mg/Ml 100 Ml Infus..Btl IV 04/14/24 22:23 65 ml ONCE ONE Administration Iohexol 70 ml 04/15/24 02:15 04/15/24 02:16 Iohexol 350 Mg/Ml 100 Ml Infus..Btl IV 04/15/24 02:16 70 ml ONCE ONE Administration Lidocaine HCl 5 ml 04/14/24 21:22 04/14/24 21:38 Lidocaine Hcl 2 % Mpf 5 Ml Vial INFILTRATI 04/14/24 21:23 5 ml ONCE ONE Administration Lidocaine HCl 1 appl 04/14/24 21:35 04/14/24 21:38 Lidocaine 4 % Cream Kit TOPICAL 04/14/24 21:36 1 appl ONCE ONE Administration Protocol Medical Decision Making Medical Decision Making MDM Narrative: my interpretation of labs: Patient's hematology and chemistry at baseline, patient lactic acid a bit bumped but it seems to be chronic for the patient. Urinalysis negative for UTI, urine toxicology positive for THC, patient known to a prescription for THC for appetite stimulation throughout the ED stay, patient has become more awake, alert, patient states that he feels back to baseline and is hoping to be discharged home. - I discussed with the patient that it is unclear what happened during dose 3 hours, it is possible that patient may have had a PE and syncopized versus a TIA head CT did not show any acute abnormalities. Patient does not have any neurological deficits at all, NIH score is 0 - patient was ambulated, gait is wobbly. Per family patient has been walking wobbly for about a month since he was discharged from the hospital with endocarditis. The family has noticed that his gait has gradually been getting worse, no acute changes in his gait - earlier today, patient was injected with contrast to rule out pulmonary embolism. However, a TIA is still in the differential. At this time, patient is completely asymptomatic. I discussed the patient with Dr. Hodge from the Medicine team, we are going to go ahead and do a CTA of the head and the neck I discussed the double dose of contrast with the patient, patient agreeable to proceed the CTA to rule out pulmonary embolism has not been read by radiology read. My interpretation: No obvious PE. Patient does not have any shortness of breath tachycardia or EKG changes. as mentioned above, CTA results pending. We will proceed with a CT scan of the head and neck with contrast. Patient agreeable, Dr. Hodge will follow up. - Patient is awake and alert and oriented x3, normal mental status, completely coherent - CTA of the lungs negative for PE Differential Diagnosis Differential Diagnoses: The differential diagnosis associated with the presentation includes ( pulmonary embolism, TIA, mechanical fall, UTI) Admission/Observation Consideration of admission/observation: Escalation of care including admission/observation considered Consult Healthcare Provider Management of the patient was discussed with: Hospitalist Lab Data MDM Lab Attestation statement: I reviewed the patient's lab results. 04/14/24 21:34 04/14/24 21:34 Labs: Lab Results 04/14/24 04/14/24 04/15/24 Range/Units 21:34 21:48 00:18 WBC 7.6 (4.8-10.8) X10*3/uL RBC 4.65 (4.60-5.80) X10*6/uL Hgb 13.2 L (14.0-18.0) g/dl Hct 39.7 L (42.0-52.0) % MCV 85.4 (80.0-98.0) fL MCH 28.4 (27.0-33.0) pg MCHC 33.2 (31.0-36.0) g/dl RDW 14.6 (11.0-16.0) % Plt Count 303 (160-400) X10*3/uL MPV 10.1 (9.4-12.4) fL Immature Gran % (Auto) 0.3 (0.0-0.4) % Neut % (Auto) 78.0 H (45-73) % Lymph % (Auto) 13.9 L (20-40) % [place] % (Auto) 5.3 (2-11) % Eos % (Auto) 1.7 (0-4) % Baso % (Auto) 0.8 (0-2) % Lymph # (Auto) 1.1 L (1.2-4.9) X10*3/uL [place] # (Auto) 0.4 (0.1-1.2) X10*3/uL Eos # (Auto) 0.1 (0.0-0.4) X10*3/uL Baso # (Auto) 0.1 (0.0-0.2) X10*3/uL Abs Immat Gran (auto) 0.02 (0.00-0.03) X10*3/uL Absolute Neuts (auto) 5.9 (2.0-8.3) x10*3/uL Absolute Nucleated RBC 0.000 (0.0-0.012) X10*3/uL Nucleated RBC % (auto) 0.0 (0.0-0.2) /100WBC PT 14.2 H D (10.9-12.4) SEC INR 1.2 H (0.9-1.1) Sodium 135 (135-145) mmol/L Potassium 4.7 (3.3-5.1) mmol/L Chloride 100 (96-108) mmol/L Carbon Dioxide 26 (22-29) mmol/L Anion Gap 14 (12-20) BUN 15 (9-16) mg/dL Creatinine 0.88 (0.5-1.4) mg/dL Estim Creat Clear Calc 60.8 Estimated GFR > 60 Random Glucose 109 (60-115) mg/dL Lactic Acid 2.6 H* (0.5-2.0) mmol/L Lactic Acid F/U @ 2Hr 0.9 (0.5-2.0) mmol/L Calcium 9.4 D (8.4-10.2) mg/dL Magnesium 2.2 (1.6-2.6) mg/dL Total Bilirubin 0.6 (0.0-1.0) mg/dL Direct Bilirubin 0.2 (0.0-0.5) mg/dL AST 35 (5-37) U/L ALT 6 (0-40) U/L Alkaline Phosphatase 93 (39-117) U/L Total Creatine Kinase 109 (38-174) U/L Troponin I High Sens < 2.7 D (<3.5-35.0) ng/L Total Protein 8.4 H (6.5-8.0) g/dL Albumin 4.4 (3.5-5.0) g/dL TSH 3.43 (0.32-4.0) uIU/mL Urine Color Yellow Urine Appearance Clear Urine pH 6.5 (5.0-9.0) Ur Specific [place] 1.010 (1.005-1.025) Urine Protein Trace (Neg-Trace) mg/dL Urine Glucose (UA) Negative (Negative) mg/dL Urine Ketones Negative (Negative) mg/dL Urine Blood Negative (Negative) Urine Nitrite Negative (Negative) Ur Leukocyte Esterase Negative (Negative) Urine Opiates Screen Not Detected (Not Detect) Ur Buprenorphine Scrn Not Detected (Not Detect) ng/mL Ur Oxycodone Screen Not Detected (Not Detect) ng/mL Urine Methadone Screen Not Detected (Not Detect) ng/mL Urine Fentanyl Screen Not Detected (Not Detect) Ur Barbiturates Screen Not Detected (Not Detect) Ur Phencyclidine Scrn Not Detected (Not Detect) Ur Amphetamines Screen Not Detected (Not Detect) U Benzodiazepines Scrn Not Detected (Not Detect) Urine Cocaine Screen Not Detected (Not Detect) U Marijuana (THC) Screen POSITIVE H (Not Detect) Ethyl Alcohol < 10 mg/dL Influenza Type A (PCR) NEGATIVE (Negative) Influenza Type B (PCR) NEGATIVE (Negative) RSV RNA Qual (PCR) NEGATIVE (Negative) SARS-CoV-2 RNA (RT-PCR) NEGATIVE (Negative) Independent Interpretation I performed an independent interpretation of an: CT Scan Radiology Impression Discussion of test interpretation with radiology: I have reviewed the radiologist's reading. Radiologist Impression: Head: There is no evidence of acute intracranial hemorrhage or edematous territorial infarction. Rizo-white matter differentiation is preserved. Scattered and partially confluent hypoattenuation in the periventricular and deep white matter are consistent with moderate microangiopathy. Proportional prominence of the ventricles and sulcal spaces without evidence of obstructive hydrocephalus. No abnormal mass effect or midline shift. No extra-axial fluid collections. Calcific atherosclerotic disease of the intracranial internal carotid and vertebral arteries. No hyperdense vessel sign. No acute soft tissue or osseous abnormalities. Mild mucosal thickening of the paranasal sinuses. The mastoid air cells and middle ear cavities are clear. Cervical Spine: Instrumented posterior fusion of C3-C6 with bilateral paired lateral mass screws. No evidence of hardware fracture or loosening. Prior C3-C6 laminectomies. The atlantooccipital and atlantoaxial articulations remain well aligned. Advanced degenerative arthropathy of the atlantodental articulation. Straightening of the normal cervical lordosis. Mild degenerative stepwise retrolisthesis of C3-C5. Moderate degenerative anterolisthesis of C6-C7. Otherwise, there is anatomic alignment of the vertebral bodies and posterior elements. No evidence of acute fracture or subluxation. The vertebral body heights are maintained. Facet and uncovertebral joint arthropathy leads to osseous encroachment on the neural foramina from C3-C7. There is no prevertebral soft tissue swelling. The thyroid gland and remaining cervical soft tissues are within normal limits. The lung apices demonstrate no abnormalities. CT/CT head/brain wo IV con IMPRESSION: 1. No evidence of acute intracranial hemorrhage or edematous territorial infarction. Moderate underlying microangiopathy and generalized cerebral volume loss. 2. Instrumented posterior fusion of C3-C6. No evidence of hardware fracture or loosening. 3. No evidence of acute fracture or traumatic subluxation of the cervical spine. Moderate multilevel degenerative spondyloarthropathy of the cervical spine. 1. No evidence of pulmonary embolism. 2. Mild patchy airspace opacity in the medial aspect of the left lower lobe with small volume mucous layering within a segmental bronchus in this distribution. Findings are suggestive of an early infectious/inflammatory process, potentially secondary to mild aspiration. VTE: negative Independent Historian Clinical information obtained from an independent historian. History obtained from or confirmed by: Other ( patient's daughter) Critical Care Time Critical Care Time Critical Care Time: Yes Total Critical Care Time: 60 Attestation: I have personally provided critical care time. Time includes review of lab data, radiology results, discussion with consultants, and monitoring for potential decompensation. Intervention performed as documented. Discharge Plan Discharge Clinical Impression: Fall, Syncope Patient Disposition: Admitted As Inpatient Print Language: [place]
[2024-04-14] MEDS: Lidocaine HCl 2 % MPF 5 ML VIAL INFILTRATI (21:38)
[2024-04-14] MEDS: 0.9 % Sodium Chloride 1,000 ML 999 ML IVCONT (21:38)
[2024-04-14] MEDS: Lidocaine 4 % Cream KIT 1 APPL TOPICAL (21:38)
[2024-04-14] MEDS: ceFAZolin Sodium/Dextrose,Iso 2 GM/50 ML PIGGYBACK IV (21:38)
[2024-04-14 21:44] LABS: MANUAL DIFF FLAG NO
[2024-04-14 21:45] LABS: Basophils Absolute Auto 0.1 X10*3/uL (0.0-0.2); Basophils Percent Auto 0.8 % (0-2); Eosinophils Absolute Auto 0.1 X10*3/uL (0.0-0.4); Eosinophils Percent Auto 1.7 % (0-4); Hematocrit 39.7 % (42.0-52.0); Hemoglobin 13.2 g/dl (14.0-18.0); Imm Gran Abs Auto 0.02 X10*3/uL (0.00-0.03); Imm Gran Pct Auto 0.3 % (0.0-0.4); Lymphocytes Absolute Auto 1.1 X10*3/uL (1.2-4.9); Lymphocytes Percent Auto 13.9 % (20-40); Mean Corpuscular HGB Conc 33.2 g/dl (31.0-36.0); Mean Corpuscular Hemoglobin 28.4 pg (27.0-33.0); Mean Corpuscular Volume 85.4 fL (80.0-98.0); Mean Platelet Volume 10.1 fL (9.4-12.4); Monocytes Absolute Auto 0.4 X10*3/uL (0.1-1.2); Monocytes Percent Auto 5.3 % (2-11); Neutrophils Absolute Auto 5.9 x10*3/uL (2.0-8.3); Platelet Count 303 X10*3/uL (160-400); Red Blood Count 4.65 X10*6/uL (4.60-5.80); Red Cell Distribution Width 14.6 % (11.0-16.0); White Blood Count 7.6 X10*3/uL (4.8-10.8)
[2024-04-14 21:56] LABS: Appearance Urine Clear; Color Urine Yellow; Glucose Urine UA Negative (Negative); Leukocyte Esterase Urine Negative (Negative); Nitrite Urine Negative (Negative); PH 6.5 (5.0-9.0); Urine Blood Negative (Negative); Urine Ketones Negative (Negative); Urine Protein Trace mg/dL (Neg-Trace)
[2024-04-14 22:00] LABS: Alanine Aminotransferase 6 U/L (0-40); Albumin Level 4.4 g/dL (3.5-5.0); Alkaline Phosphatase 93 U/L (39-117); Anion Gap 14 (12-20); Aspartate Amino Transferase 35 U/L (5-37); Bilirubin Direct 0.2 mg/dL (0.0-0.5); Bilirubin Total 0.6 mg/dL (0.0-1.0); Blood Urea Nitrogen 15 mg/dL (9-16); Calcium 9.4 mg/dL (8.4-10.2); Carbon Dioxide 26 mmol/L (22-29); Chloride 100 mmol/L (96-108); Creatinine Clr Calc Pharmacy 60.8; Estimated Glomerular Filt Rate > 60; Glucose Random 109 mg/dL (60-115); Magnesium 2.2 mg/dL (1.6-2.6); Potassium 4.7 mmol/L (3.3-5.1); Sodium 135 mmol/L (135-145); Total Protein 8.4 g/dL (6.5-8.0)
--- NOTE | 2024-04-14 22:00 | PC.NURSE ---
MD made aware of rectal temperature and per verbal order pt placed on bear hugger.
[2024-04-14 22:02] VITALS: TEMP 34.4
[2024-04-14 22:02] LABS: Lactic Acid 2.6 mmol/L (0.5-2.0)
[2024-04-14 22:04] LABS: Ethanol < 10 mg/dL
[2024-04-14 22:08] LABS: INTERNATIONAL NORM RATIO 1.2 (0.9-1.1); Prothrombin Time 14.2 SEC (10.9-12.4)
[2024-04-14 22:09] LABS: Troponin-I High Sensitivity < 2.7 ng/L (<3.5-35.0)
[2024-04-14 22:11] LABS: Amphetamine Screen Urine Not Detected (Not Detect); Barbiturates, Urine Not Detected (Not Detect); Benzodiazepines Screen Urine Not Detected (Not Detect); Buprenorphine Scr Not Detected (Not Detect); Cannabinoid Screen Urine POSITIVE (Not Detect); Cocaine Screen Urine Not Detected (Not Detect); Methadone Screen, Urine Not Detected (Not Detect); Opiate Screen Urine Not Detected (Not Detect); Oxycodone Screen Urine Not Detected (Not Detect); Phencyclidine Screen Urine Not Detected (Not Detect)
[2024-04-14 22:21] LABS: TSH reflex Free T4 3.43 uIU/mL (0.32-4.0)
[2024-04-14] MEDS: iohexoL 350 MG/ML 100 ML INFUS..BTL IV (22:22)
[2024-04-14 22:27] LABS: Fentanyl, urine Not Detected (Not Detect)
[2024-04-14 22:40] LABS: Influenza A PCR NEGATIVE (Negative); Influenza B PCR NEGATIVE (Negative); Resp Syncy Virus RNA Qual PCR NEGATIVE (Negative); SARS COV2 PCR INHOUSE NEGATIVE (Negative)
[2024-04-14 22:57] VITALS: BP 134/71; PULSE 67; RESP 17; O2SAT 99
[2024-04-14 23:16] VITALS: BP 141/76; PULSE 66; RESP 15; TEMP 36.5; O2SAT 98
--- NOTE | 2024-04-14 23:26 | PC.NURSE ---
temp wnl, bear hugger removed and warm blankets given.
[2024-04-14 23:43] LABS: Reflex Lactate? Lactic Acid Added
[2024-04-15] VITALS (8 sets, daily range): BP systolic 111–154; BP diastolic 60–76; PULSE 57–74; RESP 14–20; TEMP 36.1–37.4; O2SAT 98–100
--- NOTE | 2024-04-15 00:40 | MHC.EDTECH ---
PATIENT WAS AMBULATED WITH NO ASSISTANCE.PATIENT DID APPEAR UNSTEADY AT TIMES DURING AMBULATION PATIENT DENIED DIZZINESS .
[2024-04-15 00:41] LABS: ~Lactic Acid-LAB USE ONLY 0.9 mmol/L (0.5-2.0)
[2024-04-15] MEDS: iohexoL 350 MG/ML 100 ML INFUS..BTL 70 ML IV (02:16)
--- NOTE | 2024-04-15 05:20 | PC.NURSE ---
med rec done with patient, confirmed only takes metoprolol 50mg twice daily, 600mg gabapentin and 250 magnesium at bedtime as done in med list. aware.
[2024-04-15] MEDS: Gabapentin 600 MG TABLET PO (05:50)
--- NOTE | 2024-04-15 05:58 | PM.IMHP ---
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 Patient reports that he finished work around 18:15 and had an unwitnessed fall getting into his car. He reports he tried to get up and lacerated his lip. He is unaware of what happened after that for about 3 hours however called his daughter around 21:00 as he could not find his keys and he was unaware of what had happened. He denies any urinary incontinence or known seizure-like activity. He does not have a history of a seizure disorder and does not take benzos. He denies feeling ill prior to this event including any shortness of breath, chest pain, lightheadedness or headache. Review of Systems Constitutional: Constitutional: Denies fatigue and Denies headache(s) Eyes: Eyes: Denies change in vision ENT: Denies headache(s), Denies nasal congestion, Denies nasal discharge and Denies sore throat Cardiovascular: Cardiovascular: Denies chest pain, Denies rapid heart rate, Denies lightheadedness and Denies dyspnea Respiratory: Respiratory: Denies chest congestion, Denies cough, Denies dyspnea and Denies wheezing Gastrointestinal: Gastrointestinal: Denies constipation, Denies diarrhea, Denies nausea and Denies vomiting Genitourinary: Genitourinary: Denies dysuria and Denies urinary incontinence Musculoskeletal: Musculoskeletal: Denies myalgias Integumentary/Breasts: Skin/Breast: Denies rash Neurologic: Denies confusion, Denies headache(s), Reports memory loss and Denies seizure-like activity Psychiatric: Psychiatric: Denies confusion and Reports memory loss Endocrine: Endocrine: Denies fatigue Hematologic/Lymphatic: Hematologic/Lymphatic: Denies easy bleeding Allergic/Immunologic: Allergic/Immunologic: Denies wheezing PMFSH Medical History Obstructive sleep apnea hypopnea, moderate CAD (coronary artery disease) Mitral valve prolapse Hyperlipidemia PVCs (premature ventricular contractions) Postoperative atrial fibrillation Functional capacity: independent ambulation Family History Father No problems noted. Mother No problems noted. Surgical History H/O neck surgery History of mitral valve replacement with bioprosthetic valve History of varicocele Hx of cardiac cath Social History Household Members: None Housing: House Are you a primary certified social workers in health care to a significant other at home: No Do you presently have visiting nurse or other home services: No Comment: 1 assist Patient Tobacco Use Status: Never used Tobacco Smoked in Last 30 Days: No e-Cigarette/Vaping Use: Never Used Second Hand Smoke Exposure: No Use of substances other than those prescribed or required for medical reasons: No Advance Directives: Yes Advance Directives on File: Yes Advance Directives Date on File: 02/03/20 Do you have a plan to hurt others: No Plan service: No Narrative: no tobacco, no heavy etoh, occasional wine, medical marijuana for appetite stimulation Meds Allergies Allergy/AdvReac Type Severity Reaction Status Date / Time lactose [LACTOSE] AdvReac Unknown DIARRHEA Verified 04/14/24 21:11 onion [Onion] AdvReac Unknown DIARRHEA Verified 04/14/24 21:11 WITH RAW ONIONS Home Medications ?Medication ?Instructions ?Recorded ?Confirmed ?Last Taken ?Type aspirin 81 mg tablet,delayed 81 mg PO DAILY 07/20/20 02/28/24 02/28/24 06:00 History release (Adult Low Dose Aspirin) coenzyme Q10 100 mg capsule 100 mg PO DAILY 07/20/20 02/28/24 02/28/24 06:00 History magnesium 250 mg tablet 250 mg PO DAILY 07/20/20 04/15/24 04/14/24 09:00 History ascorbate calcium (vitamin C) 500 2 g PO DAILY 11/22/20 02/28/24 02/28/24 06:00 History mg tablet docusate sodium 100 mg capsule 100 mg PO DAILY 11/22/20 02/28/24 02/28/24 06:00 History (Colace) gabapentin 300 mg capsule 600 mg PO BEDTIME 11/22/20 04/15/24 04/14/24 09:00 History atorvastatin 20 mg tablet 20 mg PO BEDTIME 02/28/24 02/28/24 02/27/24 History metoprolol succinate 50 mg 50 mg PO BID 04/15/24 04/15/24 04/14/24 09:00 History tablet,extended release 24 hr Physical Exam Vital Signs and Narrative: Vital Signs: Last Vital Signs Temp 97.9 F 04/15/24 04:57 Pulse 62 04/15/24 04:57 Resp 16 04/15/24 04:57 BP 140/72 H 04/15/24 04:57 Pulse Ox 99 04/15/24 04:57 O2 Del Method Room Air 04/15/24 04:57 BMI result Body Mass Index 21.1 General: AOx3, no acute distress, minor laceration on lip Resp: CTA bilaterally CVS: RRR, +murmur GI: +BS, NT, no distention Skin: Warm, dry Neuro: Cranial nerves II-XII grossly intact bilaterally. Motor grossly intact bilaterally, strength and sensation intact bilateral upper and lower extremities Extremities: No lower extremity edema Psych: Appropriate affect Const: General: No confusion Orientation/consciousness: No confusion Neuro: General: No confusion Results Labs 04/14/24 21:34 04/14/24 21:34 Labs: Laboratory Results - last 24 hr 04/14/24 04/14/24 04/15/24 21:34 21:48 00:18 MCV 85.4 MCH 28.4 MCHC 33.2 RDW 14.6 Plt Count 303 MPV 10.1 Immature Gran % (Auto) 0.3 Neut % (Auto) 78.0 H Lymph % (Auto) 13.9 L [place] % (Auto) 5.3 Eos % (Auto) 1.7 Baso % (Auto) 0.8 Lymph # (Auto) 1.1 L [place] # (Auto) 0.4 Eos # (Auto) 0.1 Baso # (Auto) 0.1 Abs Immat Gran (auto) 0.02 Absolute Neuts (auto) 5.9 Absolute Nucleated RBC 0.000 Nucleated RBC % (auto) 0.0 PT 14.2 H D INR 1.2 H Anion Gap 14 Estim Creat Clear Calc 60.8 Estimated GFR > 60 Random Glucose 109 Lactic Acid 2.6 H* Lactic Acid F/U @ 2Hr 0.9 Calcium 9.4 D Magnesium 2.2 Total Bilirubin 0.6 Direct Bilirubin 0.2 AST 35 ALT 6 Alkaline Phosphatase 93 Total Creatine Kinase 109 Troponin I High Sens < 2.7 D Total Protein 8.4 H Albumin 4.4 TSH 3.43 Urine Color Yellow Urine Appearance Clear Urine pH 6.5 Ur Specific [place] 1.010 Urine Protein Trace Urine Glucose (UA) Negative Urine Ketones Negative Urine Blood Negative Urine Nitrite Negative Ur Leukocyte Esterase Negative Urine Opiates Screen Not Detected Ur Buprenorphine Scrn Not Detected Ur Oxycodone Screen Not Detected Urine Methadone Screen Not Detected Urine Fentanyl Screen Not Detected Ur Barbiturates Screen Not Detected Ur Phencyclidine Scrn Not Detected Ur Amphetamines Screen Not Detected U Benzodiazepines Scrn Not Detected Urine Cocaine Screen Not Detected U Marijuana (THC) Screen POSITIVE H Ethyl Alcohol < 10 Influenza Type A (PCR) NEGATIVE Influenza Type B (PCR) NEGATIVE RSV RNA Qual (PCR) NEGATIVE SARS-CoV-2 RNA (RT-PCR) NEGATIVE Imaging Radiologist's Impressions: Impressions Cervical Spine CT 04/14/24 21:17 IMPRESSION: 1. No evidence of acute intracranial hemorrhage or edematous territorial infarction. Moderate underlying microangiopathy and generalized cerebral volume loss. 2. Instrumented posterior fusion of C3-C6. No evidence of hardware fracture or loosening. 3. No evidence of acute fracture or traumatic subluxation of the cervical spine. Moderate multilevel degenerative spondyloarthropathy of the cervical spine. Electronically signed by: Garrett Giles DO 04/14/2024 11:39 PM EST RP Chest CTA 04/14/24 22:06 IMPRESSION: 1. No evidence of pulmonary embolism. 2. Mild patchy airspace opacity in the medial aspect of the left lower lobe with small volume mucous layering within a segmental bronchus in this distribution. Findings are suggestive of an early infectious/inflammatory process, potentially secondary to mild aspiration. VTE: negative Electronically signed by: Garrett Giles DO 04/15/2024 02:10 AM EST RP Head CT 04/14/24 22:06 IMPRESSION: 1. No evidence of acute intracranial hemorrhage or edematous territorial infarction. Moderate underlying microangiopathy and generalized cerebral volume loss. 2. Instrumented posterior fusion of C3-C6. No evidence of hardware fracture or loosening. 3. No evidence of acute fracture or traumatic subluxation of the cervical spine. Moderate multilevel degenerative spondyloarthropathy of the cervical spine. Electronically signed by: Garrett Giles DO 04/14/2024 11:39 PM EST RP Head/Neck CTA 04/15/24 01:49 IMPRESSION: 1. No large vessel occlusion or significant stenosis within the intracranial circulation. 2. Atherosclerotic plaque at the carotid bifurcations without significant narrowing. 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 Syncope - unknown cause, low concern for CVA or seizure - no leukocytosis, electrolytes normal, chronically elevated lactic acid, blood cultures x2 pending, no sepsis - EKG normal, troponins negative - CT head/neck, CTA head and neck, CT pulmonary angiography all negative - no seizure-like activity or previous history of seizures - COVID/flu/RSV negative - continuous cardiac monitoring - check orthostatics - continue IV fluids - admit for observation MSSA bacteremia/ T11-T12 diskitis/endocarditis - continue cefazolin Q8H CAD - continue atorvastatin and ASA HTN - continue metoprolol Full code VTE prophylaxis: Lovenox Patient with syncopal episode with unknown cause, low concern for CVA or seizure, admit for observation. Quality Stroke Does the patient have a stroke diagnosis?: No VTE Prior VTE?: No VTE Risk Level:: Medical - moderate - high VTE Device Contraindication: Treatment Not Indicated VTE Drug Contraindication: N/A - Med Ordered
--- NOTE | 2024-04-15 06:00 | PC.NURSE ---
ORTHOS DOCUMENTED MD AWARE.
[2024-04-15] MEDS: Enoxaparin Sodium 40 MG/0.4 ML SYRINGE SUBCUT (06:29)
[2024-04-15] MEDS: Magnesium Oxide 400 MG TABLET 250 MG PO (06:29)
[2024-04-15] MEDS: ceFAZolin Sodium/Dextrose,Iso 2 GM/50 ML PIGGYBACK IV (06:30)
--- NOTE | 2024-04-15 07:00 | CA_ITS ---
Transthoracic Echocardiogram Patient (Last, First, Middle): Bakari Betancur S Gender: Male Date of : 1945 Age: 78 Procedure Date: 04/15/2024 Procedure Type: Transthoracic Echocardiogram Location: [facility] [place] Height: 167.64 cm Weight: 61.24 kg BSA: 1.69 m2 Heart Rate: bpm BP: 140 / 69 mmHg Cushion Spring Assembler: GARCIA Mello MD: Justen Mendosa MD Symptoms: syncope Study Quality: Adequate ECG Rhythm: Sinus Conclusions: - The left ventricular systolic function is normal. The visually estimated ejection fraction is between 65-70%. - Prosthetic mitral valve with evidence of vegetation at the subvalvular level, possibly attached to chordal structure. (on comparison of images, similar to prior). Findings Left Ventricle Normal left ventricular cavity size. The left ventricular systolic function is normal. The visually estimated ejection fraction is between 65-70%. Aortic Valve There is mild aortic valve regurgitation. Mitral Valve A bioprosthetic mitral valve is present. The prosthetic mitral valve appears to be functioning normally. Elevated gradients due to hyperdynamic state. Mobile vegetation noted at the mitral sub-valvular aspect, possibly attached to chordal structure (image 33). Venous The inferior vena cava is normal in size and collapses greater than 50% with inspiration. Prior Study Comparison No significant change compared to prior study dated: 04/07/2024. Measurements 2D Linear Measurements IVSd: 1.02 0.6-0.9/0.6-1.0 cm LVIDd: 3.37 3.9-5.3/4.2-5.9 cm LVIDd Index: 1.99 2.4-3.2/2.2-3.1 cm/m2 LVIDs: 2.10 2.0-3.6 cm LVPWd: 1.10 0.7-1.1 cm LV Mass: 132.28 67-162/88-224 g LV Mass Index: 78.27 43-95/49-115 g/m2 LVOT Diam: 2.00 3.0+(-)1.3 cm 2D Systolic Function EF 4C: 57.10 >55% EF 2C: 62.40 >55% EF BiP: 59.70 >55% Mitral Valve MV VTI: 0.62 MV Pk [place]: 1.79 MV Mn [place]: 1.18 MV Pk Grad: 13.00 MV Mn Grad: 6.00 PHT: 124.00 MVA PHT: 1.77 MVA Continuity: 2.66 Decel [place]: 4.21 LVOT LVOT Pk [place]: 2.23 LVOT Mn [place]: 1.69 LVOT VTI: 0.53 LVOT Pk Grad: 20.00 LVOT Mn Grad: 13.00 LVOT Diam: 2.00 LVOT Area: 3.14 Updated in Other Vendor System with Status of Final Ihsan Greenwood MD electronically signed on 04/15/2024 12:22:03 PM with status of Final
--- NOTE | 2024-04-15 08:52 | P.PNIM_ITS ---
Subjective Subjective Date of Service: 04/15/24 Interval History: tired, otherwise feels back to normal Physical Exam 2 Vital Signs: Vital Signs: Last Vital Signs Temp 97 F 04/15/24 07:51 Pulse 60 04/15/24 07:51 Resp 18 04/15/24 07:51 BP 140/69 H 04/15/24 07:51 Pulse Ox 99 04/15/24 07:51 O2 Del Method Room Air 04/15/24 07:51 BMI result Body Mass Index 21.1 General: AO X 3, no acute distress laceration on right upper lip Resp: CTA bilateral, no accessory muscles used CVS: S1,S2,RRR GI: soft, non tender, non distended Neuro: motor grossly intact, alert Psych: appropriate affect, appropriate insight Objective Data Active Medications Acetaminophen (Acetaminophen 325 Mg Tablet) 650 mg PO Q6H PRN PRN Reason: Pain, Mild (Pain Scale 1-3), fever or headache Aspirin (Aspirin 81 Mg Tab.Chew) 81 mg PO DAILY [facility] Calcium Carbonate (Calcium Carbonate 750 Mg Tab.Chew) 750 mg PO Q4H PRN PRN Reason: Heartburn Enoxaparin Sodium (Enoxaparin Sodium 40 Mg/0.4 Ml Syringe) 40 mg SUBCUT Q24H [facility] Last Admin: 04/15/24 06:29 Dose: 40 mg Documented By: ADELINA Gabapentin (Gabapentin 300 Mg Capsule) 600 mg PO BEDTIME [facility] Cefazolin Sodium/Dextrose (Ancef) 2 gm in 50 mls @ 100 mls/hr IV Q8H [facility] Last Admin: 04/15/24 06:30 Dose: 100 mls/hr Documented By: ADELINA Magnesium Hydroxide (Milk Of Magnesia 30 Ml Oral.Susp) 30 ml PO DAILY PRN PRN Reason: Constipation Melatonin (Melatonin 3 Mg Tablet) 6 mg PO BEDTIME PRN PRN Reason: Insomnia Metoprolol Succinate (Metoprolol Succinate Er 50 Mg Tab.Er.24h) 50 mg PO BID [facility]; Protocol Sodium Chloride (0.9 % Sodium Chloride Flush 3 Ml Syringe) 3 ml IVFLUSH QSHIFT [facility] Labs 04/14/24 21:34 04/14/24 21:34 Labs: Laboratory Results - last 24 hr 04/14/24 04/14/24 04/15/24 21:34 21:48 00:18 MCV 85.4 MCH 28.4 MCHC 33.2 RDW 14.6 Plt Count 303 MPV 10.1 Immature Gran % (Auto) 0.3 Neut % (Auto) 78.0 H Lymph % (Auto) 13.9 L [place] % (Auto) 5.3 Eos % (Auto) 1.7 Baso % (Auto) 0.8 Lymph # (Auto) 1.1 L [place] # (Auto) 0.4 Eos # (Auto) 0.1 Baso # (Auto) 0.1 Abs Immat Gran (auto) 0.02 Absolute Neuts (auto) 5.9 Absolute Nucleated RBC 0.000 Nucleated RBC % (auto) 0.0 PT 14.2 H D INR 1.2 H Anion Gap 14 Estim Creat Clear Calc 60.8 Estimated GFR > 60 Random Glucose 109 Lactic Acid 2.6 H* Lactic Acid F/U @ 2Hr 0.9 Calcium 9.4 D Magnesium 2.2 Total Bilirubin 0.6 Direct Bilirubin 0.2 AST 35 ALT 6 Alkaline Phosphatase 93 Total Creatine Kinase 109 Troponin I High Sens < 2.7 D Total Protein 8.4 H Albumin 4.4 TSH 3.43 Urine Color Yellow Urine Appearance Clear Urine pH 6.5 Ur Specific [place] 1.010 Urine Protein Trace Urine Glucose (UA) Negative Urine Ketones Negative Urine Blood Negative Urine Nitrite Negative Ur Leukocyte Esterase Negative Urine Opiates Screen Not Detected Ur Buprenorphine Scrn Not Detected Ur Oxycodone Screen Not Detected Urine Methadone Screen Not Detected Urine Fentanyl Screen Not Detected Ur Barbiturates Screen Not Detected Ur Phencyclidine Scrn Not Detected Ur Amphetamines Screen Not Detected U Benzodiazepines Scrn Not Detected Urine Cocaine Screen Not Detected U Marijuana (THC) Screen POSITIVE H Ethyl Alcohol < 10 Influenza Type A (PCR) NEGATIVE Influenza Type B (PCR) NEGATIVE RSV RNA Qual (PCR) NEGATIVE SARS-CoV-2 RNA (RT-PCR) NEGATIVE Assessment and Plan (1) Syncope: Status: Acute Plan 78M PMH non obstructive CAD, MVP s/p bioprosthetic valve complicated by MSSA endocarditis and diskitis, presented with loss of consciousness LOC concern for possible seizure, vs cardiac syncope monitor tele, cardio and neuro eval eeg non obstructive cad asa, statin, toprol MSSA endocarditis on IV cefazolin, follow up ID dvt prophylaxis - lovenox full code reason for continued hospitalization:LOC work up Quality Stroke Does the patient have a stroke diagnosis?: No VTE Prior VTE?: No VTE Risk Level:: Medical - moderate - high VTE Device Contraindication: Treatment Not Indicated VTE Drug Contraindication: N/A - Med Ordered
--- NOTE | 2024-04-15 09:32 | PHA.MEDREC ---
Addendum entered by Elisa Joseph RPh 04/15/24 09:42: reviewed by [facility]. Original Note: Pharmacy Consult ? Medication Reconciliation Pharmacy has completed the medication reconciliation. Spoke to patient and family at bedside to confirm med list. Daughter was able to confirm all of patients medications. Daughter confirmed Cefazolin 50 ml IV is TID last dose last night. Patient states he hasn't started Doxycline hycl 100 mg. (will start after Cefazolin IV *End date 04/20/24*)
[2024-04-15] MEDS: Aspirin 81 MG TAB.CHEW PO (09:46)
--- NOTE | 2024-04-15 09:46 | P.CNNE_ITS ---
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 He presented to the ED last night due to a fall and loss of consciousness. Patient reports that he finished work around 18:10And he remembers walking down the hallway and having a 10 second episode of sudden blurred vision and dizziness. He remembers stepping out and walking to the car and then has no memory. He had an unwitnessed fall And woke up somewhat hypothermic about 2-1/2 hours later and called his daughter around 8:45 PM then she got than 5 min. and took him to the emergency room. He was confused. He had gotten up and fallen forward and cut the right side of his lip. He remained confused until 1 AM when she left to go home. He was also incontinent of urine. He is unaware of what happened after that for about 3 hours. He called his daughter around 21:00 as he could not find his keys and he was unaware of what had happened. He denies any urinary incontinence or known seizure-like activity. He does not have a history of a seizure disorder and does not take benzos. He denies feeling ill prior to this event including any shortness of breath, chest pain, lightheadedness or headache. CT brain shows microvascular white matter changes and atrophy. CTA head and neck does not show any significant stenosis or occlusive disease. 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 [facility] Past Medical History Medical History Obstructive sleep apnea hypopnea, moderate CAD (coronary artery disease) Mitral valve prolapse Hyperlipidemia PVCs (premature ventricular contractions) Postoperative atrial fibrillation Family History Family History Father No problems noted. Mother No problems noted. Surgical History Surgical History H/O neck surgery History of mitral valve replacement with bioprosthetic valve History of varicocele Hx of cardiac cath Social History Social History Household Members: None Housing: House Are you a primary occasional caregiver to a significant other at home: No Do you presently have visiting nurse or other home services: No Comment: 1 assist Patient Tobacco Use Status: Never used Tobacco Smoked in Last 30 Days: No e-Cigarette/Vaping Use: Never Used Second Hand Smoke Exposure: No Use of substances other than those prescribed or required for medical reasons: Yes Substance Use Type: Marijuana Substance Use Type Other:: uses to stimulate appetite Currently Displaying Signs/Symptoms of Drug Intoxication Withdrawal: No Have you been hit, kicked, punched, or otherwise hurt by someone within the past year? If so, by whom?: No Do you feel safe in your current relationship?: No Is there a partner from a previous relationship who is making you feel unsafe now?: No Are you made to feel afraid or neglected: No Advance Directives: Yes Advance Directives on File: Yes Advance Directives Date on File: 02/03/20 Do you have a plan to hurt others: No Plan Recently lost weight without trying: Yes How much weight loss: 2-13 pounds service: No Meds Allergies Allergy/AdvReac Type Severity Reaction Status Date / Time lactose [LACTOSE] AdvReac Unknown DIARRHEA Verified 04/14/24 21:11 onion [Onion] AdvReac Unknown DIARRHEA Verified 04/14/24 21:11 WITH RAW ONIONS Active Medications: Current Medications Acetaminophen (Acetaminophen 325 Mg Tablet) 650 mg PO Q6H PRN PRN Reason: Pain, Mild (Pain Scale 1-3), fever or headache Ascorbic Acid (Ascorbic Acid 500 Mg Tablet) 2,000 mg PO DAILY [facility] Aspirin (Aspirin 81 Mg Tab.Chew) 81 mg PO DAILY [facility] Atorvastatin Calcium (Atorvastatin Calcium 20 Mg Tablet) 20 mg PO BEDTIME [facility] Calcium Carbonate (Calcium Carbonate 750 Mg Tab.Chew) 750 mg PO Q4H PRN PRN Reason: Heartburn Celecoxib (Celecoxib 200 Mg Capsule) 200 mg PO BID [facility] Docusate Sodium (Docusate Sodium 100 Mg Capsule) 100 mg PO DAILY PRN PRN Reason: Constipation Enoxaparin Sodium (Enoxaparin Sodium 40 Mg/0.4 Ml Syringe) 40 mg SUBCUT Q24H [facility] Last Admin: 04/15/24 06:29 Dose: 40 mg Escitalopram Oxalate (Escitalopram Oxalate 10 Mg Tablet) 10 mg PO DAILY [facility] Gabapentin (Gabapentin 300 Mg Capsule) 600 mg PO BEDTIME [facility] Cefazolin Sodium/Dextrose (Ancef) 2 gm in 50 mls @ 100 mls/hr IV Q8H [facility] Last Admin: 04/15/24 06:30 Dose: 100 mls/hr Magnesium Hydroxide (Milk Of Magnesia 30 Ml Oral.Susp) 30 ml PO DAILY PRN PRN Reason: Constipation Melatonin (Melatonin 3 Mg Tablet) 6 mg PO BEDTIME PRN PRN Reason: Insomnia Methocarbamol (Methocarbamol 500 Mg Tablet) 500 mg PO QID PRN PRN Reason: Muscle Spasm Metoprolol Succinate (Metoprolol Succinate Er 50 Mg Tab.Er.24h) 50 mg PO BID [facility]; Protocol Non-Formulary Medication (Coenzyme Q10) 100 mg PO DAILY [facility] Omeprazole (Omeprazole 20 Mg Capsule.Dr) 20 mg PO BID@0630,1630 PRN PRN Reason: Acid Reflux Polyethylene Glycol (Polyethylene Glycol 3350 17 Gm Powd.Pack) 17 gm PO DAILY PRN PRN Reason: Constipation Sodium Chloride (0.9 % Sodium Chloride Flush 3 Ml Syringe) 3 ml IVFLUSH QSHIFT [facility] Tramadol HCl (Tramadol Hcl 50 Mg Tablet) 50 mg PO Q6H PRN PRN Reason: back pain Home Medications ?Medication ?Instructions ?Recorded ?Confirmed ?Last Taken ?Type aspirin 81 mg tablet,delayed 81 mg PO DAILY 07/20/20 04/15/24 04/14/24 History release (Adult Low Dose Aspirin) coenzyme Q10 100 mg capsule 100 mg PO DAILY 07/20/20 04/15/2424 History magnesium 250 mg tablet 250 mg PO DAILY 07/20/20 04/15/24 04/14/24 09:00 History ascorbate calcium (vitamin C) 500 2 g PO DAILY 11/22/20 04/15/24 04/14/24 History mg tablet docusate sodium 100 mg capsule 100 mg PO DAILY PRN Constipation 11/22/20 04/15/24 02/28/24 06:00 History (Colace) gabapentin 300 mg capsule 600 mg PO BEDTIME 11/22/20 04/15/24 04/13/24 History atorvastatin 20 mg tablet 20 mg PO BEDTIME 02/28/24 04/15/24 04/13/24 History escitalopram oxalate 10 mg tablet 10 mg PO DAILY 04/15/24 04/15/24 04/14/24 History methocarbamol 500 mg tablet 500 mg PO QID PRN Muscle Spasm 04/15/24 04/15/24 Unknown History metoprolol succinate 50 mg 50 mg PO BID 04/15/24 04/15/24 04/14/24 History tablet,extended release 24 hr omeprazole 20 mg capsule,delayed 20 mg PO BID@0630,1630 PRN Acid 04/15/24 04/15/24 Unknown History release Reflux polyethylene glycol 3350 17 gram 17 g PO DAILY PRN Constipation 04/15/24 04/15/24 Unknown History oral powder packet Physical Exam 2 Vital Signs: Vital Signs: Last Vital Signs Temp 97 F 04/15/24 07:51 Pulse 60 04/15/24 07:51 Resp 18 04/15/24 07:51 BP 140/69 H 04/15/24 07:51 Pulse Ox 99 04/15/24 07:51 O2 Del Method Room Air 04/15/24 07:51 BMI result Body Mass Index 21.1 Neuro: Other: He is alert and oriented x3 with normal intellectual functions. Cranial nerves II through XII are normal. There is a large laceration of the right upper lip. Muscle tone and strength are not normal in all 4 extremities. Coordination balance normal. Results Labs 04/14/24 21:34 04/14/24 21:34 Labs: Short CBC 04/14/24 Range/Units 21:34 WBC 7.6 (4.8-10.8) X10*3/uL Hgb 13.2 L (14.0-18.0) g/dl Hct 39.7 L (42.0-52.0) % Plt Count 303 (160-400) X10*3/uL BMP 04/14/24 21:34 Sodium 135 Potassium 4.7 Chloride 100 Carbon Dioxide 26 BUN 15 Creatinine 0.88 Calcium 9.4 D Cardiac Enzymes 04/14/24 Range/Units 21:34 Total Creatine Kinase 109 (38-174) U/L Liver Function 04/14/24 Range/Units 21:34 Total Bilirubin 0.6 (0.0-1.0) mg/dL Direct Bilirubin 0.2 (0.0-0.5) mg/dL AST 35 (5-37) U/L ALT 6 (0-40) U/L Alkaline Phosphatase 93 (39-117) U/L Albumin 4.4 (3.5-5.0) g/dL Urine 04/14/24 Range/Units 21:48 Urine Color Yellow Urine Appearance Clear Urine pH 6.5 (5.0-9.0) Ur Specific [place] 1.010 (1.005-1.025) Urine Protein Trace (Neg-Trace) mg/dL Urine Glucose (UA) Negative (Negative) mg/dL Assessment and Plan (1) Syncope: Status: Acute This episode is most consistent with an unwitnessed seizure with fall and suddenly without warning, urinary incontinence and prolonged amnesiac for about 2-1/2 hours, followed by confusion for an additional 3 hours. He is now back to baseline. This could have been results of cortical infarct. Unlikely from the acute thalamic punctate hemorrhages related to small vessel disease. Recommendations: EEG. It does not senior qc technician available tomorrow then it can be done as an outpatient. Continue aspirin 81 mg and add Plavix 75 mg a day. I personally reviewed all 3 of his MRIs, CAT scans and CTAs. Procedures Date of Service Date of Service: 04/15/24
--- NOTE | 2024-04-15 10:45 | MHC.CM.PN ---
Addendum entered by Janet Pillai RN 04/15/24 11:21: CM ATTEMPTED TO MEET W/PT HOWEVER PT ABOUT TO WORK W/P.T., CM WILL REVISIT. Original Note: CM ATTEMPTED TO MEET W/PT HOWEVER PT HAVING ECHO, CM TO REVISIT.
[2024-04-15] MEDS: Celecoxib 200 MG CAPSULE PO (11:02)
[2024-04-15] MEDS: Metoprolol Succinate ER 50 MG TAB.ER.24H PO ×2 (11:02→20:37)
[2024-04-15] MEDS: Ascorbic Acid 500 MG TABLET 2000 MG PO (11:02)
[2024-04-15] MEDS: Escitalopram Oxalate 10 MG TABLET PO (11:02)
--- NOTE | 2024-04-15 11:22 | PM.CNCAR ---
History of Present Illness History of Present Illness Date of Service: 04/15/24 Chief complaint: syncope Narrative: This is a cardiology consultation regarding syncopal episode. 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 It seems he also had some bit diskitis. Per Dr. Fuchs, discussion with cardiac surgeon in [place] and they agreed on conservative care only. He is scheduled to get a transesophageal echocardiogram next Saturday. In the interim, it seems that he had a syncopal episode yesterday in the parking lot. He was down on the ground for almost 3 hours. He is not entirely clear as to what happened. After that, brought to the ER and admitted. He is somewhat weak but no other clear-cut cardiac symptoms. Review of Systems Review of Systems: Yes all other systems are reviewed and are negative Constitutional: Constitutional: Reports as per HPI and Reports no additional constitutional complaints Eyes: Eyes: Reports as per HPI and Denies no additional eye complaints ENT: Denies system reviewed and no additional complaints, except as documented and Reports as per HPI Cardiovascular: Cardiovascular: Reports as per HPI, Reports no additional cardiovascular complaints, Denies acrocyanosis, Denies cool extremities, Denies chest pain, Denies leg edema, Denies lightheadedness, Denies palpitations and Denies dyspnea Respiratory: Respiratory: Reports as per HPI, Denies no additional respiratory complaints and Denies dyspnea Gastrointestinal: Gastrointestinal: Reports as per HPI and Denies no additional gastrointestinal complaints Genitourinary: Genitourinary: Reports no additional male genitourinary complaints and Reports as per HPI Musculoskeletal: Musculoskeletal: Reports no additional musculoskeletal complaints and Reports as per HPI Integumentary/Breasts: Skin/Breast: Reports system reviewed and no additional complaints, except as docu Neurologic: Reports system reviewed and no additional complaints, except as documented and Reports as per HPI Psychiatric: Psychiatric: Reports no additional psychiatric complaints and Reports as per HPI Endocrine: Endocrine: Reports no additional endocrine complaints, Reports as per HPI and Denies palpitations Hematologic/Lymphatic: Hematologic/Lymphatic: Reports no additional hematologic/lymphatic complaints and Reports as per HPI Allergic/Immunologic: Allergic/Immunologic: Reports no additional allergic/immunologic complaints and Reports as per HPI [facility] Past Medical History Medical History Obstructive sleep apnea hypopnea, moderate CAD (coronary artery disease) Mitral valve prolapse Hyperlipidemia PVCs (premature ventricular contractions) Postoperative atrial fibrillation Family History Family History Father No problems noted. Mother No problems noted. Surgical History Surgical History H/O neck surgery History of mitral valve replacement with bioprosthetic valve History of varicocele Hx of cardiac cath Social History Social History Household Members: None Housing: House Are you a primary healthcare interpreter to a significant other at home: No Do you presently have visiting nurse or other home services: No Comment: 1 assist Patient Tobacco Use Status: Never used Tobacco e-Cigarette/Vaping Use: Never Used Second Hand Smoke Exposure: No Substance Use Type: Marijuana Advance Directives Date on File: 02/03/20 service: No Meds Allergies Allergy/AdvReac Type Severity Reaction Status Date / Time lactose [LACTOSE] AdvReac Unknown DIARRHEA Verified 04/14/24 21:11 onion [Onion] AdvReac Unknown DIARRHEA Verified 04/14/24 21:11 WITH RAW ONIONS Active Medications: Current Medications Acetaminophen (Acetaminophen 325 Mg Tablet) 650 mg PO Q6H PRN PRN Reason: Pain, Mild (Pain Scale 1-3), fever or headache Ascorbic Acid (Ascorbic Acid 500 Mg Tablet) 2,000 mg PO DAILY [facility] Last Admin: 04/15/24 11:02 Dose: 2,000 mg Aspirin (Aspirin 81 Mg Tab.Chew) 81 mg PO DAILY [facility] Last Admin: 04/15/24 09:46 Dose: 81 mg Atorvastatin Calcium (Atorvastatin Calcium 20 Mg Tablet) 20 mg PO BEDTIME [facility] Calcium Carbonate (Calcium Carbonate 750 Mg Tab.Chew) 750 mg PO Q4H PRN PRN Reason: Heartburn Celecoxib (Celecoxib 200 Mg Capsule) 200 mg PO BID [facility] Last Admin: 04/15/24 11:02 Dose: 200 mg Docusate Sodium (Docusate Sodium 100 Mg Capsule) 100 mg PO DAILY PRN PRN Reason: Constipation Enoxaparin Sodium (Enoxaparin Sodium 40 Mg/0.4 Ml Syringe) 40 mg SUBCUT Q24H [facility] Last Admin: 04/15/24 06:29 Dose: 40 mg Escitalopram Oxalate (Escitalopram Oxalate 10 Mg Tablet) 10 mg PO DAILY [facility] Last Admin: 04/15/24 11:02 Dose: 10 mg Gabapentin (Gabapentin 300 Mg Capsule) 600 mg PO BEDTIME [facility] Cefazolin Sodium/Dextrose (Ancef) 2 gm in 50 mls @ 100 mls/hr IV Q8H [facility] Last Infusion: 04/15/24 09:59 Dose: Infused Magnesium Hydroxide (Milk Of Magnesia 30 Ml Oral.Susp) 30 ml PO DAILY PRN PRN Reason: Constipation Melatonin (Melatonin 3 Mg Tablet) 6 mg PO BEDTIME PRN PRN Reason: Insomnia Methocarbamol (Methocarbamol 500 Mg Tablet) 500 mg PO QID PRN PRN Reason: Muscle Spasm Metoprolol Succinate (Metoprolol Succinate Er 50 Mg Tab.Er.24h) 50 mg PO BID [facility]; Protocol Last Admin: 04/15/24 11:02 Dose: 50 mg Omeprazole (Omeprazole 20 Mg Capsule.Dr) 20 mg PO BID@0630,1630 PRN PRN Reason: Acid Reflux Polyethylene Glycol (Polyethylene Glycol 3350 17 Gm Powd.Pack) 17 gm PO DAILY PRN PRN Reason: Constipation Sodium Chloride (0.9 % Sodium Chloride Flush 3 Ml Syringe) [address] [facility] Last Admin: 04/15/24 10:24 Dose: Not Given Tramadol HCl (Tramadol Hcl 50 Mg Tablet) 50 mg PO Q6H PRN PRN Reason: back pain Home Medications ?Medication ?Instructions ?Recorded ?Confirmed ?Last Taken ?Type aspirin 81 mg tablet,delayed 81 mg PO DAILY 07/20/20 04/15/24 04/14/24 History release (Adult Low Dose Aspirin) coenzyme Q10 100 mg capsule 100 mg PO DAILY 07/20/20 04/15/24 04/14/24 History magnesium 250 mg tablet 250 mg PO DAILY 07/20/20 04/15/24 04/14/24 09:00 History ascorbate calcium (vitamin C) 500 2 g PO DAILY 11/22/20 04/15/24 04/14/24 History mg tablet docusate sodium 100 mg capsule 100 mg PO DAILY PRN Constipation 11/22/20 04/15/24 02/28/24 06:00 History (Colace) gabapentin 300 mg capsule 600 mg PO BEDTIME 11/22/20 04/15/24 04/13/24 History atorvastatin 20 mg tablet 20 mg PO BEDTIME 02/28/24 04/15/24 04/13/24 History escitalopram oxalate 10 mg tablet 10 mg PO DAILY 04/15/24 04/15/24 04/14/24 History methocarbamol 500 mg tablet 500 mg PO QID PRN Muscle Spasm 04/15/24 04/15/24 Unknown History metoprolol succinate 50 mg 50 mg PO BID 04/15/24 04/15/24 04/14/24 History tablet,extended release 24 hr omeprazole 20 mg capsule,delayed 20 mg PO BID@0630,1630 PRN Acid 04/15/24 04/15/24 Unknown History release Reflux polyethylene glycol 3350 17 gram 17 g PO DAILY PRN Constipation 04/15/24 04/15/24 Unknown History oral powder packet Physical Exam Vital Signs: Vital Signs: Last Vital Signs Temp 97 F 04/15/24 07:51 Pulse 60 04/15/24 07:51 Resp 18 04/15/24 07:51 BP 140/69 H 04/15/24 07:51 Pulse Ox 99 04/15/24 07:51 O2 Del Method Room Air 04/15/24 07:51 BMI result Body Mass Index 21.1 Const: General: comfortable and no acute distress Orientation/consciousness: patient oriented x3 HEENT: Other: Unremarkable Head: Yes normal to inspection Neck: Neck: Yes normal visual inspection Chest: Chest palpation & inspection: normal inspection of the chest Resp: Auscultation: clear to auscultation bilaterally Cardio: Palpation: normal PMI Heart sounds: S1 normal heart sound present, S2 normal heart sound present, no gallops, Murmur heart sound present systolic II/, at the apex and at the left sternal border and no rubs GI: Palpation (GI): Soft to palpation Back/Spine/Pelvis: Other: unremarkable Skin: General skin exam: no rashes or lesions noted Neuro: General: patient oriented x3 Extrem: General: Yes normal to inspection Psych: Mental Status: mental status grossly normal Objective Labs and Meds 04/14/24 21:34 04/14/24 21:34 Lab results: Laboratory Results - last 24 hr 04/14/24 04/14/24 04/15/24 21:34 21:48 00:18 WBC 7.6 RBC 4.65 Hgb 13.2 L Hct 39.7 L MCV 85.4 MCH 28.4 MCHC 33.2 RDW 14.6 Plt Count 303 MPV 10.1 Immature Gran % (Auto) 0.3 Neut % (Auto) 78.0 H Lymph % (Auto) 13.9 L [place] % (Auto) 5.3 Eos % (Auto) 1.7 Baso % (Auto) 0.8 Lymph # (Auto) 1.1 L [place] # (Auto) 0.4 Eos # (Auto) 0.1 Baso # (Auto) 0.1 Abs Immat Gran (auto) 0.02 Absolute Neuts (auto) 5.9 Absolute Nucleated RBC 0.000 Nucleated RBC % (auto) 0.0 PT 14.2 H D INR 1.2 H Sodium 135 Potassium 4.7 Chloride 100 Carbon Dioxide 26 Anion Gap 14 BUN 15 Creatinine 0.88 Estim Creat Clear Calc 60.8 Estimated GFR > 60 Random Glucose 109 Lactic Acid 2.6 H* Lactic Acid F/U @ 2Hr 0.9 Calcium 9.4 D Magnesium 2.2 Total Bilirubin 0.6 Direct Bilirubin 0.2 AST 35 ALT 6 Alkaline Phosphatase 93 Total Creatine Kinase 109 Troponin I High Sens < 2.7 D Total Protein 8.4 H Albumin 4.4 TSH 3.43 Urine Color Yellow Urine Appearance Clear Urine pH 6.5 Ur Specific [place] 1.010 Urine Protein Trace Urine Glucose (UA) Negative Urine Ketones Negative Urine Blood Negative Urine Nitrite Negative Ur Leukocyte Esterase Negative Urine Opiates Screen Not Detected Ur Buprenorphine Scrn Not Detected Ur Oxycodone Screen Not Detected Urine Methadone Screen Not Detected Urine Fentanyl Screen Not Detected Ur Barbiturates Screen Not Detected Ur Phencyclidine Scrn Not Detected Ur Amphetamines Screen Not Detected U Benzodiazepines Scrn Not Detected Urine Cocaine Screen Not Detected U Marijuana (THC) Screen POSITIVE H Ethyl Alcohol < 10 Influenza Type A (PCR) NEGATIVE Influenza Type B (PCR) NEGATIVE RSV RNA Qual (PCR) NEGATIVE SARS-CoV-2 RNA (RT-PCR) NEGATIVE ECG Interpretation: EKG with underlying sinus rhythm at 63/Min; possible left atrial enlargement; no significant ST-T changes and otherwise unremarkable. Imaging Radiologist's impression: Impressions Cervical Spine CT 04/14/24 21:17 IMPRESSION: 1. No evidence of acute intracranial hemorrhage or edematous territorial infarction. Moderate underlying microangiopathy and generalized cerebral volume loss. 2. Instrumented posterior fusion of C3-C6. No evidence of hardware fracture or loosening. 3. No evidence of acute fracture or traumatic subluxation of the cervical spine. Moderate multilevel degenerative spondyloarthropathy of the cervical spine. Electronically signed by: Garrett Lizamaandrew CANTRELL 04/14/2024 11:39 PM EST RP Chest CTA 04/14/24 22:06 IMPRESSION: 1. No evidence of pulmonary embolism. 2. Mild patchy airspace opacity in the medial aspect of the left lower lobe with small volume mucous layering within a segmental bronchus in this distribution. Findings are suggestive of an early infectious/inflammatory process, potentially secondary to mild aspiration. VTE: negative Electronically signed by: Garrett Giles DO 04/15/2024 02:10 AM EST RP Head CT 04/14/24 22:06 IMPRESSION: 1. No evidence of acute intracranial hemorrhage or edematous territorial infarction. Moderate underlying microangiopathy and generalized cerebral volume loss. 2. Instrumented posterior fusion of C3-C6. No evidence of hardware fracture or loosening. 3. No evidence of acute fracture or traumatic subluxation of the cervical spine. Moderate multilevel degenerative spondyloarthropathy of the cervical spine. Electronically signed by: Garrett Lizamaandrew CANTRELL 04/14/2024 11:39 PM EST RP Head/Neck CTA 04/15/24 01:49 IMPRESSION: 1. No large vessel occlusion or significant stenosis within the intracranial circulation. 2. Atherosclerotic plaque at the carotid bifurcations without significant narrowing. Electronically signed by: Zaid Rose MD 04/15/2024 05:27 AM EST RP Assessment and Plan (1) Syncope: Status: Acute (2) Prosthetic valve endocarditis: Status: Acute Plan EKG shows sinus rhythm and no acute findings. Telemetry is also unremarkable. High sensitivity troponin within range. Etiology for the syncope is not very clear. We will check an echocardiogram although doubt any complications as he has been on antibiotics all this time. Discussed with daughter. Procedures Date of Service Date of Service: 04/15/24
--- NOTE | 2024-04-15 12:17 | MHC.CM.PN ---
LATHA 04/15/24, EMR REVIEWED, PT W/SYNCOPAL EPISODE, CM MET W/PT WHO REPORTS HE WENT BACK TO WORK 2 WKS AGO, IS FULLY INDEP W/CARE, HAS A QUAD CANE/WHEELED WALKER AT HOME HOWEVER DOES NOT NEED TO USE THEM, [facility] SERVICES ENDED HOWEVER PT STILL HAS [facility] FOR IV ABX DELIEVERY THROUGH 04/26/24. PT'S GOAL FOR DC IS HOME AND REPORTS HE WOULD NOT WANT TO GO BACK TO REHAB. PT'S PCP/HCP ON FILE VERIFIED. ANTIC PT WILL DC HOME LATER TODAY VS TOMORROW NO SERVICES ANTICIPATED AND FAMILY FOR TRANSPORT
[2024-04-15] MEDS: gadobutroL 7.5 ML VIAL IVPUSH (13:08)
[2024-04-15 15:40] LABS: Cholesterol 138 mg/dL (<200); HDL Cholesterol 50 mg/dL (>40); LDL Cholesterol Calculated 74 mg/dL (<100); Triglycerides 72 mg/dL (<150)
--- NOTE | 2024-04-15 16:55 | P.CNID_ITS ---
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 He is due to be done with Kefzol in 11 days. Prior to admission he had syncopal episode for three hours before getting in car. He woke up and wasnt aware he lost time. He is taking Kefzol for PVE. CT scan right thalamus CVA. Review of Systems 2 Review of Systems: Yes all other systems are reviewed and are negative [facility] Past Medical History Medical History Obstructive sleep apnea hypopnea, moderate CAD (coronary artery disease) Mitral valve prolapse Hyperlipidemia PVCs (premature ventricular contractions) Postoperative atrial fibrillation Family History Family History Father No problems noted. Mother No problems noted. Surgical History Surgical History H/O neck surgery History of mitral valve replacement with bioprosthetic valve History of varicocele Hx of cardiac cath Social History Social History Household Members: None Housing: House Are you a primary customer care agent to a significant other at home: No Do you presently have visiting nurse or other home services: No Comment: 1 assist Patient Tobacco Use Status: Never used Tobacco Smoked in Last 30 Days: No e-Cigarette/Vaping Use: Never Used Second Hand Smoke Exposure: No Use of substances other than those prescribed or required for medical reasons: Yes Substance Use Type: Marijuana Substance Use Type Other:: uses to stimulate appetite Currently Displaying Signs/Symptoms of Drug Intoxication Withdrawal: No Have you been hit, kicked, punched, or otherwise hurt by someone within the past year? If so, by whom?: No Do you feel safe in your current relationship?: No Is there a partner from a previous relationship who is making you feel unsafe now?: No Are you made to feel afraid or neglected: No Advance Directives: Yes Advance Directives on File: Yes Advance Directives Date on File: 02/03/20 Do you have a plan to hurt others: No Plan Recently lost weight without trying: Yes How much weight loss: 2-13 pounds service: No Meds Allergies Allergy/AdvReac Type Severity Reaction Status Date / Time lactose [LACTOSE] AdvReac Unknown DIARRHEA Verified 04/14/24 21:11 onion [Onion] AdvReac Unknown DIARRHEA Verified 04/14/24 21:11 WITH RAW ONIONS Active Medications: Current Medications Acetaminophen (Acetaminophen 325 Mg Tablet) 650 mg PO Q6H PRN PRN Reason: Pain, Mild (Pain Scale 1-3), fever or headache Ascorbic Acid (Ascorbic Acid 500 Mg Tablet) 2,000 mg PO DAILY [facility] Last Admin: 04/15/24 11:02 Dose: 2,000 mg Aspirin (Aspirin 81 Mg Tab.Chew) 81 mg PO DAILY [facility] Last Admin: 04/15/24 09:46 Dose: 81 mg Atorvastatin Calcium (Atorvastatin Calcium 40 Mg Tablet) 40 mg PO BEDTIME LILI Calcium Carbonate (Calcium Carbonate 750 Mg Tab.Chew) 750 mg PO Q4H PRN PRN Reason: Heartburn Celecoxib (Celecoxib 200 Mg Capsule) 200 mg PO BID [facility] Last Admin: 04/15/24 11:02 Dose: 200 mg Clopidogrel Bisulfate (Clopidogrel Bisulfate 75 Mg Tablet) 75 mg PO DAILY [facility] Docusate Sodium (Docusate Sodium 100 Mg Capsule) 100 mg PO DAILY PRN PRN Reason: Constipation Enoxaparin Sodium (Enoxaparin Sodium 40 Mg/0.4 Ml Syringe) 40 mg SUBCUT Q24H [facility] Last Admin: 04/15/24 06:29 Dose: 40 mg Escitalopram Oxalate (Escitalopram Oxalate 10 Mg Tablet) 10 mg PO DAILY [facility] Last Admin: 04/15/24 11:02 Dose: 10 mg Gabapentin (Gabapentin 300 Mg Capsule) 600 mg PO BEDTIME [facility] Cefazolin Sodium/Dextrose (Ancef) 2 gm in 50 mls @ 100 mls/hr IV Q8H [facility] Last Infusion: 04/15/24 09:59 Dose: Infused Magnesium Hydroxide (Milk Of Magnesia 30 Ml Oral.Susp) 30 ml PO DAILY PRN PRN Reason: Constipation Melatonin (Melatonin 3 Mg Tablet) 6 mg PO BEDTIME PRN PRN Reason: Insomnia Methocarbamol (Methocarbamol 500 Mg Tablet) 500 mg PO QID PRN PRN Reason: Muscle Spasm Metoprolol Succinate (Metoprolol Succinate Er 50 Mg Tab.Er.24h) 50 mg PO BID [facility]; Protocol Last Admin: 04/15/24 11:02 Dose: 50 mg Pantoprazole Sodium (Pantoprazole Sodium 20 Mg Tablet.) 40 mg PO BID@0630,1830 [facility] Polyethylene Glycol (Polyethylene Glycol 3350 17 Gm Powd.Pack) 17 gm PO DAILY PRN PRN Reason: Constipation Sodium Chloride (0.9 % Sodium Chloride Flush 3 Ml Syringe) 3 ml IVFLUSH QSHIFT [facility] Last Admin: 04/15/24 10:24 Dose: Not Given Tramadol HCl (Tramadol Hcl 50 Mg Tablet) 50 mg PO Q6H PRN PRN Reason: back pain Home Medications ?Medication ?Instructions ?Recorded ?Confirmed ?Last Taken ?Type aspirin 81 mg tablet,delayed 81 mg PO DAILY 07/20/20 04/15/24 04/14/24 History release (Adult Low Dose Aspirin) coenzyme Q10 100 mg capsule 100 mg PO DAILY 07/20/20 04/15/24 04/14/24 History magnesium 250 mg tablet 250 mg PO DAILY 07/20/20 04/15/24 04/14/24 09:00 History ascorbate calcium (vitamin C) 500 2 g PO DAILY 11/22/20 04/15/24 04/14/24 History mg tablet docusate sodium 100 mg capsule 100 mg PO DAILY PRN Constipation 11/22/20 04/15/24 02/28/24 06:00 History (Colace) gabapentin 300 mg capsule 600 mg PO BEDTIME 11/22/20 04/15/24 04/13/24 History atorvastatin 20 mg tablet 20 mg PO BEDTIME 02/28/24 04/15/24 04/13/24 History escitalopram oxalate 10 mg tablet 10 mg PO DAILY 04/15/24 04/15/24 04/14/24 History methocarbamol 500 mg tablet 500 mg PO QID PRN Muscle Spasm 04/15/24 04/15/24 Unknown History metoprolol succinate 50 mg 50 mg PO BID 04/15/24 04/15/24 04/14/24 History tablet,extended release 24 hr omeprazole 20 mg capsule,delayed 20 mg PO BID@0630,1630 PRN Acid 04/15/24 04/15/24 Unknown History release Reflux polyethylene glycol 3350 17 gram 17 g PO DAILY PRN Constipation 04/15/24 04/15/24 Unknown History oral powder packet Physical Exam 2 Vital Signs: Vital Signs: Last Vital Signs Temp 97.9 F 04/15/24 15:03 Pulse 63 04/15/24 15:03 Resp 20 04/15/24 15:03 BP 135/72 04/15/24 15:03 Pulse Ox 100 04/15/24 15:03 O2 Del Method Room Air 04/15/24 15:03 BMI result Body Mass Index 21.1 Const: General: cooperative HEENT: Head: Yes normal to inspection Face and sinus: Yes normal facial exam Mouth: Normal oral and palatal mucosa present Teeth and gingiva: d entition normal Eyes: General: appearance normal, both eyes and all related structures P upils: Equal, round and reactive pupils present Resp: Effort & Inspection: normal respiratory effort Cardio: Rate: regular rate Rhythm: regular rhythm GI: Palpation (GI): Soft to palpation and nontender : General: Yes no CVA tenderness Back/Spine/Pelvis: Back: no CVA tenderness Skin: General skin exam: no rashes or lesions noted Neuro: General: moves all extremities Cranial nerves: Yes Equal, round and reactive pupils present Extrem: General: Yes normal to inspection Psych: Appearance: grossly normal Results Labs 04/14/24 21:34 04/14/24 21:34 Labs: Short CBC 04/14/24 Range/Units 21:34 WBC 7.6 (4.8-10.8) X10*3/uL Hgb 13.2 L (14.0-18.0) g/dl Hct 39.7 L (42.0-52.0) % Plt Count 303 (160-400) X10*3/uL BMP 04/14/24 21:34 Sodium 135 Potassium 4.7 Chloride 100 Carbon Dioxide 26 BUN 15 Creatinine 0.88 Calcium 9.4 D Cardiac Enzymes 04/14/24 Range/Units 21:34 Total Creatine Kinase 109 (38-174) U/L Liver Function 04/14/24 Range/Units 21:34 Total Bilirubin 0.6 (0.0-1.0) mg/dL Direct Bilirubin 0.2 (0.0-0.5) mg/dL AST 35 (5-37) U/L ALT 6 (0-40) U/L Alkaline Phosphatase 93 (39-117) U/L Albumin 4.4 (3.5-5.0) g/dL Urine 12/17/24 Range/Units 21:48 Urine Color Yellow Urine Appearance Clear Urine pH 6.5 (5.0-9.0) Ur Specific [place] 1.010 (1.005-1.025) Urine Protein Trace (Neg-Trace) mg/dL Urine Glucose (UA) Negative (Negative) mg/dL Assessment and Plan (1) Syncope: Status: Acute (2) Fall: Status: Acute (3) Prosthetic valve endocarditis: Status: Acute Plan He is doing well now. Doubt cephalosporins are cause Switch to Daptomycin for 11 days , 8 mg/kg day. GABBY now if able, TTE still shows vegetation. C surg eval if GABBY enlarging vegetation or valve ring abscess. Can hold statin while on Daptomycin if OK with Neurology.
[2024-04-15] MEDS: DAPTOmycin 500 MG in 0.9 % Sodium Chloride 50 ML 100.33 MG IV (20:28)
[2024-04-15] MEDS: Gabapentin 300 MG CAPSULE 600 MG PO (20:36)
[2024-04-15] MEDS: Magnesium Oxide 400 MG TABLET 200 MG PO (21:19)
[2024-04-16] VITALS: BP 121/62; PULSE 69; RESP 18; TEMP 36.6; O2SAT 96
--- NOTE | 2024-04-16 | EEG_ITS ---
FINDINGS: The waking background activity consists of low voltage fast frequencies seen diffusely intermixed with a low-voltage posterior 9 hertz alpha frequency. Photic stimulation is without activation. Hyperventilation was omitted. No sleep stages are identified. No focal, lateralizing, or paroxysmal discharges are seen. IMPRESSION: This waking EEG is within normal limits. MD CHELSEA Marie/JUAN JOSE / [phone]
[2024-04-16] MEDS: 0.9 % Sodium Chloride Flush 3 ML SYRINGE IVFLUSH ×2 (00:26→08:32)
[2024-04-16 03:41] VITALS: BP 131/71; PULSE 69; RESP 18; TEMP 36.4; O2SAT 99
[2024-04-16 06:44] LABS: Anion Gap 13 (12-20); Blood Urea Nitrogen 15 mg/dL (9-16); Calcium 8.6 mg/dL (8.4-10.2); Carbon Dioxide 24 mmol/L (22-29); Chloride 105 mmol/L (96-108); Creatinine Clr Calc Pharmacy 65.3; Estimated Glomerular Filt Rate > 60; Glucose Random 87 mg/dL (60-115); Sodium 138 mmol/L (135-145)
[2024-04-16 07:04] LABS: Hematocrit 35.8 % (42.0-52.0); Hemoglobin 11.8 g/dl (14.0-18.0); Mean Platelet Volume 10.4 fL (9.4-12.4); Platelet Count 280 X10*3/uL (160-400); Red Blood Count 4.21 X10*6/uL (4.60-5.80); Red Cell Distribution Width 14.8 % (11.0-16.0); White Blood Count 5.5 X10*3/uL (4.8-10.8)
[2024-04-16 07:17] VITALS: BP 135/74; PULSE 68; RESP 18; TEMP 36.3; O2SAT 98
[2024-04-16] MEDS: Escitalopram Oxalate 10 MG TABLET PO (08:27)
[2024-04-16] MEDS: Clopidogrel Bisulfate 75 MG TABLET PO (08:27)
[2024-04-16] MEDS: Metoprolol Succinate ER 50 MG TAB.ER.24H PO (08:30)
[2024-04-16] MEDS: Aspirin 81 MG TAB.CHEW PO (08:30)
[2024-04-16] MEDS: Ascorbic Acid 500 MG TABLET 2000 MG PO (08:31)
--- NOTE | 2024-04-16 09:47 | PM.PNCARD ---
Subjective Subjective Date of Service: 04/16/24 Interval history: He states that he feels fine. He wants to go home. Review of Systems Review of Systems Yes all other systems are reviewed and are negative Constitutional: Reports as per HPI and Reports no additional constitutional complaints Eyes: Reports as per HPI and Denies no additional eye complaints Denies system reviewed and no additional complaints, except as documented and Reports as per HPI Cardiovascular: Reports as per HPI, Reports no additional cardiovascular complaints, Denies acrocyanosis, Denies cool extremities, Denies chest pain, Denies leg edema, Denies lightheadedness, Denies palpitations and Denies dyspnea Respiratory: Reports as per HPI, Denies no additional respiratory complaints and Denies dyspnea Gastrointestinal: Reports as per HPI and Denies no additional gastrointestinal complaints Genitourinary: Reports no additional male genitourinary complaints and Reports as per HPI Musculoskeletal: Reports no additional musculoskeletal complaints and Reports as per HPI Skin/Breast: Reports system reviewed and no additional complaints, except as docu Reports system reviewed and no additional complaints, except as documented and Reports as per HPI Psychiatric: Reports no additional psychiatric complaints and Reports as per HPI Endocrine: Reports no additional endocrine complaints, Reports as per HPI and Denies palpitations Hematologic/Lymphatic: Reports no additional hematologic/lymphatic complaints and Reports as per HPI Allergic/Immunologic: Reports no additional allergic/immunologic complaints and Reports as per HPI Physical Exam Vital Signs: Last Vital Signs Temp 97.4 F 04/16/24 07:17 Pulse 68 04/16/24 07:17 Resp 18 04/16/24 07:17 BP 135/74 04/16/24 07:17 Pulse Ox 98 04/16/24 07:17 O2 Del Method Room Air 04/16/24 07:17 BMI result Body Mass Index 21.1 Const General: comfortable and no acute distress Orientation/consciousness: patient oriented x3 HEENT Other: Unremarkable Head: Yes normal to inspection Neck Neck: Yes normal visual inspection Chest Chest palpation & inspection: normal inspection of the chest Resp Auscultation: clear to auscultation bilaterally Cardio Palpation: normal PMI Heart sounds: S1 normal heart sound present, S2 normal heart sound present, no gallops, Murmur heart sound present systolic II/, at the apex and at the left sternal border and no rubs GI Palpation (GI): Soft to palpation Back/Spine/Pelvis Other: unremarkable Skin General skin exam: no rashes or lesions noted Neuro General: patient oriented x3 Extrem General: Yes normal to inspection Psych Mental Status: mental status grossly normal Objective Labs and Meds 04/16/24 05:57 04/16/24 05:57 Lab results: Laboratory Results - last 24 hr 04/14/24 04/16/24 21:34 05:57 WBC 5.5 RBC 4.21 L Hgb 11.8 L Hct 35.8 L MCV 85.0 MCH 28.0 MCHC 33.0 RDW 14.8 Plt Count 280 MPV 10.4 Absolute Nucleated RBC 0.000 Nucleated RBC % (auto) 0.0 Sodium 138 Potassium 4.0 Chloride 105 Carbon Dioxide 24 Anion Gap 13 BUN 15 Creatinine 0.82 Estim Creat Clear Calc 65.3 Estimated GFR > 60 Random Glucose 87 Calcium 8.6 D Triglycerides 72 Cholesterol 138 LDL Cholesterol, Calc 74 HDL Cholesterol 50 Imaging Radiologist's impression: Impressions Brain MRI 04/15/24 12:31 IMPRESSION: 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 No hemorrhagic transformation. Electronically signed by: Sudarshan Eason MD 04/15/2024 01:49 PM [facility] Progress Note: A&P Assessment and plan (1) Syncope: Status: Acute (2) Prosthetic valve endocarditis: Status: Acute Plan EKG shows sinus rhythm and no acute findings. Telemetry is also unremarkable. High sensitivity troponin within range. In the echocardiogram, there is evidence of vegetation in the mitral prosthesis at the subvalvular level but similar to prior (images compared). Blood cultures so far negative. Brain MRI shows infarct in the thalamus but per discussion with Dr. Mendosa, not thought to be septic embolus. Clinically, he does not appear toxic. We discussed about doing another GABBY as an inpatient but patient would like to just keep the OP appointment rather for next week as previously scheduled. He would prefer to just get discharged now as he states he feels fine. Antibiotics have been changed by ID and continue per their recommendations. May keep GABBY appointment for next week. Time Spent With Patient Time: Total time managing care of this patient today ____ minutes. Progress Note: Quality Stroke Does the patient have a stroke diagnosis?: No Procedures Date of Service Date of Service: 04/16/24
--- NOTE | 2024-04-16 10:29 | PM.DS ---
DS: Providers Provider Date of Service: 04/16/24 Date of admission: 04/15/24 13:25 Date of discharge: 04/16/24 Primary care physician: Judith Garcia MD Consults: 04/15/24 07:01 Consult to Cardiology Routine Consulting Provider: [facility] Reason for consultation: sycnope Consult to Neurology Routine Consulting Provider: [facility] Reason for consultation: LOC 04/15/24 08:20 Consult to Infectious Diseases Routine Consulting Provider: [facility] Reason for consultation: follow up diskitis, endocarditis DS: Diagnosis Discharge Diagnosis (1) Syncope: Status: Acute (2) Prosthetic valve endocarditis: Status: Acute DS: Summary Hospital Course Hospital Course: from initial hpi: 78-year-old male with a past medical history significant for URIEL, CAD, mitral valve prolapse status post bioprosthetic mitral valve replacement, HLD, PVCs, postop AFib, recent admission discharged 03/06 for MSSA bacteremia with septic shock secondary to T11-T12 diskitis, acute infected endocarditis of the bioprosthetic mitral valve, right lower lobe pneumonia versus atelectasis with current PICC line cefazolin q8h due to complete on 04/26/2024, who presented to the ED last night due to a fall and loss of consciousness. Patient reports that he finished work around 18:15 and had an unwitnessed fall getting into his car. He reports he tried to get up and lacerated his lip. He is unaware of what happened after that for about 3 hours however called his daughter around 21:00 as he could not find his keys and he was unaware of what had happened. He denies any urinary incontinence or known seizure-like activity. He does not have a history of a seizure disorder and does not take benzos. He denies feeling ill prior to this event including any shortness of breath, chest pain, lightheadedness or headache. hospital course: Patient was admitted for loss of consciousness, concern for possible seizure. Had no events on telemetry, echo showed persistent stable vegetation but cardiac syncope unlikely. Was seen by neurology recommended EEG, which was done and report should be followed up. holding off on AEDs for now, but recommended not to drive until cleared by neuro. 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 for non obstructive CAD continued on asa, statin (until stopped for dapto). Time Attestation Discharge Coordination Time (in mins): 34 Quality: Safe Use of Opioids Does Pt have an Active Cancer Diagnosis on the Problem List?: No Quality: Stroke Does the patient have a stroke diagnosis?: Yes Reason for No Anti-thrombotic at DC: N/A - Med Ordered Reason for No Anticoagulant at DC: Drug treatment not indicated Reason Not Initiating IV-Tpa: Drug treatment not indicated Reason for No Anti-thrombotic by Day Two: N/A - Med Ordered Reason for No Statin at DC: Contraindicated Physical Exam Vital Signs: Vital Signs: Last Vital Signs Temp 97.4 F 04/16/24 07:17 Pulse 68 04/16/24 07:17 Resp 18 04/16/24 07:17 BP 135/74 04/16/24 07:17 Pulse Ox 98 04/16/24 07:17 O2 Del Method Room Air 04/16/24 07:17 BMI result Body Mass Index 21.1 Const: General: comfortable and no acute distress Orientation/consciousness: patient oriented x3 HEENT: Other: Unremarkable Head: Yes normal to inspection Neck: Neck: Yes normal visual inspection Chest: Chest palpation & inspection: normal inspection of the chest Resp: Auscultation: clear to auscultation bilaterally Cardio: Palpation: normal PMI Heart sounds: S1 normal heart sound present, S2 normal heart sound present, no gallops, Murmur heart sound present systolic II/, at the apex and at the left sternal border and no rubs GI: Palpation (GI): Soft to palpation Back/Spine/Pelvis: Other: unremarkable Skin: General skin exam: no rashes or lesions noted Neuro: General: patient oriented x3 Extrem: General: Yes normal to inspection Psych: Mental Status: mental status grossly normal DS: Data Data Completed and Pending Completed studies during hospitalization [Text1]: Procedures Insertion of Infusion Device into Superior Vena Cava, Percutaneous Approach (02/28/24) Introduction of Vasopressor into Peripheral Vein, Percutaneous Approach (02/28/24) Ultrasonography of Heart with Aorta, Transesophageal (02/28/24) Ultrasonography of Superior Vena Cava, Guidance (02/28/24) Labs on day of discharge: Laboratory Results - last 24 hr 04/14/24 04/16/24 21:34 05:57 WBC 5.5 RBC 4.21 L Hgb 11.8 L Hct 35.8 L MCV 85.0 MCH 28.0 MCHC 33.0 RDW 14.8 Plt Count 280 MPV 10.4 Absolute Nucleated RBC 0.000 Nucleated RBC % (auto) 0.0 Sodium 138 Potassium 4.0 Chloride 105 Carbon Dioxide 24 Anion Gap 13 BUN 15 Creatinine 0.82 Estim Creat Clear Calc 65.3 Estimated GFR > 60 Random Glucose 87 Calcium 8.6 D Triglycerides 72 Cholesterol 138 LDL Cholesterol, Calc 74 HDL Cholesterol 50 Preliminary micro results at discharge 04/14/24 21:34 Blood Culture - Preliminary Blood - Venous No growth after 24 hours. 04/14/24 21:34 Blood Culture - Preliminary Blood - Venous No growth after 24 hours. Discharge Plan Discharge Anticipated Discharge Date/Time: 04/16/24 10:25 Patient Disposition: Home, Self-Care Discharge Diagnosis: syncope Referrals: Antione Dill MD [Physician] - 1 Week Judith Garcia MD [Primary Care Provider] - 1 Week Discharge Medications: New daptomycin 500 mg recon soln 500 mg IV Q24H Rx Instructions: administer over 30 mins, end apr 26, 2024 clopidogrel 75 mg Tablet 75 mg PO DAILY Qty: 90 0RF Continued metoprolol succinate 50 mg tablet extended release 24 hr 50 mg PO BID escitalopram oxalate 10 mg tablet 10 mg PO DAILY methocarbamol 500 mg tablet 500 mg PO QID PRN (Reason: Muscle Spasm) polyethylene glycol 3350 17 gram powder in packet 17 g PO DAILY PRN (Reason: Constipation) omeprazole 20 mg capsule,delayed release(DR/EC) 20 mg PO BID@0630,1630 PRN (Reason: Acid Reflux) celecoxib 200 mg Capsule 200 mg PO BID Qty: 0 0RF acetaminophen 325 mg Tablet 975 mg PO Q6H PRN (Reason: Pain, Moderate(Pain Scale 4-6)) Qty: 0 0RF tramadol 50 mg Tablet 50 mg PO Q6H PRN (Reason: back pain) Qty: 0 0RF docusate sodium [Colace] 100 mg capsule 100 mg PO DAILY PRN (Reason: Constipation) ascorbate calcium (vitamin C) 500 mg tablet 2 g PO DAILY aspirin [Adult Low Dose Aspirin] 81 mg tablet,delayed release (DR/EC) 81 mg PO DAILY coenzyme Q10 100 mg capsule 100 mg PO DAILY magnesium 250 mg tablet 250 mg PO DAILY gabapentin 300 mg capsule 600 mg PO BEDTIME Held atorvastatin 20 mg tablet 20 mg PO BEDTIME Hold Instructions: Resume on 04/27/24. doxycycline hyclate 100 mg capsule 100 mg PO BID 30 Days Qty: 60 1RF Hold Instructions: Resume on 04/27/24. Discontinued cefazolin in dextrose (iso-os) 2 gram/50 mL Piggyback 50 ml IV Q8H Qty: 0 0RF Rx Instructions: end apr 26, 2024 Discharge Orders: Discharge Order (Routine); Ordered 04/16/24 Ordered By: Justen Mendosa Diet: Advance to usual diet Activity on Discharge: As tolerated Stand Alone Forms: Patient Portal Discharge page Print Language: Kinyarwanda Care Plan Goals: recovery Health Concerns: LOC Plan of Treatment: follow up eeg results with neuro (recommending to avoid driving until cleared by neuro) ancef changed to dapto for duration of treatment, cpk weekly, GABBY at completion starting plavix hold statin and restart after dapto course Assessment: see above Patient Instructions: Clopidogrel (By mouth), Daptomycin (By injection)
--- NOTE | 2024-04-16 11:12 | MHC.CM.PN ---
IMM 04/16/24 Patient will discharge today. [facility] been [facility]. They will resume services 04/17/24. An ID consult was done. The IV ABX will change to Dapto. He will receive a dose prior to discharge. The [facility] liason has arranged for services to resume tomorrow. Orders have been signed by MD. Patient is ordered for an EEG prior to discharge. DP Home with [facility]. Patients dtr will provide transportation home.
[2024-04-16] MEDS: DAPTOmycin 500 MG in 0.9 % Sodium Chloride 50 ML 100 MG IV (11:20)
[2024-04-16 11:21] VITALS: PULSE 64; RESP 18; TEMP 36.2; O2SAT 100
== END 2024-04-16 12:40 | disposition home or self-care (01) | DRG 314 ==
LOC: HO.ED 04-15 02:57 → HO.EDOVER 04-15 06:04 → HO.IMC 04-15 06:10
PROVIDERS: Emergency Medicine; Admitting Provider Student in an Organized Health Care Education/Training Program; Emergency Provider Internal Medicine; PCP Internal Medicine; Visit Provider Internal Medicine
DX: T82.6XXA Infection and inflammatory reaction due to cardiac valve prosthesis, initial encounter (principal); I33.0 Acute and subacute infective endocarditis; Y71.8 Miscellaneous cardiovascular devices associated with adverse incidents, not elsewhere classified; R55 Syncope and collapse; I25.10 Atherosclerotic heart disease of native coronary artery without angina pectoris; B95.61 Methicillin susceptible Staphylococcus aureus infection as the cause of diseases classified elsewhere; I10 Essential (primary) hypertension; Z20.822 Contact with and (suspected) exposure to COVID-19; Z79.82 Long term (current) use of aspirin; Z79.899 Other long term (current) drug therapy
CPT/HCPCS: 0241U; 36415; 70450; 70496; 70498; 70553; 71275; 72125; 80048; 80051; 80061; 80076; 80307; 81003; 82550; 82565; 83605; 83735; 84443; 84484; 85025; 85027; 85610; 85652; 86140; 87040; 93005; 93308; 95816; 97161; 99222; 99285; A9585; J0690; J0878; J1650; J2003; Q9967

== ENCOUNTER → 2024-04-14 21:25 | Outpatient (BNV) | payer MEDICARE, SELFPAY | PROVIDERS: Admitting Provider Student in an Organized Health Care Education/Training Program; Emergency Provider Internal Medicine; PCP Internal Medicine; Visit Provider Internal Medicine | DX: R55 Syncope and collapse (principal) | CPT/HCPCS: 93010 ==

== ENCOUNTER → 2024-04-15 05:58 | Outpatient (BNV) | payer MEDICARE, SELFPAY | PROVIDERS: Admitting Provider Student in an Organized Health Care Education/Training Program; Emergency Provider Internal Medicine; PCP Internal Medicine; Visit Provider Physician Assistant | DX: R55 Syncope and collapse (principal); T82.6XXA Infection and inflammatory reaction due to cardiac valve prosthesis, initial encounter; I38 Endocarditis, valve unspecified | CPT/HCPCS: 99223; 99239; 99499 ==

== ENCOUNTER → 2024-04-15 05:58 | Outpatient (BNV) | payer MEDICARE, SELFPAY | PROVIDERS: Admitting Provider Student in an Organized Health Care Education/Training Program; Emergency Provider Internal Medicine; PCP Internal Medicine; Visit Provider Internal Medicine | DX: T82.6XXA Infection and inflammatory reaction due to cardiac valve prosthesis, initial encounter (principal); I35.1 Nonrheumatic aortic (valve) insufficiency; I38 Endocarditis, valve unspecified; R55 Syncope and collapse | CPT/HCPCS: 93308; 99223 ==

== ENCOUNTER → 2024-04-15 13:25 | Outpatient (BNV) | payer MEDICARE, SELFPAY | PROVIDERS: Admitting Provider Student in an Organized Health Care Education/Training Program; Emergency Provider Internal Medicine; PCP Internal Medicine; Visit Provider Psychiatry & Neurology Neurology | DX: R55 Syncope and collapse (principal) | CPT/HCPCS: 99222 ==

== ENCOUNTER → 2024-04-15 13:25 | Outpatient (BNV) | payer MEDICARE, SELFPAY | PROVIDERS: Admitting Provider Student in an Organized Health Care Education/Training Program; Emergency Provider Internal Medicine; PCP Internal Medicine; Visit Provider Internal Medicine | DX: R55 Syncope and collapse (principal); W19.XXXA Unspecified fall, initial encounter; T82.6XXA Infection and inflammatory reaction due to cardiac valve prosthesis, initial encounter; I38 Endocarditis, valve unspecified | CPT/HCPCS: 99222 ==

== ENCOUNTER 2024-04-20 09:34 | Outpatient (AMB) | payer MEDICARE, SELFPAY ==
--- NOTE | 2024-04-17 10:13 | A.OFFVIS_ITS ---
Intake Visit Reasons: stitch removal Intake Note: Patient scheduled for suture removal on lip. Computational Biologist Required: No Accompanied by: Family/Other Allergies lactose [LACTOSE] Adverse Reaction (Unknown, Verified 04/20/24 09:49) DIARRHEA onion [Onion] Adverse Reaction (Unknown, Verified 04/20/24 09:49) DIARRHEA WITH RAW ONIONS HPI Comments Details: Patient was here status post a fall where he sustained a right upper lip laceration. He presents for wound evaluation and suture removal. No other injuries were sustained after the fall. Etiology still unclear. Chart was reviewed and patient evaluate [facility] Medical History Obstructive sleep apnea hypopnea, moderate CAD (coronary artery disease) Mitral valve prolapse Hyperlipidemia PVCs (premature ventricular contractions) Postoperative atrial fibrillation Surgical History H/O neck surgery History of mitral valve replacement with bioprosthetic valve History of varicocele Hx of cardiac cath Family History Father No problems noted. Mother No problems noted. Social History Household Members: None Housing: House Are you a primary direct care provider to a significant other at home: No Do you presently have visiting nurse or other home services: No Comment: 1 assist Patient Tobacco Use Status: Never used Tobacco e-Cigarette/Vaping Use: Never Used Second Hand Smoke Exposure: No Substance Use Type: Marijuana Advance Directives Date on File: 02/03/20 service: No Physical Exam HEENT Other: Patient has a healed laceration involving the right upper lip. Eschar over incision. Some ecchymosis involving the surrounding area but no evidence of any infection. Four sutures were removed. The eschar was very adherent and would not come off. I decided to leave this intact and once it is removed should there be a suture remaining, patient was instructed to contact the office and this can be removed at his convenience. Assessment & Plan Assessment & Plan (1) Visit for wound check: Code(s): Z51.89 - Encounter for other specified aftercare Category: Surgical (2) Visit for suture removal: Code(s): Z48.02 - Encounter for removal of sutures Category: Medical Plan Patient was been given local instructions, and will follow-up as directed above or p.r.n.. All questions answered Coding Level of Care Code New Pt Level 4 (94056) Diagnoses Visit for wound check Z51.89 Visit for suture removal Z48.02
--- OUTSIDE RECORDS SUMMARY | 2024-04-20 09:36 | XMS_ITS ---
Author Organization Royal Schuler III, MD Address [address] [place] [address] [place] [address] Care Team Providers Care Natural Sciences Department Chair Name Role Phone Royal Schuler [phone] REASON FOR VISIT PIC Line Social History Sex Assigned At : Social History Observation Description Sex Assigned At Male Problems Problem Type SNOMED Code ICD Code Onset Dates Problem Status W/U Status Risk Notes Problem 112176259 Dressing change (Z48.00) Active confirmed Encounters Encounter Location Date Provider Diagnosis Ryoal Schuler III, MD [address] [place] [address] [place] [address] 04/10/2024 Royal Schuler Dressing change Z48.00 Assessments Encounter Date Diagnosis (ICD Code) Assessment Notes Treatment Notes Treatment Clinical Notes 04/10/2024 Dressing change (ICD-10 - Z48.00) Plan Of Treatment Next Appt Details Follow Up: 1 Week, Reason: O V, dressing change Progress Notes * Vignesh DUVALwDOB:1945 (78 yo M)Acc No.[id number]:04/10/2024 Progress Notes Patient:?Bakari DUVAL Provider:?Royal Schuler MD :1945???Age:78 Y???Sex:Male Noam e:04/10/2024 Address: [id number] Subjective: * Chief Complaints: * ???PIC Line * HPI: ???v:? He is receiving intravenous antibiotics for endocarditis.? He has a PICC line in his right forearm.? The dressing was changed today without difficulty. * Medical History:? * Surgical History:? * Hospitalization/Major Diagno stic Procedure:? * Medications:? Objective: * Vitals:? Assessment: * Assessment: 1.?Dressing change - Z48.00 (Primary)??? Plan: * Treatment: * Procedure Codes:?65579 DRESS ING CHANGE,NOT FOR BURN * Follow Up:?1 Week (Reason: O V, dressing change) * Images: * Sign off status: Completed true * Provider:?Royal Schuler MD Date:?03/29 Generated for Lyndsay rousseau/Viviana/eTransmitting on:?04/20/2024 09:36 AM EST
--- OUTSIDE RECORDS SUMMARY | 2024-04-20 09:36 | XMS_ITS ---
Author Organization Royal Schuler III, MD Address [address] [place] [address] [place] [address] Care Team Providers Care Log Hooker Name Role Phone Royal Schuler [phone] REASON FOR VISIT Picc Line dressing change Social History Sex Assigned At : Social History Observation Description Sex Assigned At Male Encounters Encounter Location Date Provider Diagnosis Royal Schuler III, MD [address] [place] [address] [address] [place] [address] 04/03/2024 Royal Schuler Dressing change Z48.00 Assessments Encounter Date Diagnosis (ICD Code) Assessment Notes Treatment Notes Treatment Clinical Notes 04/03/2024 Dressing change (ICD-10 - Z48.00) Plan Of Treatment Next Appt Details Follow Up: 1 Week, Reason: Progress Notes * Giovani BETANCUROB:1945 (78 yo M)Acc No.[id number]:04/03/2024 Progress Notes Patient:?Bakari BETANCUR Provider:?Royal Schuler MD :1945???Age:78 Y???Sex:Male Noam e:04/03/2024 Address:[address] [place] [address] [address] [facility] Subjective: * Chief Complaints: * ???1. Picc Line dressing hortencia nge. * Medical History:? Objective: * Vitals:? Assessment: * Assessment: 1.?Dressing change - Z48.00? ?? Plan: * Treatment: * Procedure Codes:?72450 DRESS ING CHANGE,NOT FOR BURN * Follow Up:?1 Week * Images: * The named appointment provid er may or may not be the originator of this progress note, and it is not deemed complete until electronically signed by the appointment provider. Sign off status: Pending * Provider:?Royal Schuler MD Date:?09/2023 Generated for Lyndsay rousseau/Viviana/Michael on:?04/20/2024 09:36 AM EST
--- OUTSIDE RECORDS SUMMARY | 2024-04-20 09:37 | XMS_ITS | Patient Health Record ---
Author Organization Royal Schuler III, MD Address [address] [place] [address] [place] [address] Care Team Providers Care Assembler Faucets Name Role Phone Royal Schuler Luz [place] [phone] Reason For Referral No Information Social History Sex Assigned At : Social History Observation Description Sex Assigned At Male Problems Problem Type SNOMED Code ICD Code Onset Dates Problem Status W/U Status Risk Notes Problem 815288086 Dressing change (Z48.00) Active confirmed Encounters Encounter Location Date Provider Diagnosis Royal Schuler III, MD [address] [place] [address] [place] [address] 04/10/2024 Royal Schuler Dressing change Z48. 00 Royal Schuler III, MD [address] [place] [address] [place] [address] 04/03/2024 Royal Schuler Dressing change Z48. 00 Royal Schuler III, MD [address] [place] [address] [place] [address] 04/17/2024 Royal Schuler Peripherally inserte d central catheter (PICC) in place Z45.2 Assessments Encounter Date Diagnosis (ICD Code) Assessment Notes Treat ment Notes Treatment Clinical Notes 04/10/2024 Dressing change (ICD-10 - Z48.00) 04/03/2024 Dressing change (ICD-10 - Z48.00) 04/17/2024 Peripherally inserted central catheter (PICC) in place (ICD-10 - Z45.2) His drressing will be changed oonce a week. There was no sign of infection at the insertion site. Plan Of Treatment No Information Insurance Providers Payer Name Payer Address Payer Phone Subscriber Number Group Number Insured Name Patient Relationship to Insured Coverage Start Date Coverage End Date MEDICARE [place] [address] [place] [address] [id number] Bakari Betancur Self - patient is the insured [facility] [address] [place], [place] [id number] Bakari Betancur Self - patient is the insured
--- OUTSIDE RECORDS SUMMARY | 2024-04-20 09:37 | XMS_ITS | Patient Health Record ---
Author Organization [facility] Address [address] [facility] [place] [address] Care Team Providers Care Signal Person Name Role Phone Ab Lora MD Primary Care Provider Driss Cummins Unavailable [phone] Reason For Referral No Information Medications Medication [...] Start Date Coverage End Date Medicare National [facility] [address] [facility] [address] [id number] Bakari Betancur Self - patient is the insured 2 [employer] [facility] [address] [place] [address] [phone] [id number] Bakari Betancur Self - patient is the insured Medical (General) History Medical History History ICD Code Measles Mumps High blood pressure Cholesterol Mitral valve regurgitation Benign prostatic hyperplasia (BPH)
== END 2024-04-20 10:00 | disposition home or self-care (01) ==
LOC: HO.HGS 09:34
PROVIDERS: PCP Internal Medicine; Visit Provider Surgery
DX: Z51.89 Encounter for other specified aftercare (principal); Z48.02 Encounter for removal of sutures
CPT/HCPCS: 99204

== ENCOUNTER → 2024-04-20 09:34 | Outpatient (BNVA) | payer MEDICARE, SELFPAY | PROVIDERS: PCP Internal Medicine; Visit Provider Surgery | DX: Z51.89 Encounter for other specified aftercare (principal); Z48.02 Encounter for removal of sutures | CPT/HCPCS: 99202 ==

== ENCOUNTER 2024-04-24 12:19 | Day surgery (SDC) | payer MEDICARE, SELFPAY ==
[2024-04-21 09:34] VITALS: BMI 22.1
[2024-04-24] VITALS (8 sets, daily range): BP systolic 97–140; BP diastolic 54–71; PULSE 57–63; RESP 12–16; TEMP 36.1–36.4; O2SAT 97–100; BMI 20.6
--- OUTSIDE RECORDS SUMMARY | 2024-04-24 12:22 | XMS_ITS ---
Author Organization Royal Schuler III, MD Address [address] [place] [address] [place] [address] Care Team Providers Care Hepatology Physician Name Role Phone Royal Schuler [phone] REASON FOR VISIT Picc Line dressing change Social History Sex Assigned At : Social History Observation Description Sex Assigned At Male Encounters Encounter Location Date Provider Diagnosis Royal Schuler III, MD [address] [place] [address] [address] [place] [address] 04/03/2024 Royal Schuler Dressing change Z48.00 Assessments Encounter Date Diagnosis (ICD Code) Assessment Notes Treatment Notes Treatment Clinical Notes 04/03/2024 Dressing change (ICD-10 - Z48.00) Plan Of Treatment Next Appt Details Follow Up: 1 Week, Reason: Progress Notes * Giovani BETANCUROB:1945 (78 yo M)Acc No.[id number]:04/03/2024 Progress Notes Patient:?Bakari BETANCUR Provider:?Royal Schuler MD :1945???Age:78 Y???Sex:Male Noam e:04/03/2024 Address:[address] [place] [address] [address] [facility] Subjective: * Chief Complaints: * ???1. Picc Line dressing hortencia nge. * Medical History:? Objective: * Vitals:? Assessment: * Assessment: 1.?Dressing change - Z48.00? ?? Plan: * Treatment: * Procedure Codes:?60565 DRESS ING CHANGE,NOT FOR BURN * Follow Up:?1 Week * Images: * The named appointment provid er may or may not be the originator of this progress note, and it is not deemed complete until electronically signed by the appointment provider. Sign off status: Pending * Provider:?Royal Schuler MD Date:?09/2023 Generated for Lyndsay rousseau/Viviana/Michael on:?04/24/2024 12:22 PM EST
--- OUTSIDE RECORDS SUMMARY | 2024-04-24 12:22 | XMS_ITS ---
Author Organization Royal Schuler III, MD Address [address] [place] [address] [place] [address] Care Team Providers Care Medical Advisor Name Role Phone Royal Schuler [phone] REASON FOR VISIT PIC Line Social History Sex Assigned At : Social History Observation Description Sex Assigned At Male Problems Problem Type SNOMED Code ICD Code Onset Dates Problem Status W/U Status Risk Notes Problem 525598411 Dressing change (Z48.00) Active confirmed Encounters Encounter Location Date Provider Diagnosis Royal Schuler III, MD [address] [place] [address] [place] [address] 04/10/2024 Royal Schuler Dressing change Z48.00 Assessments Encounter Date Diagnosis (ICD Code) Assessment Notes Treatment Notes Treatment Clinical Notes 04/10/2024 Dressing change (ICD-10 - Z48.00) Plan Of Treatment Next Appt Details Follow Up: 1 Week, Reason: O V, dressing change Progress Notes * Vignesh DUVALwDOB:1945 (78 yo M)Acc No.[id number]:04/10/2024 Progress Notes Patient:?Bakari DUVAL Provider:?Royal Schuler MD :1945???Age:78 Y???Sex:Male Noam e:04/10/2024 Address: [id number] Subjective: * Chief Complaints: * ???PIC Line * HPI: ???v:? He is receiving intravenous antibiotics for endocarditis.? He has a PICC line in his right forearm.? The dressing was changed today without difficulty. * Medical History:? * Surgical History:? * Hospitalization/Major Diagno stic Procedure:? * Medications:? Objective: * Vitals:? Assessment: * Assessment: 1.?Dressing change - Z48.00 (Primary)??? Plan: * Treatment: * Procedure Codes:?33538 DRESS ING CHANGE,NOT FOR BURN * Follow Up:?1 Week (Reason: O V, dressing change) * Images: * Sign off status: Completed true * Provider:?Royal Schuler MD Date:?03/29 Generated for Lyndsay rousseau/Viviana/eTransmitting on:?04/24/2024 12:22 PM EST
--- OUTSIDE RECORDS SUMMARY | 2024-04-24 12:22 | XMS_ITS | Patient Health Record ---
Author Organization [facility] liana [place] Address [address] [facility] [place] [address] Care Team Providers Care Staff Antisubmarine Officer Name Role Phone Ab Lora MD Primary Care Provider Driss Cmumins Unavailable [phone] Reason For Referral No Information Medications Medication [...] Start Date Coverage End Date Medicare National [facility] [address] [place] [address] [id number] Bakari Betancur Self - patient is the insured 2 [employer]ex [facility] [address] [place] [address] [phone] [id number] Bakari Betancur Self - patient is the insured Medical (General) History Medical History History ICD Code Measles Mumps High blood pressure Cholesterol Mitral valve regurgitation Benign prostatic hyperplasia (BPH)
--- OUTSIDE RECORDS SUMMARY | 2024-04-24 12:22 | XMS_ITS | Patient Health Record ---
Author Organization Royal Schuler III, MD Address [address] [place] [address] [place] [address] Care Team Providers Care Retail Pricing Coordinator Name Role Phone Royal Schuler Lu[place] [phone] Reason For Referral No Information Social History Sex Assigned At : Social History Observation Description Sex Assigned At Male Problems Problem Type SNOMED Code ICD Code Onset Dates Problem Status W/U Status Risk Notes Problem 134192106 Dressing change (Z48.00) Active confirmed Encounters Encounter Location Date Provider Diagnosis Royal Schuler III, MD [address] [place] [address] [place] [address] 04/10/2024 Royal Schuler Dressing change Z48. 00 Royal Schuler III, MD [address] [place] [address] [place] [address] 04/03/2024 Royal Schuler Dressing change Z48. 00 Royal Schuler III, MD [address] [place] [address] [place] [address] 04/17/2024 Royal Schuler Peripherally inserte d central [...] Coverage End Date MEDICARE NGS [address] [place] [address] [id number] Bakari Betancur Self - patient is the insured [facility] [address] [place], [place] [id number] Bakari Betancur Self - patient is the insured
--- NOTE | 2024-04-24 13:06 | CA_ITS ---
Transesophageal Echocardiogram Patient (Last, First, Middle): Bakari Betancur S Gender: Male Date of : 1945 Age: 78 Procedure Date: 04/24/2024 Procedure Type: Transesophageal Echocardiogram Location: OP Height: 170.18 cm Weight: kg Farm Marketer: ODILON Referring MD: Franklin Fuchs MD Customer Service Supervisor: Franklin Fuchs MD Symptoms: Follow up endocarditis on Mitral Valve Conclusion: ??? 1. 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 Normal LV systolic function 3. No intracardiac thrombi or masses 4. Moderate atherosclerotic plaque noted in the transverse aorta 5. No intracardiac shunting 6. Normal pericardium Findings Procedure Information Consent was obtained prior to the procedure. Pre GABBY oral cavity was checked and revealed no overcrowding. The adult 3D probe was passed with no difficulty. This was a technically good study. Left Ventricle Normal left ventricular size, thickness, and systolic function. The visually estimated ejection fraction is between 60-65%. Right Ventricle Normal right ventricular cavity size and systolic function. Atria The left atrium is likely dilated. There is a mobile atrial septum noted. There is no evidence of a patent foramen ovale. The left atrial appendage was identified multiple views. The no evidence of thrombi or masses in the left atrial appendage. Left atrial appendage velocity was adequate. Left upper pulmonary entry normal into left atrium. The right atrium is mildly dilated. The IVC and SVC drain normal in the right atrium. The no masses or clot seen with the right atrial appendage cavity. Aortic Valve There is mild calcification of the aortic valve. There is no aortic valve stenosis. There is mild to moderate aortic valve regurgitation. Mitral Valve A bioprosthetic mitral valve is present. The prosthetic mitral valve appears to be functioning normally. No evidence of mobile mass noted anterior leaflet. There is no evidence of vegetations. There is no significant mitral regurgitation. The valve is well-seated without any abnormal rocking motion. There is evidence of mobile mass with a left ventricular cavity which appears to be transected chordal structure Pulmonic Valve The pulmonic valve is likely normal. Tricuspid Valve Likely normal tricuspid valve structure and function. Great Vessels The visualized portions of the pulmonary artery and branches are normal. small atherosclerotic PAC noted in the ascending thoracic as well as descending thoracic aorta. There is moderate complicated plaque noted in the transverse aorta. Pericardium/Pleural Normal pericardial structure. Updated by Franklin Fuchs on 03:54 PM with Status of Final Franklin Fuchs MD electronically signed on 04/24/2024 3:54:57 PM with status of Final
--- NOTE | 2024-04-24 13:07 | MHC.SHP ---
Pre-Procedural Eval Section A - 24 Hr Update-Section A only Date of Service: 04/24/24 The patient is an INPATIENT: No Changes since office visit: Yes Patient answered all questions; No Cold of Flu in the past 2 weeks, No New Medical Problems and No Changes in Medication The patient has been examined within 24 hours of the surgical procedure. The History & Physical has been completed within 30 days and I have reviewed it.: Yes Section B - Complete if H&P > 30 days Chief Complaint: Ventricular premature depolarization Allergies: Allergies Allergy/AdvReac Type Severity Reaction Status Date / Time lactose [LACTOSE] AdvReac Mild DIARRHEA Verified 04/24/24 12:56 onion [Onion] AdvReac Mild DIARRHEA Verified 04/24/24 12:56 WITH RAW ONIONS Plan I have reviewed the history and physical and performed a pertinent physical examination on my patient. No changes have occurred unless specified. Time Spent With Patient Time: Total time managing care of this patient today ____ minutes.
[2024-04-24] MEDS: Lactated Ringers 1,000 ML 100 ML IVCONT (13:22)
--- NOTE | 2024-04-24 13:22 | PC.NURSE ---
Patient arrived to preop with right upper arm single lumen PICC line (Currently receiving IV antibiotics daily). Dressing clean, dry, and intact. New order to access PICC from anesthesia. Site flushed with no issues, positive blood return.
--- NOTE | 2024-04-24 13:30 | PC.NURSE ---
Patient in preop. Saw outpatient neurology from outside facility yesterday, new diagnosis of seizure disorder, started on Keppra. Patient has not started this medication yet. Dr. Fitzgerald and Kody LIVE at bedside and made aware.
--- NOTE | 2024-04-24 13:35 | P.CONAN_ITS ---
Documented by User: Marj Stallings NP 04/23/24 08:57 HPI - Anesthesia Eval Consult details Narrative: 78yo M for Transesophageal Echocardiogram [facility] [place] admit 02/2024 with sepsis, infective endocarditis (hx mitral valve replacement) Subsequent [facility] [place] admit 03/2024 for LOC: hospital course: Patient was admitted for loss of consciousness, concern for possible seizure. Had no events on telemetry, echo showed persistent stable vegetation but cardiac syncope unlikely. Was seen by neurology recommended EEG, which was done and report should be followed up. holding off on AEDs for now, but recommended not to drive until cleared by neuro. 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 for non obstructive CAD continued on asa, statin (until stopped for dapto). PMFSH Active Problems Active Problems: All Active Problems Visit for suture removal (Acute) Visit for wound check (Acute) Syncope (Acute) Fall (Acute) Prosthetic valve endocarditis (Acute) Discitis of thoracic region (Acute) Back pain (Acute) Pneumonia (Acute) Obstructive sleep apnea hypopnea, moderate (Acute) CAD (coronary artery disease) (Acute) Hyperlipidemia (Acute) PVCs (premature ventricular contractions) (Acute) History of mitral valve replacement with bioprosthetic valve (Acute) Past Medical History Medical History (Updated 04/23/24 @ 07:14 by Ml Jenkins RN) History of transesophageal echocardiography (GABBY) Endocarditis Obstructive sleep apnea hypopnea, moderate CAD (coronary artery disease) Mitral valve prolapse Hyperlipidemia PVCs (premature ventricular contractions) Postoperative atrial fibrillation Family History Family History Father No problems noted. Mother No problems noted. Family history of problems with anesthesia: No Surgical History Surgical History H/O neck surgery History of mitral valve replacement with bioprosthetic valve History of varicocele Hx of cardiac cath History of Problems with Anesthesia: No Social History Social History Household Members: None Housing: House Are you a primary manager critical care to a significant other at home: No Do you presently have visiting nurse or other home services: No Comment: 1 assist Patient Tobacco Use Status: Never used Tobacco e-Cigarette/Vaping Use: Never Used Second Hand Smoke Exposure: No Use of substances other than those prescribed or required for medical reasons: No Substance Use Type: Marijuana Have you been hit, kicked, punched, or otherwise hurt by someone within the past year? If so, by whom?: No Are you DNR?: No Advance Directives: No Advance Directives Information Provided: Yes (Daughter Hayley per patient) Advance Directives on File: No Advance Directives Date on File: 02/03/20 Recently lost weight without trying: Yes How much weight loss: 2-13 pounds Eating poorly because of decreased appetite: Yes Nutrition screen score: 4 Nutrition Risks: No Nutritional Risk Poor oral hygiene: No service: No Meds Allergies Allergy/AdvReac Type Severity Reaction Status Date / Time lactose [LACTOSE] AdvReac Mild DIARRHEA Verified 04/24/24 12:56 onion [Onion] AdvReac Mild DIARRHEA Verified 04/24/24 12:56 WITH RAW ONIONS Home Medications ?Medication ?Instructions ?Recorded ?Confirmed ?Last Taken ?Type aspirin 81 mg tablet,delayed 81 mg PO DAILY 07/20/20 04/24/24 04/24/24 History release (Adult Low Dose Aspirin) coenzyme Q10 100 mg capsule 100 mg PO DAILY 07/20/20 04/24/24 04/24/24 History magnesium 250 mg tablet 250 mg PO DAILY 07/20/20 04/24/24 04/14/24 09:00 History ascorbate calcium (vitamin C) 500 2 g PO DAILY 11/22/20 04/24/24 04/14/24 History mg tablet docusate sodium 100 mg capsule 100 mg PO DAILY PRN Constipation 11/22/20 04/24/24 02/28/24 06:00 History (Colace) gabapentin 300 mg capsule 600 mg PO BEDTIME 11/22/20 04/24/24 04/13/24 History atorvastatin 20 mg tablet 20 mg PO BEDTIME 02/28/24 04/24/24 04/13/24 History escitalopram oxalate 10 mg tablet 10 mg PO DAILY 04/15/24 04/24/24 04/24/24 History metoprolol succinate 50 mg 50 mg PO BID 04/15/24 04/24/24 04/24/24 History tablet,extended release 24 hr omeprazole 20 mg capsule,delayed 20 mg PO BID@0630,1630 PRN Acid 04/15/24 04/24/24 Unknown History release Reflux polyethylene glycol 3350 17 gram 17 g PO DAILY PRN Constipation 04/15/24 04/24/24 Unknown History oral powder packet Exam Height,Weight and Vital Signs: Height 5 ft 7 in Weight 63.957 kg Pertinent Lab Results Pertinent Lab Results: Laboratory Tests 04/16/24 05:57 WBC 5.5 Hgb 11.8 L Hct 35.8 L Plt Count 280 Sodium 138 Potassium 4.0 Chloride 105 Carbon Dioxide 24 BUN 15 Creatinine 0.82 Narrative Narrative: EKG 03/2024 Vent. Rate : 063 BPM Atrial Rate : 063 BPM P-R Int : 170 ms QRS Dur : 074 ms QT Int : 438 ms P-R-T Axes : 057 056 063 degrees QTc Int : 448 ms Normal sinus rhythm Possible Left atrial enlargement Borderline ECG When compared with ECG of 02-MAR-2024 03:16, Vent. rate has decreased BY 44 BPM ECHO 03/2024 Conclusions: - The left ventricular systolic function is normal. The visually estimated ejection fraction is between 65-70%. - Prosthetic mitral valve with evidence of vegetation at the subvalvular level, possibly attached to chordal structure. (on comparison of images, similar to prior). Assessment and Plan Assessment Anesthesia Assessment: Chart Reviewed Final Anesthetic Review Family History of Problems with Anesthesia: No History of Problems with Anesthesia: No Documented by User: Ml Fitzgerald DO 04/24/24 13:40 HPI - Anesthesia Eval Consult details Narrative: 78yo M for Transesophageal Echocardiogram [facility] [place] admit 02/2024 with sepsis, infective endocarditis (hx mitral valve replacement) Subsequent [facility] [place] admit 03/2024 for LOC: Patient was admitted for loss of consciousness, concern for possible seizure. Had no events on telemetry, echo showed persistent stable vegetation but cardiac syncope unlikely. Was seen by neurology recommended EEG, which was done and report should be followed up. holding off on AEDs for now, but recommended not to drive until cleared by neuro. 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 for non obstructive CAD continued on asa, statin (until stopped for dapto). [facility] Past Medical History Medical History (Updated 04/23/24 @ 07:14 by Ml Jenkins RN) History of transesophageal echocardiography (GABBY) Endocarditis Obstructive sleep apnea hypopnea, moderate CAD (coronary artery disease) Mitral valve prolapse Hyperlipidemia PVCs (premature ventricular contractions) Postoperative atrial fibrillation Family History Family History Father No problems noted. Mother No problems noted. Family history of problems with anesthesia: No Surgical History Surgical History H/O neck surgery History of mitral valve replacement with bioprosthetic valve History of varicocele Hx of cardiac cath History of Problems with Anesthesia: No Social History Social History Household Members: None Housing: House Are you a primary manager critical care to a significant other at home: No Do you presently have visiting nurse or other home services: No Comment: 1 assist Patient Tobacco Use Status: Never used Tobacco e-Cigarette/Vaping Use: Never Used Second Hand Smoke Exposure: No Use of substances other than those prescribed or required for medical reasons: No Substance Use Type: Marijuana Have you been hit, kicked, punched, or otherwise hurt by someone within the past year? If so, by whom?: No Are you DNR?: No Advance Directives: No Advance Directives Information Provided: Yes (Daughter Hayley per patient) Advance Directives on File: No Advance Directives Date on File: 02/03/20 Recently lost weight without trying: Yes How much weight loss: 2-13 pounds Eating poorly because of decreased appetite: Yes Nutrition screen score: 4 Nutrition Risks: No Nutritional Risk Poor oral hygiene: No service: No Meds Allergies Allergy/AdvReac Type Severity Reaction Status Date / Time lactose [LACTOSE] AdvReac Mild DIARRHEA Verified 04/24/24 12:56 onion [Onion] AdvReac Mild DIARRHEA Verified 04/24/24 12:56 WITH RAW ONIONS Home Medications ?Medication ?Instructions ?Recorded ?Confirmed ?Last Taken ?Type aspirin 81 mg tablet,delayed 81 mg PO DAILY 07/20/20 04/24/24 04/24/24 History release (Adult Low Dose Aspirin) coenzyme Q10 100 mg capsule 100 mg PO DAILY 07/20/20 04/24/24 04/24/24 History magnesium 250 mg tablet 250 mg PO DAILY 07/20/20 04/24/24 04/14/24 09:00 History ascorbate calcium (vitamin C) 500 2 g PO DAILY 11/22/20 04/24/24 04/14/24 History mg tablet docusate sodium 100 mg capsule 100 mg PO DAILY PRN Constipation 11/22/20 04/24/24 02/28/24 06:00 History (Colace) gabapentin 300 mg capsule 600 mg PO BEDTIME 11/22/20 04/24/24 04/13/24 History atorvastatin 20 mg tablet 20 mg PO BEDTIME 02/28/24 04/24/24 04/13/24 History escitalopram oxalate 10 mg tablet 10 mg PO DAILY 04/15/24 04/24/24 04/24/24 History metoprolol succinate 50 mg 50 mg PO BID 04/15/24 04/24/24 04/24/24 History tablet,extended release 24 hr omeprazole 20 mg capsule,delayed 20 mg PO BID@0630,1630 PRN Acid 04/15/24 04/24/24 Unknown History release Reflux polyethylene glycol 3350 17 gram 17 g PO DAILY PRN Constipation 04/15/24 04/24/24 Unknown History oral powder packet Exam Exam Date and Time: 04/24/24 1335 Air[address] Mallampati Class: II TM Dist: >3cm Neck ROM: Full Heart: S1S2 Lungs: CTAB Assessment and Plan Assessment Anesthesia Assessment: Anesthesia Plan Discussed and Chart Reviewed Final Anesthetic Review Family History of Problems with Anesthesia: No History of Problems with Anesthesia: No NPO: Yes ASA Class: III Final Preanesthetic Review: No Changes in Pt Med Stat, Meds/Allgs Chart Reviewed, Consent Obtained/Reviewed and Anes Risks/Benef Reviewed Patient Risk: Intermediate Procedure Risk: Low Anesthetic Plan Anesthetic Plan: MAC: and Agree w/ Assess. and Plan Disposition: Standard PACU
[2024-04-24] MEDS: Heparin Sodium,Porcine Flush 50 UNITS, 0.9 % Sodium Chloride Flush 5 ML IVFLUSH (15:40)
== END 2024-04-24 15:51 | disposition home or self-care (01) ==
PROVIDERS: PCP Internal Medicine; Visit Provider Internal Medicine Cardiovascular Disease
PROC: (CPT 93312; principal; 2024-04-24 14:00)
DX: I49.3 Ventricular premature depolarization (principal); I25.10 Atherosclerotic heart disease of native coronary artery without angina pectoris; Z95.3 Presence of xenogenic heart valve; E78.5 Hyperlipidemia, unspecified; I10 Essential (primary) hypertension; G47.33 Obstructive sleep apnea (adult) (pediatric); Z79.82 Long term (current) use of aspirin; Z79.899 Other long term (current) drug therapy
CPT/HCPCS: 93312; J1642; J2003; J2704

== ENCOUNTER → 2024-04-24 13:06 | Outpatient (BNV) | payer MEDICARE, SELFPAY | PROVIDERS: PCP Internal Medicine; Visit Provider Internal Medicine Cardiovascular Disease | DX: T82.897D Other specified complication of cardiac prosthetic devices, implants and grafts, subsequent encounter (principal); I35.1 Nonrheumatic aortic (valve) insufficiency; I70.0 Atherosclerosis of aorta; I35.8 Other nonrheumatic aortic valve disorders; Z95.2 Presence of prosthetic heart valve | CPT/HCPCS: 76376; 93312; 93320 ==

== ENCOUNTER 2024-04-27 07:47 | Outpatient (REF) | payer MEDICARE, SELFPAY | END 2024-04-27 07:48 | disposition home or self-care (01) | LOC: HO.RADIR 07:47 | PROVIDERS: Visit Provider Internal Medicine | DX: Z13.89 Encounter for screening for other disorder (principal) ==

== ENCOUNTER 2024-05-14 12:47 | Outpatient (REF) | payer MEDICARE, SELFPAY ==
[2024-05-18 23:07] LABS: Levetiracetam Keppra 8.3 mcg/mL (6.0-46.0)
== END 2024-05-14 12:48 | disposition home or self-care (01) ==
LOC: HO.10HDL 12:47
PROVIDERS: Visit Provider Family Medicine
DX: Z79.899 Other long term (current) drug therapy (principal)
CPT/HCPCS: 36415; 80177

== ENCOUNTER 2024-07-13 08:51 | Outpatient (REF) | payer MEDICARE, SELFPAY ==
--- NOTE | ~2024-07-13 | XR_ITS ---
EXAMINATION: Lumbar spine 4 views. CLINICAL INDICATION: Low back pain. TECHNIQUE: 5 views. COMPARISON: MRI lumbar spine 02/28/2024. FINDINGS: There is maintained lumbar lordosis. There is mild dextro scoliosis. There is loss of disc height virtually at every disc level with mild ventral spondylosis. The vertebral heights and alignment are maintained normal. No visible fracture, dislocation or lytic process seen. On oblique views there is no pars defect or significant listhesis. The lies sacrum and SI joints are unremarkable. XR/XR lumbar spine 4V min IMPRESSION: Mild dextroscoliosis. No visible acute fracture, dislocation or lytic process seen. Electronically signed by: Triston Fritz MD 07/13/2024 09:26 AM EDT
== END 2024-07-13 08:52 | disposition home or self-care (01) ==
LOC: HO.XRAY 08:51
PROVIDERS: PCP Internal Medicine; Visit Provider Internal Medicine
DX: M54.50 Low back pain, unspecified (principal)
CPT/HCPCS: 72110

== ENCOUNTER → 2024-07-13 09:05 | Outpatient (BNV) | payer MEDICARE, SELFPAY | PROVIDERS: PCP Internal Medicine; Visit Provider Radiology Diagnostic Radiology | DX: M41.26 Other idiopathic scoliosis, lumbar region (principal) | CPT/HCPCS: 72110 ==

== ENCOUNTER 2024-07-14 10:35 | Outpatient (REF) | payer MEDICARE, SELFPAY ==
[2024-07-14 13:08] LABS: MANUAL DIFF FLAG NO
[2024-07-14 13:20] LABS: Basophils Absolute Auto 0.1 X10*3/uL (0.0-0.2); Basophils Percent Auto 0.8 % (0-2); Eosinophils Absolute Auto 0.1 X10*3/uL (0.0-0.4); Hematocrit 40.5 % (42.0-52.0); Hemoglobin 13.6 g/dl (14.0-18.0); Imm Gran Abs Auto 0.03 X10*3/uL (0.00-0.03); Imm Gran Pct Auto 0.4 % (0.0-0.4); Lymphocytes Absolute Auto 1.2 X10*3/uL (1.2-4.9); Lymphocytes Percent Auto 16.9 % (20-40); Mean Corpuscular HGB Conc 33.6 g/dl (31.0-36.0); Mean Corpuscular Hemoglobin 28.5 pg (27.0-33.0); Mean Corpuscular Volume 84.7 fL (80.0-98.0); Mean Platelet Volume 11.2 fL (9.4-12.4); Monocytes Absolute Auto 0.5 X10*3/uL (0.1-1.2); Monocytes Percent Auto 7.3 % (2-11); Neutrophils Absolute Auto 5.2 x10*3/uL (2.0-8.3); Neutrophils Percent Auto 73.6 % (45-73); Platelet Count 203 X10*3/uL (160-400); Red Blood Count 4.78 X10*6/uL (4.60-5.80); Red Cell Distribution Width 14.4 % (11.0-16.0); White Blood Count 7.1 X10*3/uL (4.8-10.8)
[2024-07-14 13:49] LABS: Alanine Aminotransferase 23 U/L (0-40); Alkaline Phosphatase 74 U/L (39-117); Anion Gap 10 (12-20); Aspartate Amino Transferase 31 U/L (5-37); Bilirubin Total 0.4 mg/dL (0.0-1.0); Blood Urea Nitrogen 13 mg/dL (9-16); Calcium 8.7 mg/dL (8.4-10.2); Carbon Dioxide 26 mmol/L (22-29); Chloride 103 mmol/L (96-108); Estimated Glomerular Filt Rate > 60; Glucose Random 122 mg/dL (60-115); Potassium 4.2 mmol/L (3.3-5.1); Sodium 135 mmol/L (135-145); Total Protein 7.1 g/dL (6.5-8.0)
[2024-07-14 14:08] LABS: Erythrocyte Sedimentation Rate 3 MM/HR (0-15)
== END 2024-07-14 10:36 | disposition home or self-care (01) ==
LOC: HO.10HDL 10:35
PROVIDERS: Visit Provider Family Medicine
DX: R63.4 Abnormal weight loss (principal); E78.00 Pure hypercholesterolemia, unspecified; Z79.899 Other long term (current) drug therapy
CPT/HCPCS: 36415; 80053; 82550; 84443; 85025; 85652

== ENCOUNTER 2024-07-15 08:15 | Emergency (ER) | payer MEDICARE, SELFPAY ==
--- NOTE | ~2024-07-15 | MR_ITS ---
EXAMINATION: MR LUMBAR SPINE WITHOUT AND WITH CONTRAST CLINICAL INFORMATION: Unable to walk. Pain radiating to the gluteal and lower extremities. COMPARISON: February 28, 2024. TECHNIQUE: MRI of the lumbar spine was obtained using routine sequences with and without contrast. Intravenous contrast: Gadavist 6.5 mL FINDINGS: Last rib-bearing vertebra labeled T12. There is bone marrow STIR signal abnormality with heterogeneous enhancement involving the posterior spinous processes of L4 and L5. There is a peripheral enhancing less than 2 cm fluid signal characteristic collection extending from the posterior elements L4-5 and to the dorsal aspect of the central spinal canal thecal sac causing extrinsic compression and 80% central spinal canal stenosis of the neural elements of the bowel terminalis with the complete CSF effacement of the thecal sac. Bone marrow inhomogeneity throughout the axial skeleton. Multilevel marginal osteophyte formation and disc desiccation endplate irregularity at L1 to, L2-3 and to a lesser extent L3-4 and L4-5 levels. Grade 1 retrolisthesis L2-3 on a degenerative basis. The conus medullaris ends at pedicle of L1 with normal signal. T11-12: Broad-based disc bulging facet joint hypertrophy. No compression upon neural elements. T12-L1: Broad-based disc bulging. Facet joint hypertrophy. No compression upon neural elements. L1-2: Broad-based bulging. Facet joint hypertrophy. No compression upon neural elements. L2-3: Broad-based disc bulging. Facet joint and ligamentum flavum hypertrophy. Central spinal canal stenosis and bilateral neuroforamina narrowing likely encroaching the neural elements of the thecal sac. L3-4: Broad-based disc bulging. Facet joint and ligamentum flavum hypertrophy. Reduced AP diameter of the thecal sac and the neural foramina likely encroaching the neural elements. L4-5: Heterogeneous enhancing bone marrow of the posterior spinous processes with associated the peripheral enhancing fluid collection in the dorsal aspect of the epidural/subdural compartment compressing the neural elements of the thecal sac. L5-S1: Broad-based disc bulging. Facet joint and ligamentum flavum hypertrophy. Left facet effusion. Multiple less than 2 cm peripheral enhancing fluid collections surrounded of the posterior spinous processes of L4 and L5. Large cyst, right kidney. MR/MR lumbar spine wo/w con IMPRESSION: Osteomyelitis, posterior elements/posterior spinous processes L4-5 and associated to centimeter epidural/subdural abscess in the dorsal central spinal canal compressing the neural elements of the thecal sac. Findings were discussed with the requesting physician in the emergency department Dr. Leeanne Anderson on July 15, 2024 at 1:23 PM Electronically signed by: Reese Shannon MD 07/15/2024 02:08 PM EDT
[2024-07-15 08:18] VITALS: BP 126/74; BP 158/79; PULSE 60; PULSE 61; RESP 16; TEMP 36.4; O2SAT 100; O2SAT 98; BMI 21.9
--- NOTE | 2024-07-15 08:40 | ED.GENADULT ---
HPI - General Adult General Chief complaint: General Medical Stated complaint: bilateral leg pain xmultiple days Time Seen by Provider: 07/15/24 08:20 Source: patient, EMS and old records reviewed Mode of arrival: EMS Limitations: no limitations History of Present Illness ED Provider: RILEY MUNGUIA narrative: 79 yo male with PMH of URIEL, CAD, CVA, MV replacement bioprosthetic valve, afib, HLD, MSSA bacteremia and sepsis with prosthetic valve infection, RLL pneumonia, T11-T12 diskitis/osteo possible epidural abscess 2023 was treated wtih prolonged IV daptomycin who presents with 3 weeks of atraumatic bilateral buttock pain that initially started on the L side cannot walk has pain every time he tries to get up then feels his legs are going to give out. The past 36 hours have been much worse now the pain is across both buttock areas and pain in both upper legs. No b/b incontinence no saddle anesthesia. He has no fevers, urinary symptoms, bowel changes, fevers, night sweats. The pain is so severe he cannot get up and walk at this point. He did try to bend down today and when he did he felt tingling in his L great toe MD complaint: bilateral buttock pain, cannot walk Onset (ago): week(s) (3) Location: pelvis, left, right and lower extremity Radiation: non-radiation Severity: severe Quality: crushing Pain Consistency: intermittent Relieving factors: rest Exacerbating factors: movement Associated symptoms: denies other symptoms Treatments prior to arrival: none Related Data Home Medications ?Medication ?Instructions ?Recorded ?Confirmed aspirin 81 mg tablet,delayed 81 mg PO DAILY 07/20/20 04/24/24 release (Adult Low Dose Aspirin) coenzyme Q10 100 mg capsule 100 mg PO DAILY 07/20/20 04/24/24 magnesium 250 mg tablet 250 mg PO DAILY 07/20/20 04/24/24 ascorbate calcium (vitamin C) 500 2 g PO DAILY 11/22/20 04/24/24 mg tablet docusate sodium 100 mg capsule 100 mg PO DAILY PRN Constipation 11/22/20 04/24/24 (Colace) gabapentin 300 mg capsule 600 mg PO BEDTIME 11/22/20 04/24/24 atorvastatin 20 mg tablet 20 mg PO BEDTIME 02/28/24 04/24/24 escitalopram oxalate 10 mg tablet 10 mg PO DAILY 04/15/24 04/24/24 metoprolol succinate 50 mg 50 mg PO BID 04/15/24 04/24/24 tablet,extended release 24 hr omeprazole 20 mg capsule,delayed 20 mg PO BID@0630,1630 PRN Acid 04/15/24 04/24/24 release Reflux polyethylene glycol 3350 17 gram 17 g PO DAILY PRN Constipation 04/15/24 04/24/24 oral powder packet Previous Rx's ?Medication ?Instructions ?Recorded doxycycline hyclate 100 mg capsule 100 mg PO BID 30 days #60 caps 03/23/24 clopidogrel 75 mg tablet 75 mg PO DAILY #90 tabs 04/16/24 daptomycin 500 mg intravenous 500 mg IV Q24H 04/16/24 solution Allergies Allergy/AdvReac Type Severity Reaction Status Date / Time lactose [LACTOSE] AdvReac Mild DIARRHEA Verified 07/15/24 08:24 onion [Onion] AdvReac Mild DIARRHEA Verified 07/15/24 08:24 WITH RAW ONIONS Review of Systems Review of Systems: Constitutional : No Weight loss, No Fever, No Chills, ENT/Mouth : No Hearing loss, No Ear Pain, No Nasal Congestion, No Sinus Pain, No Hoarseness, No sore throat, No Rhinorrhea, No Swallowing Difficulty Cardiovascular : No Chest Pain, No SOB Respiratory : No Cough, No Dyspnea Gastrointestinal : No Nausea, No Vomiting, No Diarrhea, No abdominal Pain, No Hematochezia, No Melena Genitourinary : No Dysuria, No Urinary Frequency, No Hematuria, No Urinary Incontinence, Musculoskeletal : positive bilateral buttock pain Skin : No Skin Lesions, No rash Neuro : No Weakness, No Numbness, No Paresthesias, no loss of bowel or bladder incontinence, no saddle anesthesia all other systems reviewed and are negative [facility] Past Medical History Attestation statement: The following information was validated with the patient. Source: old records reviewed Medical History History of transesophageal echocardiography (GABBY) Endocarditis Obstructive sleep apnea hypopnea, moderate CAD (coronary artery disease) Mitral valve prolapse Hyperlipidemia PVCs (premature ventricular contractions) Postoperative atrial fibrillation Surgical History H/O neck surgery History of mitral valve replacement with bioprosthetic valve History of varicocele Hx of cardiac cath Family History Family History Father No problems noted. Mother No problems noted. Social History Social History Household Members: None Housing: House Are you a primary coronary care unit nurse to a significant other at home: No Do you presently have visiting nurse or other home services: No Comment: 1 assist Patient Tobacco Use Status: Never used Tobacco e-Cigarette/Vaping Use: Never Used Second Hand Smoke Exposure: No Substance Use Type: Marijuana Advance Directives: Yes Advance Directives on File: Yes Advance Directives Date on File: 02/28/24 service: No Physical Exam ED Vital Signs: Vital Signs - 24 hr 07/15/24 08:18 07/15/24 09:55 07/15/24 13:26 Temperature 97.6 F 97.8 F 98.1 F Pulse Rate 61 60 61 Respiratory Rate 16 14 18 Blood Pressure 158/79 H 144/71 H 143/76 H Pulse Oximetry 100 100 97 Oxygen Delivery Method Room Air Room Air Room Air BMI result Body Mass Index 21.9 Appearance: Alert. Oriented X3. No acute distress. Eyes: Pupils equal, round and reactive to light. ENT: Pharynx normal. Neck: Normal inspection. Neck supple. CVS: Normal heart rate and rhythm. Pulses normal. Respiratory: No respiratory distress. Breath sounds normal. Abdomen: Soft and nontender. Skin: Skin warm and dry. Normal skin color. Normal skin turgor. Extremities: No lower extremity edema. No calf ttp Neuro: Oriented X 3. L lower leg plantar/dorsi is 4+/5 compared to R. No sensory deficit. CN2-12 intact, no clonus noted, DTR 2+ patella Course Course Course Narrative: at this time given MRI read possible infection suspected 130pm - radiology states fluid collection L4-L5, thecal sac compression given hx empiric ceftriaxone and vancomycin ordered will consult NSGY at [facility] - MRI uploaded Reevaluation(s) Reevaluation #1: call to [facility] NSGY 213pm Medications Administered Discontinued Medications Generic Name Dose Route Start Last Admin Trade Name Freq PRN Reason Stop Dose Admin Ceftriaxone Sodium 1 gm 07/15/24 13:30 07/15/24 13:48 Ceftriaxone Sodium 1 Gm Vial IVPUSH 07/15/24 13:31 1 gm ONCE ONE Administration Gadobutrol 7.5 ml 07/15/24 13:05 07/15/24 13:06 Gadobutrol 7.5 Ml Vial IVPUSH 07/15/24 13:06 6.5 ml ONCE ONE Administration Vancomycin HCl 1,500 mg/ 500 mls @ 333.333 mls/hr 07/15/24 13:30 07/15/24 13:55 Sodium Chloride IV 07/15/24 14:59 333.33 mls/hr ONCE ONE Administration Medical Decision Making Medical Decision Making MDM Narrative: 79 yo male with PMH of URIEL, CAD, CVA, MV replacement bioprosthetic valve, afib, HLD, MSSA bacteremia 2023 and sepsis with prosthetic valve infection, RLL pneumonia, T11-T12 diskitis/osteo who presents with atraumatic pain in both buttocks now unable to stand and walk he has no saddle anesthesia or b/b incontinence - no fevers reported. He is intact other than his L leg appears slightly more weak on exam. At this time I have ordered labs, cultures, infl markers and given his history and symptoms will obtain lumbar spine MRI with extension to T11-T12 spoke to sales technician about including these levels on exam. Differential Diagnosis Differential Diagnoses: The differential diagnosis associated with the presentation includes tethered cord, compressive mass/lesion, possible residual infection, abscess Admission/Observation Consideration of admission/observation: Escalation of care including admission/observation considered transfer to [facility] hospitalist service Consult Healthcare Provider Management of the patient was discussed with: Bed Laborer call from Kassie GONZALES will discuss with her attending 228pm 304pm Kassie case reviewed with Dr. Satish doherty out to hospitalist team 305pm accepted under Dr. Bishop discussed with Kassie from hospitalist service Lab Data [facility] Lab Attestation statement: I reviewed the patient's lab results. 07/15/24 09:04 07/15/24 09:04 Labs: Lab Results 07/15/24 07/15/24 07/15/24 Range/Units 09:04 09:05 09:57 WBC 6.5 (4.8-10.8) X10*3/uL RBC 4.80 (4.60-5.80) X10*6/uL Hgb 13.8 L (14.0-18.0) g/dl Hct 40.4 L (42.0-52.0) % MCV 84.2 (80.0-98.0) fL MCH 28.8 (27.0-33.0) pg MCHC 34.2 (31.0-36.0) g/dl RDW 14.3 (11.0-16.0) % Plt Count 186 (160-400) X10*3/uL MPV 10.5 (9.4-12.4) fL Immature Gran % (Auto) 0.3 (0.0-0.4) % Neut % (Auto) 76.5 H (45-73) % Lymph % (Auto) 14.7 L (20-40) % [place] % (Auto) 6.6 (2-11) % Eos % (Auto) 1.1 (0-4) % Baso % (Auto) 0.8 (0-2) % Lymph # (Auto) 1.0 L (1.2-4.9) X10*3/uL [place] # (Auto) 0.4 (0.1-1.2) X10*3/uL Eos # (Auto) 0.1 (0.0-0.4) X10*3/uL Baso # (Auto) 0.1 (0.0-0.2) X10*3/uL Abs Immat Gran (auto) 0.02 (0.00-0.03) X10*3/uL Absolute Neuts (auto) 5.0 (2.0-8.3) x10*3/uL Absolute Nucleated RBC 0.000 (0.0-0.012) X10*3/uL Nucleated RBC % (auto) 0.0 (0.0-0.2) /100WBC ESR 2 (0-15) MM/HR Sodium 138 (135-145) mmol/L Potassium 4.3 (3.3-5.1) mmol/L Chloride 106 (96-108) mmol/L Carbon Dioxide 27 (22-29) mmol/L Anion Gap 9 L (12-20) BUN 13 (9-16) mg/dL Creatinine 0.98 (0.5-1.4) mg/dL Estim Creat Clear Calc 55.7 Estimated GFR > 60 Random Glucose 100 (60-115) mg/dL Lactic Acid 0.8 (0.5-2.0) mmol/L Calcium 8.9 (8.4-10.2) mg/dL Magnesium 2.0 (1.6-2.6) mg/dL Total Bilirubin 0.4 (0.0-1.0) mg/dL Direct Bilirubin 0.2 (0.0-0.5) mg/dL AST 27 (5-37) U/L ALT 19 (0-40) U/L Alkaline Phosphatase 74 (39-117) U/L Total Creatine Kinase 125 (38-174) U/L C-Reactive Protein < 0.04 (< or = 0.50) mg/dL Total Protein 7.1 (6.5-8.0) g/dL Albumin 4.0 (3.5-5.0) g/dL Urine Color Yellow Urine Appearance Clear Urine pH 7.5 (5.0-9.0) Ur Specific [place] 1.010 (1.005-1.025) Urine Protein Negative (Neg-Trace) mg/dL Urine Glucose (UA) Negative (Negative) mg/dL Urine Ketones Negative (Negative) mg/dL Urine Blood Negative (Negative) Urine Nitrite Negative (Negative) Ur Leukocyte Esterase Negative (Negative) Independent Interpretation Interpretation: MRI FINDINGS: Last rib-bearing vertebra labeled T12. There is bone marrow STIR signal abnormality with heterogeneous enhancement involving the posterior spinous processes of L4 and L5. There is a peripheral enhancing less than 2 cm fluid signal characteristic collection extending from the posterior elements L4-5 and to the dorsal aspect of the central spinal canal thecal sac causing extrinsic compression and 80% central spinal canal stenosis of the neural elements of the bowel terminalis with the complete CSF effacement of the thecal sac. Bone marrow inhomogeneity throughout the axial skeleton. Multilevel marginal osteophyte formation and disc desiccation endplate irregularity at L1 to, L2-3 and to a lesser extent L3-4 and L4-5 levels. Grade 1 retrolisthesis L2-3 on a degenerative basis. The conus medullaris ends at pedicle of L1 with normal signal. T11-12: Broad-based disc bulging facet joint hypertrophy. No compression upon neural elements. T12-L1: Broad-based disc bulging. Facet joint hypertrophy. No compression upon neural elements. L1-2: Broad-based bulging. Facet joint hypertrophy. No compression upon neural elements. L2-3: Broad-based disc bulging. Facet joint and ligamentum flavum hypertrophy. Central spinal canal stenosis and bilateral neuroforamina narrowing likely encroaching the neural elements of the thecal sac. L3-4: Broad-based disc bulging. Facet joint and ligamentum flavum hypertrophy. Reduced AP diameter of the thecal sac and the neural foramina likely encroaching the neural elements. L4-5: Heterogeneous enhancing bone marrow of the posterior spinous processes with associated the peripheral enhancing fluid collection in the dorsal aspect of the epidural/subdural compartment compressing the neural elements of the thecal sac. L5-S1: Broad-based disc bulging. Facet joint and ligamentum flavum hypertrophy. Left facet effusion. Multiple less than 2 cm peripheral enhancing fluid collections surrounded of the posterior spinous processes of L4 and L5. Large cyst, right kidney. MR/MR lumbar spine wo/w con IMPRESSION: Osteomyelitis, posterior elements/posterior spinous processes L4-5 and associated to centimeter epidural/subdural abscess in the dorsal central spinal canal compressing the neural elements of the thecal sac. Findings were discussed with the requesting physician in the emergency department Dr. Leeanne Anderson on July 15, 2024 at 1:23 PM Radiology Impression Discussion of test interpretation with radiology: I have reviewed the radiologist's reading. Independent Historian Clinical information obtained from an independent historian. History obtained from or confirmed by: EMS External Record Review External record reviewed: Inpatient record and Outpatient record Critical Care Time Critical Care Time Critical Care Time: Yes Total Critical Care Time: 45 Attestation: repeat calls to community health consultant, transfer to tertiary center, repeat assessments, review of records I attest to this time spent taking care of the patient Discharge Plan Discharge Clinical Impression: Epidural abscess Patient Disposition: [facility] Transfer Details: [facility] Prescriptions: No Action metoprolol succinate 50 mg tablet extended release 24 hr 50 mg PO BID escitalopram oxalate 10 mg tablet 10 mg PO DAILY polyethylene glycol 3350 17 gram powder in packet 17 g PO DAILY PRN (Reason: Constipation) omeprazole 20 mg capsule,delayed release(DR/EC) 20 mg PO BID@0630,1630 PRN (Reason: Acid Reflux) daptomycin 500 mg recon soln 500 mg IV Q24H Rx Instructions: administer over 30 mins, end apr 26, 2024 clopidogrel 75 mg Tablet 75 mg PO DAILY Qty: 90 0RF atorvastatin 20 mg tablet 20 mg PO BEDTIME docusate sodium [Colace] 100 mg capsule 100 mg PO DAILY PRN (Reason: Constipation) ascorbate calcium (vitamin C) 500 mg tablet 2 g PO DAILY aspirin [Adult Low Dose Aspirin] 81 mg tablet,delayed release (DR/EC) 81 mg PO DAILY coenzyme Q10 100 mg capsule 100 mg PO DAILY magnesium 250 mg tablet 250 mg PO DAILY gabapentin 300 mg capsule 600 mg PO BEDTIME doxycycline hyclate 100 mg capsule 100 mg PO BID 30 Days Qty: 60 1RF Print Language: Sinhala
[2024-07-15 09:11] LABS: MANUAL DIFF FLAG NO
[2024-07-15 09:13] LABS: Basophils Absolute Auto 0.1 X10*3/uL (0.0-0.2); Basophils Percent Auto 0.8 % (0-2); Eosinophils Absolute Auto 0.1 X10*3/uL (0.0-0.4); Eosinophils Percent Auto 1.1 % (0-4); Hematocrit 40.4 % (42.0-52.0); Hemoglobin 13.8 g/dl (14.0-18.0); Imm Gran Abs Auto 0.02 X10*3/uL (0.00-0.03); Imm Gran Pct Auto 0.3 % (0.0-0.4); Lymphocytes Percent Auto 14.7 % (20-40); Mean Corpuscular HGB Conc 34.2 g/dl (31.0-36.0); Mean Corpuscular Hemoglobin 28.8 pg (27.0-33.0); Mean Corpuscular Volume 84.2 fL (80.0-98.0); Mean Platelet Volume 10.5 fL (9.4-12.4); Monocytes Absolute Auto 0.4 X10*3/uL (0.1-1.2); Monocytes Percent Auto 6.6 % (2-11); Neutrophils Percent Auto 76.5 % (45-73); Platelet Count 186 X10*3/uL (160-400); Red Cell Distribution Width 14.3 % (11.0-16.0); White Blood Count 6.5 X10*3/uL (4.8-10.8)
[2024-07-15 09:28] LABS: Lactic Acid 0.8 mmol/L (0.5-2.0)
[2024-07-15 09:34] LABS: Alanine Aminotransferase 19 U/L (0-40); Alkaline Phosphatase 74 U/L (39-117); Anion Gap 9 (12-20); Aspartate Amino Transferase 27 U/L (5-37); Bilirubin Direct 0.2 mg/dL (0.0-0.5); Bilirubin Total 0.4 mg/dL (0.0-1.0); Blood Urea Nitrogen 13 mg/dL (9-16); C Reactive Protein < 0.04 mg/dL (< or = 0.50); Calcium 8.9 mg/dL (8.4-10.2); Carbon Dioxide 27 mmol/L (22-29); Chloride 106 mmol/L (96-108); Creatinine Clr Calc Pharmacy 55.7; Estimated Glomerular Filt Rate > 60; Glucose Random 100 mg/dL (60-115); Potassium 4.3 mmol/L (3.3-5.1); Sodium 138 mmol/L (135-145); Total Protein 7.1 g/dL (6.5-8.0)
[2024-07-15 09:55] VITALS: BP 144/71; PULSE 60; RESP 14; TEMP 36.6; O2SAT 100
[2024-07-15 09:59] LABS: Erythrocyte Sedimentation Rate 2 MM/HR (0-15)
[2024-07-15 10:19] LABS: Appearance Urine Clear; Color Urine Yellow; Glucose Urine UA Negative (Negative); Leukocyte Esterase Urine Negative (Negative); Nitrite Urine Negative (Negative); PH 7.5 (5.0-9.0); Urine Blood Negative (Negative); Urine Ketones Negative (Negative); Urine Protein Negative (Neg-Trace)
--- NOTE | 2024-07-15 12:51 | MHC.EDTECH ---
pt transported to [facility] around [id number]
[2024-07-15] MEDS: gadobutroL 7.5 ML VIAL IVPUSH (13:06)
--- NOTE | 2024-07-15 13:22 | MHC.EDTECH ---
back from MRI at this time
[2024-07-15 13:26] VITALS: BP 143/76; PULSE 61; RESP 18; TEMP 36.7; O2SAT 97
[2024-07-15] MEDS: cefTRIAXone sodium 1 GM VIAL IVPUSH (13:48)
[2024-07-15] MEDS: vancomycin HCL 1,500 MG in 0.9 % Sodium Chloride 500 ML 333.33 MG IV (13:55)
[2024-07-15 17:31] VITALS: BP 143/76; PULSE 61; RESP 18; TEMP 36.7; O2SAT 97
== END 2024-07-15 17:33 | disposition short-term general hospital (02) ==
PROVIDERS: Emergency Provider Emergency Medicine; PCP Internal Medicine
DX: G06.2 Extradural and subdural abscess, unspecified (principal); M79.604 Pain in right leg; M79.605 Pain in left leg; I25.10 Atherosclerotic heart disease of native coronary artery without angina pectoris; R26.2 Difficulty in walking, not elsewhere classified; Z79.899 Other long term (current) drug therapy
CPT/HCPCS: 36415; 72158; 80048; 80076; 81003; 82550; 83605; 83735; 85025; 85652; 86140; 87040; 96365; 96366; 96375; 99285; A9585; J0696; J3371

== ENCOUNTER → 2024-07-15 08:46 | Outpatient (BNV) | payer MEDICARE, SELFPAY | PROVIDERS: Emergency Provider Emergency Medicine; PCP Internal Medicine; Visit Provider Radiology Diagnostic Radiology | DX: M86.19 Other acute osteomyelitis, multiple sites (principal) | CPT/HCPCS: 72158 ==

== ENCOUNTER 2024-08-13 11:21 | Emergency (ER) | payer MEDICARE, SELFPAY ==
--- NOTE | ~2024-08-13 | MR_ITS ---
EXAMINATION: MR CERVICAL SPINE WITHOUT CONTRAST CLINICAL INFORMATION: History of recent fall. Hyperflexion injury. Now with numbness in both fingers. Recent lumbar spine surgery. COMPARISON: MRI cervical spine 02/29/2024. TECHNIQUE: MRI of the cervical spine was obtained using routine sequences without contrast. FINDINGS: There is mild straightening of cervical lordosis. There is mild anterolisthesis C4 over C5 and grade 1 anterolisthesis C6 over C7 similar to previous study. There is laminectomy with posterior hardware extending from C3 through C6 vertebra for posterior stabilization. The C2-3 and C6/7 disc level are maintained and unchanged. There is no evidence of disc bulge, herniation or spinal canal stenosis with thecal sac is capacious. There is posterior spondylosis/bulge complex indenting the ventral thecal sac at C4-5 disc level but no spinal canal stenosis. The neural foramina is mildly narrowed bilaterally at C4-5 and C5-6 and C6/7 disc levels secondary to mild facet joint hypertrophy and uncovertebral spurring Postlaminectomy the thecal sac is capacious. In addition there is mild loss of cord volume. There is mild myelomalacia at the C4-5 and C5-6 disc level. Cord myelomalacia is more prominent at C5-6 disc level is more prominent compared to previous exam -. No additional areas of cord signal abnormality seen. Cervical-min delivery junction is normal. The bone marrow signal is normal. There is small left perineural cyst T1-2 and moderate sized left perineural cysts at T1-T2 disc level. These were noted on the previous MRI C-spine. The paravertebral soft tissues are maintained normal. The prevertebral soft tissues are normal. MR/MR cervical spine wo con IMPRESSION: Multilevel laminectomy at and posterior hardware for stabilization from C3 to C6 vertebral level. There are myelomalacia changes at C4-5 and C5-6 disc level. The C5-6 myelomalacia signal changes are more prominent than the previous exam. Left perineural cyst left C7-T1 and T1 S2 disc level are stable. There is no bone marrow contusion or bone fracture seen. Electronically signed by: Triston Fritz MD 08/13/2024 03:41 PM EDT
--- NOTE | ~2024-08-13 | CT_ITS ---
EXAMINATION: CT HEAD WITHOUT CONTRAST CLINICAL INFORMATION: Trauma, fall on Plavix. COMPARISON: 04/14/2024. MRI of brain 04/15/2024. TECHNIQUE: Contiguous axial imaging was performed from the skull base to vertex without intravenous administration of contrast. This CT examination was performed using dose optimization techniques as appropriate, variously including the following: *Automated exposure control *Adjustment of mA and/or kV according to patient size (this includes techniques or standardized protocols for targeted exams where dose is matched to indication/reason for exam; i.e. extremities or head) *Use of iterative reconstruction technique FINDINGS: There is no evidence of intracranial hemorrhage or extra-axial fluid collection. There is no mass effect, or edema. No CT evidence of acute territorial infarct. Ventricles, sulci, and cisterns are mildly diffusely prominent, in keeping with age-related involutional changes. No hydrocephalus. No midline shift. Negative hyperdense MCA sign. Negative insular ribbon sign. Patchy periventricular and deep white matter hypoattenuation is consistent with mild small vessel ischemic changes. 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 Mild atheromatous calcification of the bilateral carotid siphons and V4 segments vertebral arteries bilaterally. Globes and orbital contents image normally. No extracranial soft tissue abnormalities. The paranasal sinuses, mastoid air cells, and tympanic cavities are normally aerated. No suspicious bony abnormalities. There are no acute fractures evident. CT/CT head/brain wo IV con IMPRESSION: 1. No acute intracranial abnormality. No acute fracture. 2. 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 Electronically signed by: Vazquez Garza MD 08/13/2024 12:18 PM EDT
[2024-08-13 11:30] VITALS: BP 128/72; BP 132/67; PULSE 64; PULSE 67; RESP 16; TEMP 36.6; O2SAT 100; O2SAT 99; BMI 21.9
--- NOTE | 2024-08-13 11:52 | ED.FALL ---
HPI - Fall General Chief Complaint: Fall Stated Complaint: TRIP/FALL,HIT HEAD,C3-6 SURG 2019,ON ASA & PLAVIX Time Seen by Provider: 08/13/24 11:34 Source: patient, family, EMS and old records reviewed Mode of arrival: EMS Limitations: no limitations History of Present Illness ED Provider: RILEY MUNGUIA Narrative: 79 yo male with PMH of URIEL, CAD, CVA, MV replacement bioprosthetic valve, afib, HLD, MSSA bacteremia and sepsis with prosthetic valve infection, RLL pneumonia, T11-T12 diskitis/osteo possible epidural abscess 2023, not on thinners treated here with transfer to [facility] for spinal cyst which was surgically treated in June - he has been in at rehab then assisted living facility he has been having gait issues and balance issues since the surgery which NSGY told him could take a while. He uses a walker. He tripped today on his walker struck his head on the door no LOC but had a severe flexion of the neck that caused initial discomfort but he has tingling in both hands all fingertips. No other symptoms reported. No other injuries. 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[employer]) Fall from: standing Fall witnessed: no Place fall occurred: shelter/SNF Loss of consciousness: none Prolonged down time: no Symptoms prior to fall: none Context: tripped/slipped Location of injury: head and neck Severity: mild Quality: tingling Associated symptoms (after fall): denies Related Data Home Medications ?Medication ?Instructions ?Recorded ?Confirmed aspirin 81 mg tablet,delayed 81 mg PO DAILY 07/20/20 04/24/24 release (Adult Low Dose Aspirin) coenzyme Q10 100 mg capsule 100 mg PO DAILY 07/20/20 04/24/24 magnesium 250 mg tablet 250 mg PO DAILY 07/20/20 04/24/24 ascorbate calcium (vitamin C) 500 2 g PO DAILY 11/22/20 04/24/24 mg tablet docusate sodium 100 mg capsule 100 mg PO DAILY PRN Constipation 11/22/20 04/24/24 (Colace) gabapentin 300 mg capsule 600 mg PO BEDTIME 11/22/20 04/24/24 atorvastatin 20 mg tablet 20 mg PO BEDTIME 02/28/24 04/24/24 escitalopram oxalate 10 mg tablet 10 mg PO DAILY 04/15/24 04/24/24 metoprolol succinate 50 mg 50 mg PO BID 04/15/24 04/24/24 tablet,extended release 24 hr omeprazole 20 mg capsule,delayed 20 mg PO BID@0630,1630 PRN Acid 04/15/24 04/24/24 release Reflux polyethylene glycol 3350 17 gram 17 g PO DAILY PRN Constipation 04/15/24 04/24/24 oral powder packet Previous Rx's ?Medication ?Instructions ?Recorded doxycycline hyclate 100 mg capsule 100 mg PO BID 30 days #60 caps 03/23/24 clopidogrel 75 mg tablet 75 mg PO DAILY #90 tabs 04/16/24 daptomycin 500 mg intravenous 500 mg IV Q24H 04/16/24 solution Allergies Allergy/AdvReac Type Severity Reaction Status Date / Time lactose [LACTOSE] AdvReac Mild DIARRHEA Verified 08/13/24 11:34 onion [Onion] AdvReac Mild DIARRHEA Verified 08/13/24 11:34 WITH RAW ONIONS Review of Systems Review of Systems: Constitutional : No Fever, No Chills, No Fatigue ENT/Mouth : No sore throat, No Rhinorrhea Eyes: No Eye Pain, No Swelling, No Redness Cardiovascular : No Chest Pain, No SOB, No Dyspnea on Exertion Respiratory : No Cough, No Sputum Gastrointestinal : No Nausea, No Vomiting, No Diarrhea, No abdominal Pain Genitourinary : No Dysuria, No Urinary Frequency, No Hematuria, Musculoskeletal : No joint pain, No Myalgias, No Joint Swelling, pos neck pain Skin : No Skin Lesions, No rash Neuro : No Weakness, pos tingling in hands and fingertips, No Dizziness, positive Headache All other systems reviewed and are negative [facility] Past Medical History Attestation statement: The following information was validated with the patient. Source: old records reviewed Medical History History of transesophageal echocardiography (GABBY) Endocarditis Obstructive sleep apnea hypopnea, moderate CAD (coronary artery disease) Mitral valve prolapse Hyperlipidemia PVCs (premature ventricular contractions) Postoperative atrial fibrillation Surgical History H/O neck surgery History of mitral valve replacement with bioprosthetic valve History of varicocele Hx of cardiac cath Family History Family History Father No problems noted. Mother No problems noted. Social History Social History Household Members: None Housing: House Are you a primary out of school hours care worker to a significant other at home: No Do you presently have visiting nurse or other home services: No Comment: 1 assist Patient Tobacco Use Status: Never used Tobacco Smoked in Last 30 Days: No e-Cigarette/Vaping Use: Never Used Second Hand Smoke Exposure: No Use of substances other than those prescribed or required for medical reasons: No Substance Use Type: Marijuana Advance Directives: Yes Advance Directives on File: Yes Advance Directives Date on File: 02/28/24 Do you have a plan to hurt others: No Plan service: No Physical Exam Vital Signs: Vital Signs: Last Vital Signs Temp 97.9 F 08/13/24 11:30 Pulse 67 08/13/24 11:30 Resp 16 08/13/24 11:30 BP 128/72 08/13/24 11:30 Pulse Ox 99 08/13/24 11:30 O2 Del Method Room Air 08/13/24 11:30 BMI result Body Mass Index 21.9 Appearance: Alert. Oriented X3. No acute distress. Eyes: Pupils equal, round and reactive to light. ENT: Pharynx normal. atraumatic Neck: collar in place, 5/5 motor, 2+ radial pulse, he reports he can feel my hands to light touch but all fingers in both hands at the tips feel tingly CVS: Normal heart rate and rhythm. Pulses normal. Respiratory: No respiratory distress. Breath sounds normal. Abdomen: Soft and nontender. Skin: Skin warm and dry. Normal skin color. Normal skin turgor. Extremities: No lower extremity edema. No calf ttp Neuro: Oriented X 3. No motor deficit. No sensory deficit. 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 Differential Diagnosis Differential Diagnoses: The differential diagnosis associated with the presentation includes head injury, neck injury, SCI Admission/Observation Consideration of admission/observation: Escalation of care including admission/observation considered wants to leave, neuro intact, Dr. Fritz spoke to him about the read nothing acute at this time will place in [place] and he can follow up with his [facility] NSGY provider Independent Interpretation I performed an independent interpretation of an: CT Scan Interpretation: MRI Radiology Impression Discussion of test interpretation with radiology: I have reviewed the radiologist's reading. Independent Historian Clinical information obtained from an independent historian. History obtained from or confirmed by: EMS External Record Review External record reviewed: Outpatient record Discharge Plan Discharge Clinical Impression: Myelomalacia of cervical cord, Cervical strain Patient Disposition: Home, Self-Care Instructions: Cervical Strain (ED), Soft Cervical Collar (ED) Additional Instructions: MRI read not finalized but you did speak to radiology if anything else concerning we will call you please wear your [place] collar and follow up with your neurosurgeon at [facility] return for any worsening neurologic symptoms no bleed on brain noted. FINDINGS: There is mild straightening of cervical lordosis. There is mild anterolisthesis C4 over C5 and grade 1 anterolisthesis C6 over C7 similar to previous study. There is laminectomy with posterior hardware extending from C3 through C6 vertebra for posterior stabilization. The C2-3 and C6/7 disc level are maintained and unchanged. There is no evidence of disc bulge, herniation or spinal canal stenosis with thecal sac is capacious. There is posterior spondylosis/bulge complex indenting the ventral thecal sac at C4-5 disc level but no spinal canal stenosis. The neural foramina is mildly narrowed bilaterally at C4-5 and C5-6 and C6/7 disc levels secondary to mild facet joint hypertrophy and uncovertebral spurring Postlaminectomy the thecal sac is capacious. In addition there is mild loss of cord volume. There is mild myelomalacia at the C4-5 and C5-6 disc level. Cord myelomalacia is more prominent at C5-6 disc level is more prominent compared to previous exam 11-20 24. No additional areas of cord signal abnormality seen. Cervical-min delivery junction is normal. The bone marrow signal is normal. There is small left perineural cyst T1-2 and moderate sized left perineural cysts at T1-T2 disc level. These were noted on the previous MRI C-spine. The paravertebral soft tissues are maintained normal. The prevertebral soft tissues are normal. MR/MR cervical spine wo con IMPRESSION: Multilevel laminectomy at and posterior hardware for stabilization from C3 to C6 vertebral level. There are myelomalacia changes at C4-5 and C5-6 disc level. The C5-6 myelomalacia signal changes are more prominent than the previous exam. Left perineural cyst left C7-T1 and T1 S2 disc level are stable. There is no bone marrow contusion or bone fracture seen. Prescriptions: No Action metoprolol succinate 50 mg tablet extended release 24 hr 50 mg PO BID escitalopram oxalate 10 mg tablet 10 mg PO DAILY polyethylene glycol 3350 17 gram powder in packet 17 g PO DAILY PRN (Reason: Constipation) omeprazole 20 mg capsule,delayed release(DR/EC) 20 mg PO BID@0630,1630 PRN (Reason: Acid Reflux) daptomycin 500 mg recon soln 500 mg IV Q24H Rx Instructions: administer over 30 mins, end apr 26, 2024 clopidogrel 75 mg Tablet 75 mg PO DAILY Qty: 90 0RF atorvastatin 20 mg tablet 20 mg PO BEDTIME docusate sodium [Colace] 100 mg capsule 100 mg PO DAILY PRN (Reason: Constipation) ascorbate calcium (vitamin C) 500 mg tablet 2 g PO DAILY aspirin [Adult Low Dose Aspirin] 81 mg tablet,delayed release (DR/EC) 81 mg PO DAILY coenzyme Q10 100 mg capsule 100 mg PO DAILY magnesium 250 mg tablet 250 mg PO DAILY gabapentin 300 mg capsule 600 mg PO BEDTIME doxycycline hyclate 100 mg capsule 100 mg PO BID 30 Days Qty: 60 1RF Print Language: Martiniquais
--- NOTE | 2024-08-13 14:44 | PC.NURSE ---
pt off unit to MRI
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
--- OUTSIDE RECORDS SUMMARY | 2024-08-13 15:15 | XMS_ITS | Patient Health Record ---
Author Organization [facility] [place] Address [address] [place] [address] Care Team Providers Care Transcript Clerk Name Role Phone Ab Lora MD Primary Care Provider Driss Cummins Unavailable [phone] Reason For Referral No Information Medications Medication [...] Start Date Coverage End Date Medicare [facility] [address] [facility] [place] [address] [id number] Bakari Betancur Self - patient is the insured 2 [employer] [facility] [address] [place] [address] [id number] Bakari Betancur Self - patient is the insured Medical (General) History Medical History History ICD Code Measles Mumps High blood pressure Cholesterol Mitral valve regurgitation Benign prostatic hyperplasia (BPH)
--- OUTSIDE RECORDS SUMMARY | 2024-08-13 15:15 | XMS_ITS ---
Author Organization Royal Schuler III, MD Address [address] [place] [address] [place] [address] Care Team Providers Care Commercial Litigation Associate Name Role Phone Royal Schuler [phone] REASON FOR VISIT PIC Line Social History Sex Assigned At : Social History Observation Description Sex Assigned At Male Problems Problem Type SNOMED Code ICD Code Onset Dates Problem Status W/U Status Risk Notes Problem 755985871 Dressing change (Z48.00) Active confirmed Encounters Encounter Location Date Provider Diagnosis Royal Schuler III, MD [address] [place] [address] [place] [address] 04/10/2024 Royal Schuler Dressing change Z48.00 Assessments Encounter Date Diagnosis (ICD Code) Assessment Notes Treatment Notes Treatment Clinical Notes 04/10/2024 Dressing change (ICD-10 - Z48.00) Plan Of Treatment Next Appt Details Follow Up: 1 Week, Reason: O V, dressing change Progress Notes * Vignesh DUVALwDOB:1945 (78 yo M)Acc No.[id number]:04/10/2024 Progress Notes Patient:?Bakari DUVAL Provider:?Royal Schuler MD :1945???Age:78 Y???Sex:Male Noam e:04/10/2024 Address: [id number] Subjective: * Chief Complaints: * ???PIC Line * HPI: ???v:? He is receiving intravenous antibiotics for endocarditis.? He has a PICC line in his right forearm.? The dressing was changed today without difficulty. * Medical History:? * Surgical History:? * Hospitalization/Major Diagno stic Procedure:? * Medications:? Objective: * Vitals:? Assessment: * Assessment: 1.?Dressing change - Z48.00 (Primary)??? Plan: * Treatment: * Procedure Codes:?05027 DRESS ING CHANGE,NOT FOR BURN * Follow Up:?1 Week (Reason: O V, dressing change) * Images: * Sign off status: Completed true * Provider:?Royal Schuler MD Date:?03/29 Generated for Lyndsay rousseau/Viviana/eTransmitting on:?08/13/2024 03:15 PM EDT
--- OUTSIDE RECORDS SUMMARY | 2024-08-13 15:16 | XMS_ITS | Patient Health Record ---
Author Organization Royal Schuler III, MD Address [address] [place] [address] [place] [address] Care Team Providers Care Patient Placement Coordinator Name Role Phone Royal Schuler Luz Marina [phone] Reason For Referral No Information Social History Sex Assigned At : Social History Observation Description Sex Assigned At Male Problems Problem Type SNOMED Code ICD Code Onset Dates Problem Status W/U Status Risk Notes Problem [id number] Dressing change (Z48.00) Active confirmed Encounters Encounter Location Date Provider Diagnosis Royal Schuler III, MD [address] [place] [address] [place] [address] 04/10/2024 Royal Scuhler Dressing change Z48. 00 Royal Schuler III, MD [address] [place] [address] [place] [address] 04/03/2024 Royal Schuler Dressing change Z48. 00 Royal Schuler III, MD [address] [place] [address] [place] [address] 04/17/2024 Royal Schuler Peripherally inserte d central [...] Coverage End Date MEDICARE NGS [address] [place] [address] [phone] [id number] Bakari Betancur Self - patient is the insured [facility] [address] [place], [place] [id number] Bakari Betancur Self - patient is the insured
--- OUTSIDE RECORDS SUMMARY | 2024-08-13 15:16 | XMS_ITS | Encounter Summary ---
Author Organization [facility] Address [address] [place] [address] Care Team Providers Care Sky Cap Name Role Phone Lou Hay MD Primary Care Provider [phone] Encounter Details Date Type Department Care Team (Late st Contact Info) Description 07/23/[address] [facility] - Main Lab 299 [facility] [place] [address] Lou Hay MD [address] [place] [address] Encounter for other general examination Social History Tobacco Use Types Packs/Day Years Used Date Smoking Tobacco: Never Smokeless Tobacco: Never Alcohol Use Standard Drinks/Week Comments Yes 7 [...] on file Sexual Orientation Not on file documented as of this encounter Plan of Treatment Not on file documented as of this encounter Procedures Procedure Name Priority Date/Time Associated Diagnosis Comments CBC WITH AUTO DIFFERENTIAL Routine 07/23/2024 6:18 AM EDT Encounter for other general examination CBC AND DIFFERENTIAL Routine 07/23/2024 6:18 AM EDT Encounter for other general examination MAGNESIUM Routine 07/23/2024 6:18 AM EDT Encounter for other general examination COMPREHENSIVE METABOLIC PANEL Routine 07/23/2024 6:18 AM EDT Encounter for other general examination documented in this encounter Results * (ABNORMAL) CBC auto differential (07/23/2024 6:18 AM EDT) WBC 7.6 4.8 - 10.8 K/mcL LAB HEMETOLOGY METHOD 07/23/2024 11:39 AM [facility] RBC 4.30(L) 4.50 - 5.50 M/mcL LAB HEMETOLOGY METHOD 07/23/2024 11:39 AM [facility] Hemoglobin 12.2(L) 13.5 - 17.5 g/dL LAB HEMETOLOGY METHOD 07/23/2024 11:39 AM T [facility] Hematocrit 38.4(L) 42.0 - 54.0 % LAB HEMETOLOGY METHOD 07/23/2024 11:39 AM [facility] MCV 89.1 79.0 - 98.0 FL LAB HEMETOLOGY METHOD 07/23/2024 11:39 AM [facility] MCH 28.3 27.0 - 32.0 pcg LAB HEMETOLOGY METHOD 07/23/2024 11:39 AM [facility] MCHC 31.8(L) 32.0 - 37.0 g/dL LAB HEMETOLOGY METHOD 07/23/2024 11:39 AM [facility] RDW 14.0 11.0 - 15.0 % LAB HEMETOLOGY METHOD 07/23/2024 11:39 AM [facility] Platelets 202 130 - 400 K/mcL LAB HEMETOLOGY METHOD 07/23/2024 11:39 AM [facility] MPV 11.3(H) 7.0 - 11.0 FL LAB HEMETOLOGY METHOD 07/23/2024 11:39 AM [facility] NRBC 0.0 <1.0 % LAB HEMETOLOGY METHOD 07/23/2024 11:39 AM [facility] NRBC Absolute 0.00 <0.10 K/mcL LAB HEMETOLOGY METHOD 07/23/2024 11:39 AM [facility] Neutrophils Relative 61.1 % LAB HEMETOLOGY METHOD 07/23/2024 11:39 AM [facility] Lymphocytes Relative 27.9 % LAB HEMETOLOGY METHOD 07/23/2024 11:39 AM [facility] Monocytes Relative 9.7 % LAB HEMETOLOGY METHOD 07/23/2024 11:39 AM [facility] Eosinophils Relative 0.4 % LAB HEMETOLOGY METHOD 07/23/2024 11:39 AM [facility] Basophils Relative 0.4 % LAB HEMETOLOGY METHOD 07/23/2024 11:39 AM [facility] Immature Granulocytes Relative 0.5 % LAB HEMETOLOGY METHOD 07/23/2024 11:39 AM [facility] Neutrophils Absolute 4.67 1.50 - 7.00 K/mcL LAB HEMETOLOGY METHOD 07/23/2024 11:39 AM EDT [facility] Lymphocytes Absolute 2.13 1.00 - 5.00 K/[facility] LAB HEMETOLOGY METHOD 07/23/2024 11:39 AM EDT [facility] Monocytes Absolute 0.74 0.20 - 1.00 K/[facility] LAB HEMETOLOGY METHOD 07/23/2024 11:39 AM EDT [facility] Eosinophils Absolute 0.03 0.00 - 0.50 K/[facility] LAB HEMETOLOGY METHOD 07/23/2024 11:39 AM EDT [facility] Basophils Absolute 0.03 0.00 - 0.20 K/[facility] LAB HEMETOLOGY METHOD 07/23/2024 11:39 AM EDT [facility] Immature Granulocytes Absolute 0.04(H) 0.00 - 0.03 K/[facility] LAB HEMETOLOGY METHOD 07/23/2024 11:39 AM EDT [facility] Blood Venous blood specimen / Unknown Venipuncture / Unknown 07/23/2024 6:18 AM EDT 07/23/2024 11:02 AM EDT us Lou Hay MD LAB BLOOD ORDERABLES Final Res ult [facility] [address] [place] [address], * Magnesium (07/23/2024 6:18 AM EDT) Magnesium 2.1 1.9 - 2.6 mg/dL LAB CHEMISTRY METHOD 07/23/2024 12:32 PM EDT [facility] Blood Venous blood specimen / Unknown Venipuncture / Unknown 07/23/2024 6:18 AM EDT 07/23/2024 11:02 AM EDT us Lou Hay MD LAB BLOOD ORDERABLES Final Res ult [facility] [address] [place] [address], * (ABNORMAL) Comprehensive metabolic panel (07/23/2024 6:18 AM EDT) Sodium 140 133 - 145 mmol/L LAB CHEMISTR[facility] Potassium 4.0 3.5 - 5.5 mmol/L LAB CHEMISTRY METHOD 07/23/2024 12:38 PM [facility] Chloride 104 96 - 110 mmol/L LAB CHEMISTRY METHOD 07/23/2024 12:38 PM [facility] CO2 28 21 - 32 mmol/L LAB CHEMISTRY METHOD 07/23/2024 12:38 PM [facility] Anion Gap 8 3 - 11 LAB CHEMISTRY METHOD 07/23/2024 12:38 PM [facility] Glucose 78 70 - 100 mg/dL LAB CHEMISTRY METHOD 07/23/2024 12:38 PM [facility] BUN 24 5 - 25 mg/dL LAB CHEMISTRY METHOD 07/23/2024 12:38 PM [facility] Creatinine 0.99 0.70 - 1.30 mg/dL LAB CHEMISTRY METHOD 07/23/2024 12:38 PM [facility] eGFR 78 >=60 mL/min/1. 73m2 LAB CHEMISTRY METHOD 07/23/2024 12:38 PM [facility] Comment:Calculation based on the??Chronic Kidney Disease Epidemiology Collaboration (CKD-EPI) equation refit??without adjustment for race. BUN/Creatinine Ratio 24.2 LAB CHEMISTRY METHOD 07/23/2024 12:38 PM [facility] Calcium 8.6 8.5 - 10.5 mg/dL LAB CHEMISTRY METHOD 07/23/2024 12:38 PM [facility] AST (SGOT) 17 10 - 42 unit/L LAB CHEMISTRY METHOD 07/23/2024 12:38 PM EDT [facility] ALT (SGPT) 24 10 - 60 unit/L LAB CHEMISTRY METHOD 07/23/2024 12:38 PM EDT [facility] Alkaline Phosphatase 66 42 - 121 unit/L LAB CHEMISTRY METHOD 07/23/2024 12:38 PM EDT [facility] Total Protein 6.1 6.0 - 8.0 g/dL LAB CHEMISTRY METHOD 07/23/2024 12:38 PM EDT [facility] Albumin 3.1(L) 3.2 - 5.0 g/dL LAB CHEMISTRY METHOD 07/23/2024 12:38 PM T [facility] Total Bilirubin 0.3 0.0 - 1.4 mg/dL LAB CHEMISTRY METHOD 07/23/2024 12:38 PM T [facility] Blood Venous blood specimen / Unknown Venipuncture / Unknown 07/23/2024 6:18 AM EDT 07/23/2024 11:02 AM EDT Lou Hay MD LAB BLOOD ORDERABLES Final Res ult [facility] [address] [place] [address], documented in this encounter Visit Diagnoses Diagnosis Encounter for other general examination documented in this encounter Additional Health Concerns Assessment Noted Time PHQ-9 Depression Total Score: 0 03/10/20 24 12:37 PM EST documented as of this encounter Care Teams Sky Cap Relationship Specialty Start Date End Date Lou Hay MD [address] [place] [address] PCP - General Internal Medicine 07/23/24 documented as of this encounter
--- OUTSIDE RECORDS SUMMARY | 2024-08-13 15:16 | XMS_ITS ---
Author Organization Royal Schuler III, MD Address [address] [place] [address] [place] [address] Care Team Providers Care Corporate Travel Coordinator Name Role Phone Royal Schuler [phone] REASON FOR VISIT PIC Line, Staphylococcal endocarditis Social History Sex Assigned At : Social History Observation Description Sex Assigned At Male Encounters Encounter Location Date Provider Diagnosis Royal Schuler III, MD [address] [place] [address] [place] [address] 04/17/2024 Royal Schuler Peripherally inserte d central [...] Notes * Vignesh BETANCURwDOB:1945 (78 yo M)Acc No.[id number]:04/17/2024 Progress Notes Patient:?Bakari BETANCUR Provider:?Royal Schuler MD :1945???Age:78 Y???Sex:Male Noam e:04/17/2024 Address: [id number] Subjective: * Chief Complaints: * ???PIC LineStaphylococcal en docarditis * HPI: ???v:? He came into the office today to change the PICC line dressing on the right forearm.? Using sterile technique weeks and the usual kit the PICC line was chdange with Incident. * Medical History:? * Surgical History:? * Hospitalization/Major Diagno stic Procedure:? * Medications:? Objective: * Vitals:? Assessment: * Assessment: 1.?Peripherally inserted daya tral catheter (PICC) in place - Z45.2 (Primary)???Notes :His drressing will be changed oonce a week.? There was no sign of infection at the insertion site.??? Plan: * Treatment: * Procedure Codes:? * Follow Up:?1 Week (Reason: d ressing change) * Images: * Sign off status: Completed true * Provider:?Royal Schuler MD Date:?03/30 Generated for Lyndsay rousseau/Viviana/eTfranciscoitting on:?08/13/2024 03:16 PM EDT
--- OUTSIDE RECORDS SUMMARY | 2024-08-13 15:16 | XMS_ITS ---
Author Organization Royal Schuler III, MD Address [address] [place] [address] [place] [address] Care Team Providers Care Field Crew Chief Name Role Phone Royal Schuler [phone] REASON FOR VISIT Picc Line dressing change Social History Sex Assigned At : Social History Observation Description Sex Assigned At Male Encounters Encounter Location Date Provider Diagnosis Royal Schuler III, MD [address] [place] [address] [address] [place] [address] 04/03/2024 Royal Schuler Dressing change Z48.00 Assessments Encounter Date Diagnosis (ICD Code) Assessment Notes Treatment Notes Treatment Clinical Notes 04/03/2024 Dressing change (ICD-10 - Z48.00) Plan Of Treatment Next Appt Details Follow Up: 1 Week, Reason: Progress Notes * Giovani BETANCUROB:1945 (79 yo M)Acc No.[id number]:04/03/2024 Progress Notes Patient:?Bakari BETANCUR Provider:?Royal Schuler MD :1945???Age:78 Y???Sex:Male Noam e:04/03/2024 Address:[address] [place] [address] [address] [id number] Subjective: * Chief Complaints: * ???1. Picc Line dressing hortencia nge. * Medical History:? Objective: * Vitals:? Assessment: * Assessment: 1.?Dressing change - Z48.00? ?? Plan: * Treatment: * Procedure Codes:?60106 DRESS ING CHANGE,NOT FOR BURN * Follow Up:?1 Week * Images: * The named appointment provid er may or may not be the originator of this progress note, and it is not deemed complete until electronically signed by the appointment provider. Sign off status: Pending * Provider:?Royal Schuler MD Date:?09/2023 Generated for Lyndsay rousseau/Viviana/Michael on:?08/13/2024 03:15 PM EDT
--- OUTSIDE RECORDS SUMMARY | 2024-08-13 15:16 | XMS_ITS | Encounter Summary ---
Author Organization [facility] Address [address] [place] [address] Care Team Providers Care Split And Drum Room Supervisor Name Role Phone Lou Hay MD Primary Care Provider [phone] Encounter Details Date Type Department Care Team (Late st Contact Info) Description 08/08/2024 Lab Requisition [facility] - Main Lab 299 [facility] [place] [address] Lou Hay MD [address] [place] [address] Encounter for other general examination Social History [...] PM EDT Encounter for other general examination documented in this encounter Results * (ABNORMAL) Comprehensive metabolic panel (08/08/2024 3:25 PM EDT) Sodium 139 133 - 145 mmol/L LAB CHEMISTRY METHOD 08/08/2024 5:50 PM [facility] Potassium 4.2 3.5 - 5.5 mmol/L LAB CHEMISTRY METHOD 08/08/2024 5:50 PM [facility] Chloride 104 96 - 110 mmol/L LAB CHEMISTRY METHOD 08/08/2024 5:50 PM [facility] CO2 30 21 - 32 mmol/L LAB CHEMISTRY METHOD 08/08/2024 5:50 PM [facility] Anion Gap 5 3 - 11 LAB CHEMISTRY METHOD 08/08/2024 5:50 PM [facility] Glucose 110(H) 70 - 100 mg/dL LAB CHEMISTRY METHOD 08/08/2024 5:50 PM [facility] BUN 19 5 - 25 mg/dL LAB CHEMISTRY METHOD 08/08/2024 5:50 PM [facility] Creatinine 0.97 0.70 - 1.30 mg/dL LAB CHEMISTRY METHOD 08/08/2024 5:50 PM [facility] eGFR 80 >=60 mL/min/1. 73m2 LAB CHEMISTRY METHOD 08/08/2024 5:50 PM [facility] Comment:Calculation based on the??Chronic Kidney Disease Epidemiology Collaboration (CKD-EPI) equation refit??without adjustment for race. BUN/Creatinine Ratio 19.6 LAB CHEMISTRY METHOD 08/08/2024 5:50 PM EDT [facility] Calcium 9.4 8.5 - 10.5 mg/dL LAB CHEMISTRY METHOD 08/08/2024 5:50 PM T [facility] AST (SGOT) 37 10 - 42 unit/L LAB CHEMISTRY METHOD 08/08/2024 5:50 PM T [facility] ALT (SGPT) 45 10 - 60 unit/L LAB CHEMISTRY METHOD 08/08/2024 5:50 PM T [facility] Alkaline Phosphatase 101 42 - 121 unit/L LAB CHEMISTRY METHOD 08/08/2024 5:50 PM [facility] Total Protein 6.7 6.0 - 8.0 g/dL LAB CHEMISTRY METHOD 08/08/2024 5:50 PM [facility] Albumin 3.8 3.2 - 5.0 g/dL LAB CHEMISTRY METHOD 08/08[facility]2024 [facility] Total Bilirubin 0.5 0.0 - 1.4 mg/dL LAB CHEMISTRY METHOD 08/08/2024 5:50 PM [facility] Blood Venous blood specimen / Unknown Venipuncture / Unknown 08/08/2024 3:25 PM EDT 08/08/2024 4:49 PM EDT us Lou Hay MD LAB BLOOD ORDERABLES Final Res ult [facility] [address] [place] [address], documented in this encounter Visit Diagnoses Diagnosis Encounter for other general examination documented in this encounter Additional Health Concerns Assessment Noted Time PHQ-9 Depression Total Score: 0 03/10/20 24 12:37 PM EST documented as of this encounter Care Teams Split And Drum Room Supervisor Relationship Specialty Start Date End Date Lou Hay MD [address] [place] [address] PCP - General Internal Medicine 07/23/24 documented as of this encounter
--- OUTSIDE RECORDS SUMMARY | 2024-08-13 15:16 | XMS_ITS | Encounter Summary ---
Author Organization [facility] Address [address] [place] [address] Care Team Providers Care Rn Case Manager Hospice Name Role Phone Lou Hay MD Primary Care Provider [phone] Encounter Details Date Type Department Care Team (Late st Contact Info) Description 08/02/2024 Lab Requisition [facility] - Main Lab 299 [facility] [place] [address] Lou Hay MD [address] [place] [address] Encounter for other general examination Social History [...] Procedure Name Priority Date/Time Associated Diagnosis Comments COMPLETE BLOOD COUNT Routine 08/02/2024 6:15 AM EDT Encounter for other general examination BASIC METABOLIC PANEL Routine 08/02/2024 6:15 AM EDT Encounter for other general examination documented in this encounter Results * (ABNORMAL) Complete blood count (08/02/2024 6:15 AM EDT) WBC 7.3 4.8 - 10.8 K/mcL LAB HEMETOLOGY METHOD 08/02/2024 10:29 AM [facility] RBC 4.40(L) 4.50 - 5.50 M/[facility] LAB HEMETOLOGY METHOD 08/02/2024 10:29 AM [facility] Hemoglobin 12.6(L) 13.5 - 17.5 g/dL LAB HEMETOLOGY METHOD 08/02/2024 10:29 AM [facility] Hematocrit 39.3(L) 42.0 - 54.0 % LAB HEMETOLOGY METHOD 08/02/2024 10:29 AM [facility] MCV 88.7 79.0 - 98.0 FL LAB HEMETOLOGY METHOD 08/02/2024 10:29 AM [facility] MCH 28.4 27.0 - 32.0 pcg LAB HEMETOLOGY METHOD 08/02/2024 10:29 AM [facility] MCHC 32.1 32.0 - 37.0 g/dL LAB HEMETOLOGY METHOD 08/02/2024 10:29 AM [facility] RDW 13.9 11.0 - 15.0 % LAB HEMETOLOGY METHOD 08/02/2024 10:29 AM EDT [facility] Platelets 228 130 - 400 K/mcL LAB HEMETOLOGY METHOD [facility]/02[facility]24 [facility] MPV 11.0 7.0 - 11.0 FL LAB HEMETOLOGY METHOD 08/02/2024 10:29 AM EDT [facility] NRBC 0.0 <1.0 % LAB HEMETOLOGY METHOD 08/02/2024 10:29 AM EDT [facility] NRBC Absolute 0.00 <0.10 K/mcL LAB HEMETOLOGY METHOD 08/02/2024 10:29 AM [facility] Blood Venous blood specimen / Unknown Venipuncture / Unknown 08/02/2024 6:15 AM EDT 08/02/2024 9:38 AM EDT us Lou Hay MD LAB BLOOD ORDERABLES Final Res ult [facility] [address] [place] [address], * Basic metabolic panel (08/02/2024 6:15 AM EDT) Sodium 138 133 - 145 mmol/L LAB CHEMISTRY METHOD 08/02/2024 11:06 AM [facility] Potassium 4.8 3.5 - 5.5 mmol/L LAB CHEMISTRY METHOD 08/02/2024 11:06 AM [facility] Chloride 103 96 - 110 mmol/L LAB CHEMISTRY METHOD 08/02/2024 11:06 AM [facility] CO2 32 21 - 32 mmol/L LAB CHEMISTRY METHOD 08/02/2024 11:06 AM [facility] Anion Gap 3 3 - 11 LAB CHEMISTRY METHOD 08/02/2024 11:06 AM [facility] Glucose 75 70 - 100 mg/dL LAB CHEMISTRY METHOD 08/02/2024 11:06 AM [facility] BUN 15 5 - 25 mg/dL LAB CHEMISTRY METHOD 08/02/2024 11:06 AM [facility] Creatinine 0.94 0.70 - 1.30 mg/dL LAB CHEMISTRY METHOD 08/02/2024 11:06 AM [facility] eGFR 83 >=60 mL/min/1. 73m2 LAB CHEMISTRY METHOD 08/02/2024 11:06 AM [facility] Comment:Calculation based on the??Chronic Kidney Disease Epidemiology Collaboration (CKD-EPI) equation refit??without adjustment for race. BUN/Creatinine Ratio 16.0 LAB CHEMISTRY METHOD 08/02/2024 11:06 AM [facility] Calcium 9.2 8.5 - 10.5 mg/dL LAB CHEMISTRY METHOD 08/02/2024 11:06 AM [facility] Blood Venous blood specimen / Unknown Venipuncture / Unknown 08/02/2024 6:15 AM EDT 08/02/2024 9:38 AM EDT us Lou Hay MD LAB BLOOD ORDERABLES Final Res ult [facility] [address] [place] [address], documented in this encounter Visit Diagnoses Diagnosis Encounter for other general examination documented in this encounter Additional Health Concerns Assessment Noted Time PHQ-9 Depression Total Score: 0 03/10/20 24 12:37 PM EST documented as of this encounter Care Teams Rn Case Manager Hospice Relationship Specialty Start Date End Date Lou Hay MD [address] [place] [address] PCP - General Internal Medicine 07/23/24 documented as of this encounter
--- OUTSIDE RECORDS SUMMARY | 2024-08-13 15:16 | XMS_ITS | Encounter Summary ---
Author Organization [facility] Address [address] [place] [address] Care Team Providers Care Painter Ordnance Name Role Phone Lou Hay MD Primary Care Provider [phone] Encounter Details Date Type Department Care Team (Late st Contact Info) Description 07/23/2024 Lab Requisition [facility] - Main Lab 299 [facility] [place] [address] Lou Hay MD [address] [place] [address] Encounter for other general examination Social History [...] Procedure Name Priority Date/Time Associated Diagnosis Comments LEVETIRACETAM LEVEL Routine 07/23/2024 1 :48 PM EDT Encounter for other general examination documented in this encounter Results * Levetiracetam level (07/23/2024 1:48 PM EDT) Levetiracetam 10.2 3.0 - 60.0 ug/mL 07/27/2024 6:37 AM EDT [facility] Comment: Steady state trough serum or plasma levels following doses of 1000 to 3000 mg/Day: ??3 to 37 ug/mL. The same dosage regimen will typically result in peak levels of 10 to 60 ug/mL, at approximately 1.5 hours post dose. If applicable, any drug confirmation testing reported here was developed and the performance characteristics determined by [facility]. This confirmation testing has not been cleared or approved by the FDA. The laboratory is regulated under CLIA as qualified to perform high-complexity testing. This test is used for patient testing purposes. It should not be regarded as investigational or for research. Test performed at [facility], [address] , [place], [place] [address] ? [phone] Arlyn Kaur MD, PhD - Registry Np Blood Venous blood specimen / Unknown Venipuncture / Unknown 07/23/2024 1:48 PM EDT 07/23/2024 3:50 PM EDT us Lou Hay MD LAB BLOOD ORDERABLES Final Res ult [facility] [address] [place] [address] documented in this encounter Visit Diagnoses Diagnosis Encounter for other general examination documented in this encounter Additional Health Concerns Assessment Noted Time PHQ-9 Depression Total Score: 0 03/10/20 24 12:37 PM EST documented as of this encounter Care Teams Painter Ordnance Relationship Specialty Start Date End Date Lou Hay MD [address] [place] [phone] PCP - General Internal Medicine 07/23/24 documented as of this encounter
[2024-08-13 16:06] VITALS: BP 128/72; PULSE 67; RESP 16; TEMP 36.6; O2SAT 99
== END 2024-08-13 16:08 | disposition home or self-care (01) ==
PROVIDERS: Emergency Provider Emergency Medicine
DX: S16.1XXA Strain of muscle, fascia and tendon at neck level, initial encounter (principal); W18.30XA Fall on same level, unspecified, initial encounter; G95.89 Other specified diseases of spinal cord; Y93.9 Activity, unspecified; Y92.099 Unspecified place in other non-institutional residence as the place of occurrence of the external cause; Y99.9 Unspecified external cause status; E78.5 Hyperlipidemia, unspecified; Z79.82 Long term (current) use of aspirin; Z79.02 Long term (current) use of antithrombotics/antiplatelets; Z79.899 Other long term (current) drug therapy
CPT/HCPCS: 70450; 72141; 99284; 99285

== ENCOUNTER → 2024-08-13 11:46 | Outpatient (BNV) | payer MEDICARE, SELFPAY | PROVIDERS: Emergency Provider Emergency Medicine; Visit Provider Radiology Diagnostic Radiology | DX: Z98.1 Arthrodesis status (principal); S00.93XA Contusion of unspecified part of head, initial encounter | CPT/HCPCS: 70450; 72141 ==

== ENCOUNTER 2024-11-11 10:52 | Outpatient (REF) | payer MEDICARE, SELFPAY ==
--- OUTSIDE RECORDS SUMMARY | 2024-04-03 09:15 | XMS_ITS ---
Author Organization Royal Schuler III, MD Address [address] [place] [address] [place] [address] Care Team Providers Care Wing Coverer Name Role Phone Royal Schuler [phone] REASON FOR VISIT Picc Line dressing change Social History Sex Assigned At : Social History Observation Description Sex Assigned At Male Encounters Encounter Location Date Provider Diagnosis Royal Schuler III, MD [address] [place] [address] [place] [address] 04/03/2024 Royal Schuler Dressing change Z48.00 Assessments Encounter Date Diagnosis (ICD Code) Assessment Notes Treatment Notes Treatment Clinical Notes 04/03/2024 Dressing change (ICD-10 - Z48.00) Plan Of Treatment Next Appt Details Follow Up: 1 Week, Reason: Progress Notes * Giovani BETANCUROB:1945 (79 yo M)Acc No.[id number]:04/03/2024 Progress Notes Patient: Bakari MORALES Provider: Bibi Schuler MD :1945 A ge:78 Y S ex:Male Date:04/03/2024 Address:[address] [place], [place] [address]Nicho arteaga [id number] Subjective: * Chief Complaints: * 1 . [...] 06/04/2023 Generated for Lyndsay rousseau/Viviana/Michael on: 0 11/11/2024 11:41 AM EDT
[2024-11-11 11:03] LABS: MANUAL DIFF FLAG NO
[2024-11-11 11:31] LABS: Hematocrit 43.1 % (42.0-52.0); Hemoglobin 13.9 g/dl (14.0-18.0); Imm Gran Abs Auto 0.02 X10*3/uL (0.00-0.03); Imm Gran Pct Auto 0.4 % (0.0-0.4); Lymphocytes Absolute Auto 1.2 X10*3/uL (1.2-4.9); Mean Corpuscular HGB Conc 32.3 g/dl (31.0-36.0); Mean Corpuscular Hemoglobin 28.7 pg (27.0-33.0); Mean Corpuscular Volume 88.9 fL (80.0-98.0); NRBC Abs Auto 0.000 X10*3/uL (0.0-0.012); NRBC Pct Auto 0.0 /100WBC (0.0-0.2); Platelet Count 204 X10*3/uL (160-400); Red Blood Count 4.85 X10*6/uL (4.60-5.80); White Blood Count 5.5 X10*3/uL (4.8-10.8)
--- OUTSIDE RECORDS SUMMARY | 2024-11-11 11:41 | XMS_ITS | Clinical Summary ---
Author Organization [address] [facility] Address [address] [place] [address] Phone Care Team Providers Care Laceworker Name Role Phone Lou Hay MD Primary Care Provider [phone] Allergies Active Allergy Reactions Criticality Noted Date [...] Noted Date Diagnosed Date Resolved Date Sepsis ([facility] V24, [facility] V28) 03/06/2024 03/10/2024 Medical History Medical History Date Comments HTN (hypertension) COPD (chronic obstructive pulmonary disease) ([facility] S/HCC V24, [facility] V28) CAD (coronary artery disease) Social History [...] 80 03/11/2024 9:48 AM EST Temperature 36.4 C (97.5 F) 03/11/2024 9:48 AM EST Respiratory Rate 16 03/11/2024 9:48 AM EST [...] Medicare Annual Wellness Visit 03/06/2024 Influenza Vaccine (#1) 2024 Depression Screening 03/10/2025 03/10/2024 Social Influencers [...] PM EDT Encounter for other general examination from Last 3 Months or Most Recently Relevant to Health Maintenance Results * (ABNORMAL) Comprehensive metabolic panel (08/08/2024 3:25 PM EDT) Sodium 139 133 - 145 mmol/L LAB CHEMISTRY METHOD 08/08/2024 5:50 PM [facility] Potassium 4.2 3.5 - 5.5 mmol/L LAB CHEMISTRY METHOD 08/08/2024 5:50 PM [facility] Chloride 104 96 - 110 mmol/L LAB CHEMISTRY METHOD 08/08/2024 5:50 PM [facility] CO2 30 21 - 32 mmol/L LAB CHEMISTRY METHOD 08/08/2024 5:50 PM [facility] Anion Gap 5 3 - 11 LAB CHEMISTRY METHOD 08/08/2024 5:50 PM [facility] Glucose 110(H) 70 - 100 mg/dL LAB CHEMISTRY METHOD 08/08/2024 5:50 PM [facility] BUN 19 5 - 25 mg/dL LAB CHEMISTRY METHOD 08/08/2024 5:50 PM [facility] Creatinine 0.97 0.70 - 1.30 mg/dL LAB CHEMISTRY METHOD 08/08/2024 5:50 PM [facility] eGFR 80 >=60 mL/min/1. 73m2 LAB CHEMISTRY METHOD 08/08/2024 5:50 PM [facility] Comment:Calculation based on the Chronic Kidney Disease Epidemiology Collaboration (CKD-EPI) equation refit without adjustment for race. BUN/Creatinine Ratio 19.6 LAB CHE[facility]STR[facility] Calcium 9.4 8.5 - 10.5 mg/dL LAB CHEMISTRY METHOD 08/08/2024 5:50 PM EDT [facility] AST (SGOT) 37 10 - 42 unit/L LAB CHEMISTRY METHOD 08/08/2024 5:50 PM [facility] ALT (SGPT) 45 10 - 60 unit/L LAB CHEMISTRY METHOD 08/08/2024 5:50 PM EDT [facility] Alkaline Phosphatase 101 42 - 121 unit/L LAB CHEMISTRY METHOD 08/08/2024 5:50 PM [facility] Total Protein 6.7 6.0 - 8.0 g/dL LAB CHEMISTRY METHOD 08/08/2024 5:50 PM [facility] Albumin 3.8 3.2 - 5.0 g/dL LAB CHEMISTRY METHOD 08/08/2024 5:50 PM [facility] Total Bilirubin 0.5 0.0 - 1.4 mg/dL LAB CHEMISTRY METHOD 08/08/2024 5:50 PM [facility] Blood Venous blood specimen / Unknown Venipuncture / Unknown 08/08/2024 3:25 PM EDT 08/08/2024 4:49 PM EDT us Lou Hay MD LAB BLOOD ORDERABLES Final Res ult [facility] [address] [place] [address], from Last 3 Months or Most Recently Relevant to Health Maintenance Insurance MEDICARE MEDEX Advance Directives * Full [...] currently active code status orders. Care Teams Laceworker Relationship Specialty Start Date End Date Lou Hay MD [address] [place] [address] PCP - General Internal Medicine 07/23/24
--- OUTSIDE RECORDS SUMMARY | 2024-11-11 11:42 | XMS_ITS | Patient Health Record ---
Author Organization [facility] liana Winthrop Address [address] [facility] [address] [place] [address] Care Team Providers Care Rat Farmer Name Role Phone Ab Lora MD Primary Care Provider Driss Cummins Unavailable [phone] Reason For Referral No Information Medications Medication [...] Start Date Coverage End Date Medicare [facility] [address] [facility] [place] [address] [id number] Bakari Betancur Self - patient is the insured 2 [employer] [facility] [address] [place] [address] [id number] Bakari Betancur Self - patient is the insured Medical (General) History Medical History History ICD Code Measles Mumps High blood pressure Cholesterol Mitral valve regurgitation Benign prostatic hyperplasia (BPH)
--- OUTSIDE RECORDS SUMMARY | 2024-11-11 11:42 | XMS_ITS | Patient Health Record ---
Author Organization [facility] Address [address] [place] [address] Care Team Providers Care Spiral Runner Name Role Phone Ab Lora MD Primary Care Provider Kiana anderson LooRoyal Unavailable [phone] Reason For Referral No Information Medications Medication SIG (Take, Route, Frequency, Duration) Notes Start Date End Date Status Co Q-10 150 MG 1 capsule with a fátima l Orally Once a day for 30 day(s) Active busPIRone HCl 10 MG 1 tablet Orally Twic e a day for 30 days 03/11/2023 Active Flomax 0.4 MG 1 capsule Orally Onc e a day for 30 day(s) 06/03/2018 Active Vitamin C 500 MG as directed Orally Active Metoprolol Succinate ER 50 MG TAKE 1 TABLET BY MOUTH ONCE DAILY Oral for 90 Active Atorvastatin Calcium 20 MG TK 1 T PO QD Oral for 90 Active Immunizations Vaccine Route Administration Date Status Comme nts Influenza Unknown 12/28/2017 Administered Social History Tobacco Use: Social History Observation Description Date Details (start date - stop date) Never Smoker NA - NA Tobacco Use/Smoking Question Answer Notes Patient is a nonsmoker Alcohol Screen Question Answer Notes Did you have a drink contain ing alcohol in the past year? Yes How often did you have a dri nk containing alcohol in the past year? 4 or more times a week (4 points) How many drinks did you have on a typical day when you were drinking in the past year? 1 or 2 drinks (0 point) How often did you have 6 or more drinks on one occasion in the past year? Never (0 point) Points 4 Interpretation Positive Section Notes: Nonsmoker; wine with dinner Problems Problem Type SNOMED Code ICD Code Onset Dates Problem Status W/U Status Risk Notes Problem 390800583 Encounter for screening for malignant neoplasm of colon (Z12.11) Active confirmed Problem 290699785 Early satiety (R68.81) Active confirmed Problem 157875052529910 Preprocedural examination (Z01.818) Active confirmed Problem 23000999 Constipation, unspecified constipation type (K59.00) Active confirmed Problem 31511363 Pharyngoesophage al dysphagia (R13.14) Active confirmed Plan Of Treatment Pending Test Test Name Order Date XR BARIUM SWALLOW-ESOPHAGUS 08/04/2020 XR GI SERIES 08/04/2020 Future Test Test Name Order Date COLONOSCOPY 06/03/2018 Insurance Providers Payer Name Payer Address Payer Phone Subscriber Number Group Number Insured Name Patient Relationship to Insured Coverage Start Date Coverage End Date MEDICARE OF [place] [address] [facility] [address] [id number] TERE BETANCUR Self - patient is the insured [employer] ATT[employer] CLAIMS [address] [place] [address] [id number] TERE BETANCUR Self - patient is the insured Medical (General) History Medical History History ICD Code Mitral valve regurgitation--Dr. Fuchs Denies MT,DM,CVA,Lung disease,renal dise ase Neg. screening colonoscopy i n 2006--mild diverticulosis and internal hemorrhoids C-spine disc disease--will be having breanne wilder in the Spring 2018 Surgical History Surgery Date(Month/Year) Varicocele
[2024-11-11 12:14] LABS: Alanine Aminotransferase 26 U/L (0-40); Albumin Level 4.4 g/dL (3.5-5.0); Alkaline Phosphatase 91 U/L (39-117); Anion Gap 9 (12-20); Aspartate Amino Transferase 30 U/L (5-37); Blood Urea Nitrogen 16 mg/dL (9-16); Calcium 8.9 mg/dL (8.4-10.2); Carbon Dioxide 27 mmol/L (22-29); Chloride 106 mmol/L (96-108); Estimated Glomerular Filt Rate > 60; Potassium 4.6 mmol/L (3.3-5.1); Sodium 137 mmol/L (135-145); Total Protein 7.0 g/dL (6.5-8.0)
[2024-11-11 12:38] LABS: Free T4 (Free Thyroxine) 0.93 ng/dL (0.71-1.85)
== END 2024-11-11 10:53 | disposition home or self-care (01) ==
LOC: HO.LAB 10:52
PROVIDERS: PCP Internal Medicine; Referring Provider Internal Medicine; Visit Provider Family Medicine
DX: R63.4 Abnormal weight loss (principal); R53.83 Other fatigue
CPT/HCPCS: 36415; 80053; 84439; 85025; 85652

== ENCOUNTER 2024-12-30 09:42 | Outpatient (REF) | payer MEDICARE, SELFPAY ==
--- OUTSIDE RECORDS SUMMARY | 2024-04-03 09:15 | XMS_ITS ---
Author Organization Royal Schuler III, MD Address [address] [place] [address] [place] [address] Care Team Providers Care Wood Tank Erector Name Role Phone Royal Schuler [phone] REASON FOR VISIT Picc Line dressing change Social History Sex Assigned At : Social History Observation Description Sex Assigned At Male Encounters Encounter Location Date Provider Diagnosis Royal Schuler III, MD [address] [place] [address] [place] [address] 04/03/2024 Royal Schuler Dressing change Z48.00 Assessments Encounter Date Diagnosis (ICD Code) Assessment Notes Treatment Notes Treatment Clinical Notes 04/03/2024 Dressing change (ICD-10 - Z48.00) Plan Of Treatment Next Appt Details Follow Up: 1 Week, Reason: Progress Notes * Giovani BETANCUROB:1945 (79 yo M)Acc No.[id number]:04/03/2024 Progress Notes Patient: Bakari MORALES Provider: Bibi Schuler MD :1945 A ge:78 Y S ex:Male Date:04/03/2024 Address:[address] [place], [place] [address]Nicho arteaga [facility] Subjective: * Chief Complaints: * 1 . Picc Line dressing change. * Medical History: Objective: * Vitals: Assessment: * Assessment: 1. D ressing change - Z48.00 Plan: * Treatment: * Procedure Codes: 1 5852 DRESSING CHANGE,NOT FOR BURN * Follow Up: 1 Week * Images: * The named appointment provid er may or may not be the originator of this progress note, and it is not deemed complete until electronically signed by the appointment provider. Sign off status: Pending * Provider: Bibi Schuler MD Date: 1 06/04/2023 Generated for Lyndsay rousseau/Viviana/Michael on: 0 12/30/2024 10:44 AM EDT
--- OUTSIDE RECORDS SUMMARY | 2024-04-10 10:30 | XMS_ITS ---
Author Organization Royal Schuler III, MD Address [address] [place] [address] [place] [address] Care Team Providers Care Clinical Nursing Professor Name Role Phone Royal Schuler [phone] REASON FOR VISIT PIC Line Social History Sex Assigned At : Social History Observation Description Sex Assigned At Male Problems Problem Type SNOMED Code ICD Code Onset Dates Problem Status W/U Status Risk Notes Problem 748554057 Dressing change (Z48.00) Active confirmed Encounters Encounter Location Date Provider Diagnosis Royal Schuler III, MD [address] [place] [address] [place] [address] 04/10/2024 Royal Schuler Dressing change Z48.00 Assessments Encounter Date Diagnosis (ICD Code) Assessment Notes Treatment Notes Treatment Clinical Notes 04/10/2024 Dressing change (ICD-10 - Z48.00) Plan Of Treatment Next Appt Details Follow Up: 1 Week, Reason: O V, dressing change Progress Notes * Vignesh BETANCURwDOB:1945 (78 yo M)Acc No.[id number]:04/10/2024 Progress Notes Patient: Bakari MORALES Provider: Bibi Schuler MD :1945 A ge:78 Y S ex:Male Date:04/10/2024 Address:[address] [place] [address] Nich[address] Olivier [facility] Subjective: * Chief Complaints: * P IC [...] 1 06/11/2023 Generated for Lyndsay rousseau/Viviana/Manuelitoitting on: 0 12/30/2024 10:44 AM EDT
--- OUTSIDE RECORDS SUMMARY | 2024-04-17 11:00 | XMS_ITS ---
Author Organization Royal Schuler III, MD Address [address] [place] [address] [place] [address] Care Team Providers Care Special Agent In Charge Name Role Phone Royal Schuler [phone] REASON FOR VISIT PIC Line, Staphylococcal endocarditis Social History Sex Assigned At : Social History Observation Description Sex Assigned At Male Encounters Encounter Location Date Provider Diagnosis Royal Schuler III, MD [address] [place] [address] [place] [address] 04/17/2024 Royal Schuler Peripherally inserte d central catheter (PICC) in place Z45.2 Assessments Encounter Date Diagnosis (ICD Code) Assessment Notes Treat ment Notes Treatment Clinical Notes 04/17/2024 Peripherally inserted central catheter (PICC) in place (ICD-10 - Z45.2) His drressing will be changed oonce a week. There was no sign of infection at the insertion site. Plan Of Treatment Next Appt Details Follow Up: 1 Week, Reason: d ressing change Progress Notes * Vignesh BETANCURwDOB:1945 (78 yo M)Acc No.[id number]:04/17/2024 Progress Notes Patient: Bakari MORALES Provider: Bibi Schuler MD :1945 A ge:78 Y S ex:Male Date:04/17/2024 Address: [id number] Subjective: * Chief Complaints: * P IC LineStaphylococcal endocarditis * HPI: v : He came into the office today to change the PICC line dressing on the right forearm. Using sterile technique weeks and the usual kit the PICC line was chdange with Incident. * Medical History: * Surgical History: * Hospitalization/Major Diagno stic Procedure: * Medications: Objective: * Vitals: Assessment: * Assessment: 1. P eripherally inserted central catheter (PICC) in place - Z45.2 (Primary) N otes :His drressing will be changed oonce a week. There was no sign of infection at the insertion site. Plan: * Treatment: * Procedure Codes: * Follow Up: 1 Week (Reason: dressing change) * Images: * Sign off status: Completed true * Provider: Bibi Schuler MD Date: 1 06/18/2023 Generated for Lyndsay rousseau/Viviana/Manuelitoitting on: 0 12/30/2024 10:44 AM EDT
--- NOTE | ~2024-12-30 | MR_ITS ---
CLINICAL HISTORY: MEMORY LOSS MR Brain without gadolinium Comparison: CT/REG/NE/SR - CT HEAD/BRAIN WO IV CON - 08/13/24 11:55 EDT Findings: There is a small old lacunar infarct in the right thalamus. Within a posterior gyrus of the left frontal lobe there is a few punctate dots of hemosiderin deposition as well as heterogeneous FLAIR signal. Small area of FLAIR signal within a right occipital gyrus superiorly which may be an area of encephalomalacia. Mild cerebral atrophy and compensatory ventriculomegaly. Minimal T2 and FLAIR hyperintensities in the subcortical white matter of both hemispheres. No midline shift. No hydrocephalus. Vascular flow voids are intact. The orbits are normal. The sinuses and mastoid air cells are clear. No focal bone lesion. IMPRESSION: 1. No acute findings. No evidence of acute stroke. 2. 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 3. 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 This document has been electronically signed by: Fernie Cervantes MD on 12/30/2024 22:20:41
--- OUTSIDE RECORDS SUMMARY | 2024-12-30 10:44 | XMS_ITS | Clinical Summary ---
Author Organization [facility] Address [address] [facility] [address] [place] [address] Phone Care Team Providers Care Wood Fence Erector Name Role Phone Ab Lora MD Primary Care Provider [phone] Franklin Fuchs MD Unavailable [phone] Allergies No known active allergies Medications ascorbic acid, vitamin C, (VITAMIN C) 100 MG tablet Take 200 mg by mouth daily. Active magnesium oxide 250 mg (150 mg elemental) Tab Take 250 mg by mouth nightly at bedtime. Active coenzyme Q10 100 mg capsule Take 100 mg by mouth nightly at bedtime. Active tamsulosin (FLOMAX) 0.4 mg Cap Take 0.4 mg by mouth nightly at bedtime. Active polyethylene glycol (MIRALAX) 17 gram packet Take 17 g by mouth as needed. Active gabapentin (NEURONTIN) 300 MG capsule Take 1 capsule (300 mg total) by mouth nightly at bedtime. 30 capsule 10/26/2019 Active aspirin 81 MG EC tablet Take 1 tablet (81 mg total) by mouth daily. 30 tablet 3 10/26/2019 Active atorvastatin (LIPITOR) 20 MG tablet Take 1 tablet (20 mg total) by mouth nightly at bedtime. 30 tablet 3 10/26/2019 Active docusate sodium (COLACE) 100 MG capsule Take 1 capsule (100 mg total) by mouth 2 (two) times a day as needed for constipation. 28 capsule 10/26/2019 Active acetaminophen (TYLENOL) 325 mg tablet Take 2 tablets (650 mg total) by mouth every 4 (four) hours as needed for mild pain or fever. 90 tablet 10/26/2019 Active amiodarone (PACERONE) 400 MG tablet Take 1 tablet (400 mg total) by mouth 2 (two) times a day. 60 tablet 3 10/26/2019 Active apixaban (ELIQUIS) 5 mg tablet Take 1 tablet (5 mg total) by mouth 2 (two) times a day. 30 tablet 3 10/26/2019 Active esomeprazole (NEXIUM) 20 MG capsule Take 1 capsule (20 mg total) by mouth daily. 30 capsule 10/26/2019 Active ferrous sulfate 324 mg (65 mg kotlik iron) TbEC Take 1 tablet (324 mg total) by mouth daily with breakfast. 30 tablet 10/26/2019 Active furosemide (LASIX) 20 MG tablet Take 1 tablet (20 mg total) by mouth daily. 4 tablet 10/26/2019 Active metoprolol succinate (TOPROL-XL) 100 MG 24 hr tablet Take 1 tablet (100 mg total) by mouth daily. 30 tablet 3 10/27/2019 Active oxyCODONE 5 MG immediate release tablet Take 1 tablet (5 mg total) by mouth every 4 (four) hours as needed for moderate pain or severe pain. Partial fill ok 10 tablet 10/26/2019 Active potassium chloride (MICRO-K) 10 mEq CR capsule Take 1 capsule (10 mEq total) by mouth daily. 4 capsule 10/27/2019 Active senna (SENOKOT) 8.6 mg tablet Take 2 tablets by mouth nightly at bedtime as needed for constipation. 14 tablet 10/26/2019 Active Active Problems Problem Noted Date Diagnosed Date Mitral valve insufficiency 10/19/2019 Radiculopathy Overview (10/13/2019): After C spine surgery in 2019: Leg weakness, pelvic floor weakness Hyperlipidemia Overview (10/13/2019): On statin Gastroesophageal reflux disease Overview (10/13/2019): Rare symptoms no medications Mitral valve disease Social History Tobacco Use Types Packs/Day Years Used Date Smoking Tobacco: Never Smokeless Tobacco: Never Alcohol Use Standard Drinks/Week Comments Not Currently 0 (1 standard drink = 0.6 oz pur e alcohol) Education Answer Date Recorded Are you interested in more education? Not on malvin e 08/24/2022 Are you concerned about learning? Not on file 08/24/2022 No 08/24/2022 No 08/24/2022 Digital Access Answer Date Recorded No 09/22/2022 No 09/22/2022 No 09/22/2022 Reliable internet access at home? Not on file 09/22/2022 Device with a working camera? Not on file Sex and Gender Information Value Date Recorded Sex Assigned at Male 06/19/2019 9:01 AM EST Legal Sex Male 8:54 AM EST Gender Identity Male 06/19/2019 9:01 AM EST Sexual Orientation Not on file Last Filed Vital Signs Vital Sign Reading Time Taken Comments Blood Pressure 93/67 10/26/2019 7:28 AM EDT Pulse 82 10/26/2019 12:00 PM EDT Temperature 36.2 C (97.2 F) 10/26/2019 7:28 AM EDT Respiratory Rate 18 10/26/2019 3:54 AM EDT Oxygen Saturation 97% 10/26/2019 7:28 AM EDT Inhaled Oxygen Concentration 42% 10/19/2019 5 :35 PM EDT Weight 67.2 kg (148 lb 2.4 oz) 10/26/2019 4:15 A M EDT Height 170.2 cm (5' 7.01 ) 10/21/2019 5:00 PM ED T Body Mass Index 23.2 10/21/2019 5:00 PM EDT Plan of Treatment Health Maintenance Due Date Last Done Comments Adult Td,Tdap Booster 1945 LIPID PANEL 1945 TSH LEVEL 1945 HEPATITIS C SCREENING 1964 PNEUMOCOCCAL VACCINES (50+ years) (1 of 1 - PCV) 1996 ZOSTER VACCINES (1 of 2) 1996 DEPRESSION SCREENING 06/26/2020 06/26/2019 ALT LEVEL (ALANINE AMINOTRANSFERASE) 10/18/2020 10/19/2019 CREATININE LEVEL 10/25/2020 10/26/2019, , 10/24/2019, Additional history exists POTASSIUM LEVEL 10/25/2020 10/26/2019, 09/28, 10/24/2019, Additional history exists RSV VACCINE (1 - 1-dose 75+ series) 2021 COVID-19 VACCINE (2 - 2023- season) 2023 04/26/2020 SMOKING STATUS SCREENING (Once After 26 Yrs) Completed 10/19/2019 HEPATITIS A VACCINES Aged Out No long er eligible based on patient's age to complete this topic HIB VACCINES Aged Out No longer eligi ble based on patient's age to complete this topic MENINGOCOCCAL VACCINES (ACWY) Aged Out No longer eligible based on patient's age to complete this topic MENINGOCOCCAL VACCINES (B) Aged Out N o longer eligible based on patient's age to complete this topic Medical Devices Implanted Type Area Manager Economic Device Identifier Shelf Expiration Date Model / Serial / Lot Valve Mitral 29.5x27mm Bioprosthetic Pericard Ulmaged Martínez Cuf Asymmetric Georgegn Kiera - [id number] Implanted:Qty: 1 on 10/19/2019 by Cricket Flores MD at [facility] [employer] 04/07/2022 [id number] / [id number] / Procedures Procedure Name Priority Date/Time Associated Diagnosis Comments BASIC METABOLIC PANEL Routine 10/26/2019 6:59 AM EDT COMPREHENSIVE METABOLIC PANEL STAT 10/19/2019 12:59 PM EDT from Last 3 Months or Most Recently Relevant to Health Maintenance Results * (ABNORMAL) Basic metabolic panel (10/26/2019 6:59 AM EDT) SODIUM 138 136 - 145 mmol/L [facility] POTASSIUM 4.6 3.4 - 5.1 mmol/L [facility] CHLORIDE 101 98 - 107 mmol/L [facility] CO2 24 22 - 31 mmol/L [facility] BUN 9 6 - 23 mg/dL [facility] CREATININE 0.93 0.50 - 1.20 mg/dL [facility] GLUCOSE 101(H) 70 - 100 mg/dL [facility] CALCIUM 8.5(L) 8.8 - 10.7 mg/dL [facility] EGFR 81 >59 mL/min/1.7 3m2 [facility] Comment:Estimated glomerular filtration rate calculated using the CKD-EPI equation. ANION GAP 13 7 - 17 mmol/L [facility] Blood 10/26/2019 6:59 AM EDT 10/26/2019 7:49 AM EDT Dennis Salomon PA-C LAB BLOOD ORDERABLES Final R esult Performing Organization Address City/[facility] Co de Phone Number [facility] [address] [place] [address] * (ABNORMAL) Comprehensive metabolic panel (10/19/2019 12:59 PM EDT) SODIUM 141 136 - 145 mmol/L [facility] POTASSIUM 4.0 3.4 - 5.1 mmol/L [facility] CHLORIDE 109(H) 98 - 107 mmol/L [facility] CO2 19(L) 22 - 31 mmol/L [facility] BUN 11 6 - 23 mg/dL [facility] CREATININE 0.85 0.50 - 1.20 mg/dL [facility] GLUCOSE 118(H) 70 - 100 mg/dL [facility] ALBUMIN 2.8(L) 3.5 - 5.2 g/dL [facility] TOTAL PROTEIN 4.2(L) 6.4 - 8.3 g/dL [facility] CALCIUM 7.5(L) 8.8 - 10.7 mg/dL [facility] ALKALINE PHOSPHATASE 36 35 - 130 U/L [facility] TOTAL BILIRUBIN 0.4 0.0 - 1.0 mg/dL [facility] AST 35 10 - 50 U/L [facility] ALT 15 10 - 50 U/L [facility] GLOBULIN 1.4(L) 2.2 - 4.2 g/dL [facility] EGFR 86 >59 mL/min/1. 73m2 [facility] Comment:Estimated glomerular filtration rate calculated using the CKD-EPI equation. ANION GAP 13 7 - 17 mmol/L [facility] Blood 10/19/2019 12:5 9 PM EDT 10/19/2019 1:07 PM EDT Dom Mathis PA-C LAB BLOOD ORDERABLES Final Result Performing Organization Address City/State/[facility] Co de Phone Number [facility] [address] [place] [address] from Last 3 Months or Most Recently Relevant to Health Maintenance Insurance MEDICARE PART A & B [employer] MEDEX SUPPLEMENT MEDICARE PART A & B [employer] CROSS MEDEX SUPPLEMENT MEDICARE PART A & B [employer] CROSS MEDEX SUPPLEMENT MEDICARE PART A & B [employer] MEDEX SUPPLEMENT MEDICARE PART A & B [employer] MEDEX SUPPLEMENT MEDICARE PART A & B [employer] MEDEX SUPPLEMENT MEDICARE PART A & B [employer] MEDEX SUPPLEMENT MEDICARE PART A & B [facility] MEDEX SUPPLEMENT MEDICARE PART A & B [employer] MEDEX SUPPLEMENT Advance Directives For more information, please contact: [phone] (9AM - 5PM [facility], Saturday-Saturday) Documents on File Type Date Recorded 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 Machine Operator Expl anation Healthcare Proxy 10/13/2019 Healthcare Proxy 06/23/2018 * Full Code (Confirmed) (Latest Code Status on File) Date Activated Date Inactivated Comments 10/20/2019 6:50 AM Question Answer Comments Code Status Confirmed With: Patient * Full Code (Presumed) Date Activated Date Inactivated Comments 10/19/2019 12:48 PM 10/20/2019 6:50 AM Care Teams Wood Fence Erector Relationship Specialty Start Date End Date Ab Lora MD [address] [facility] [address] [address] PCP - General Internal Medicine 06/19/19 Franklin Fuchs MD [address] [place] [address] [address] [place] [address] [employer] [facility] 10/28/19 Additional Source Comments The information contained in this document represents components of the legal health record. It is not the complete legal health record.[facility]
--- OUTSIDE RECORDS SUMMARY | 2024-12-30 10:44 | XMS_ITS | Encounter Summary ---
Author Organization [facility] Address [address] [place] [address] Care Team Providers Care Sales Representative Health Insurance Name Role Phone Lou Hay MD Primary Care Provider [phone] Encounter Details Date Type Department Care Team (Late st Contact Info) Description 08/08/2024 Lab Requisition [facility] - Main Lab [address] [facility] [place] [address] Lou Hay MD [address] [place] [address] Encounter for other general examination Social History [...] mmol/L LAB CHEMISTRY METHOD 08/08/2024 5:50 PM [facility] Potassium 4.2 3.5 - 5.5 mmol/L LAB CHEMISTRY METHOD 08/08/2024 5:50 PM [facility] Chloride 104 96 - 110 mmol/L LAB CHEMISTRY METHOD 08/08/2024 5:50 PM [facility] CO2 30 21 - 32 mmol/L LAB CHEMISTRY METHOD 08/08/2024 5:50 PM [facility] Anion Gap 5 3 - 11 LAB CHEMISTRY METHOD 08/08/2024 5:50 PM [facility] Glucose 110(H) 70 - 100 mg/dL LAB CHEMISTRY METHOD 08/08/2024 5:50 PM [facility] BUN 19 5 - 25 mg/dL LAB CHEMISTRY METHOD 08/08/2024 5:50 PM [facility] Creatinine 0.97 0.70 - 1.30 mg/dL LAB CHEMISTRY METHOD 08/08/2024 5:50 PM [facility] eGFR 80 >=60 mL/min/1. 73m2 LAB CHEMISTRY METHOD 08/08/2024 5:50 PM [facility] Comment:Calculation based on the Chronic Kidney Disease Epidemiology Collaboration (CKD-EPI) equation refit without adjustment for race. BUN/Creatinine Ratio 19.6 LAB CHEMISTRY METHOD 08/08/2024 5:50 PM EDT [facility] Calcium 9.4 8.5 - 10.5 mg/dL LAB CHEMISTRY METHOD 08/08/2024 5:50 PM EDT [facility] AST (SGOT) 37 10 - 42 unit/L LAB CHEMISTRY METHOD 08/08/2024 5:50 PM T [facility] ALT (SGPT) 45 10 - 60 unit/L LAB CHEMISTRY METHOD 08/08/2024 5:50 PM EDT [facility] Alkaline Phosphatase 101 42 - 121 unit/L LAB CHEMISTRY METHOD 08/08/2024 5:50 PM EDT [facility] Total Protein 6.7 6.0 - 8.0 g/dL LAB CHEMISTRY METHOD 08/08/2024 5:50 PM [facility] Albumin 3.8 3.2 - 5.0 g/dL LAB CHEMISTRY METHOD 08/08/2024 5:50 PM EDT [facility] Total Bilirubin 0.5 0.0 - 1.4 mg/dL LAB CHEMISTRY METHOD 08/08/2024 5:50 PM [facility] Blood Venous blood specimen / Unknown Venipuncture / Unknown 08/08/2024 3:25 PM EDT 08/08/2024 4:49 PM EDT us Lou Hay MD LAB BLOOD ORDERABLES Final Res ult [facility] [address] [place] [address], documented in this encounter Visit Diagnoses Diagnosis Encounter for other general examination documented in this encounter Additional Health Concerns Assessment Noted Time PHQ-9 Depression Total Score: 0 03/10/20 24 12:37 PM EST documented as of this encounter Care Teams Sales Representative Health Insurance Relationship Specialty Start Date End Date Lou Hay MD [address] [place] [address] PCP - General Internal Medicine 07/23/24 documented as of this encounter
--- OUTSIDE RECORDS SUMMARY | 2024-12-30 10:44 | XMS_ITS | Encounter Summary ---
Author Organization [facility] Address [address] [place] [address] Care Team Providers Care Planer Offbearer Name Role Phone Lou Hay MD Primary Care Provider [phone] Encounter Details Date Type Department Care Team (Late st Contact Info) Description 07/23/[address] [facility] - Main Lab 299 [facility] [place] [address] Lou Hay MD [address] [place] [address] Encounter for other general examination Social History [...] - 60.0 ug/mL 07/27/2024 6:37 AM EDT [facility] Comment: Steady state trough serum or plasma levels following doses of 1000 to 3000 mg/Day: 3 to 37 ug/mL. The same dosage regimen will typically result in peak levels of 10 to 60 ug/mL, at approximately 1.5 hours post dose. If applicable, any drug confirmation testing reported here was developed and the performance characteristics determined by [facility]. This confirmation testing has not been cleared or approved by the FDA. The laboratory is regulated under CLIA as qualified to perform high-complexity testing. This test is used for patient testing purposes. It should not be regarded as investigational or for research. Test performed at [facility], [address] , [place], [place] [id number] Arlyn Kaur MD, PhD - Loader Operator Blood Venous blood specimen / Unknown Venipuncture / Unknown 07/23/2024 1:48 PM EDT 07/23/2024 3:50 PM EDT us Lou Hay MD LAB BLOOD ORDERABLES Final Res ult [facility] [address] [place], [place] [id number] documented in this encounter Visit Diagnoses Diagnosis Encounter for other general examination documented in this encounter Additional Health Concerns Assessment Noted Time PHQ-9 Depression Total Score: 0 11/12/20 24 12:37 PM EST documented as of this encounter Care Teams Planer Offbearer Relationship Specialty Start Date End Date Lou Hay MD [address] [place] [address] PCP - General Internal Medicine 07/23/24 documented as of this encounter
--- OUTSIDE RECORDS SUMMARY | 2024-12-30 10:44 | XMS_ITS | Encounter Summary ---
Author Organization [facility] Address [address] [place] [address] Care Team Providers Care Herbologist Name Role Phone Lou Hay MD Primary Care Provider [phone] Encounter Details Date Type Department Care Team (Late st Contact Info) Description 08/02/2024 Lab Requisition [facility] - Main Lab 299 [facility] [place] [email or web address] [address] Lou Hay MD [address] [place] [address] Encounter for other general examination Social History [...] K/mcL LAB HEMETOLOGY METHOD 08/02/2024 10:29 AM [facility] RBC 4.40(L) 4.50 - 5.50 M/[facility] LAB HEMETOLOGY METHOD 08/02/2024 10:29 AM [facility] Hemoglobin 12.6(L) 13.5 - 17.5 g/dL LAB HEMETOLOGY METHOD 08/02/2024 10:29 AM [facility] Hematocrit 39.3(L) 42.0 - 54.0 % LAB HEMETOLOGY METHOD 08/02/2024 10:29 AM [facility] MCV 88.7 79.0 - 98.0 FL LAB HEMETOLOGY METHOD 08/02/2024 10:29 AM [facility] MCH 28.4 27.0 - 32.0 pcg LAB HEMETOLOGY METHOD 08/02/2024 10:29 AM [facility] MCHC 32.1 32.0 - 37.0 g/dL LAB HEMETOLOGY METHOD 08/02/2024 10:29 AM [facility] RDW 13.9 11.0 - 15.0 % LAB HEMETOLOGY METHOD 08/02/2024 10:29 AM EDT [facility] Platelets 228 130 - 400 K/mcL LAB HEMETOLOGY METHOD [facility] MPV 11.0 7.0 - 11.0 FL LAB HEMETOLOGY METHOD 08/02/2024 10:29 AM EDT [facility] NRBC 0.0 <1.0 % LAB HEMETOLOGY METHOD 08/02/2024 10:29 AM EDT [facility] NRBC Absolute 0.00 <0.10 K/mcL LAB HEMETOLOGY METHOD 08/02/2024 10:29 AM [facility] Blood Venous blood specimen / Unknown Venipuncture / Unknown 08/02/2024 6:15 AM EDT 08/02/2024 9:38 AM EDT us Lou Hay MD LAB BLOOD ORDERABLES Final Res ult [facility] [address] [place] [address], * Basic metabolic panel (08/02/2024 6:15 AM EDT) Sodium 138 133 - 145 mmol/L LAB CHEMISTRY METHOD 08/02/2024 11:06 AM [facility] Potassium 4.8 3.5 - 5.5 mmol/L LAB CHEMISTRY METHOD 08/02/2024 11:06 AM [facility] Chloride 103 96 - 110 mmol/L LAB CHEMISTRY METHOD 08/02/2024 11:06 AM [facility] CO2 32 21 - 32 mmol/L LAB CHEMISTRY METHOD 08/02/2024 11:06 AM [facility] Anion Gap 3 3 - 11 LAB CHEMISTRY METHOD 08/02/2024 11:06 AM [facility] Glucose 75 70 - 100 mg/dL LAB CHEMISTRY METHOD 08/02/2024 11:06 AM [facility] BUN 15 5 - 25 mg/dL LAB CHEMISTRY METHOD 08/02/2024 11:06 AM [facility] Creatinine 0.94 0.70 - 1.30 mg/dL LAB CHEMISTRY METHOD 08/02/2024 11:06 AM [facility] eGFR 83 >=60 mL/min/1. 73m2 LAB CHEMISTRY METHOD 08/02/2024 11:06 AM [facility] Comment:Calculation based on the Chronic Kidney Disease Epidemiology Collaboration (CKD-EPI) equation refit without adjustment for race. BUN/Creatinine Ratio 16.0 LAB CHEMISTRY METHOD 08/02/2024 11:06 AM [facility] Calcium 9.2 8.5 - 10.5 mg/dL LAB CHEMISTRY METHOD 08/02/2024 11:06 AM [facility] Blood Venous blood specimen / Unknown Venipuncture / Unknown 08/02/2024 6:15 AM EDT 08/02/2024 9:38 AM EDT us Lou Hay MD LAB BLOOD ORDERABLES Final Res ult [facility] [address] [place] [address], documented in this encounter Visit Diagnoses Diagnosis Encounter for other general examination documented in this encounter Additional Health Concerns Assessment Noted Time PHQ-9 Depression Total Score: 0 03/10/20 24 12:37 PM EST documented as of this encounter Care Teams Herbologist Relationship Specialty Start Date End Date Lou Hay MD [address] [place] [address] PCP - General Internal Medicine 07/23/24 documented as of this encounter
--- OUTSIDE RECORDS SUMMARY | 2024-12-30 10:44 | XMS_ITS | Clinical Summary ---
Author Organization [facility] Address [address] [place] [address] Phone Care Team Providers Care Life Specialist Name Role Phone Lou Hay MD Primary Care Provider [phone] Allergies Active Allergy Reactions Criticality Noted Date [...] Noted Date Diagnosed Date Resolved Date Sepsis ([facility] V24, [facility] V28) 03/06/2024 03/10/2024 Medical History Medical History Date Comments HTN (hypertension) COPD (chronic obstructive pulmonary disease) (CM S/HCC V24, CMS/[facility] V28) CAD (coronary artery disease) Social [...] Patients (1 - 1-dose 75+ series) 2021 Cholesterol Screening (Lipid Panel) 03/06/2024 Hepatitis C Screening 03/06/2024 Medicare Annual Wellness Visit 03/06/2024 Depression Screening 04/29/2024 03/10/2024 COVID-19 Vaccine ( - season) 2024 Influenza Vaccine (#1) 2024 Social Influencers of Health Screening 03/10/2025 03/10/2024 [...] mmol/L LAB CHEMISTRY METHOD 08/08/2024 5:50 PM [facility] Potassium 4.2 3.5 - 5.5 mmol/L LAB CHEMISTRY METHOD 08/08/2024 5:50 PM [facility] Chloride 104 96 - 110 mmol/L LAB CHEMISTRY METHOD 08/08/2024 5:50 PM [facility] CO2 30 21 - 32 mmol/L LAB CHEMISTRY METHOD 08/08/2024 5:50 PM [facility] Anion Gap 5 3 - 11 LAB CHEMISTRY METHOD 08/08/2024 5:50 PM [facility] Glucose 110(H) 70 - 100 mg/dL LAB CHEMISTRY METHOD 08/08/2024 5:50 PM [facility] BUN 19 5 - 25 mg/dL LAB CHEMISTRY METHOD 08/08/2024 5:50 PM [facility] Creatinine 0.97 0.70 - 1.30 mg/dL LAB CHEMISTRY METHOD 08/08/2024 5:50 PM [facility] eGFR 80 >=60 mL/min/1. 73m2 LAB CHEMISTRY METHOD 08/08/2024 5:50 PM [facility] Comment:Calculation based on the Chronic Kidney Disease Epidemiology Collaboration (CKD-EPI) equation refit without adjustment for race. BUN/Creatinine Ratio 19.6 LAB CHEMISTRY METHOD 08/[facility]24 [facility] Calcium 9.4 8.5 - 10.5 mg/dL LAB CHEMISTRY METHOD 08/08/2024 5:50 PM EDT [facility] AST (SGOT) 37 10 - 42 unit/L LAB CHEMISTRY METHOD 08/08/2024 5:50 PM [facility] ALT (SGPT) 45 10 - 60 unit/L LAB CHEMISTRY METHOD 08/08/2024 5:50 PM EDT [facility] Alkaline Phosphatase 101 42 - 121 unit/L LAB CHEMISTRY METHOD 08/08/2024 5:50 PM [facility] Total Protein 6.7 6.0 - 8.0 g/dL LAB CHEMISTRY METHOD 08/08/2024 5:50 PM [facility] Albumin 3.8 3.2 - 5.0 g/dL LAB CHEMISTRY METHOD 08/08/2024 5:50 PM [facility] Total Bilirubin 0.5 0.0 - 1.4 mg/dL LAB CHEMISTRY METHOD 08/08/2024 5:50 PM [facility] Blood Venous blood specimen / Unknown Venipuncture / Unknown 08/08/2024 3:25 PM EDT 08/08/2024 4:49 PM EDT us Lou Hay MD LAB BLOOD ORDERABLES Final Res ult [facility] [address] [place] [address], from Last 3 Months or Most Recently [...] currently active code status orders. Care Teams Life Specialist Relationship Specialty Start Date End Date Lou Hay MD [address] [place] [address] PCP - General Internal Medicine 07/23/24
--- OUTSIDE RECORDS SUMMARY | 2024-12-30 10:45 | XMS_ITS | Patient Health Record ---
Author Organization Royal Schuler III, MD Address [address] [place] [address] [place] [address] Care Team Providers Care Director Title Name Role Phone Royal Schuler Luz Marina [phone] Reason For Referral No Information Social History Sex Assigned At : Social History Observation Description Sex Assigned At Male Problems Problem Type SNOMED Code ICD Code Onset Dates Problem Status W/U Status Risk Notes Problem 846608483 Dressing change (Z48.00) Active confirmed Encounters Encounter Location Date Provider Diagnosis Royal Schuler III, MD [address] [place] [address] [place] [address] 04/10/2024 Royal Schuler Dressing change Z48. 00 Royal Schuler III, MD [address] [place] [address] [place] [address] 04/03/2024 Royal Schuler Dressing change Z48. 00 Royal Schuler III, MD [address] [place] [address] [place] [address] 04/17/2024 Royal Schuler Peripherally inserte d central [...] Coverage End Date MEDICARE NGS [address] [place] [address] [id number] Bakari Betancur Self - patient is the insured [facility] [address] [place], [place] [id number] [phone] [id number] Bakari Betancur Self - patient is the insured
--- OUTSIDE RECORDS SUMMARY | 2024-12-30 10:45 | XMS_ITS | Encounter Summary ---
Author Organization [facility] Address [address] [place] [address] Care Team Providers Care Automatic Car Wash Attendant Name Role Phone Lou Hay MD Primary Care Provider [phone] Encounter Details Date Type Department Care Team (Late st Contact Info) Description 07/23/2024 Lab Requisition [facility] - Main Lab 299 [facility] [place] [address] Lou Hay MD [address] [place] [address] Encounter for other general examination Social History [...] K/mcL LAB HEMETOLOGY METHOD 07/23/2024 11:39 AM [facility] RBC 4.30(L) 4.50 - 5.50 M/mcL LAB HEMETOLOGY METHOD 07/23/2024 11:39 AM [facility] Hemoglobin 12.2(L) 13.5 - 17.5 g/dL LAB HEMETOLOGY METHOD 07/23/2024 11:39 AM T [facility] Hematocrit 38.4(L) 42.0 - 54.0 % LAB HEMETOLOGY METHOD 07/23/2024 11:39 AM [facility] MCV 89.1 79.0 - 98.0 FL LAB HEMETOLOGY METHOD 07/23/2024 11:39 AM [facility] MCH 28.3 27.0 - 32.0 pcg LAB HEMETOLOGY METHOD 07/23/2024 11:39 AM [facility] MCHC 31.8(L) 32.0 - 37.0 g/dL LAB HEMETOLOGY METHOD 07/23/2024 11:39 AM [facility] RDW 14.0 11.0 - 15.0 % LAB HEMETOLOGY METHOD 07/23/2024 11:39 AM [facility] Platelets 202 130 - 400 K/mcL LAB HEMETOLOGY METHOD 07/23/2024 11:39 AM [facility] MPV 11.3(H) 7.0 - 11.0 FL LAB HEMETOLOGY METHOD 07/23/2024 11:39 AM [facility] NRBC 0.0 <1.0 % LAB HEMETOLOGY METHOD 07/23/2024 11:39 AM [facility] NRBC Absolute 0.00 <0.10 K/mcL LAB HEMETOLOGY METHOD 07/23/2024 11:39 AM [facility] Neutrophils Relative 61.1 % LAB HEMETOLOGY METHOD 07/23/2024 11:39 AM [facility] Lymphocytes Relative 27.9 % LAB HEMETOLOGY METHOD 07/23/2024 11:39 AM [facility] Monocytes Relative 9.7 % LAB HEMETOLOGY METHOD 07/23/2024 11:39 AM [facility] Eosinophils Relative 0.4 % LAB HEMETOLOGY METHOD 07/23/2024 11:39 AM [facility] Basophils Relative 0.4 % LAB HEMETOLOGY METHOD 07/23/2024 11:39 AM [facility] Immature Granulocytes Relative 0.5 % LAB HEMETOLOGY METHOD 07/23/2024 11:39 AM [facility] Neutrophils Absolute 4.67 1.50 - 7.00 K/mcL LAB HEMETOLOGY METHOD 07/23/2024 11:39 AM EDT [facility] Lymphocytes Absolute 2.13 1.00 - 5.00 K/[facility] LAB HEMETOLOGY METHOD 07/23/2024 11:39 AM EDT [facility] Monocytes Absolute 0.74 0.20 - 1.00 K/[facility] LAB HEMETOLOGY METHOD 07/23/2024 11:39 AM EDT [facility] Eosinophils Absolute 0.03 0.00 - 0.50 K/[facility] HEMETOLOGY METHOD 07/23/2024 11:39 AM EDT [facility] Basophils Absolute 0.03 0.00 - 0.20 K/[facility] HEMETOLOGY METHOD 07/23/2024 11:39 AM EDT [facility] Immature Granulocytes Absolute 0.04(H) 0.00 - 0.03 K/[facility] HEMETOLOGY METHOD 07/23/2024 11:39 AM EDT [facility] Blood Venous blood specimen / Unknown Venipuncture / Unknown 07/23/2024 6:18 AM EDT 07/23/2024 11:02 AM EDT us Lou Hay MD LAB BLOOD ORDERABLES Final Res ult [facility] [address] [place] [address], * Magnesium (07/23/2024 6:18 AM EDT) Magnesium 2.1 1.9 - 2.6 mg/dL LAB CHEMISTRY METHOD 07/23/2024 12:32 PM EDT [facility] Blood Venous blood specimen / Unknown Venipuncture / Unknown 07/23/2024 6:18 AM EDT 07/23/2024 11:02 AM EDT us Lou Hay MD LAB BLOOD ORDERABLES Final Res ult [facility] [address] [place] [address], * (ABNORMAL) Comprehensive metabolic panel (07/23/2024 6:18 AM EDT) Sodium 140 133 - 145 mmol/L LAB CHEMISTRY METHOD 07/23/2024 12:38 PM [facility] Potassium 4.0 3.5 - 5.5 mmol/L LAB CHEMISTRY METHOD 07/23/2024 12:38 PM [facility] Chloride 104 96 - 110 mmol/L LAB CHEMISTRY METHOD 07/23/2024 12:38 PM [facility] CO2 28 21 - 32 mmol/L LAB CHEMISTRY METHOD 07/23/2024 12:38 PM [facility] Anion Gap 8 3 - 11 LAB CHEMISTRY METHOD 07/23/2024 12:38 PM [facility] Glucose 78 70 - 100 mg/dL LAB CHEMISTRY METHOD 07/23/2024 12:38 PM [facility] BUN 24 5 - 25 mg/dL LAB CHEMISTRY METHOD 07/23/2024 12:38 PM [facility] Creatinine 0.99 0.70 - 1.30 mg/dL LAB CHEMISTRY METHOD 07/23/2024 12:38 PM [facility] eGFR 78 >=60 mL/min/1. 73m2 LAB CHEMISTRY METHOD 07/23/2024 12:38 PM [facility] Comment:Calculation based on the Chronic Kidney Disease Epidemiology Collaboration (CKD-EPI) equation refit without adjustment for race. BUN/Creatinine Ratio 24.2 LAB CHEMISTRY METHOD 07/23/2024 12:38 PM [facility] Calcium 8.6 8.5 - 10.5 mg/dL LAB CHEMISTRY METHOD 07/23/2024 12:38 PM [facility] AST (SGOT) 17 10 - 42 unit/L LAB CHEMISTRY METHOD 07/23/2024 12:38 PM EDT [facility] ALT (SGPT) 24 10 - 60 unit/L LAB CHEMISTRY METHOD 07/23/2024 12:38 PM EDT [facility] Alkaline Phosphatase 66 42 - 121 unit/L LAB CHEMISTRY METHOD 07/23/2024 12:38 PM T [facility] Total Protein 6.1 6.0 - 8.0 g/dL LAB CHEMISTRY METHOD 07/23/2024 12:38 PM T [facility] Albumin 3.1(L) 3.2 - 5.0 g/dL LAB CHEMISTRY METHOD 07/23/2024 12:38 PM [facility] Total Bilirubin 0.3 0.0 - 1.4 mg/dL LAB CHEMISTRY METHOD 07/23/2024 12:38 PM T [facility] Blood Venous blood specimen / Unknown Venipuncture / Unknown 07/23/2024 6:18 AM EDT 07/23/2024 11:02 AM EDT us Lou Hay MD LAB BLOOD ORDERABLES Final Res ult [facility] [address] [place] [address], documented in this encounter Visit Diagnoses Diagnosis Encounter for other general examination documented in this encounter Additional Health Concerns Assessment Noted Time PHQ-9 Depression Total Score: 0 03/10/20 24 12:37 PM EST documented as of this encounter Care Teams Automatic Car Wash Attendant Relationship Specialty Start Date End Date Lou Hay MD [address] [place] [address] PCP - General Internal Medicine 07/23/24 documented as of this encounter
--- OUTSIDE RECORDS SUMMARY | 2024-12-30 10:45 | XMS_ITS | Patient Health Record ---
Author Organization [facility] Address [address] [place] [address] Care Team Providers Care Farmworker Name Role Phone Ab Lora MD Primary Care Provider Kiana anderson LooRoyal Unavailable [phone] Reason For Referral No Information Medications Medication [...] Problem Status W/U Status Risk Notes Problem [id number] Encounter for screening for malignant neoplasm of colon (Z12.11) Active confirmed Problem 385718132 Early satiety (R68.81) Active confirmed Problem [id number] Preprocedural examination (Z01.818) Active confirmed Problem 21085973 Constipation, unspecified constipation type (K59.00) Active confirmed Problem 07652621 Pharyngoesophage al dysphagia (R13.14) Active confirmed Plan Of Treatment Pending Test Test Name Order Date XR BARIUM SWALLOW-ESOPHAGUS 08/04/2020 XR GI SERIES 08/04/2020 Future Test Test Name Order Date COLONOSCOPY 06/03/2018 Insurance Providers Payer Name Payer Address Payer Phone Subscriber Number Group Number Insured Name Patient Relationship to Insured Coverage Start Date Coverage End Date MEDICARE OF [place] [address] [place] [address] [id number] TERE BETANCUR Self - patient is the insured [employer] CLAIMS [address] [place] [address] [id number] TERE BETANCUR Self - patient is the insured Medical (General) History Medical History History ICD Code Mitral valve regurgitation--Dr. Fuchs Denies DC,DM,CVA,Lung disease,renal dise ase Neg. screening colonoscopy i n 2006--mild diverticulosis and internal hemorrhoids C-spine disc disease--will be having breanne wilder in the Spring 2018 Surgical History Surgery Date(Month/Year) Varicocele
--- OUTSIDE RECORDS SUMMARY | 2024-12-30 10:45 | XMS_ITS | Patient Health Record ---
Author Organization [facility] Address [address] [facility] [place] [address] Care Team Providers Care Lard Bleacher Name Role Phone Ab Lora MD Primary Care Provider Driss Cummins Unavailable [phone] Reason For Referral No Information Medications Medication [...] Start Date Coverage End Date Medicare National [facility] [address] [place] [address] [id number] Bakari Betancur Self - patient is the insured 2 [employer] [facility] [address] [place] [address] [phone] [id number] Bakari Betancur Self - patient is the insured Medical (General) History Medical History History ICD Code Measles Mumps High blood pressure Cholesterol Mitral valve regurgitation Benign prostatic hyperplasia (BPH)
--- OUTSIDE RECORDS SUMMARY | 2024-12-30 10:45 | XMS_ITS | Encounter Summary ---
Author Organization [facility] Address [address] [place] [address] [place] [address] Phone Care Team Providers Care International Trade Analyst Name Role Phone Ab Lora MD Primary Care Provider [phone] Franklin Fuchs MD Unavailable [phone] Encounter Details Date Type Department Care Team (Late st Contact Info) Description 10/19/[address] [facility] Periop [address] [place] [address] Social History Tobacco Use Types Packs/Day Years Used Date Smoking Tobacco: Never Smokeless Tobacco: Never Alcohol Use Standard Drinks/Week Comments Not Currently 0 (1 standard drink = 0.6 oz pur e alcohol) Sex and Gender Information Value Date Recorded Sex Assigned at Male 06/19/2019 9:01 AM EST Legal Sex Male 8:54 AM EST Gender Identity Male 06/19/2019 9:01 AM EST Sexual Orientation Not on file documented as of this encounter Plan of Treatment Not on file documented as of this encounter Visit Diagnoses Not on filedocumented in this encounter Additional Health Concerns Assessment Noted Time PHQ-2 Depression Total Score: 0 06/26/19 10:13 AM EST documented as of this encounter Care Teams International Trade Analyst Relationship Specialty Start Date End Date Ab Lora MD [address] [address] PCP - General Internal Medicine 06/19/19 Franklin Fuchs MD [address] [place] [address] [address] [place] [address] Server Cardiology 10/28/19 documented as of this encounter Additional Source Comments The information contained in this document represents components of the legal health record. It is not the complete legal health record.[facility]
== END 2024-12-30 09:43 | disposition home or self-care (01) ==
LOC: HO.MRI 09:42
PROVIDERS: PCP Internal Medicine; Visit Provider Psychiatry & Neurology Neurology
DX: R41.3 Other amnesia (principal)
CPT/HCPCS: 70551

== ENCOUNTER → 2024-12-30 09:46 | Outpatient (BNV) | payer MEDICARE, SELFPAY | PROVIDERS: PCP Internal Medicine; Visit Provider Radiology Diagnostic Radiology | DX: R41.3 Other amnesia (principal); I63.81 Other cerebral infarction due to occlusion or stenosis of small artery | CPT/HCPCS: 70551 ==

== ENCOUNTER 2025-02-02 13:39 | Outpatient (AMB) | payer MEDICARE, SELFPAY ==
--- OUTSIDE RECORDS SUMMARY | 2024-04-03 09:15 | XMS_ITS ---
Author Organization Royal Schuler III, MD Address [address] [place] [address] [place] [address] Care Team Providers Care Signal Intelligence/Electronic Warfare Name Role Phone Dr. Royal Schuler III REASON FOR VISIT Picc Line dressing change Social History Sex Assigned At : Social History Observation Description Sex Assigned At Male Encounters Encounter Location Date Provider Diagnosis Royal Schuler III, MD [address] [place] [address] [address] [place] [address] 04/03/2024 Royal Schuler Dressing change Z48.00 Assessments Encounter Date Diagnosis (ICD Code) Assessment Notes Treatment Notes Treatment Clinical Notes 04/03/2024 Dressing change (ICD-10 - Z48.00) Plan Of Treatment Next Appt Details Follow Up: 1 Week, Reason: Progress Notes * Giovani BETANCUROB:1945 (79 yo M)Acc No.[id number]:04/03/2024 Progress Notes Patient: Bakari MORALES Provider: Bibi Schuler MD :1945 A ge:78 Y S ex:Male Date:04/03/2024 Address: [address] [facility] Subjective: * Chief Complaints: * 1 . [...] 1 06/04/2023 Generated for Lyndsay rousseau/Viviana/Michael on: 1 04:49 PM EDT
--- OUTSIDE RECORDS SUMMARY | 2024-04-10 10:30 | XMS_ITS ---
Author Organization Royal Schuler III, MD Address [address] [place] [address] [place] [address] Care Team Providers Care Storage Administrator Name Role Phone Dr. Royal Schuler III REASON FOR VISIT PIC Line Social History Sex Assigned At : Social History Observation Description Sex Assigned At Male Problems Problem Type SNOMED Code ICD Code Onset Dates Problem Status W/U Status Risk Notes Problem 887176801 Dressing change (Z48.00) Active confirmed Encounters Encounter Location Date Provider Diagnosis Royal Schuler III, MD [address] [place] [address] [place] [address] 04/10/2024 Royal Schuler Dressing change Z48.00 Assessments Encounter Date Diagnosis (ICD Code) Assessment Notes Treatment Notes Treatment Clinical Notes 04/10/2024 Dressing change (ICD-10 - Z48.00) Plan Of Treatment Next Appt Details Follow Up: 1 Week, Reason: O V, dressing change Progress Notes * Vignesh BETANCURwDOB:1945 (78 yo M)Acc No.[id number]:04/10/2024 Progress Notes Patient: Bakari MORALES Provider: Bibi Schuler MD :1945 A ge:78 Y S ex:Male Date:04/10/2024 Address:[address] [place] [address] [address]ier [facility] Subjective: * Chief Complaints: * P IC Line * HPI: v : He is receiving intravenous antibiotics for endocarditis. He has a PICC line in his right forearm. The dressing was changed today without difficulty. * Medical History: * Surgical History: * Hospitalization/Major Diagno stic Procedure: * Medications: Objective: * Vitals: Assessment: * Assessment: 1. D ressing change - Z48.00 (Primary) Plan: * Treatment: * Procedure Codes: 1 5852 DRESSING CHANGE,NOT FOR BURN * Follow Up: 1 Week (Reason: OV, dressing change) * Images: * Sign off status: Completed true * Provider: Bibi Schuler MD Date: 1 06/11/2023 Generated for Lyndsay rousseau/Viviana/Manuelitoitting on: 04:49 PM EDT
--- OUTSIDE RECORDS SUMMARY | 2024-04-17 11:00 | XMS_ITS ---
Author Organization Royal Schuler III, MD Address [address] [place] [address] Care Team Providers Care Inspector Assemblies And Installations Name Role Phone Dr. Royal Schuler III [facility] REASON FOR VISIT PIC Line, Staphylococcal endocarditis Social History Sex Assigned At : Social History Observation Description Sex Assigned At Male Encounters Encounter Location Date Provider Diagnosis Royal Schuler III, MD [address] [place] [address] [place] [address] 04/17/2024 Royal Schuler Peripherally inserte d central [...] Notes * Vignesh BETANCURwDOB:1945 (78 yo M)Acc No.[id number]:04/17/2024 Progress Notes Patient: Bakari MORALES Provider: Bibi Schuler MD :1945 A ge:78 Y S ex:Male Date:04/17/2024 Address: [address] [facility] Subjective: * Chief Complaints: * P IC [...] 1 06/18/2023 Generated for Lyndsay rousseau/Viviana/Manuelitoitting on: 04:49 PM EDT
--- NOTE | 2025-02-02 13:55 | A.OFFVIS_ITS ---
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 Instructions: Resume on 04/27/24. clopidogrel 75 mg PO DAILY coenzyme Q10 100 mg PO DAILY daptomycin 500 mg IV Q24H docusate sodium (Colace) 100 mg PO DAILY PRN donepezil 5 mg PO DAILY escitalopram oxalate 20 mg PO DAILY gabapentin 600 mg PO BEDTIME levetiracetam 250 mg PO BID magnesium 250 mg PO DAILY metoprolol succinate ER 50 mg PO BID HPI Comments Details: Jj comes for follow-up. He has been doing very well. He has been made recuperated well and walks about 3 miles a day. He said he feels great. Has no exertional chest pain. No shortness of breath. He has no symptoms of prolonged palpitation irregular heartbeat similar to atrial fibrillation or symptoms of PVCs. Denies any lightheadedness, syncope. Taking all his medication although he is currently on dual antiplatelet therapy. No bleeding issues. His LDL is well optimized. [facility] Medical History (Updated 02/02/25 @ 14:25 by Franklin Fuchs MD) Prosthetic valve endocarditis History of transesophageal echocardiography (GABBY) Endocarditis Obstructive sleep apnea hypopnea, moderate CAD (coronary artery disease) Mitral valve prolapse Hyperlipidemia PVCs (premature ventricular contractions) Postoperative atrial fibrillation Surgical History H/O neck surgery History of mitral valve replacement with bioprosthetic valve History of varicocele Hx of cardiac cath Family History Father No problems noted. Mother No problems noted. Social History Household Members: None Housing: House Are you a primary director of healthcare systems to a significant other at home: No Do you presently have visiting nurse or other home services: No Comment: 1 assist Patient Tobacco Use Status: Never used Tobacco e-Cigarette/Vaping Use: Never Used Second Hand Smoke Exposure: No Substance Use Type: Marijuana Advance Directives Date on File: 02/28/24 service: No Review of Systems Const Denies chills, Denies fatigue, Denies fever(s), Denies frequent falls, Denies weakness, Denies weight gain and Denies weight loss ENT Denies dizziness Card Denies chest pain, Denies leg edema, Denies lightheadedness, Denies palpitations, Denies dyspnea, Denies dyspnea on exertion, Denies orthopnea and Denies other (loss of consciousness) Resp Denies cough, Denies dyspnea and Denies dyspnea on exertion GI Denies hematochezia and Denies change in stool character Musc Denies abnormal gait, Denies muscle weakness, Denies numbness, Denies radiating pain into limb and Denies tingling Neuro Denies abnormal gait, Denies dizziness, Denies frequent falls, Denies numbness, Denies tingling and Denies weakness Endo Denies fatigue and Denies palpitations Physical Exam Vital Signs: Last Vital Signs Pulse 55 02/02/25 13:59 BP 116/70 02/02/25 13:59 BMI result Body Mass Index 21.4 Const General: cooperative, comfortable, no acute distress, alert, awake and well groomed Nutritional Appearance: thin Orientation/consciousness: patient oriented x3 Limitations: no limitations Neck Neck: Yes trachea midline, Yes supple and Yes no JVD Resp Effort & Inspection: normal respiratory effort Auscultation: clear to auscultation bilaterally Cardio Jugular venous distension: no JVD Palpation: normal PMI Rate: regular rate Rhythm: regular rhythm Heart sounds: S1 normal heart sound present, S2 normal heart sound present, no click, no gallops, no murmurs and no rubs GI Auscultation: normal bowel sounds Skin General skin exam: no rashes or lesions noted Neuro General: patient oriented x3 and no focal motor deficits Extrem General: Yes no clubbing, cyanosis or edema Psych Appearance: grossly normal Assessment & Plan Assessment & Plan (1) History of mitral valve replacement with bioprosthetic valve: Comment: 27 mm Hawley bovine pericardial valve, September 2019 for symptomatic mitral regurgitation Code(s): Z95.3 - Presence of xenogenic heart valve Category: Surgical Plan: Prior history of bioprosthetic mitral valve replacement for mitral valve prolapse with severe mitral regurgitation with last year having prosthetic valve endocarditis which got treated with antibiotics with subsequent clearance of his vegetation and infection with no recurrence of any symptoms at this point time. He has no chronic symptoms. He is doing clinically very well. Continue low- dose aspirin therapy. There was no need for dual antiplatelet therapy. Continue SBE prophylaxis as per ACC/aha guidelines. Follow-up echocardiogram in near future. (2) CAD (coronary artery disease): Comment: Nonobstructive LAD disease Code(s): I25.10 - Atherosclerotic heart disease of [place] coronary artery without angina pectoris Category: Medical Plan: CAD nonobstructive by cardiac catheterization. Does not require dual antiplatelet therapy as mentioned above. Continue low-dose aspirin therapy. Continue aggressive blood pressure control which is currently well optimized. Continue statin therapy with target goal LDL less than 70 mg/dL. Encouraged to maintain activity level as tolerated. Advised to call me with any new symptoms. (3) PVCs (premature ventricular contractions): Code(s): I49.3 - Ventricular premature depolarization Category: Medical Plan: Prior history of highly symptomatic PVCs which have now remained suppressed on metoprolol therapy. Has done well with metoprolol therapy. Continue the same. Avoidance of stimulants was discussed. Will follow up in the clinic in 1 year's time, sooner PRN. Thank you for allowing me to partake in his care Orders: Orders CA echo transthoracic complete Today Z95.3 - Presence of xenogenic heart valve Coding Level of Care Code Est Pt Level 4 (68513) Complex EM visit Add On G2211 Diagnoses History of mitral valve replacement with bioprosthetic valve Z95.3 CAD (coronary artery disease) I25.10 PVCs (premature ventricular contractions) I49.3
[2025-02-02 13:59] VITALS: BP 116/70; PULSE 55; BMI 21.4
--- OUTSIDE RECORDS SUMMARY | 2025-02-02 16:49 | XMS_ITS | Clinical Summary ---
Author Organization [facility] Address [address] [facility] [facility] [address] [place] [address] Phone Care Team Providers Care Public Transit Trolley Driver Name Role Phone Ab Lora MD Primary Care Provider [phone] Franklin Fuchs MD Unavailable [phone] Allergies No known active allergies Medications ascorbic [...] Active ferrous sulfate 324 mg (65 mg [place] iron) TbEC Take 1 tablet (324 mg [...] VACCINE (1 - 1-dose 75+ series) 2021 INFLUENZA VACCINE (#1) 2024 COVID-19 VACCINE (2 - 2024- season) 2024 04/26/2020 SMOKING STATUS SCREENING (Once After 26 [...] this topic Medical Devices Implanted Type Area Internal Sales Engineer Device Identifier Shelf Expiration Date Model / Serial / Lot Valve Mitral 29.5x27mm Bioprosthetic Pericard Ult Rossy Profnitin Rolon Shapd Cuf Asymmetric [facility] - [id number] Implanted:Qty: 1 on 10/19/2019 by Cricket Flores MD at [facility] [employer] 04/07/2022 [id number] / [id number] / Procedures Procedure Name Priority Date/Time Associated Diagnosis Comments BASIC METABOLIC PANEL Routine 10/26/2019 6:59 AM EDT COMPREHENSIVE METABOLIC PANEL STAT 10/19/2019 12:59 PM EDT from Last 3 Months or Most Recently Relevant to Health Maintenance Results * (ABNORMAL) Basic metabolic panel (10/26/2019 6:59 AM EDT) SODIUM 138 136 - 145 mmol/L [facility] POTASSIUM 4.6 3.4 - 5.1 mmol/L [facility] CHLORIDE 101 98 - 107 mmol/L [facility] CO2 24 22 - 31 mmol/L [facility] BUN 9 6 - 23 mg/dL [facility] CREATININE 0.93 0.50 - 1.20 mg/dL [facility] GLUCOSE 101(H) 70 - 100 mg/dL [facility] CALCIUM 8.5(L) 8.8 - 10.7 mg/dL [facility] EGFR 81 >59 mL/min/1.7 3m2 [facility] Comment:Estimated glomerular filtration rate calculated using the CKD-EPI equation. ANION GAP 13 7 - 17 mmol/L [facility] Blood 10/26/2019 6:59 AM EDT 10/26/2019 7:49 AM EDT Dennis Salomon PA-C LAB BLOOD ORDERABLES Final R esult Performing Organization Address City/State/[facility] Co de Phone Number [facility] [address] [place] [phone] * (ABNORMAL) Comprehensive metabolic panel (10/19/2019 12:59 PM EDT) SODIUM 141 136 - 145 mmol/L [facility] POTASSIUM 4.0 3.4 - 5.1 mmol/L [facility] CHLORIDE 109(H) 98 - 107 mmol/L [facility] CO2 19(L) 22 - 31 mmol/L [facility] BUN 11 6 - 23 mg/dL [facility] CREATININE 0.85 0.50 - 1.20 mg/dL [facility] GLUCOSE 118(H) 70 - 100 mg/dL [facility] ALBUMIN 2.8(L) 3.5 - 5.2 g/dL [facility] TOTAL PROTEIN 4.2(L) 6.4 - 8.3 g/dL [facility] CALCIUM 7.5(L) 8.8 - 10.7 mg/dL [facility] ALKALINE PHOSPHATASE 36 35 - 130 U/L [facility] TOTAL BILIRUBIN 0.4 0.0 - 1.0 mg/dL [facility] AST 35 10 - 50 U/L [facility] ALT 15 10 - 50 U/L [facility] GLOBULIN 1.4(L) 2.2 - 4.2 g/dL [facility] EGFR 86 >59 mL/min/1. 73m2 [facility] Comment:Estimated glomerular filtration rate calculated using the CKD-EPI equation. ANION GAP 13 7 - 17 mmol/L [facility] Blood 10/19/2019 12:5 9 PM EDT 10/19/2019 1:07 PM EDT Dom Mathis PA-C LAB BLOOD ORDERABLES Final Result Performing Organization Address City/State/[facility] Co de Phone Number [facility] [address] [place] [address] from Last 3 Months or Most Recently Relevant to Health Maintenance Insurance MEDICARE PART A & B [employer] MEDEX SUPPLEMENT MEDICARE PART A & B [employer] MEDEX SUPPLEMENT MEDICARE PART A & B [employer] MEDEX SUPPLEMENT MEDICARE PART A & B [employer] MEDEX SUPPLEMENT MEDICARE PART A & B MOG MEDEX SUPPLEMENT MEDICARE PART A & B MOG MEDEX SUPPLEMENT MEDICARE PART A & B MOG MEDEX SUPPLEMENT MEDICARE PART A & B MOG MEDEX SUPPLEMENT MEDICARE PART A & B [employer] MEDEX SUPPLEMENT Advance Directives For more information, please contact: [phone] (9AM - 5PM [facility], Saturday-Saturday) Documents on File Type Date Recorded Patient Service Order Clerk Expl anation Healthcare Proxy 10/13/2019 Healthcare Proxy 06/23/2018 * Full Code (Confirmed) (Latest Code Status on File) Date Activated Date Inactivated Comments 10/20/2019 6:50 AM Question Answer Comments Code Status Confirmed With: Patient * Full Code (Presumed) Date Activated Date Inactivated Comments 10/19/2019 12:48 PM 10/20/2019 6:50 AM Care Teams Public Transit Trolley Driver Relationship Specialty Start Date End Date Ab Lora MD [address] [facility] [address] [address] PCP - General Internal Medicine 06/19/19 Franklin Fuchs MD [address] [place] [address] [address] [place] [address] [employer] Operator Cardiology 10/28/19 Additional Source Comments The information contained in this document represents components of the legal health record. It is not the complete legal health record.[facility]
--- OUTSIDE RECORDS SUMMARY | 2025-02-02 16:49 | XMS_ITS | Encounter Summary ---
Author Organization [facility] Address [address] [place] [address] Care Team Providers Care Conference Assistant Name Role Phone Lou Hay MD Primary Care Provider [phone] Encounter Details Date Type Department Care Team (Late st Contact Info) Description 08/08/2024 Lab Requisition [facility] - Main Lab [address] [facility] [place] [address] Lou Hay MD [address] [place] [id number] Encounter for other general examination Social History [...] Safety Answer Date Record ed Physical Abuse Unrecognized value 03/06/2024 Verbal Abuse Unrecognized value 03/06/2024 Sex and Gender Information Value Date [...] mmol/L LAB CHEMISTRY METHOD 08/08/2024 5:[address] [facility] Potassium 4.2 3.5 - 5.5 mmol/L LAB CHEMISTRY METHOD 08/08/2024 5:[address] [facility] Chloride 104 96 - 110 mmol/L LAB CHEMISTRY METHOD 08/08/2024 5:[address] [facility] CO2 30 21 - 32 mmol/L LAB CHEMISTRY METHOD 08/08/2024 5:[address] [facility] Anion Gap 5 3 - 11 LAB CHEMISTRY METHOD 08/08/2024 5:[address] [facility] Glucose 110(H) 70 - 100 mg/dL LAB CHEMISTRY METHOD 08/08/2024 5:[address] [facility] BUN 19 5 - 25 mg/dL LAB CHEMISTRY METHOD 08/08/2024 5:[address] [facility] Creatinine 0.97 0.70 - 1.30 mg/dL LAB CHEMISTRY METHOD 08/08/2024 5:[address] [facility] eGFR 80 >=60 mL/min/1. 73m2 LAB CHEMISTRY METHOD 08/08/2024 5:[address] [facility] Comment:Calculation based on the Chronic Kidney Disease Epidemiology Collaboration (CKD-EPI) equation refit without adjustment for race. BUN/Creatinine Ratio 19.6 LAB CHEMISTRY METHOD 08/08/2024 5:50 PM EDT [facility] Calcium 9.4 8.5 - 10.5 mg/dL LAB CHEMISTRY METHOD 08/08/2024 5:50 PM T [facility] AST (SGOT) 37 10 - 42 unit/L LAB CHEMISTRY METHOD 08/08/2024 5:50 PM T [facility] ALT (SGPT) 45 10 - 60 unit/L LAB CHEMISTRY METHOD 08/08/2024 5:50 PM T [facility] Alkaline Phosphatase 101 42 - 121 unit/L LAB CHEMISTRY METHOD 08/08/2024 5:[address] [facility] Total Protein 6.7 6.0 - 8.0 g/dL LAB CHEMISTRY METHOD 08/08/2024 5:[address] [facility] Albumin 3.8 3.2 - 5.0 g/dL LAB CHEMISTRY METHOD [facility] Total Bilirubin 0.5 0.0 - 1.4 mg/dL LAB CHEMISTRY METHOD 08/08/2024 5:[address] [facility] Blood Venous blood specimen / Unknown Venipuncture / Unknown 08/08/2024 3:25 PM EDT 08/08/2024 4:49 PM EDT us Lou Hay MD LAB BLOOD ORDERABLES Final Res ult [facility] [address] [place] [address], documented in this encounter Visit Diagnoses Diagnosis Encounter for other general examination documented in this encounter Additional Health Concerns Assessment Noted Time PHQ-9 Depression Total Score: 0 03/10/20 24 12:37 PM EST documented as of this encounter Care Teams Conference Assistant Relationship Specialty Start Date End Date Lou Hay MD [address] [place] [id number] PCP - General Internal Medicine 07/23/24 documented as of this encounter
--- OUTSIDE RECORDS SUMMARY | 2025-02-02 16:49 | XMS_ITS | Clinical Summary ---
Author Organization [address] [facility] Address [address] [place] [address] Phone Care Team Providers Care Slagger Name Role Phone Lou Hay MD Primary Care Provider [phone] Allergies Active Allergy Reactions Criticality Noted Date [...] Noted Date Diagnosed Date Resolved Date Sepsis (CMS/[facility] V24, CMS/[facility]ER[facility] V28) 03/06/2024 03/10/2024 Medical History Medical History Date Comments HTN (hypertension) COPD (chronic obstructive pulmonary disease) (CM S/HCC V24, CMS/[facility]ER[facility] V28) CAD (coronary artery disease) Social History [...] 1965 Pneumococcal Vaccine: 50+ Years (1 of 1 - PCV) 1996 Zoster Vaccines (1 of 2) 1996 RSV Immunization Adult Patients (1 - 1-dose 75+ series) 2021 Cholesterol Screening (Lipid Panel) 03/06/2024 Hepatitis C Screening 03/06/2024 Medicare Annual Wellness Visit 03/06/2024 Depression Screening 04/29/2024 03/10/2024 COVID-19 Vaccine ( season) 2024 Influenza Vaccine (#1) 2024 Social [...] LAB CHEMISTRY METHOD 08/08/2024 5:50 PM EDT [facility] Calcium 9.4 8.5 - 10.5 mg/dL LAB CHEMISTRY METHOD 08/08/2024 5:50 PM EDT [facility] AST (SGOT) 37 10 - 42 unit/L LAB CHEMISTRY METHOD 08/08/2024 5:50 PM T [facility] ALT (SGPT) 45 10 - 60 unit/L LAB CHEMISTRY METHOD 08/08/2024 5:50 PM EDT [facility] Alkaline Phosphatase 101 42 - 121 unit/L LAB CHEMISTRY METHOD 08/08/2024 5:50 PM EDT [facility] Total Protein 6.7 6.0 - 8.0 g/dL LAB CHEMISTRY METHOD 08/08/2024 5:50 PM EDT [facility] Albumin 3.8 3.2 - 5.0 g/dL LAB CHEMISTRY METHOD 08/08/2024 5:50 PM EDT [facility] Total Bilirubin 0.5 0.0 - 1.4 mg/dL LAB CHEMISTRY METHOD 08/08/2024 5:50 PM EDT [facility] Blood Venous blood specimen / Unknown Venipuncture / Unknown 08/08/2024 3:25 PM EDT 08/08/2024 4:49 PM EDT us Lou Hay MD LAB BLOOD ORDERABLES Final Res ult [facility] [address] [place] [address], from Last 3 Months or Most Recently [...] currently active code status orders. Care Teams Slagger Relationship Specialty Start Date End Date Lou Hay MD [address] [place] [id number] PCP - General Internal Medicine 07/23/24
--- OUTSIDE RECORDS SUMMARY | 2025-02-02 16:49 | XMS_ITS | Encounter Summary ---
Author Organization [facility] Address [address] [place] [address] Care Team Providers Care Table Tender Name Role Phone Lou Hay MD Primary Care Provider [phone] Encounter Details Date Type Department Care Team (Late st Contact Info) Description 07/23/2024 Lab Requisition [facility] - Main Lab [address] [facility] [place] [address] Lou Hay MD [address] [place] [phone] Encounter for other general examination Social History [...] - 60.0 ug/mL 07/27/2024 6:37 AM EDT [facility] Comment: Steady state trough serum or plasma levels following doses of 1000 to 3000 mg/Day: 3 to 37 ug/mL. The same dosage regimen will typically result in peak levels of 10 to 60 ug/mL, at approximately 1.5 hours post dose. If applicable, any drug confirmation testing reported here was developed and the performance characteristics determined by [facility]. This confirmation testing has not been cleared or approved by the FDA. The laboratory is regulated under CLIA as qualified to perform high-complexity testing. This test is used for patient testing purposes. It should not be regarded as investigational or for research. Test performed at [facility], [address] , [place], [place] [id number] Arlyn Kaur MD, PhD - Youth Program Director Blood Venous blood specimen / Unknown Venipuncture / Unknown 07/23/2024 1:48 PM EDT 07/23/2024 3:50 PM EDT us Lou Hay MD LAB BLOOD ORDERABLES Final Res ult [facility] [address] [place] [address] documented in this encounter Visit Diagnoses Diagnosis Encounter for other general examination documented in this encounter Additional Health Concerns Assessment Noted Time PHQ-9 Depression Total Score: 0 03/10/20 24 12:37 PM EST documented as of this encounter Care Teams Table Tender Relationship Specialty Start Date End Date Lou Hay MD [address] [place] [id number] PCP - General Internal Medicine 07/23/24 documented as of this encounter
--- OUTSIDE RECORDS SUMMARY | 2025-02-02 16:49 | XMS_ITS | Encounter Summary ---
Author Organization [facility] Address [address] [place] [address] Care Team Providers Care Technical Report Writer Name Role Phone Lou Hay MD Primary Care Provider [phone] Encounter Details Date Type Department Care Team (Late st Contact Info) Description 08/02/2024 Lab Requisition [facility] - Main Lab [address] [place] [address] Lou Hay MD [address] [place] [address] Encounter for other general examination Social History [...] K/mcL LAB HEMETOLOGY METHOD 08/02/2024 10:29 AM [facility] LAB RBC 4.40(L) 4.50 - 5.50 M/mcL LAB HEMETOLOGY METHOD 08/02/2024 10:29 AM [facility] LAB Hemoglobin 12.6(L) 13.5 - 17.5 g/dL LAB HEMETOLOGY METHOD 08/02/2024 10:29 AM [facility] LAB Hematocrit 39.3(L) 42.0 - 54.0 % LAB HEMETOLOGY METHOD 08/02/2024 10:29 AM [facility] LAB MCV 88.7 79.0 - 98.0 FL LAB HEMETOLOGY METHOD 08/02/2024 10:29 AM [facility] LAB MCH 28.4 27.0 - 32.0 pcg LAB HEMETOLOGY METHOD 08/02/2024 10:29 AM [facility] LAB MCHC 32.1 32.0 - 37.0 g/dL LAB HEMETOLOGY METHOD 08/02/2024 10:29 AM [facility] LAB RDW 13.9 11.0 - 15.0 % LAB HEMETOLOGY METHOD 08/02/2024 10:29 AM T [facility] LAB Platelets 228 130 - 400 K/mcL LAB HEMETOLOGY METHOD 08/02/2024 10:29 AM [facility] LAB MPV 11.0 7.0 - 11.0 FL LAB HEMETOLOGY METHOD 08/02/2024 10:29 AM EDT [facility] LAB NRBC 0.0 <1.0 % LAB HEMETOLOGY METHOD [facility] NR[facility] Absolute 0.00 <0.10 K/mcL LAB HEMETOLOGY METHOD 08/02/2024 10:29 AM [facility] LAB Blood Venous blood specimen / Unknown Venipuncture / Unknown 08/02/2024 6:15 AM EDT 08/02/2024 9:38 AM EDT us Lou Hay MD LAB BLOOD ORDERABLES Final Res ult [facility] [address] [place] [address], * Basic metabolic panel (08/02/2024 6:15 AM EDT) Sodium 138 133 - 145 mmol/L LAB CHEMISTRY METHOD 08/02/2024 11:06 AM [facility] LAB Potassium 4.8 3.5 - 5.5 mmol/L LAB CHEMISTRY METHOD 08/02/2024 11:06 AM [facility] LAB Chloride 103 96 - 110 mmol/L LAB CHEMISTRY METHOD 08/02/2024 11:06 AM [facility] CO2 32 21 - 32 mmol/L LAB CHEMISTRY METHOD 08/02/2024 11:06 AM [facility] LAB Anion Gap 3 3 - 11 LAB CHEMISTRY METHOD 08/02/2024 11:06 AM [facility] LAB Glucose 75 70 - 100 mg/dL LAB CHEMISTRY METHOD 08/02/2024 11:06 AM [facility] BUN 15 5 - 25 mg/dL LAB CHEMISTRY METHOD 08/02/2024 11:06 AM [facility] LAB Creatinine 0.94 0.70 - 1.30 mg/dL LAB CHEMISTRY METHOD 08/02/2024 11:06 AM [facility] LAB eGFR 83 >=60 mL/min/1. 73m2 LAB CHEMISTRY METHOD 08/02/2024 11:06 AM [facility] LAB Comment:Calculation based on the Chronic Kidney Disease Epidemiology Collaboration (CKD-EPI) equation refit without adjustment for race. BUN/Creatinine Ratio 16.0 LAB CHEMISTRY METHOD 08/02/2024 11:06 AM [facility] LAB Calcium 9.2 8.5 - 10.5 mg/dL LAB CHEMISTRY METHOD 08/02/2024 11:06 AM [facility] Blood Venous blood specimen / Unknown Venipuncture / Unknown 08/02/2024 6:15 AM EDT 08/02/2024 9:38 AM EDT us Lou Hay MD LAB BLOOD ORDERABLES Final Res ult [facility] [address] [place] [address], documented in this encounter Visit Diagnoses Diagnosis Encounter for other general examination documented in this encounter Additional Health Concerns Assessment Noted Time PHQ-9 Depression Total Score: 0 03/10/20 24 12:37 PM EST documented as of this encounter Care Teams Technical Report Writer Relationship Specialty Start Date End Date Lou Hay MD [address] [place] [address] PCP - General Internal Medicine 07/23/24 documented as of this encounter
--- OUTSIDE RECORDS SUMMARY | 2025-02-02 16:50 | XMS_ITS | Patient Health Record ---
Author Organization Royal Schuler III, MD Address [address] [place] [address] [place] [address] Care Team Providers Care Batter Scaler Name Role Phone Dr. Royal Schuler III [facility] [phone] Reason For Referral No Information Social History Sex Assigned At : Social History Observation Description Sex Assigned At Male Problems Problem Type SNOMED Code ICD Code Onset Dates Problem Status W/U Status Risk Notes Problem 482297612 Dressing change (Z48.00) Active confirmed Encounters Encounter Location Date Provider Diagnosis Royal Schuler III, MD [address] [place] [address] [place] [id number] 04/10/2024 Royal Schuler Dressing change Z48. 00 Royal Schuler III, MD [address] [place] [address] [place] [phone] 04/03/2024 Royal Schuler Dressing change Z48. 00 Royal Schuler III, MD [address] [place] [address] [place] [phone] 04/17/2024 Royal Schuler Peripherally inserte d central [...] Coverage End Date MEDICARE N[place] [address] [facility] [place] [address] [id number] Bakari Betancur Self - patient is the insured [facility] [address] [place], [place] [id number] Bakari Betancur Self - patient is the insured
--- OUTSIDE RECORDS SUMMARY | 2025-02-02 16:50 | XMS_ITS | Patient Health Record ---
Author Organization [facility] Address [address] [place] [address] Care Team Providers Care Quarryman Name Role Phone Ab Lora MD Primary Care Provider Driss Keys Unavailable [phone] Reason For Referral No Information Medications Medication [...] Start Date Coverage End Date Medicare National [facility] [employer] [address] [place] [id number] [phone] [id number] Bakari Betancur Self - patient is the insured 2 [employer] [facility] [address] [place] [address] [phone] [id number] Bakari Betancur Self - patient is the insured Medical (General) History Medical History History ICD Code Measles Mumps High blood pressure Cholesterol Mitral valve regurgitation Benign prostatic hyperplasia (BPH)
--- OUTSIDE RECORDS SUMMARY | 2025-02-02 16:50 | XMS_ITS | Encounter Summary ---
Author Organization [facility] Address [address] [place] [address] Care Team Providers Care Electrical Service Technician Name Role Phone Lou Hay MD Primary Care Provider Encounter Details Date Type Department Care Team (Late st Contact Info) Description 07/23/2024 Lab Requisition [facility] - Main Lab [address] [facility] [place] [address] Lou Hay MD [address] [place] [address] Encounter for other general examination Social History [...] K/mcL LAB HEMETOLOGY METHOD 07/23/2024 11:39 AM [facility] RBC 4.30(L) 4.50 - 5.50 M/mcL LAB HEMETOLOGY METHOD 07/23/2024 11:39 AM [facility] Hemoglobin 12.2(L) 13.5 - 17.5 g/dL LAB HEMETOLOGY METHOD 07/23/2024 11:39 AM T [facility] LAB Hematocrit 38.4(L) 42.0 - 54.0 % LAB HEMETOLOGY METHOD 07/23/2024 11:39 AM [facility] LAB MCV 89.1 79.0 - 98.0 FL LAB HEMETOLOGY METHOD 07/23/2024 11:39 AM [facility] LAB MCH 28.3 27.0 - 32.0 pcg LAB HEMETOLOGY METHOD 07/23/2024 11:39 AM [facility] MCHC 31.8(L) 32.0 - 37.0 g/dL LAB HEMETOLOGY METHOD 07/23/2024 11:39 AM [facility] RDW 14.0 11.0 - 15.0 % LAB HEMETOLOGY METHOD 07/23/2024 11:39 AM [facility] LAB Platelets 202 130 - 400 K/mcL LAB HEMETOLOGY METHOD 07/23/2024 11:39 AM [facility] MPV 11.3(H) 7.0 - 11.0 FL LAB HEMETOLOGY METHOD 07/23/2024 11:39 AM [facility] NRBC 0.0 <1.0 % LAB HEMETOLOGY METHOD 07/23/2024 11:39 AM [facility] NRBC Absolute 0.00 <0.10 K/mcL LAB HEMETOLOGY METHOD 07/23/2024 11:39 AM [facility] Neutrophils Relative 61.1 % LAB HEMETOLOGY METHOD 07/23/2024 11:39 AM [facility] Lymphocytes Relative 27.9 % LAB HEMETOLOGY METHOD 07/23/2024 11:39 AM [facility] Monocytes Relative 9.7 % LAB HEMETOLOGY METHOD 07/23/2024 11:39 AM [facility] Eosinophils Relative 0.4 % LAB HEMETOLOGY METHOD 07/23/2024 11:39 AM [facility] Basophils Relative 0.4 % LAB HEMETOLOGY METHOD 07/23/2024 11:39 AM [facility] Immature Granulocytes Relative 0.5 % LAB HEMETOLOGY METHOD 07/23/2024 11:39 AM [facility] Neutrophils Absolute 4.67 1.50 - 7.00 K/mcL LAB HEMETOLOGY METHOD 07/23/2024 11:39 AM EDT [facility] Lymphocytes Absolute 2.13 1.00 - 5.00 K/[facility] LAB HEMETOLOGY METHOD 07/23/2024 11:39 AM EDT [facility] Monocytes Absolute 0.74 0.20 - 1.00 K/[facility] LAB HEMETOLOGY METHOD 07/23/2024 11:39 AM EDT [facility] Eosinophils Absolute 0.03 0.00 - 0.50 K/[facility] LAB HEMETOLOGY METHOD 07/23/2024 11:39 AM EDT [facility] Basophils Absolute 0.03 0.00 - 0.20 K/[facility] LAB HEMETOLOGY METHOD 07/23/2024 11:39 AM EDT [facility] Immature Granulocytes Absolute 0.04(H) 0.00 - 0.03 K/[facility] LAB HEMETOLOGY METHOD 07/23/2024 11:39 AM EDT [facility] Blood Venous blood specimen / Unknown Venipuncture / Unknown 07/23/2024 6:18 AM EDT 07/23/2024 11:02 AM EDT us Lou Hay MD LAB BLOOD ORDERABLES Final Res ult [facility] [address] [place] [address], * Magnesium (07/23/2024 6:18 AM EDT) Magnesium 2.1 1.9 - 2.6 mg/dL LAB CHEMISTRY METHOD 07/23/2024 12:32 PM EDT [facility] Blood Venous blood specimen / Unknown Venipuncture / Unknown 07/23/2024 6:18 AM EDT 07/23/2024 11:02 AM EDT Lou Hay MD LAB BLOOD ORDERABLES Final Res ult [facility] [address] [place] [address], * (ABNORMAL) Comprehensive metabolic panel (07/23/2024 6:18 AM EDT) Sodium 140 133 - 145 mmol/L LAB CHEMISTRY METHOD 07/23/2024 12:38 PM [facility] Potassium 4.0 3.5 - 5.5 mmol/L LAB CHEMISTRY METHOD 07/23/2024 12:38 PM [facility] Chloride 104 96 - 110 mmol/L LAB CHEMISTRY METHOD 07/23/2024 12:38 PM [facility] CO2 28 21 - 32 mmol/L LAB CHEMISTRY METHOD 07/23/2024 12:38 PM [facility] Anion Gap 8 3 - 11 LAB CHEMISTRY METHOD 07/23/2024 12:38 PM [facility] Glucose 78 70 - 100 mg/dL LAB CHEMISTRY METHOD 07/23/2024 12:38 PM [facility] BUN 24 5 - 25 mg/dL LAB CHEMISTRY METHOD 07/23/2024 12:38 PM [facility] Creatinine 0.99 0.70 - 1.30 mg/dL LAB CHEMISTRY METHOD 07/23/2024 12:38 PM [facility] eGFR 78 >=60 mL/min/1. 73m2 LAB CHEMISTRY METHOD 07/23/2024 12:38 PM [facility] Comment:Calculation based on the Chronic Kidney Disease Epidemiology Collaboration (CKD-EPI) equation refit without adjustment for race. BUN/Creatinine Ratio 24.2 LAB CHEMISTRY METHOD 07/23/2024 12:38 PM [facility] Calcium 8.6 8.5 - 10.5 mg/dL LAB CHEMISTRY METHOD 07/23/2024 12:38 PM [facility] AST (SGOT) 17 10 - 42 unit/L LAB CHEMISTRY METHOD 07/23/2024 12:38 PM EDT [facility] ALT (SGPT) 24 10 - 60 unit/L LAB CHEMISTRY METHOD 07/23/2024 12:38 PM EDT [facility] Alkaline Phosphatase 66 42 - 121 unit/L LAB CHEMISTRY METHOD 07/23/2024 12:38 PM EDT [facility] Total Protein 6.1 6.0 - 8.0 g/dL LAB CHEMISTRY METHOD 07/23/2024 12:38 PM EDT [facility] Albumin 3.1(L) 3.2 - 5.0 g/dL LAB CHEMISTRY METHOD 07/23/2024 12:38 PM T [facility] Total Bilirubin 0.3 0.0 - 1.4 mg/dL LAB CHEMISTRY METHOD 07/23/2024 12:38 PM T [facility] Blood Venous blood specimen / Unknown Venipuncture / Unknown 07/23/2024 6:18 AM EDT 07/23/2024 11:02 AM EDT Lou Hay MD LAB BLOOD ORDERABLES Final Res ult [facility] [address] [place] [address], documented in this encounter Visit Diagnoses Diagnosis Encounter for other general examination documented in this encounter Additional Health Concerns Assessment Noted Time PHQ-9 Depression Total Score: 0 03/10/20 24 12:37 PM EST documented as of this encounter Care Teams Electrical Service Technician Relationship Specialty Start Date End Date Lou Hay MD [address] [place] [address] PCP - General Internal Medicine 07/23/24 documented as of this encounter
--- OUTSIDE RECORDS SUMMARY | 2025-02-02 16:50 | XMS_ITS | Patient Health Record ---
Author Organization [facility] Address [address] [place] [address] Care Team Providers Care Property Maintenance Technician Name Role Phone Ab Lora MD Primary Care Provider Kiana anderson LooRoyal Unavailable [phone] Reason For Referral No Information Medications Medication [...] Problem Status W/U Status Risk Notes Problem [id number] Encounter for screening for malignant neoplasm of colon (Z12.11) Active confirmed Problem 595291506 Early satiety (R68.81) Active confirmed Problem 807641839106393 Preprocedural examination (Z01.818) Active confirmed Problem 87943179 Constipation, unspecified constipation type (K59.00) Active confirmed Problem 44770865 Pharyngoesophage al dysphagia (R13.14) Active confirmed Plan Of Treatment Pending Test Test Name Order Date XR BARIUM SWALLOW-ESOPHAGUS 08/04/2020 XR GI SERIES 08/04/2020 Future Test Test Name Order Date COLONOSCOPY 06/03/2018 Insurance Providers Payer Name Payer Address Payer Phone Subscriber Number Group Number Insured Name Patient Relationship to Insured Coverage Start Date Coverage End Date MEDICARE OF [place] [address] [place] [address] [phone] [id number] TERE BETANCUR Self - patient is the insured [employer] CLAIM[employer] [address] [place] [address] [id number] TERE BETANCUR Self - patient is the insured Medical (General) History Medical History History ICD Code Mitral valve regurgitation--Dr. Fuchs Denies [place],DM,CVA,Lung disease,renal dise ase Neg. screening colonoscopy i n 2006--mild diverticulosis and internal hemorrhoids C-spine disc disease--will be having breanne wilder in the Spring 2018 Surgical History Surgery Date(Month/Year) Varicocele
--- OUTSIDE RECORDS SUMMARY | 2025-02-02 16:50 | XMS_ITS | Encounter Summary ---
Author Organization [facility] Address [address] [place] [address] [place] [address] Phone Care Team Providers Care Surgical Instruments Inspector Name Role Phone Ab Lora MD Primary Care Provider [phone] Franklin Fuchs MD Unavailable [phone] Encounter Details Date Type Department Care Team (Late st Contact Info) Description 10/19/2019 Procedure Pass [facility] Periop [address] [place] [address] Social History Tobacco Use Types Packs/Day Years [...] documented as of this encounter Care Teams Surgical Instruments Inspector Relationship Specialty Start Date End Date Ab Lora MD [address] [address] PCP - General Internal Medicine 06/19/19 Franklin Fuchs MD [address] [place] [address] [address] [place] [address] Sliding Joint Maker Cardiology 10/28/19 documented as of this encounter Additional Source Comments The information contained in this document represents components of the legal health record. It is not the complete legal health record.[facility]
== END 2025-02-02 14:23 | disposition home or self-care (01) ==
LOC: HO.HCS 13:39
PROVIDERS: PCP Internal Medicine; Visit Provider Internal Medicine Cardiovascular Disease
DX: Z95.3 Presence of xenogenic heart valve (principal); I25.10 Atherosclerotic heart disease of native coronary artery without angina pectoris; I49.3 Ventricular premature depolarization
CPT/HCPCS: 99214; G2211

== ENCOUNTER → 2025-02-02 13:39 | Outpatient (BNVA) | payer MEDICARE, SELFPAY | PROVIDERS: PCP Internal Medicine; Visit Provider Internal Medicine Cardiovascular Disease | DX: I49.3 Ventricular premature depolarization (principal); I25.10 Atherosclerotic heart disease of native coronary artery without angina pectoris; I10 Essential (primary) hypertension; Z95.3 Presence of xenogenic heart valve; Z79.82 Long term (current) use of aspirin; E78.5 Hyperlipidemia, unspecified | CPT/HCPCS: 99212 ==

== ENCOUNTER → 2025-03-12 10:40 | Outpatient (REF) | payer MEDICARE, SELFPAY ==
--- NOTE | 2025-03-12 10:44 | CA_ITS ---
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 Normal LV ejection fraction of 65-70% with impaired relaxation filling pattern 2. Normally functioning bioprosthetic mitral valve with mean gradient of 4 mm Hg 3. Normal RV systolic pressure 4. No gross pericardial effusion Findings Left Ventricle Normal left ventricular size, thickness, and systolic function. The visually estimated ejection fraction is between 65-70%. Spectral Doppler is indicative of an impaired relaxation filling pattern. Right Ventricle Normal right ventricular cavity size and systolic function. Atria Both atria are normal in size. There is no evidence of interatrial shunt. Aortic Valve There is moderate calcification of the aortic valve. There is no aortic valve stenosis. There is no aortic valve regurgitation. Mitral Valve A bioprosthetic mitral valve is present. The prosthetic mitral valve appears to be functioning normally. There is no mitral valve regurgitation. Pulmonic Valve The pulmonic valve is likely normal. Tricuspid Valve Normal tricuspid valve structure. There is trace tricuspid valve regurgitation. The right ventricular systolic pressure is normal. The right ventricular systolic pressure is 17 mmHg. Normal right atrial pressure. There is no evidence of pulmonary hypertension. Great Vessels All visible segments of the aorta are normal in size. The pulmonary artery was not well visualized. There is no dilatation of the ascending aorta measuring 3.20 cm. Small plaque is seen in the sino tubular ridge. Venous The inferior vena cava is normal in size and collapses greater than 50% with inspiration. Pericardium/Pleural There is no evidence of pericardial effusion. Prior Study Comparison No significant change compared to prior study dated: 04/24/2024. Measurements 2D Linear Measurements IVSd: 0.83 0.6-0.9/0.6-1.0 cm LVIDd: 3.92 3.9-5.3/4.2-5.9 cm LVIDd Index: 2.28 2.4-3.2/2.2-3.1 cm/m2 LVIDs: 2.49 2.0-3.6 cm LVPWd: 0.73 0.7-1.1 cm LA Diam: 3.20 2.7-3.8/3.0-4.0 cm LAIDs Index: 1.86 1.5-2.3 cm/m2 LV Mass: 108.13 67-162/88-224 g LV Mass Index: 62.87 43-95/49-115 g/m2 LVOT Diam: 1.90 3.0+(-)1.3 cm 2D Systolic Function EF 4C: 71.50 >55% EF 2C: 69.80 >55% EF BiP: 70.60 >55% Mitral Valve MV VTI: 0.60 MV Pk Keyon: 1.57 MV Mn Keyon: 1.00 MV Pk Grad: 10.00 MV Mn Grad: 4.00 MV Pk E: 1.32 MV PK A: 1.37 MV Decel Time: 394.00 E/A: 1.00 E'Lateral: 6.09 E'Medial: 5.66 E/E' Med: 23.30 E/E' Lat: 21.70 PHT: 116.00 MVA PHT: 1.90 MVA Continuity: 2.15 Decel [place]: 3.36 Aortic Valve AoV Pk Keyon: 2.13 AoV Mn [place]on: 1.39 AoV VTI: 0.48 AoV Pk Grad: 18.00 Aov Mn Grad: 9.00 DARSHANA Cont.VTI: 2.71 LVOT LVOT Pk Keyon: 1.90 LVOT Mn Keyon: 1.30 LVOT VTI: 0.46 LVOT Pk Grad: 14.00 LVOT Mn Grad: 8.00 LVOT Diam: 1.90 LVOT Area: 2.84 Diastolic Function MV Pk E: 1.32 MV Pk A: 1.37 E/A: 1.00 E'Medial: 5.66 E/E' Med: 23.30 E' Laterial: 6.09 E/E' Lat: 21.70 Right Ventricle TAPSE (mm): 19.00 TVS' Keyon: 10.00 Tricuspid Valve TR Pk Keyon: 1.86 TR Pk Grad: 14.00 RA Press: 3.00 RVSP: 17.00 Great Vessels Aorta Sinus of Valsalva: 3.20 2.0-3.5 cm Ao Asc: 3.20 2.1-3.4 cm Pulmonary Valve PV Pk Keyon: 0.73 Peak PV Grad: 2.00 Updated in Other Vendor System with Status of Final Franklin Fuchs MD electronically signed on 03/12/2025 5:57:28 PM with status of Final
== END ==
LOC: HO.CARD 10:40
PROVIDERS: PCP Internal Medicine; Visit Provider Internal Medicine Cardiovascular Disease
DX: Z95.3 Presence of xenogenic heart valve (principal)
CPT/HCPCS: 93306

== ENCOUNTER → 2025-03-12 10:44 | Outpatient (BNV) | payer MEDICARE, SELFPAY | PROVIDERS: PCP Internal Medicine; Visit Provider Internal Medicine Cardiovascular Disease | DX: I51.89 Other ill-defined heart diseases (principal); Z95.3 Presence of xenogenic heart valve | CPT/HCPCS: 93306 ==